=== PATIENT | female | born 1975 | race Caucasian/White ===

== ENCOUNTER 2019-01-26 09:15 | Emergency (ER) | payer OTHER, SELFPAY ==
[2019-01-26 09:18] VITALS: BP 129/83; PULSE 84; RESP 20; TEMP 36.8; O2SAT 100
[2019-01-26] MEDS: Ondansetron O.D.T. 4 MG TABEF PO (10:00)
--- NOTE | 2019-01-26 10:14 | W.ED.GENAD ---
Discharge Plan Disposition Patient Disposition: HOME Condition: Good Discharge Details Chief Complaint: ETOHWithdr Clinical Impression: Drug abuse Primary Care Provider: Abbey Lam ED Provider: Ira Borjas Home Meds and New Rx's Prescriptions: New ondansetron HCl [Zofran] 4 mg tablet 4 mg PO Q8H PRN (Reason: nausea) Qty: 7 RF: 0 No Action ibuprofen 400 MG tablet 400 mg PO DAILY RF: 0 Discharge Instructions Instructions: Abuse of Alcohol (ED), Opioid Dependence (ED) Additional Instructions: Push fluids by mouth. Eat a well-balanced diet. Avoid alcohol or opiates. Use nausea medication as prescribed if needed. Use Benadryl if needed [id number] as directed. Follow-up with Jose Carlos tomorrow morning at 6:30 AM. Follow-up with PCP on the at 1245 in [place]. Return for any worsening or concerns sooner if needed. Please consider attending AA and/or NA meetings Stand Alone Forms: Work Release Medical Decision Making rhythmic gymnastics coach in the ER to evaluate and help assist patient in arranging appropriate detox/specialist follow-up Spoke with skin care therapist who arranged for patient to see May tomorrow at 6:30 AM as well as a PCP appointment on the at 1245 in [place]. Discussed use of benzos versus conservative treatments. She would prefer to avoid benzos at this time. Prescribed nausea medication. Patient has Benadryl at home for withdrawal symptoms if needed. Patient agrees with plan of care. Contracts to avoid drugs and alcohol. Patient encouraged to go to AA or NA meetings locally. HPI General Date/Time Provider Initiated Documentation: 01/26/19 09:32. HPI Narrative: Patient presents for complaints and concern of needing help with both alcohol and opiate dependence. Patient reports she had been clean and sober for approximately 3 years. Patient reports in the last 2 weeks after her boyfriend was detained in correction she has had increase in stress therefore began drinking approximately 1 pint of vodka daily and begin using fentanyl, snorting. Patient reports she has not used fentanyl in the last 5 days but has continued to drink. Patient reports she is very concerned as she is hoping she can get some assistance with detox and would prefer to begin Suboxone treatment. Patient denies any medical concerns or complaints at this time. Denies chest pain, difficulty no shortness of breathing. Denies headaches or dizziness. Denies any recent falls. No associated trauma recently. Patient denies abdominal pain. Mild nausea present. No associated bowel changes. Urinating without guilty. No other concerns or complaints at this time. Related Data Home Medications Medication Instructions Recorded Confirmed ibuprofen 400 mg PO DAILY 09/20/17 01/26/19 ondansetron HCl [Zofran] 4 mg PO Q8H PRN #7 tab 01/26/19 Previous Rx's Medication Instructions Recorded ondansetron HCl [Zofran] 4 mg PO Q8H PRN #7 tab 01/26/19 Allergies Allergy/AdvReac Type Severity Reaction Status Date / Time shellfish derived Allergy Mild Itching Unverified 01/26/19 09:21 tramadol AdvReac Mild Agitation Unverified 01/26/19 09:21 General Stated Complaint: ETOHWithdr STEVE: 3 Review of Systems Review of Systems Narrative: CONSTITUTIONAL: The patient denies fevers, chills. EYES: Denies vision changes, blurry vision, or eye pain. ENT: Denies hearing changes, tinnitus, vertigo, sore throat. CARDIAC: Denies chest pain, SOB. RESPIRATORY: Denies cough, sputum. Denies difficulty breathing. GASTROINTESTINAL: Denies abdominal pain, changes in bowel, vomiting or nausea. GENITOURINARY: Denies dysuria, or frequency of urination. MUSCULOSKELETAL: Denies Joint pain, gait changes. NEUROLOGIC: Denies headaches, Denies focal weakness. Denies numbness. INTEGUMENT: Denies rashes. PSYCHIATRIC: Denies behavior changes. Denies anxiety or depression. ENDOCRINOLOGY: Denies fatigue. PSYCHIATRY: Denies depression, agitation or anxiety. Drug abuse. Alcohol abuse [facility] Surgical History back surgery lumbar disk shaving. bunionectomy L foot. Family History Grandmother No problems noted. Social History Smoking/Tobacco Use Status: Current every day Alcohol Intake: current Alcohol Intake frequency: 3 or more drinks per day Alcohol type: hard liquor Drug use: Daily Substance use type: opiates Details: Fentanyl use daily by pill not prescribed 20mg Do you feel safe at home: Yes Do you feel safe in your relationship?: Yes Exam Narrative Exam Narrative: CONST: Healthy appearing patient, in no acute distress. Well hydrated. Alert and alert. HENMT: Head nomocephalic, normal to inspection. Atraumatic. Hearing grossly normal. EYES: General normal appearance. Alignment normal. Eyelids normal. Conjunctiva normal. NECK: Normal visual inspection. FROM. Trachea midline. No Midline tenderness. CHEST: Normal insepection of the chest. RESP: Normal respiratory effort. Speaking full sentences. No cough. No audible wheezing. No retractions. CARDIO: No JVD. MUSCULOSKELETAL: Normal Gait. FROM of all extremities. SKIN: Normal. Dry. No rashes. NEURO: Alert and awake. Speech clear. PSYCH: Normal affect. Cooperative. Course Vital Signs Vital signs: Vital Signs Temperature 36.8 C 01/26/19 09:18 Pulse 84 01/26/19 09:18 Respiratory Rate 20 01/26/19 09:18 Blood Pressure 129/83 01/26/19 09:18 Pulse Oximetry 100 01/26/19 09:18 Temperature 36.8 C 01/26/19 09:18 Temperature Source Temporal Artery Scan 01/26/19 09:18 Pulse 84 01/26/19 09:18 Respiratory Rate 20 01/26/19 09:18 Respiratory Effort Non-Labored 01/26/19 09:21 Respiratory Pattern Normal 01/26/19 09:21 Blood Pressure 129/83 01/26/19 09:18 Blood Pressure Position Sitting 01/26/19 09:18 Pulse Oximetry 100 01/26/19 09:18 Oxygen Delivery Method Room Air 01/26/19 09:18 Oxygen Flow Rate 0 01/26/19 09:18 Pain Level 0 01/26/19 09:18
[2019-01-26 10:23] LABS: Abs Immature Grans 0.02 k/cumm (0.0-0.09); Absolute Basophil Count 0.05 k/cumm (0.0-0.2); Absolute Eosinophil Count 0.04 k/cumm (0.0-0.7); Absolute Monocyte Count 0.43 k/cumm (0.11-0.7); Absolute Neutrophil Count 2.59 k/cumm (1.2-6.7); Basophils % 1.2; Eosinophils % 0.9; HCT 46.8 % (36.0-46.0); HGB 15.7 g/dL (12.0-15.5); Immature Grans % 0.5; Mean Corp. HGB Concentration 33.5 g/dL (32.0-36.0); Mean Corpuscular Volume 98.3 fL (80-95); Mean Platelet Volume 10.2 fL (8.0-11.0); Monocytes % 10.2; Neutrophils % 61.2; Platelet Count 288 x1000/uL (130-400); RBC 4.76 m/cumm (4.00-5.20); RBC Distribution Width 13.6 % (11.7-14.6); White Blood Cell Count 4.23 k/cumm (4.4-10.8)
[2019-01-26 10:55] LABS: *AMPHETAMINES SCREEN URINE Negative (Negative); *BARBITURATES SCREEN URINE Negative (Negative); *BENZODIAZEPINES SCREEN URINE Negative (Negative); Cannabinoids THC Negative (Negative); Cocaine Screen,Urine Negative (Negative); METHADONE URINE SCREEN Negative (Negative); OPIATES URINE SCREEN Negative (Negative)
[2019-01-26 10:56] LABS: Tricyclic Antidepressants Negative (Negative)
[2019-01-26 10:59] LABS: ALT 242 U/L (14-59); AST 200 U/L (15-37); Albumin 3.9 g/dL (3.4-5.0); Alkaline Phosphatase 105 U/L (46-116); Anion Gap 14.2 mmol/L (3-11); BUN 6 mg/dL (7-18); Bilirubin, Total 0.5 mg/dL (0.2-1.0); CO2 24.8 mmol/L (21.0-32.0); CREATININE 0.57 mg/dL (0.55-1.02); Calcium 8.9 mg/dL (8.5-10.1); Chloride 107 mmol/L (98-107); Glucose 86 mg/dL (70-100); Potassium 3.7 mmol/L (3.5-5.1); Sodium 146 mmol/L (136-145); Total Protein 7.9 g/dL (6.4-8.2)
[2019-01-26 11:03] LABS: HCG Qual (Serum) Negative
[2019-01-26 11:09] LABS: TSH 0.35 uIU/mL (0.36-3.74)
[2019-01-26 13:50] VITALS: BP 118/69; PULSE 81; RESP 16; TEMP 36.6; O2SAT 97
== END 2019-01-26 13:53 | disposition home or self-care (01) ==
PROVIDERS: Emergency Provider Physician Assistant; PCP Nurse Practitioner Family
DX: F10.20 Alcohol dependence, uncomplicated (principal); R11.0 Nausea; F11.20 Opioid dependence, uncomplicated; Z63.0 Problems in relationship with spouse or partner
CPT/HCPCS: 80053; 80307; 99283; 83735; 84443; 84703; 85025

== ENCOUNTER 2019-02-05 14:38 | Outpatient (REF) | payer OTHER, SELFPAY ==
[2019-02-05 21:56] LABS: ALT 123 U/L (14-59); AST 64 U/L (15-37); Albumin 3.4 g/dL (3.4-5.0); Alkaline Phosphatase 97 U/L (46-116); Anion Gap 8.1 mmol/L (3-11); BUN 9 mg/dL (7-18); Bilirubin, Total 0.2 mg/dL (0.2-1.0); CO2 24.9 mmol/L (21.0-32.0); CREATININE 0.67 mg/dL (0.55-1.02); Calcium 8.3 mg/dL (8.5-10.1); Chloride 105 mmol/L (98-107); FREE T4 0.87 ng/dL (0.76-1.46); Glucose 94 mg/dL (70-100); Potassium 4.1 mmol/L (3.5-5.1); Sodium 138 mmol/L (136-145); Total Protein 6.5 g/dL (6.4-8.2)
[2019-02-07 16:47] LABS: T3,Free 4.3 pg/ml (2.8-5.3)
[2019-02-08 11:42] LABS: Hepatitis A Antibody IgM Negative (NEGAT); Hepatitis B Core Antibody Negative (NEGAT); Hepatitis B surface Ag Negative (NEGAT); Hepatitis C Ab w Rflx HCV PCR Negative (NEGAT)
== END 2019-02-05 14:58 ==
LOC: NCHCN 14:38
PROVIDERS: PCP Nurse Practitioner Family; Visit Provider Nurse Practitioner Family
DX: E05.90 Thyrotoxicosis, unspecified without thyrotoxic crisis or storm (principal); R74.8 Abnormal levels of other serum enzymes; K30 Functional dyspepsia; F32.9 Major depressive disorder, single episode, unspecified; F10.21 Alcohol dependence, in remission; E66.9 Obesity, unspecified; D75.89 Other specified diseases of blood and blood-forming organs; F19.21 Other psychoactive substance dependence, in remission
CPT/HCPCS: 80053; 86704; 86709; 86803; 87340; 84439; 84481

== ENCOUNTER 2019-02-16 01:34 | Outpatient (CLI) | payer OTHER, SELFPAY ==
--- NOTE | 2019-02-16 14:58 | DI.US_ITS ---
EXAM: US THYROID CLINICAL HISTORY: HYPERTHYROIDISM, E05.90. TECHNIQUE: Ultrasound performed using standard protocol. COMPARISON: None FINDINGS: The right lobe measures 5.0 x 1.6 x 1.6 cm. The left lobe measures 5.2 x 1.3 x 1.2 cm. Thyroid ech o texture is homogeneous. No cysts or masses are seen. Bilateral anterior cervical lymph are noted which have normal morphology. IMPRESSION: Thyroid ultrasound is within normal limits.
== END 2019-02-16 01:54 ==
PROVIDERS: PCP Nurse Practitioner Family; Visit Provider Nurse Practitioner Family
DX: E05.90 Thyrotoxicosis, unspecified without thyrotoxic crisis or storm (principal); R59.0 Localized enlarged lymph nodes
CPT/HCPCS: 76536

== ENCOUNTER 2019-03-13 10:11 | Emergency (ER) | payer OTHER, SELFPAY ==
[2019-03-13 10:14] VITALS: BP 163/84; PULSE 71; RESP 16; TEMP 36.7; O2SAT 98
--- NOTE | 2019-03-13 10:42 | ED.GENADUL_ITS ---
Discharge Plan Disposition Patient Disposition: HOME Condition: Good Discharge Details Chief Complaint: DentalOral Clinical Impression: Dental infection, Edema Primary Care Provider: Ira Thao ED Provider: Shana Shultz Home Meds and New Rx's Prescriptions: New penicillin V potassium 500 mg tablet 500 mg PO QID 7 Days Qty: 28 RF: 0 Continued ibuprofen 400 MG tablet 400 mg PO DAILY RF: 0 buprenorphine-naloxone [Suboxone] 8-2 mg Film 8 film BUCCAL DAILY RF: 0 Discharge Instructions Instructions: Dental Abscess (ED) Additional Instructions: Encourage hydration. May use Tylenol and/or ibuprofen as needed for discomfort. If you develop increased swelling, discharge, fever/chills or other new/worsening symptoms please seek care urgently once again. Regard to your lower extremity edema, your labs are reassuring today. However, develop chest pain, shortness of breath, difficulty breathing, leg pain, skin changes or other new/worsening symptoms please seek care urgently once again. This may be linked to your recent increase in Suboxone dosing. Please discuss endorsing further with [facility] and your primary care provider. Please keep your upcoming appointment with your primary care physician. Referrals: Ira Thao [Primary Care Provider] - Medical Decision Making Patient is a 44-year-old female presenting today with chief complaint of dental pain and also endorsing bilateral lower extremity edema. On exam, she does have mild area of swelling near the #19 tooth which is also fractured. No area of fluctuance to suggest abscess. Palpated best externally. It seems to be too anterior to the parotid gland. Is tender to palpation. She appears nontoxic. Afebrile. Patient reports she has had infections like this historically but typically not to this area. No exam, patient has an area of swelling correlating with a fractured 19 tooth. Plan to treat the patient with penicillin. Discussed plan with the patient is in agreement. No evidence to suggest an abscess at this time. She is endorsing bilateral lower extremity edema that began after her increase in Suboxone. States that the lower extremity edema has waxed and waned since the increase of Suboxone depending on activity level. I did review up-to-date and found that less than 1% of people can have peripheral edema as a side effect of Suboxone. Unclear if this is dose related. She feels that these things are directly related. However, as her blood pressure is slightly higher than typical, feel that labs are appropriate to evaluate for kidney dysfunction, CHF. I find DVT very unlikely given history and physical exam findings. Patient reports that her sister does have a history of factor V Leiden and she has had testing historically and is been negative for any coagulopathies. No history of DVT. No estrogen or hormone replacement, no recent travel. Again, with the symmetric bilateral lower extremity painless edema, do not feel DVT is likely. I did consider doing a screening d-dimer but I am concerned that this may be falsely elevated with her acute infection. Labs reviewed with no significant abnormality. Liver and kidney function normal. No leukocytosis. No electrolyte abnormality. TSH is normal. Normal albumin. Urine is significant for proteinuria which I discussed with the patient advise she have follow-up with her primary care. Urinalysis is heavily contaminated. Discussed these findings with the patient. Patient will be treated as above with the penicillin for her dental infection. I encouraged elevation and use of CHAN hose for her lower extremity edema that may be linked to her increase in Suboxone dosing. She does have follow-up with the Suboxone clinic on Friday and will discuss the side effects and potentially discussed dosage change. She has an appointment next week with her primary care as well at which time she will discuss these symptoms further. She was given strict return precautions when to seek care urgently once again. All of her questions and concerns were addressed and she is in agreement with this plan. HPI General Mode of arrival: ambulatory . Date/Time Provider Initiated Documentation: 03/13/19 10:42 . Limitations to Documentation: no limitations . Information obtained by: patient and RN notes reviewed . HPI Narrative: Patient is a 44-year-old female history of alcoholism, elevated transaminase levels, hypokalemia presents today with chief complaint of left lower dental infection and lower extremity edema. In regard to the dental infection, she reports that this began yesterday. States that she noted some swelling. Has pain particularly with pressure palpation over this area. Denies any fevers or ch ills. No previous infections to this area. States that she has been able to eat and drink despite this area of swelling and discomfort. Patient does receive regular dental care. In regard to the lower extremity edema, patient reports this began around 02/26/2019 just days after increasing her Suboxone dosing. She feels this likely linked to the Suboxone increasing. States that she increased from 4 to 8. She denies any chest pain, difficulty breathing, shortness of breath. Has not noted any pain in the legs. Reports she has not typically had lower extremity edema historically. No change in urination, denies any flank pain. No other recent change in medications. Patient does report that she has a history of alcoholism and relapsed a few months ago causing a spike in her LFTs. States that she was seen by her primary care approximately 1 month ago and if this was downtrending. Is not had any alcohol since. Denies any illicit drug use. No recent travel. No recent antibiotic use. Related Data Home Medications Medication Instructions Recorded Confirmed ibuprofen 400 mg PO DAILY 09/20/17 01/26/19 buprenorphine-naloxone [Suboxone] 8 film BUCCAL DAILY 03/13/19 03/13/19 penicillin V potassium 500 mg PO QID 7 Days #28 tab 03/13/19 Previous Rx's Medication Instructions Recorded penicillin V potassium 500 mg PO QID 7 Days #28 tab 03/13/19 Allergies Allergy/AdvReac Type Severity Reaction Status Date / Time shellfish derived Allergy Mild Itching Unverified 03/13/19 10:17 tramadol AdvReac Mild Agitation Unverified 03/13/19 10:17 General Stated Complaint: DentalOral STEVE: 4 Review of Systems Constitutional Constitutional: Reports as per HPI, Denies chills, Denies fever(s), Denies headache(s), Denies lethargy and Denies poor appetite Eyes Eyes: Denies change in vision ENT Ears, Nose, Mouth, and Throat: Reports as per HPI, Denies dysphagia, Denies dizziness, Denies headache(s), Denies hoarseness, Denies lip swelling, Denies mouth lesions, Reports mouth pain, Denies nasal congestion, Denies nasal discharge, Denies sore throat, Denies throat swelling and Denies tongue swelling Cardiovascular Cardiovascular: Reports as per HPI, Denies chest pain, Denies chest pain at rest, Denies chest pain with activity, Denies diaphoresis, Denies syncope, Reports pedal edema, Denies irregular heart rhythm, Denies claudication, Denies leg ulcers, Reports leg edema, Denies lightheadedness, Denies radiating jaw, neck or arm pain, Denies palpitations, Denies dyspnea and Denies dyspnea on exertion Respiratory Respiratory: Reports as per HPI, Denies chest congestion, Denies cough, Denies pain on inspiration, Denies pain with cough, Denies dyspnea, Denies dyspnea on exertion and Denies wheezing Gastrointestinal Gastrointestinal: Reports as per HPI, Denies abdominal pain, Denies dysphagia, Denies diarrhea, Denies nausea and Denies vomiting Genitourinary Genitourinary: Reports as per HPI Musculoskeletal Musculoskeletal: Reports as per HPI and Denies back pain Integumentary/Breasts Skin/Breast: Reports as per HPI and Denies rash Neurologic Neurologic: Reports as per HPI, Denies dizziness, Denies syncope and Denies headache(s) Endocrine Endocrine: Denies palpitations Allergic/Immunologic Allergic/Immunologic: Denies lip swelling, Denies throat swelling, Denies tongue swelling and Denies wheezing [facility] Medical History BMI 36.0-36.9,adult Chronic alcoholism since 35yo. Completed [facility] inpatient, relapsed and developed pacreatitis 03/2016. Sober since then. Mental health problem Mood improved with Gabapentin. May change to SSRI. Dr Connors monitors. Tobacco use Surgical History back surgery lumbar disk shaving. bunionectomy L foot. Social History Smoking/Tobacco Use Status: Current every day Alcohol Intake: current Alcohol Intake frequency: 3 or more drinks per day Alcohol type: hard liquor Drug use: Daily Substance use type: opiates Details: Fentanyl use daily by pill not prescribed 20mg Do you feel safe at home: Yes Do you feel safe in your relationship?: Yes Exam Const General: cooperative, healthy appearing, comfortable, no acute distress and well developed Nutritional Appearance: average body habitus and well nourished Orientation: alert, awake and oriented x3 HENMT Head: normal to inspection Ears: hearing grossly normal bilaterally General nose exam: external nose normal Face and sinus: abnormal facial exam (see below) Face images: 1. area of swelling. Consistent with infected tooth. Too anterior for parotid gland involvement. No fluctuance to suggest abscess, feeling is more consistent with soft tissue swelling Mouth: moist mucous membranes Teeth and gingiva: abnormal dentition (broke #19 tooth consistent with area of swelling) Throat: posterior oropharynx normal, tonsils normal and uvula midline Neck Neck: normal visual inspection, full ROM, no lymphadenopathy, no meningeal signs and trachea midline Chest Chest: normal inspection of the chest, normal palpation of entire chest wall and no crepitus Resp Effort & Inspection: normal respiratory effort, able to speak in complete sentences and no respiratory distress Auscultation: clear to auscultation bilaterally, no rales, no rhonchi and no wheezes Cardio Rate: regular rate Rhythm: regular rhythm Heart Sounds: S1 normal and S2 normal GI Inspection: normal to inspection, no edema and non-distended Palpation: soft, no hepatosplenomegaly, not firm, no guarding, not rigid and nontender Auscultation: normal bowel sounds Back/Spine/Pelvis Back: no CVA tenderness Thoracic/Lumbar Spine: thoracic and lumbar spine normal to inspection Skin General skin exam: no rashes or lesions noted Trauma: no lacerations or abrasions Neuro General: alert, awake and oriented x3 Cognition: normal cognition Speech: speech normal Gait: normal gait Extrem General: normal to inspection, normal capillary refill, no calf tenderness, normal gait and edema Laterality: bilateral (equal bilateral 1+ nonpitting edema) Psych Appearance: grossly normal and well kempt Mental Status: mental status grossly normal Speech and Movement: speech and movement normal Course Vital Signs Vital signs: Vital Signs Temperature 36.7 C 03/13/19 10:14 Pulse 71 03/13/19 10:14 Respiratory Rate 16 03/13/19 10:14 Blood Pressure 163/84 H 03/13/19 10:14 Pulse Oximetry 98 03/13/19 10:14 Temperature 36.7 C 03/13/19 10:14 Temperature Source Skin 03/13/19 10:14 Pulse 71 03/13/19 10:14 Respiratory Rate 16 03/13/19 10:14 Respiratory Effort Non-Labored 03/13/19 10:18 Blood Pressure 163/84 H 03/13/19 10:14 Pulse Oximetry 98 03/13/19 10:14 Oxygen Delivery Method Room Air 03/13/19 10:14 Oxygen Flow Rate 0 03/13/19 10:14 Pain Level 2 03/13/19 10:18
[2019-03-13 11:21] LABS: Abs Immature Grans 0.01 k/cumm (0.0-0.09); Absolute Basophil Count 0.03 k/cumm (0.0-0.2); Absolute Lymphocyte Count 2.13 k/cumm (1.2-3.4); Absolute Monocyte Count 0.59 k/cumm (0.11-0.7); Absolute Neutrophil Count 3.17 k/cumm (1.2-6.7); Basophils % 0.5; Eosinophils % 4.8; HGB 13.4 g/dL (12.0-15.5); Immature Grans % 0.2; Lymphocytes % 34.2; Mean Corp. HGB Concentration 33.5 g/dL (32.0-36.0); Mean Corpuscular Hemoglobin 32.8 pg (27.0-33.0); Mean Corpuscular Volume 97.8 fL (80-95); Mean Platelet Volume 9.7 fL (8.0-11.0); Monocytes % 9.5; Neutrophils % 50.8; Platelet Count 311 x1000/uL (130-400); RBC 4.09 m/cumm (4.00-5.20); White Blood Cell Count 6.23 k/cumm (4.4-10.8)
[2019-03-13 11:32] LABS: Bilirubin Negative (Negative); Blood Negative (Negative); Clarity Clear (Clear); Glucose Negative (Negative); Ketones Negative (Negative); Leukocyte Esterase Negative (Negative); Nitrite Negative (Negative); Specific Gravity 1.015 (1.005-1.025); Urobilinogen 0.2 EU/dL (Up TO 0.2); pH 8.5 (5-8)
[2019-03-13 11:41] LABS: ALT 21 U/L (14-59); AST 20 U/L (15-37); Albumin 3.7 g/dL (3.4-5.0); Alkaline Phosphatase 94 U/L (46-116); Anion Gap 4.9 mmol/L (3-11); BUN 7 mg/dL (7-18); Bilirubin, Total 0.4 mg/dL (0.2-1.0); CO2 29.1 mmol/L (21.0-32.0); Chloride 102 mmol/L (98-107); Glucose 87 mg/dL (70-100); NT-proBNP 84 pg/mL; Potassium 3.9 mmol/L (3.5-5.1); Sodium 136 mmol/L (136-145); TSH (W/Ref FT4) 1.45 uIU/mL (0.36-3.74)
[2019-03-13 11:45] LABS: Bacteria Few HPF (Negative); Casts Negative LPF (Negative); Crystals Negative HPF (Negative); Epithelial Cells Many HPF (Negative); Mucus Negative (Negative); Other Cells Moderate Renal (Negative); WBC 0-2 HPF (0-5)
[2019-03-13 11:46] LABS: C & S Indicated? No/Sq. Contamination
[2019-03-13 12:34] VITALS: BP 148/86; PULSE 78; RESP 16; O2SAT 98
[2019-03-13] MEDS: Penicillin V POTASSIUM 500 MG TAB PO (12:43)
== END 2019-03-13 11:50 | disposition home or self-care (01) ==
PROVIDERS: Emergency Provider Physician Assistant; PCP Nurse Practitioner Family
DX: K04.7 Periapical abscess without sinus (principal); R60.0 Localized edema
CPT/HCPCS: 36415; 80053; 99283; 81003; 81015; 83880; 84443; 85025

== ENCOUNTER 2019-06-07 15:18 | Outpatient (REF) | payer OTHER, SELFPAY ==
--- NOTE | 2019-06-07 14:45 | PAPFT_PTH ---
PATIENT: Virginia Pisano LOC: [facility] U#:[id number] AGE/SX: 44/F ROOM: RE06/07/[address]: Ira Thao : 1975 BED: DIS: 06/07/2019 SPEC #: [id number] RECD: 06/08/19 12:48 STATUS: RUKHSANA REUnique #: [id number] STAN: 06/07/19 14:[address]: Ira Thao DEPT: [facility] Cytology RECD BY: Ellen Wilson Tissues: 1 - CX/ENDOCX FOR PAP SMEARS Procedures: PAP THIN PREP/UVM Screening HPV DNA PROBE Comments: [id number]
[2019-06-07 21:56] LABS: Abs Immature Grans 0.01 k/cumm (0.0-0.09); Absolute Basophil Count 0.03 k/cumm (0.0-0.2); Absolute Eosinophil Count 0.22 k/cumm (0.0-0.7); Absolute Lymphocyte Count 1.92 k/cumm (1.2-3.4); Absolute Monocyte Count 0.63 k/cumm (0.11-0.7); Absolute Neutrophil Count 4.37 k/cumm (1.2-6.7); Basophils % 0.4; Eosinophils % 3.1; HCT 38.9 % (36.0-46.0); HGB 13.1 g/dL (12.0-15.5); Immature Grans % 0.1 %; Lymphocytes % 26.7; Mean Corp. HGB Concentration 33.7 g/dL (32.0-36.0); Mean Corpuscular Hemoglobin 32.3 pg (27.0-33.0); Mean Platelet Volume 9.6 fL (8.0-11.0); Monocytes % 8.8; Neutrophils % 60.9; Platelet Count 409 x1000/uL (130-400); RBC 4.05 m/cumm (4.00-5.20); RBC Distribution Width 13.6 % (11.7-14.6); White Blood Cell Count 7.18 k/cumm (4.4-10.8)
[2019-06-07 22:37] LABS: Vitamin D 25 Total 5.5 ng/ml (30-100)
[2019-06-07 22:41] LABS: ALT 20 U/L (14-59); AST 28 U/L (15-37); Albumin 3.7 g/dL (3.4-5.0); Alkaline Phosphatase 126 U/L (46-116); BUN 10 mg/dL (7-18); Bilirubin, Total 0.3 mg/dL (0.2-1.0); CREATININE 0.75 mg/dL (0.55-1.02); Calcium 9.1 mg/dL (8.5-10.1); Calculated LDL 101 mg/dL (<100); Chloride 99 mmol/L (98-107); Cholesterol 205 mg/dL (<200); Glucose 93 mg/dL (74-106); HDL Cholesterol 79 mg/dL (40-60); Magnesium 1.9 mg/dL (1.8-2.4); Potassium 4.1 mmol/L (3.5-5.1); Sodium 138 mmol/L (136-145); Total Protein 7.3 g/dL (6.4-8.2); Triglyceride 125 mg/dL (<150); Vitamin B12 89 pg/mL (193-986)
== END 2019-06-07 15:38 ==
LOC: NCHCN 15:18
PROVIDERS: PCP Nurse Practitioner Family; Visit Provider Nurse Practitioner Family
DX: Z00.00 Encounter for general adult medical examination without abnormal findings (principal); L30.4 Erythema intertrigo; R20.2 Paresthesia of skin; R06.83 Snoring; N39.3 Stress incontinence (female) (male); K59.00 Constipation, unspecified; R60.0 Localized edema; Z12.4 Encounter for screening for malignant neoplasm of cervix; Z11.51 Encounter for screening for human papillomavirus (HPV); Z01.419 Encounter for gynecological examination (general) (routine) without abnormal findings; Z80.3 Family history of malignant neoplasm of breast
CPT/HCPCS: 80053; 80061; 82306; 88142; 82607; 83735; 84443; 85025; 87624

== ENCOUNTER 2019-08-24 17:20 | Outpatient (REF) | payer OTHER, SELFPAY ==
[2019-08-24 20:11] LABS: ALT 34 U/L (14-59); AST 35 U/L (15-37); Albumin 3.8 g/dL (3.4-5.0); Alkaline Phosphatase 126 U/L (46-116); Bilirubin, Total 0.3 mg/dL (0.2-1.0); GGT 92 U/L (5-55); Total Protein 7.7 g/dL (6.4-8.2); Vitamin B12 173 pg/mL (193-986)
[2019-08-24 20:27] LABS: Bilirubin, Direct 0.09 mg/dL (0.00-0.20)
[2019-08-26 04:42] LABS: Vitamin D 25 Total 28.5 ng/ml (30-100)
== END 2019-08-24 17:40 ==
LOC: NCHCN 17:20
PROVIDERS: PCP Nurse Practitioner Family; Visit Provider Nurse Practitioner Family
DX: E55.9 Vitamin D deficiency, unspecified (principal); R53.83 Other fatigue; E53.8 Deficiency of other specified B group vitamins; R20.2 Paresthesia of skin; R60.0 Localized edema; N39.3 Stress incontinence (female) (male); F19.21 Other psychoactive substance dependence, in remission; K30 Functional dyspepsia
CPT/HCPCS: 80076; 82306; 82607; 82977

== ENCOUNTER 2020-05-03 03:02 | Outpatient (CLI) | payer OTHER, SELFPAY ==
[2020-05-04 18:47] LABS: COVID-19 RT-PCR UVMMC Result Negative (Negative)
== END 2020-05-03 03:22 ==
PROVIDERS: PCP Nurse Practitioner Family; Visit Provider Nurse Practitioner
DX: Z11.59 Encounter for screening for other viral diseases (principal); Z01.818 Encounter for other preprocedural examination
CPT/HCPCS: U0003

== ENCOUNTER 2020-05-27 07:39 | Emergency (ER) | payer OTHER, SELFPAY ==
[2020-05-27 07:43] VITALS: BP 136/73; PULSE 95; RESP 18; TEMP 36.4; O2SAT 98
--- NOTE | 2020-05-27 08:12 | W.ED.GENAD ---
Discharge Plan Disposition Patient Disposition: HOME Condition: Stable Discharge Details Clinical Impression: Laceration of finger of right hand with damage to nail Primary Care Provider: Ira Thao ED Provider: Virgil Quiles Home Meds and New Rx's Prescriptions: Continued ibuprofen 400 MG tablet 400 mg PO DAILY RF: 0 buprenorphine-naloxone [Suboxone] 8-2 mg Film 8 film BUCCAL DAILY RF: 0 cyanocobalamin (vitamin B-12) 1,000 mcg/mL solution 1,000 mcg Q1-2M RF: 0 omeprazole 20 mg capsule,delayed release(DR/EC) 20 mg PO DAILY RF: 0 cholecalciferol (vitamin D3) 25 mcg (1,000 unit) tablet 1,000 mcg PO DAILY RF: 0 hydrochlorothiazide 12.5 mg tablet 12.5 mg PO DAILY RF: 0 Discharge Instructions Instructions: Finger Laceration (ED), Skin Adhesive Care (ED) Additional Instructions: Please keep wound dressing clean, dry and intact over the next 2 days. You may change sterile dressing daily thereafter. Monitor for signs of infection including increased warmth, swelling, discharge, redness or pain. Referrals: Ira Thao [Primary Care Provider] - Medical Decision Making 45-year-old female here with laceration to right first digit distal nail bed. Wound extends through the nail and into superficial nailbed. Wound was cleansed with copious sterile saline. Wound closed with skin adhesive. Hemostasis was achieved. Distal nail fragment was left intact to allow for splinting and healing. Sterile dressing applied. Usual customary discharge instructions were reviewed with patient. Reviewed medical records from [facility] and tetanus is up-to-date as of 2019. HPI General Mode of arrival: ambulatory. Date/Time Provider Initiated Documentation: 05/27/20 08:12. Limitations to Documentation: no limitations. Information obtained by: patient. HPI Narrative: 45-year-old female presents with chief complaint of finger laceration. Patient sustained laceration to her right distal thumb just prior to arrival while cutting vegetables with a sharp knife. Wound was initially bleeding. Bleeding is stopped. Wound extends through the distal nail. Wound is moderate with no modifiers. No associated numbness or weakness. Tetanus is up-to-date. Related Data Home Medications Medication Instructions Recorded Confirmed ibuprofen 400 mg PO DAILY 09/20/17 05/27/20 buprenorphine-naloxone [Suboxone] 8 film BUCCAL DAILY 03/13/19 05/27/20 cholecalciferol (vitamin D3) 1,000 mcg PO DAILY 05/27/20 05/27/20 cyanocobalamin (vitamin B-12) 1,000 mcg Q1-2M 05/27/20 05/27/20 hydrochlorothiazide 12.5 mg PO DAILY 05/27/20 05/27/20 omeprazole 20 mg PO DAILY 05/27/20 05/27/20 Allergies Allergy/AdvReac Type Severity Reaction Status Date / Time shellfish derived Allergy Mild Itching Unverified 05/27/20 07:46 tramadol AdvReac Mild Agitation Unverified 05/27/20 07:46 General Stated Complaint: Laceration STEVE: 4 Review of Systems Integumentary/Breasts Skin/Breast: Reports as per HPI Neurologic Neurologic: Reports as per HPI [facility] Medical History BMI 36.0-36.9,adult Chronic alcoholism since 35yo. Completed [facility] inpatient, relapsed and developed pacreatitis 03/2016. Sober since then. Mental health problem Mood improved with Gabapentin. May change to SSRI. Dr Connors monitors. Tobacco use Surgical History back surgery lumbar disk shaving. bunionectomy L foot. Family History Grandmother No problems noted. Social History Smoking/Tobacco Use Status: Current every day Smoking risk assessment performed?: Yes Alcohol Intake: current Alcohol Intake frequency: 3 or more drinks per day Alcohol type: hard liquor Drug use: Daily Substance use type: opiates Details: Fentanyl use daily by pill not prescribed 20mg Do you feel safe at home: Yes Do you feel safe in your relationship?: Yes Exam Const General: cooperative and no acute distress Neuro General: patient alert and patient awake Extrem Right upper extremity: hand Details: normal capillary refill, neuromotor exam normal, neurosensory exam normal, tendon exam normal, normal ROM of fingers, no swelling and laceration (thumb, 1cm distal nail into nail bed, oozing) Course Vital Signs Vital signs: Vital Signs Temperature 36.4 C L 05/27/20 07:43 Pulse 95 H 05/27/20 07:43 Respiratory Rate 18 05/27/20 07:43 Blood Pressure 136/73 05/27/20 07:43 Pulse Oximetry 98 05/27/20 07:43 Temperature 36.4 C L 05/27/20 07:43 Temperature Source Temporal Artery Scan 05/27/20 07:43 Pulse 95 H 05/27/20 07:43 Respiratory Rate 18 05/27/20 07:43 Respiratory Effort Non-Labored 05/27/20 07:51 Blood Pressure 136/73 05/27/20 07:43 Blood Pressure Position Sitting 05/27/20 07:43 Pulse Oximetry 98 05/27/20 07:43 Oxygen Delivery Method Room Air 05/27/20 07:43 Oxygen Flow Rate 0 05/27/20 07:43 Pain Level 3 05/27/20 08:04 Procedures Laceration Laceration 1: Site: hand Size (cm): 1 Description: linear Depth: simple, single layer Pre-repair: irrigated extensively Skin layer closed with: other (skin adhesive)
== END 2020-05-27 08:34 | disposition home or self-care (01) ==
PROVIDERS: Emergency Provider Student in an Organized Health Care Education/Training Program; PCP Nurse Practitioner Family
DX: S61.111A Laceration without foreign body of right thumb with damage to nail, initial encounter (principal); W26.0XXA Contact with knife, initial encounter; Y93.G1 Activity, food preparation and clean up; Y99.0 Civilian activity done for income or pay
CPT/HCPCS: 12001

== ENCOUNTER 2020-06-13 22:44 | Outpatient (REF) | payer OTHER, SELFPAY ==
[2020-06-13 22:21] LABS: Abs Immature Grans 0.01 10^3/uL (0.0-0.06); Absolute Basophil Count 0.05 10^3/uL (0.0-0.2); Absolute Eosinophil Count 0.14 10^3/uL (0.0-0.7); Absolute Monocyte Count 0.42 10^3/uL (0.1-0.8); Absolute Neutrophil Count 3.75 10^3/uL (1.2-6.7); Basophils % 0.9; Eosinophils % 2.5; HCT 40.1 % (36.0-46.0); HGB 13.9 g/dL (11.2-15.7); Immature Grans % 0.2; Lymphocytes % 22.9; MCH 38.7 pg (27.0-33.0); MCHC 34.7 % (32.0-36.0); MPV 10.7 fL (8.0-11.0); Monocytes % 7.4; Neutrophils % 66.1; Nucleated RBC 0 %; Platelet Count 256 10^3/uL (130-400); RBC 3.59 10^6/uL (3.93-5.22); RDW 11.9 % (11.7-14.6); WBC 5.67 10^3/uL (4.4-10.8)
[2020-06-13 22:24] LABS: MCV 111.7 fL (80-95)
[2020-06-13 22:31] LABS: Macrocytosis 2+
[2020-06-14 01:00] LABS: ALT 68 U/L (14-59); AST 97 U/L (15-37); Albumin 3.6 g/dL (3.4-5.0); Alkaline Phosphatase 171 U/L (46-116); Anion Gap 11.8 mmol/L (3-11); BUN 10 mg/dL (7-18); Bilirubin, Total 0.8 mg/dL (0.2-1.0); CO2 25.2 mmol/L (21.0-32.0); CREATININE 0.8 mg/dL (0.55-1.02); Calcium 9.5 mg/dL (8.5-10.1); Chloride 97 mmol/L (98-107); Glucose 95 mg/dL (74-106); Magnesium 1.8 mg/dL (1.8-2.4); Potassium 3.7 mmol/L (3.5-5.1); Sodium 134 mmol/L (136-145); TSH (W/Ref FT4) 0.68 uIU/mL (0.36-3.74); Total Protein 7.6 g/dL (6.4-8.2); Vitamin B12 385 pg/mL (193-986)
[2020-06-15 04:36] LABS: Vitamin D 25 Total 34.5 ng/ml (30-100)
== END 2020-06-13 22:45 | disposition home or self-care (01) ==
LOC: NCHCN 22:44
PROVIDERS: PCP Nurse Practitioner Family; Visit Provider Nurse Practitioner Family
DX: E05.90 Thyrotoxicosis, unspecified without thyrotoxic crisis or storm (principal); E55.9 Vitamin D deficiency, unspecified; E53.8 Deficiency of other specified B group vitamins; F11.20 Opioid dependence, uncomplicated; M25.561 Pain in right knee; R60.0 Localized edema; N39.3 Stress incontinence (female) (male); G47.33 Obstructive sleep apnea (adult) (pediatric)
CPT/HCPCS: 80053; 82306; 82607; 83735; 84443; 85025

== ENCOUNTER 2020-10-31 16:56 | Outpatient (REF) | payer OTHER, SELFPAY ==
[2020-10-31 21:44] LABS: Abs Immature Grans 0.02 10^3/uL (0.0-0.06); Absolute Basophil Count 0.04 10^3/uL (0.0-0.2); Absolute Eosinophil Count 0.02 10^3/uL (0.0-0.7); Absolute Lymphocyte Count 0.81 10^3/uL (1.2-3.4); Absolute Monocyte Count 0.48 10^3/uL (0.1-0.8); Absolute Neutrophil Count 7.04 10^3/uL (1.2-6.7); Basophils % 0.5; Eosinophils % 0.2; HCT 41.7 % (36.0-46.0); HGB 13.9 g/dL (11.2-15.7); Immature Grans % 0.2; Lymphocytes % 9.6; MCH 34.2 pg (27.0-33.0); MCHC 33.3 % (32.0-36.0); MCV 102.5 fL (80-95); MPV 11.4 fL (8.0-11.0); Monocytes % 5.7; Neutrophils % 83.8; Nucleated RBC 0 %; Platelet Count 260 10^3/uL (130-400); RBC 4.07 10^6/uL (3.93-5.22); RDW 13.3 % (11.7-14.6); RDW-SD 50.7 fL; WBC 8.41 10^3/uL (4.4-10.8)
[2020-10-31 23:02] LABS: ALT 122 U/L (14-59); AST 266 U/L (15-37); Albumin 3.6 g/dL (3.4-5.0); Alkaline Phosphatase 227 U/L (46-116); Anion Gap 9.7 mmol/L (3-11); BUN 4 mg/dL (7-18); Bilirubin, Total 0.6 mg/dL (0.2-1.0); CO2 31.3 mmol/L (21.0-32.0); CREATININE 0.8 mg/dL (0.55-1.02); Calcium 9.5 mg/dL (8.5-10.1); Chloride 97 mmol/L (98-107); Folate 3.5 ng/mL (8.6-20.0); GGT 647 U/L (5-55); Glucose 97 mg/dL (74-106); Potassium 3.6 mmol/L (3.5-5.1); Sodium 138 mmol/L (136-145); TSH 0.46 uIU/mL (0.36-3.74); Total Protein 7.9 g/dL (6.4-8.2); Vitamin B12 547 pg/mL (193-986)
== END 2020-10-31 16:57 | disposition home or self-care (01) ==
LOC: NCHCN 16:56
PROVIDERS: PCP Nurse Practitioner Family; Visit Provider Nurse Practitioner Family
DX: F32.9 Major depressive disorder, single episode, unspecified (principal); F19.21 Other psychoactive substance dependence, in remission; E53.8 Deficiency of other specified B group vitamins; E66.9 Obesity, unspecified; M25.561 Pain in right knee; F11.20 Opioid dependence, uncomplicated
CPT/HCPCS: 80053; 82607; 82746; 82977; 84443; 85025

== ENCOUNTER 2021-07-02 02:25 | Outpatient (CLI) | payer OTHER, SELFPAY ==
[2021-07-02 11:34] LABS: Source Nasal/Nares
[2021-07-02 17:58] LABS: COVID-19 PCR Negative (Negative)
== END 2021-07-02 02:26 | disposition home or self-care (01) ==
LOC: LBO 02:25
PROVIDERS: PCP Nurse Practitioner Family; Visit Provider Surgery
DX: Z20.822 Contact with and (suspected) exposure to COVID-19 (principal); Z01.818 Encounter for other preprocedural examination
CPT/HCPCS: 87635

== ENCOUNTER 2021-07-03 07:15 | Day surgery (SDC) | payer OTHER, SELFPAY ==
[2021-07-03 07:20] VITALS: BP 141/69; PULSE 89; RESP 18; TEMP 37; O2SAT 94
[2021-07-03] MEDS: Lactated Ringers 1,000 ML 80 ML IV (07:47)
--- NOTE | 2021-07-03 07:56 | ANES.PREOP_ITS ---
General Info Date of Service Date Performed: 07/03/21 Height: 5 ft 4 in Weight: 122 kg Body Mass Index (BMI): 46.1 Surgical Procedure: Operation Date: 07/03/21 08:20 Proposed Procedure Side Surgeon ruben Bell, Meds Allergies and Home Medications Allergies Allergy/AdvReac Type Severity Reaction Status Date / Time shellfish derived Allergy Mild Itching Verified 07/03/21 07:29 tramadol AdvReac Mild Agitation Verified 07/03/21 07:29 Home Medication Medication Instructions Recorded ibuprofen 400 mg tablet 400 mg PO DAILY 09/20/17 buprenorphine 8 mg-naloxone 2 mg 8 film BUCCAL DAILY 03/13/19 sublingual film (Suboxone) cholecalciferol (vitamin D3) 25 1,000 mcg PO DAILY 05/27/20 mcg (1,000 unit) tablet cyanocobalamin (vitamin B-12) 1,000 mcg Q1-2M 05/27/20 1,000 mcg/mL injection solution hydrochlorothiazide 12.5 mg tablet 12.5 mg PO DAILY 05/27/20 omeprazole 20 mg capsule,delayed 20 mg PO DAILY 05/27/20 release acetaminophen 500 mg tablet 1,000 mg PO Q6H PRN tab 12/21/20 (Tylenol Extra Strength) folic acid 1 mg tablet 1 mg PO DAILY 12/21/20 multivitamin 1 tab PO DAILY 12/21/20 Current Visit Medications: Current Medications Generic Name Dose Route Start Last Admin Trade Name Freq PRN Reason Stop Dose Admin Ringer's Solution 1,000 mls @ 80 mls/hr 07/03/21 06:00 07/03/21 07:47 IV 08/01/21 23:59 80 mls/hr INFUSION GHADA Administration IV Miscellaneous Supplies 1 each 07/03/21 06:00 Iv Access IV 08/01/21 23:59 DIRECTED GHADA Sodium Chloride 0 ml 07/03/21 06:00 Normal Saline Flush 10 Ml Syr IV 08/01/21 23:59 PRN PRN Sodium Chloride 0 ml 07/03/21 06:00 Normal Saline 10 Ml Vial IJ 08/01/21 23:59 DIRECTED PRN Sterile Water 0 ml 07/03/21 06:00 Water,Injection,Sterile 10 Ml Vial IJ 08/01/21 23:59 DIRECTED PRN PFSH Active Problems Active Problems: Problem Status Onset Code Smoker F17.200 Alcoholism F10.20 Medical History Medical History Anxiety Asthma BMI 36.0-36.9,adult Chronic alcoholism since 35yo. Completed [facility] inpatient, relapsed and developed pacreatitis 03/2016. Sober since then. Constipation Depression Dyspepsia Dysphonia Elevated liver enzymes Elevated transaminase level History of substance abuse Hyperthyroidism Hypokalemia Macrocytosis Mental health problem Mood improved with Gabapentin. May change to SSRI. Dr Connors monitors. Obesity CALEB (obstructive sleep apnea) Pancreatitis Pedal edema Post-nasal drip Stress incontinence Tobacco use Vitamin D deficiency Surgical History Surgical History back surgery lumbar disk shaving. bunionectomy L foot. Tobacco Smoking/Tobacco Use Status: Current every day Tobacco Type: cigarettes Alcohol Alcohol Intake: former Substance Use Substance use: Current Sobriety Substance use type: opiates Details: 2 years since use Vital Signs and Lab Results Vital Signs Most Recent Vital Signs in EMR: Most Recent Vital Signs Temp Pulse Resp BP Pulse Ox 37 C 89 18 141/69 H 94 07/03/21 07:20 07/03/21 07:20 07/03/21 07:20 07/03/21 07:20 07/03/21 07:20 Lab Results Blood Type / Crossmatch: No Data to Display Complete Blood Count: 2 No Data to Display Complete Metabolic Panel: No Data to Display Liver Function Panel: No Data to Display Coagulation Panel: No Data to Display Cardiac Panel: No Data to Display Arterial Blood Gas: No Data to Display Venous Blood Gas: No Data to Display Pancreas Panel: No Data to Display Thyroid Panel: No Data to Display Infectious Disease: Coronavirus (COVID-19)(PCR) Negative (Negative) 07/02/21 10:31 07/02/21 Coronavirus 2019 Source Nasal/Nares 07/02/21 10:31 07/02/21 Blood Cultures: No Data to Display Toxicology Panel: No Data to Display Panel: No Data to Display Anesthesia Assessment and Plan Anesthesia History Personal History: No History of Anesthesia Complications Family History: No Family History of Anesthesia Complications Exercise Tolerance Exercise Tolerance: Metabolic Equivalents>4 Pertinent Negatives Pertinent Negatives: No Symptoms of GERD, No Major Cardiovascular Symptoms or Complaints, No Major Pulmonary Symptoms or Complaints, No History of CVA/TIA and Other (Smoker, chronic cough) Cardiac & Pulmonary Exam Cardiac Exam: Normal S1/S2 Heart Sounds Pulmonary Exam: Clear Bilateral Breath Sounds Implantable Cardiac Device Does patient have a Pacemaker or an ICD?: No Airway Exam Known Difficult Airway: No Mallampati Class: 2 Mouth Opening: Normal (> 3cm) Thyromental Distance: Greater than 3 cm Neck Range of Motion: Full ROM Neck Circumference: Normal Teeth Condition: Normal Dentition ASA Classification ASA Score: ASA 3 Emergency Case?: No NPO Status NPO Status: NPO Clears >2 hours, Solids >8 hours Status Status: Not Relevant due to Medical History Anesthesia Plan Resuscitation Status: Full Code Anesthesia Technique: General Anesthesia Airway Planned: Natural Airway Monitors Used: Standard Monitors
[2021-07-03 08:01] VITALS: BMI 46.1
[2021-07-03 08:42] VITALS: BP 111/68; PULSE 97; RESP 18; TEMP 36.8; O2SAT 99
--- NOTE | 2021-07-03 08:45 | COLE_ITS ---
Colonoscopy Report Date of procedure: 07/03/21 Pre-op diagnosis general: CRC screening Post-op diagnosis procedure note: other (diverticula ) Surgeon: Connie Bell Anesthesia Type: General:No Airway Estimated blood loss (mL): 0 Pathology: none sent Complications: None Disposition: same day Prep: Miralax/Dulcolax Retraction Time: 7mins Procedure Description: After informed consent was obtained the patient was taken to the procedure room and placed in a left decubitous position. Monitors were applied and a time out was done. The patients name, date of , procedure, allergies to medications and metal in their body was reviewed. The patient was then sedated. Once sedated and comfortable a rectal exam was done. External exam was normal. Internal exam revealed a normal sphincter tone and no palpable masses. The scope was then introduced and retrofelexed. No internal hemorrhoids were identified. The scope was then advanced to the cecum w/out difficulty. The TI and appendiceal orifice were identified. The prep was BBPS-3 all segments for a total of 9. The scope was then slowly retracted over 7 minutes back into the rectum. Patient did have a significant airway reaction during withdrawal. This may compromised the exam. She does have minor diverticular disease confined to the sigmoid colon. There is no signs of active bleeding or infection. The mucosa is pink and healthy throughout the entirety of the colon.. There are no polyps or AVMs visualized today. Scope was removed and the patient was woken up and taken back to Same day surgery in stable condition. Patient has significant reactive airway disease, and coupled with her history of smoking and obesity, is not a good candidate for colonoscopy. Consider cologuard for her next screening procedure. The patient tolerated the procedure well and there were no immediate complica tions. Follow up: The patient should follow up in 10 years unless they develop changes in bowel habits or other new gastrointestinal complaints.
--- NOTE | 2021-07-03 08:50 | W.ANESPOSTOP ---
Postoperative Evaluation Date, Time and Location Date Performed: 07/03/21 Time Performed: 08:50 Patient Location: Day Surgery Unit Vital Signs Most Recent Imported Vital Signs: Most Recent Vital Signs Temp Pulse Resp BP Pulse Ox 36.8 C 97 H 18 111/68 99 07/03/21 08:42 07/03/21 08:42 07/03/21 08:42 07/03/21 08:42 07/03/21 08:42 Pain Score Most Recent Pain Score: Most Recent Pain Score Pain Level 0 07/03/21 08:42 Assessment Mental Status: Awake (Alert & Oriented to Patient Baseline) Airway and Respiratory Function: Patent airway with normal (patient baseline) respiratory exam Cardiovascular Function: Hemodynamically Stable Hydration Status: Adequately Hydrated Nausea & Vomiting: No Nausea or Vomiting Pain: Pt. Denies Any Pain Peripheral Nerve Block: Patient did not receive a nerve block Postoperative Comments:: Cough still present but lessening, O2 sats 98%
--- NOTE | 2021-07-03 08:52 | PDOC.DSDIS_ITS ---
Discharge Plan Disposition Patient Disposition: HOME Condition: Good Discharge Details Reason For Visit: colon scope Attending Provider: Connie Bell Primary Care Provider: Ira Thao Home Meds and New Rx's Prescriptions: No Action multivitamin Tablet 1 tab PO DAILY 0RF folic acid 1 mg tablet 1 mg PO DAILY 0RF acetaminophen [Tylenol Extra Strength] 500 mg tablet 1,000 mg PO Q6H PRN0RF ibuprofen 400 MG tablet 400 mg PO DAILY 0RF buprenorphine-naloxone [Suboxone] 8-2 mg Film 8 film BUCCAL DAILY 0RF cyanocobalamin (vitamin B-12) 1,000 mcg/mL solution 1,000 mcg Q1-2M 0RF omeprazole 20 mg capsule,delayed release(DR/EC) 20 mg PO DAILY 0RF cholecalciferol (vitamin D3) 25 mcg (1,000 unit) tablet 1,000 mcg PO DAILY 0RF Label Comments: TAKE ONE TABLET BY MOUTH TWICE A DAY hydrochlorothiazide 12.5 mg tablet 12.5 mg PO DAILY 0RF Discharge Instructions Additional Instructions: DSU Colonoscopy Post- Op Instructions Instructions for Everyone who is given Anesthesia: For your safety, please do the following for the next twenty-four (24) hours: *Do Not operate a motor vehicle (car, truck, motorcycle, etc.) *Do Not drink alcoholic beverages or use any recreational drugs for the first 24 hours or while taking pain medications. The medications in your body may have a reaction that can be dangerous. *Do Not make any important decisions or sign any important papers. Findings:Normal Follow up:repeat in 10 yrs time 1. No lifting over 20 pounds or strenuous activity for the first 24 hours after your procedure. After 24 hours there are no restrictions on your activity but you may feel fatigued for a few days. 2. After you arrive home you may have a light meal and return to your normal diet as you can tolerate it without feeling sick to your stomach. 3. You may have a bloated, gaseous feeling in your belly (abdomen) after a colonoscopy. Passing gas and belching will help. Walking or lying down on your left side with your knees flexed may relieve the discomfort. Call the office at [phone] (Office) or [phone] (Hospital) right away if you notice any of the following: a.Vomiting of blood or ?coffee ground stools?. b.Rectal bleeding 1Tbsp, blood clots or continuous bleeding. c.Severe belly (abdominal) pain. d.A hard distended belly (abdomen) and an inability to pass gas. 4. Please don?t expect to have a normal BM (bowel movement) for 2-3 days after your procedure. 5. If there are questions regarding the findings of your procedure, please contact your doctor 6. If you are unable to contact your doctor with a problem, contact the hospital at [phone]. 7. Continue all your regular medications unless directed otherwise. I understand the above instructions and have no questions. Signature of Patient or Adult Escort Name of Responsible Adult Escort Signature of Nurse Date/Time Activity:: see above Diet:: see above
[2021-07-03 09:15] VITALS: BP 109/58; PULSE 83; RESP 18; TEMP 37; O2SAT 97
== END 2021-07-03 09:30 | disposition home or self-care (01) ==
PROVIDERS: PCP Nurse Practitioner Family; Visit Provider Surgery
PROC: 0DJD8ZZ Inspection of Lower Intestinal Tract, Via Natural or Artificial Opening Endoscopic (ICD-10-PCS; CPT 45378; principal; 2021-07-03 08:15)
DX: Z12.11 Encounter for screening for malignant neoplasm of colon (principal); K57.30 Diverticulosis of large intestine without perforation or abscess without bleeding; J45.909 Unspecified asthma, uncomplicated; F17.210 Nicotine dependence, cigarettes, uncomplicated; E66.9 Obesity, unspecified; Z68.42 Body mass index [BMI] 45.0-49.9, adult
CPT/HCPCS: 45378; J2001; J2405

== ENCOUNTER 2021-07-25 01:32 | Outpatient (CLI) | payer OTHER, SELFPAY ==
--- NOTE | 2021-07-25 | DI.MAMMO_ITS ---
Exam(s) MAMMO SCREENING EXAM: MAMMO SCREENING CLINICAL HISTORY: SCREENING MAMMO FOR BREAST CANCER Z12.31, FAM HX BREAST CANCER Z80.3. TECHNIQUE: Bilateral full field digital CC and MLO mammographic images were obtained with 3D tomosyn thesis and utilizing computer aided detection (CAD). COMPARISON: Prior mammograms were reviewed, the most recent being April 2016. FINDINGS: There are no CAD designations. There are no new spiculated masses nor malignant appearing microcalcification groups. There is no significant architectural distortion nor skin thickening-retraction. IMPRESSION: No radiographic evidence of malignancy. BI-RADS Category 1 - Negative Breast Density - Category A - Almost entirely fatty Breast density Category C or D implies that the patient has dense breast tissue. Dense breast tissue can make it harder to find cancer on a mammogram. Dense breast tissue is also associated with an incr eased risk of breast cancer. This information about the result of the mammogram report was provided to the patient to raise their awareness. Use this report when you speak with the patient about their risks for breast cancer, which includes their family history. At that time, you may recommend additional screening tests (Ultrasoun d or MRI) as these tests may add significant information. A negative radiographic report should not delay biopsy if a dominant or clinically suspicious mass is present. Up to ten percent of cancers are not identified on mammography. A negative report may reinforce clinical impression. Adenosis and dense breasts may obscure an underlying neoplasm. False positive reports average 6 to 10%. Patient will receive a letter notifying them of these results.
== END 2021-07-25 01:52 ==
PROVIDERS: PCP Nurse Practitioner Family; Visit Provider Nurse Practitioner Family
DX: Z12.31 Encounter for screening mammogram for malignant neoplasm of breast (principal)
CPT/HCPCS: 77063; 77067

== ENCOUNTER 2021-10-16 19:58 | Inpatient (IN) | payer MEDICAID, SELFPAY ==
[2021-10-16] VITALS (34 sets, daily range): BP systolic 85–108; BP diastolic 42–66; PULSE 72–81; RESP 10–20; TEMP 36.4; O2SAT 90–99
--- NOTE | 2021-10-16 20:34 | W.ED.GENAD ---
Discharge Plan Disposition Patient Disposition: HOME Condition: Stable Discharge Details Clinical Impression: Acute hypokalemia, Alcoholism, Acute hyponatremia, Hemoglobin low, Oral thrush Primary Care Provider: Ira Thao ED Provider: Ricardo Zhu Home Meds and New Rx's Prescriptions: No Action buprenorphine-naloxone [Suboxone] 8-2 mg film See Rx Instructions .ROUTE .COMPLEX Label Comments: PLACE ONE FILM UNDER THE TONGUE EVERY DAY Rx Instructions: 8-2mg Medical Decision Making This is a 46-year-old female with a past medical history of chronic alcohol use, obstructive sleep apnea, asthma, anxiety, who presents today for evaluation of thrush in the mouth and feeling like she is dehydrated. Patient states that about a week and a half ago she had multiple episodes of vomiting which is subsequently resolved. Since then she began taking a fair amount of Mylanta, which she states is caused her to have some occasional loose bowels. She has also developed thrush on her mouth, and this is made swallowing painful so she has not been taking an many oral fluids. She denies any abdominal pain or epigastric pain. She admits to mild nausea but no vomiting anymore. She denies any melena, acholic stool, hematochezia. She denies any recent weight loss or abdominal bloating or distention. She denies any personal or family history of abdominal cancer. No other complaints at this time. Physical exam demonstrates well-appearing but slightly dehydrated female. She has notable thrush in her mouth. She denies IV illicit drug use. She does not use a steroid inhaler. She does not use any oral steroids. No evidence of thrush in the posterior oropharynx. No tonsillar enlargement. Concern for mild dehydration secondary to diminished p.o. intake secondary to thrush. We will rehydrate, prescribe Magic mouthwash, monitor closely and reassess. We will perform send out HIV testing though, because it is slightly atypical to see thrush in this scenario otherwise. 10:09 PM Patient's laboratory work-up has returned, he does have a mild white count of 13, hemoglobin is lower at 8.7 compared to previous values. Electrolytes demonstrate hyponatremia, hypokalemia. We are pending magnesium level. Bilirubin is elevated at 3, transaminases are actually lower than her normal levels. Bilirubin is certainly high though. I did recommend CT scan for further assessment, but the patient has notably refused. I did discuss imaging options for the patient and at this time through notable discussion, weighing the risks and benefits, and a shared decision making process the patient has refused imaging at this time. Patient is of an appropriate age to make decisions. The patient is of sound mind, appears clinically sober, and has capacity to make decisions by my clinical exam. Respecting the patient's wishes we will hold off on imaging. Additionally with the patient's hyponatremia and hypokalemia I did recommend admission, however patient has also refused this and states that she has a close follow-up appointment with her PCP and she would like to follow-up with her rather than stay overnight. I did discuss with the patient admission/observation to the hospital , and at this time through notable discussion, weighing the risks and benefits, utilizing a shared decision making process, and with a very clear discussion on the benefit of admission and the risks associated with discharge including the unlikely but potential worst case scenario of or lifelong disability the patient has refused admission and would like to go home. Patient is of a appropriate age to make decisions. The patient is of sound mind, appears clinically sober, and has capacity to make decisions by my clinical exam. Respecting the patient's wishes, they will be discharged home. The patient seems to state that her desire to go home is a combination of simply wanting to go home, wanting to maintain control of this component of her life, and also concern for potential cost implications. I did reassure the patient that we can look for additional help or support if needed for the concern for future cost but she made it unequivocally clear that her decision will remain and she does not want the imaging or CAT scan. We will continue IV fluids that she has been rehydrated with. We will get a repeat labs, continue to give potassium, and monitor closely. Repeat exam continues to demonstrate no signs of an acute surgical abdomen. No pain McBurney's point, negative Lopez sign. 11:56 PM Patient was given 20 mEq of IV potassium and a liter of normal saline and her electrolytes have transitioned only to 119 for sodium, and 2.3 for potassium. Bedside limited ultrasound demonstrates no gallbladder with sludge, gallbladder wall thickness is 2 mm. Gallbladder short axis which is less than 3 cm. Patient is still refusing CT images. With the lack of improvement of her sodium and potassium I did discuss with the patient her critically low levels, as well as the need to have these appropriately managed. After a very long discussion around 30 minutes, through shared decision-making process the patient has agreed to stay overnight for continued infusion of potassium and saline. The patient continues to state that she has not had any dark or tarry stools. She has had no bowel movements here for further testing. No gross blood rectally. I discussed the case with the hospitalist, he agrees with the assessment and plan. Patient will be admitted overnight for continued infusion. I have extensively reviewed the treatment plan with the patient. I have addressed all patient concerns at this time. I have also discussed the plan with the admitting physician and they agree with the current assessment and plan and have agreed to assume responsibility for the patient. All parties demonstrate verbal understanding and agreement with our assessment and plan at this time. The documentation in this chart was dictated using [employer] dictation software. Please excuse any dictation errors. HPI General Date/Time Provider Initiated Documentation: 10/16/21 19:59. HPI Narrative: This is a 46-year-old female with a past medical history of chronic alcohol use, obstructive sleep apnea, asthma, anxiety, who presents today for evaluation of thrush in the mouth and feeling like she is dehydrated. Patient states that about a week and a half ago she had multiple episodes of vomiting which is subsequently resolved. Since then she began taking a fair amount of Mylanta, which she states is caused her to have some occasional loose bowels. She has also developed thrush on her mouth, and this is made swallowing painful so she has not been taking an many oral fluids. She denies any abdominal pain or epigastric pain. She admits to mild nausea but no vomiting anymore. She denies any melena, acholic stool, hematochezia. She denies any recent weight loss or abdominal bloating or distention. She denies any personal or family history of abdominal cancer. No other complaints at this time. Related Data Home Medications Medication Instructions Recorded Confirmed buprenorphine 8 mg-naloxone 2 mg See Rx Instructions .Route .COMPLEX 10/16/21 10/16/21 sublingual film (Suboxone) Allergies Allergy/AdvReac Type Severity Reaction Status Date / Time shellfish derived Allergy Mild Itching Verified 10/16/21 20:13 tramadol AdvReac Mild Agitation Verified 10/16/21 20:13 General Stated Complaint: GenMedical STEVE: 3 Review of Systems All systems reviewed & are unremarkable except as noted in HPI and below PFSH All Active Problems (Updated 10/17/21 @ 00:18 by Ajith Heredia) Anemia (Chronic) Acute hypokalemia (Acute) Alcoholism (Acute) Acute hyponatremia (Acute) Hemoglobin low (Acute) Oral thrush (Acute) Normal colonoscopy (Acute) Smoker (Acute) Alcoholism (Acute) Medical History Anxiety Asthma BMI 36.0-36.9,adult Chronic alcoholism since 35yo. Completed [facility] inpatient, relapsed and developed pacreatitis 03/2016. Sober since then. Constipation Depression Dyspepsia Dysphonia Elevated liver enzymes Elevated transaminase level History of substance abuse Hyperthyroidism Hypokalemia Macrocytosis Mental health problem Mood improved with Gabapentin. May change to SSRI. Dr Connors monitors. Obesity CALEB (obstructive sleep apnea) Pancreatitis Pedal edema Post-nasal drip Stress incontinence Tobacco use Vitamin D deficiency Surgical History back surgery lumbar disk shaving. bunionectomy L foot. History of colonoscopy (~07/03/21) Stoiber, airway concerns during procedure refer to procedure note. Family History Grandmother No problems noted. Social History Smoking/Tobacco Use Status: Current every day Tobacco Type: cigarettes Smoking risk assessment performed?: Yes Alcohol Intake: former Drug use: Current Sobriety Substance use type: opiates Details: 2 years since use Do you feel safe at home: Yes Do you feel safe in your relationship?: Yes Exam Narrative Exam Narrative: 1.Const: Well-nourished, Well-developed, appearing stated age 2.Eyes: PERRL, no conjunctival injection, and symmetrical lids. 3.ENT: Atraumatic external nose and ears. Moist MM. Neck: Symmetric, trachea midline, No thyromegaly. Notable thrush in the mouth on the tongue and cheeks. No significant thrush in the posterior oropharynx. 4.CVS: +S1/S2, No murmurs or gallops. Peripheral pulses 2+ and equal in all extremities. Brisk capillary refill in all extremities. 5.RESP: Unlabored respiratory effort. Clear to auscultation bilaterally. No wheezes rales or rhonchi 6.GI: Soft, Nontender/Nondistended, No hepatosplenomegaly. Liver appears slightly enlarged and is palpable on the right. No guarding or rebound. 7.MSK: Normocephalic/Atraumatic, Extremities w/o deformity or ttp No cyanosis or clubbing, Normal movement of all extremities 8.Skin: Warm, Dry. No rashes or lesions. 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 Sensation grossly intact, no focal neurologic deficits. 10.Psych: (AAO) x3. Appropriate mood and affect Course Vital Signs Vital signs: Vital Signs Temperature 36.4 C L 10/16/21 20:04 Pulse 81 10/16/21 20:04 Respiratory Rate 20 10/16/21 20:04 Blood Pressure 105/42 L 10/16/21 20:04 Pulse Oximetry 98 10/16/21 20:04 Temperature 36.4 C L 10/16/21 20:04 Temperature Source Skin 10/16/21 20:04 Pulse 81 10/16/21 20:04 Respiratory Rate 20 10/16/21 20:04 Respiratory Effort 10/16/21 20:17 Respiratory Depth Normal 10/16/21 20:17 Respiratory Pattern Normal 10/16/21 20:17 Blood Pressure 105/42 L 10/16/21 20:04 Blood Pressure Position Supine 10/16/21 20:04 Pulse Oximetry 98 10/16/21 20:04 Oxygen Delivery Method Room Air 10/16/21 20:04 Oxygen Flow Rate 0 10/16/21 20:04 Pain Level 0 10/16/21 20:04 PAWSS Have you Been Recently Intoxicated or Drunk Within the Last 30 days?: Yes Have you Ever Experienced Previous Episodes of Alcohol Withdrawal?: Yes Have you ever Experienced Withdrawal Seizures?: No Have you ever Experienced Delirium Tremens(DT)s?: No Have you ever undergone Alcohol Rehabilitation Treatment (i.e, inpt ot outpatient treatment programs)?: Yes Have you ever Experienced Blackouts?: Yes Have you ever Combined Alcohol with other Downers within the last 90 days?: No Have you ever Combined Alcohol with any other Substance of Abuse during the last 90 days?: No Positive Blood Alcohol level on Presentation? [PCS.BAL]: No Evidence of Increased Autonomic Activity (i.e. HR>120, tremor, sweating, agitation, nausea)?: No Result: 4
[2021-10-16 20:57] LABS: Abs Immature Grans 0.08 10^3/uL (0.0-0.06); Absolute Basophil Count 0.06 10^3/uL (0.0-0.2); Absolute Eosinophil Count 0.07 10^3/uL (0.0-0.7); Absolute Lymphocyte Count 2.11 10^3/uL (1.2-3.4); Basophils % 0.4; Eosinophils % 0.5; HCT 24.7 % (36.0-46.0); HGB 8.7 g/dL (11.2-15.7); Immature Grans % 0.6; Lymphocytes % 15.2; MCH 33.6 pg (27.0-33.0); MCHC 35.2 % (32.0-36.0); MCV 95 fL (80-95); MPV 11.6 fL (8.0-11.0); Monocytes % 5.3; Platelet Count 174 10^3/uL (130-400); RBC 2.59 10^6/uL (3.93-5.22); RDW 14.3 % (11.7-14.6); RDW-SD 49.3 fL; WBC 13.85 10^3/uL (4.4-10.8)
[2021-10-16 20:58] LABS: Absolute Monocyte Count 0.73 10^3/uL (0.1-0.8)
[2021-10-16 21:12] LABS: ALT 12 U/L (14-59); AST 176 U/L (15-37); Albumin 1.7 g/dL (3.4-5.0); Alkaline Phosphatase 290 U/L (46-116); BUN 14 mg/dL (7-18); CREATININE 0.9 mg/dL (0.55-1.02); Calcium 8.2 mg/dL (8.5-10.1); Chloride 71 mmol/L (98-107); Glucose 88 mg/dL (74-106); Lipase 22 U/L (73-393); Total Protein 6.8 g/dL (6.4-8.2)
[2021-10-16] MEDS: Normal Saline 1,000 ML 1000 ML IV (21:15)
[2021-10-16 21:18] LABS: Potassium 2.4 mmol/L (3.5-5.1); Sodium 116 mmol/L (136-145)
[2021-10-16] MEDS: POTASSIUM CHLORIDE 20 MEQ/100 ML BAG 50 MEQ IVPB (21:56)
[2021-10-16 22:50] LABS: Anion Gap 5.8 mmol/L (3-11); BUN 16 mg/dL (7-18); CO2 39.2 mmol/L (21.0-32.0); CREATININE 0.8 mg/dL (0.55-1.02); Calcium 7.5 mg/dL (8.5-10.1); Chloride 74 mmol/L (98-107); Glucose 86 mg/dL (74-106); Magnesium 2.2 mg/dL (1.8-2.4)
[2021-10-16 22:51] LABS: Sodium 119 mmol/L (136-145)
[2021-10-16 22:52] LABS: Potassium 2.3 mmol/L (3.5-5.1)
[2021-10-17] VITALS (82 sets, daily range): BP systolic 59–107; BP diastolic 35–70; PULSE 68–120; RESP 11–29; TEMP 35.7–37.1; O2SAT 84–98
--- NOTE | 2021-10-17 | DI.US_ITS ---
Exam(s) US ABDOMEN LIMITED EXAM: US ABDOMEN LIMITED CLINICAL HISTORY: transaminitis TECHNIQUE: Ultrasound abdomen performed using standard protocol. COMPARISON: None FINDINGS: There is no ascites evident. LIVER: Liver is hyperechoic indicating steatosis. Liver also appears slightly prominent. No discret e focal hepatic lesions identified. GALLBLADDER/BILIARY: There is sludge in the gallbladder lumen. No shadowing calculi. However, there is a small amount of pericholecystic fluid. The common hepatic duct isnot dilated, measuring 6mm at the level of winnie hepatis. This is upper no rmal. PANCREAS: There is no evidence of pancreatic mass nor dilatation of the pancreatic duct. RIGHT KIDNEY:Less than optimally visualized due to body habitus. IMPRESSION: 1. Sludge noted in the gallbladder as well as mild gallbladder wall edema and pericholecystic fluid. May be consistent with element of acute cholecystitis despite absence of shadowing gallstones. Rec ommend follow-up nuclear hepatobiliary imaging/HIDA scan 2. Hepatic steatosis. Correlation appropriate hepatic blood work recommended. 3. There is no ascites. DATA REPOSITORY:
[2021-10-17 00:08] LABS: Source Nasal/Nares
--- NOTE | 2021-10-17 00:16 | HPE_ITS ---
Date of service: 10/17/21 Time of Service: 00:17 Assessment and Plan Assessment and plan (1) Acute hyponatremia: Status: Acute Assessment and plan: will give NS + KCl 40 meq/L @ 250 mL/hr which should bring her sodium above 125 meq over the next 24hr. She will need additional potassium supplementation intravenously given she has thrush and will not tolerate oral replacement. (2) Acute hypokalemia: Status: Acute Assessment and plan: will give parenteral potassium replacement given that she has thrush. Once her potassium is over 3.2 she can discharge to home for further oral replacment. (3) Oral thrush: Status: Acute Assessment and plan: will treat w/ diflucan and nystatin swish and swallow and give magic mouth wash to treat the discomfort; HIV was ordred by ER out of concern that she may be immunocompromised. Patient is refusing any further workup such as diagnostic jesse ging of her abdomen/pelvis. (4) Alcoholism: Status: Acute Assessment and plan: monitor for withdrawal; however, I do not believe she will remain hospitalized long enough to go into withdrawal and she has been weaning herself down over past week (5) Anemia: Status: Chronic Assessment and plan: she denies any bloody bowel movements. she has no hx of anemia but given her thrush I am concerned she may have occult malignancy or other immunocompromised state. She may just have an alcoholic gastritis or PUD. History of Present Illness History of Present Illness Chief Complaint: thrush, dehydrated Narrative: 46 yr old female w/ hx of alcohol abuse who has been trying to cut down and quit. For the past week she has had thrush causing her nausea and odynophagia and she has been having diarrhea from taking antacids to try to calm the thrush. She denies any melena nor any hematochezia. She has had poor oral intake d/t the thrush. She is not on any prednisone nor has she had any immunocompromise history. She presented to the ER to get iv fluids and something for the thrush and wanted to leave. However workup revealed her to have severe hyponatremia (116) and hypokalemia (2.4) and anemia (). She was given a liter of saline and KCl 20 meq iv bolus. However her repeat BMP showed her sodium to only come up to 119 and her potassium to drop to 2.3. Her magnesium was surprisingly normal at 2.2. Dr. Zhu was concerned about her abdomen given her alcohol use and her anemia and thrush. The patient would not allow a CT scan however she did allow him to perform bedside POCUS which he says showed some biliary sludge but no acute cholecystitis and her liver looked enlarged. Her CMP demonstrated elevated LFT w/ AST 176, ALT 12, ALK phos 290 and total bilirubin 3.0. CBC demonstrated anemia Hb 8.7 gm w/ normal RDW and normal indices, platelets are normal at 174,000 but WBC are incr. at 13,800. Patient is admitted for treatment of her thrush, correction of her hyponatremia and hypokalemia and her dehydration. She has no insurance and is concerned about running up a large medical bill. Review of Systems All systems reviewed & are unremarkable except as noted in HPI and below Gastrointestinal Gastrointestinal: Reports as per HPI [facility] All Active Problems (Updated 10/17/21 @ 00:18 by Ajith Heredia) Anemia (Chronic) Acute hypokalemia (Acute) Alcoholism (Acute) Acute hyponatremia (Acute) Hemoglobin low (Acute) Oral thrush (Acute) Normal colonoscopy (Acute) Smoker (Acute) Alcoholism (Acute) Medical History Anxiety Asthma BMI 36.0-36.9,adult Chronic alcoholism since 35yo. Completed [facility] inpatient, relapsed and developed pacreatitis 03/2016. Sober since then. Constipation Depression Dyspepsia Dysphonia Elevated liver enzymes Elevated transaminase level History of substance abuse Hyperthyroidism Hypokalemia Macrocytosis Mental health problem Mood improved with Gabapentin. May change to SSRI. Dr Connors monitors. Obesity CALEB (obstructive sleep apnea) Pancreatitis Pedal edema Post-nasal drip Stress incontinence Tobacco use Vitamin D deficiency Surgical History back surgery lumbar disk shaving. bunionectomy L foot. History of colonoscopy (~07/03/21) Stoiber, airway concerns during procedure refer to procedure note. Family History Grandmother No problems noted. Social History Smoking/Tobacco Use Status: Current every day Tobacco Type: cigarettes Smoking risk assessment performed?: Yes Alcohol Intake: former Drug use: Current Sobriety Substance use type: opiates Details: 2 years since use Do you feel safe at home: Yes Do you feel safe in your relationship?: Yes Meds Allergies and Home Medications Allergies Allergy/AdvReac Type Severity Reaction Status Date / Time shellfish derived Allergy Mild Itching Verified 10/16/21 20:13 tramadol AdvReac Mild Agitation Verified 10/16/21 20:13 Home Medications Medication Instructions Recorded Confirmed Type buprenorphine 8 mg-naloxone 2 mg See Rx Instructions .Route .COMPLEX 10/16/21 10/16/21 History sublingual film (Suboxone) Exam Narrative Exam Narrative: [place] alert and oriented x 3 HEENT: remarkable for thrush of her palate and tongue Neck: supple, nontender, no JVD, full carotid pulses Lungs: clear Heart: regular but slightly tachycardia Abdomen: obese, firm but not hard, difficult to palapte for organomegaly, no rebound tenderness and no guarding; bowel sounds are present Extremities: no cyanosis or edema; normal ROM Results Labs Result diagrams: 10/16/21 20:30 10/16/21 22:24 Labs: Laboratory Results - last 24 hr 10/16/21 10/16/21 10/16/21 20:30 20:30 22:24 WBC 13.85 H RBC 2.59 L Hgb 8.7 L Hct 24.7 L MCV 95 MCH 33.6 H MCHC 35.2 RDW 14.3 Plt Count 174 MPV 11.6 H Immature Gran % 0.6 Neutrophils % 78.0 Lymphocytes % 15.2 Monocytes % 5.3 Eosinophils % 0.5 Basophils % 0.4 Nucleated RBC % 0.0 Absolute Neutrophils 10.80 H Absolute Lymphocytes 2.11 Absolute Monocytes 0.73 Absolute Eosinophils 0.07 Absolute Basophils 0.06 Sodium 116 L* 119 L* Potassium 2.4 L* 2.3 L* Chloride 71 L 74 L Carbon Dioxide 40.0 H 39.2 H Anion Gap 5.0 5.8 BUN 14 16 Creatinine 0.9 0.8 Estimated GFR/1.73 m2 >= 60.00 >= 60.00 Glucose 88 86 Calcium 8.2 L 7.5 L Magnesium 2.2 Total Bilirubin 3.0 H AST 176 H ALT 12 L Alkaline Phosphatase 290 H Total Protein 6.8 Albumin 1.7 L Lipase 22 COVID-19 Source 10/17/21 00:02 WBC RBC Hgb Hct MCV MCH MCHC RDW Plt Count MPV Immature Gran % Neutrophils % Lymphocytes % Monocytes % Eosinophils % Basophils % Nucleated RBC % Absolute Neutrophils Absolute Lymphocytes Absolute Monocytes Absolute Eosinophils Absolute Basophils Sodium Potassium Chloride Carbon Dioxide Anion Gap BUN Creatinine Estimated GFR/1.73 m2 Glucose Calcium Magnesium Total Bilirubin AST ALT Alkaline Phosphatase Total Protein Albumin Lipase COVID-19 Source Nasal/Nares Last Vital Signs Temp 36.4 C L 10/16/21 20:04 Pulse 75 10/16/21 22:16 Resp 10 L 10/16/21 23:20 BP 108/55 L 10/16/21 22:16 Pulse Ox 93 10/16/21 23:20 PAWSS Have you Been Recently Intoxicated or Drunk Within the Last 30 days?: Yes Have you Ever Experienced Previous Episodes of Alcohol Withdrawal?: Yes Have you ever Experienced Withdrawal Seizures?: No Have you ever Experienced Delirium Tremens(DT)s?: No Have you ever undergone Alcohol Rehabilitation Treatment (i.e, inpt ot outpatient treatment programs)?: Yes Have you ever Experienced Blackouts?: Yes Have you ever Combined Alcohol with other Downers within the last 90 days?: No Have you ever Combined Alcohol with any other Substance of Abuse during the last 90 days?: No Positive Blood Alcohol level on Presentation? [PCS.BAL]: No Evidence of Increased Autonomic Activity (i.e. HR>120, tremor, sweating, agitation, nausea)?: No Result: 4
[2021-10-17] MEDS: Magic Mouthwash 119 ML BTL 10 ML PO (00:23)
[2021-10-17 00:28] LABS: Bilirubin, Direct 1.7 mg/dL (0.0-0.2)
[2021-10-17 01:00] LABS: COVID-19 PCR Negative (Negative)
[2021-10-17] MEDS: POTASSIUM CHLORIDE/D5-0.9%NACL 1,000 ML 250 MEQ IV ×4 (01:56→14:34)
[2021-10-17] MEDS: Thiamine 100 MG TAB PO ×2 (01:59→07:43)
[2021-10-17] MEDS: Fluconazole 100 MG TAB 400 MG PO ×2 (01:59→08:56)
[2021-10-17] MEDS: POTASSIUM CHLORIDE 10 MEQ/100 ML BAG 100 MEQ IVPB ×4 (02:45→05:35)
[2021-10-17] MEDS: Nystatin 500000 UNITS/5 ML SUSP 5ML CUP PO ×5 (05:31→22:07)
[2021-10-17 05:50] LABS: Abs Immature Grans 0.07 10^3/uL (0.0-0.06); Absolute Basophil Count 0.05 10^3/uL (0.0-0.2); Absolute Lymphocyte Count 1.91 10^3/uL (1.2-3.4); Absolute Monocyte Count 0.83 10^3/uL (0.1-0.8); Absolute Neutrophil Count 9.76 10^3/uL (1.2-6.7); Basophils % 0.4; Eosinophils % 0.8; HCT 21.4 % (36.0-46.0); HGB 7.4 g/dL (11.2-15.7); Immature Grans % 0.6; MCH 33.2 pg (27.0-33.0); MCHC 34.6 % (32.0-36.0); MCV 96 fL (80-95); MPV 11.9 fL (8.0-11.0); Monocytes % 6.5; Neutrophils % 76.7; RBC 2.23 10^6/uL (3.93-5.22); RDW 14.5 % (11.7-14.6); WBC 12.72 10^3/uL (4.4-10.8)
[2021-10-17 06:01] LABS: Prothrombin Time 28.2 sec (9.3-11.0)
[2021-10-17 06:14] LABS: Anion Gap 5.7 mmol/L (3-11); BUN 14 mg/dL (7-18); CO2 36.3 mmol/L (21.0-32.0); CREATININE 0.8 mg/dL (0.55-1.02); Calcium 7.8 mg/dL (8.5-10.1); Chloride 79 mmol/L (98-107); Glucose 109 mg/dL (74-106)
[2021-10-17 06:21] LABS: ALT 14 U/L (14-59); AST 183 U/L (15-37); Albumin 1.5 g/dL (3.4-5.0); Alkaline Phosphatase 260 U/L (46-116); Bilirubin, Direct 1.6 mg/dL (0.0-0.2); Bilirubin, Total 2.5 mg/dL (0.2-1.0); Total Protein 6.2 g/dL (6.4-8.2)
[2021-10-17 06:28] LABS: Iron 118 ug/dL (50-170); Total Iron Binding Capacity 116 ug/dL (250-450); Transferrin Sat 102 % (15-50)
[2021-10-17 06:43] LABS: Diff Comment Diff Reviewed; Hypochromasia 3+; Platelet Count 151 10^3/uL (130-400); Potassium 2.8 mmol/L (3.5-5.1); Sodium 121 mmol/L (136-145)
[2021-10-17] MEDS: POTASSIUM CHLORIDE 20 MEQ/100 ML BAG 50 MEQ IVPB (07:42)
[2021-10-17] MEDS: Normal Saline Flush 10 ML SYR IVP ×2 (07:43→11:06)
[2021-10-17] MEDS: Multivitamin TAB 1 TAB PO (07:43)
[2021-10-17] MEDS: Famotidine 20 MG TAB PO (07:43)
[2021-10-17] MEDS: Folic Acid 1 MG TAB PO (07:43)
[2021-10-17 07:59] LABS: Lab Add On Test DONE
[2021-10-17 08:39] LABS: Acetaminophen < 2 ug/mL (10-30); Ferritin 709 ng/mL (8-252); Folate 0.9 ng/mL (8.6-20.0); Vitamin B12 882 pg/mL (193-986)
[2021-10-17] MEDS: Phytonadione 5 MG TABLET PO (08:55)
[2021-10-17] MEDS: Normal Saline 1,000 ML 1000 ML IV (10:12)
[2021-10-17] MEDS: POTASSIUM CHLORIDE 20 MEQ/100 ML BAG 30 MEQ IVPB (10:13)
--- NOTE | 2021-10-17 10:50 | PDOC.CMIN ---
- If Service Date Differs Date of service: 10/17/21 Time of Service: 10:50 Care Management Initial Assess REASON FOR HOSPITALIZATION:: Acute hyponatremia, Acute hypokalemia PAST MEDICAL HISTORY/PAST SURGICAL HISTORY:: All Active Problems (Updated 10/17/21 @ 00:18 by Ajith Heredia). Anemia (Chronic). Acute hypokalemia (Acute). Alcoholism (Acute). Acute hyponatremia (Acute). Hemoglobin low (Acute). Oral thrush (Acute). Normal colonoscopy (Acute). Smoker (Acute). Alcoholism (Acute). Medical History . Anxiety. Asthma. BMI 36.0-36.9,adult. Chronic alcoholism. since 35yo. Completed [facility] inpatient, relapsed and developed pacreatitis 03/2016. Sober since then. Constipation. Depression. Dyspepsia. Dysphonia. Elevated liver enzymes. Elevated transaminase level. History of substance abuse. Hyperthyroidism. Hypokalemia. Macrocytosis. Mental health problem. Mood improved with Gabapentin. May change to SSRI. Dr Connors monitors. Obesity. CALEB (obstructive sleep apnea). Pancreatitis. Pedal edema. Post-nasal drip. Stress incontinence. Tobacco use. Vitamin D deficiency. Surgical History . back surgery. lumbar disk shaving. bunionectomy. L foot. History of colonoscopy (~07/03/21). Stoiber, airway concerns during procedure refer to procedure note. PREVIOUS FUNCTIONAL STATUS/SOCIAL/FAMILY SUPPORTS:: Virginia lives in [place] with her partner Prabhu. She has 2 adult children. She is currently unemployed. She drives and is independent at baseline. CURRENT FUNCTIONAL STATUS:: Virginia was sitting up in bed when FLORES met with her. She is alert, oriented and easy to engage in conversation. She is recently unemployed and does not have insurance. FLORES placed a [facility] referral for assistance with Medicaid and other community resources. In addition, FLORES provided Virginia with a patient assistance application. ADVANCE DIRECTIVES:: None on file, CM will offer forms. Has patient been provided with info about the portal/API?: Yes Did the patient sign up for the portal?: Yes (Prior to admission) CODE STATUS:: Full Code INSURANCE COVERAGE / FINANCIAL ISSUES:: No insurance or medical coverage. Recently unemployed. CM placed referral to [facility] and provided patient with a financial assistance application. CURRENT HOME/COMMUNITY SERVICES/EQUIPMENT:: None PRIMARY CARE PHYSICIAN:: Ira Thao, [facility]. POTENTIAL DISCHARGE NEEDS:: Follow up appointments. Referral to [facility] (Pt declines at this time). [facility]'s assistance applying for Medicaid and/or other [place] resources. PATIENT/FAMILY EDUCATION NEEDS:: Review discharge instructions, limitations, medications and plan to follow up with community providers. ask me three. TRANSPORTATION:: Via private vehicle with family. PLAN:: Virginia is admitted for IV correction of her hyponatremia, hypokalemia and dehydration. Virginia also requires additional medical workup, and is agreeable. Anticipate, Virginia will discharge home with no new [facility] services when medically cleared by . She will follow up with her community provider's and discharge plan of care as prescribed.
[2021-10-17] MEDS: Pantoprazole 40 MG VIAL IVP (11:06)
[2021-10-17] MEDS: ALBUMIN HUMAN 25 GM/100 ML BTL IV ×2 (13:42→15:10)
--- NOTE | 2021-10-17 14:03 | W.PM.PROGNOT ---
Date of Service Date of service: 10/17/21 Time of Service: 14:04 Assessment and Plan Assessment and plan (1) Hypotension: Status: Acute Assessment and plan: BP 76/42 despite fluid resuscitation at 250 cc/hr. Albumin just arrived. Will transfer to ICU for monitoring and prep for pressors if needed. (2) Anemia: Status: Chronic Assessment and plan: Hg 7.4, some due to hemodilution. No transfusion required as of yet (3) Acute hypokalemia: Status: Acute Assessment and plan: K = 2.8, continue replacement (4) Alcoholism: Status: Acute Assessment and plan: No S/S w/D yet. (5) Acute hyponatremia: Status: Acute Assessment and plan: Na = 121, cont NS Subjective Subjective Patient reports: no new complaints Exam Const General: cooperative and no acute distress Nutritional Appearance: obese Orientation: alert, awake and oriented x3 HENMT Head: normal to inspection Ears: hearing grossly normal bilaterally General nose exam: external nose normal Face and sinus: normal facial exam Eyes General: appearance normal, both eyes and all related structures Sclera: scleral abnormality (sl bloodshot) Chest Chest: normal inspection of the chest Resp Effort & Inspection: normal respiratory effort, no stridor and not tachypneic Auscultation: clear to auscultation bilaterally Cardio Rate: regular rate Rhythm: regular rhythm Heart Sounds: no murmurs GI Inspection: large pannus Palpation: hepatomegaly (firm liver, 5 cm below CM, NT) Extrem General: no pedal edema Objective Last Vital Signs Temp 36.0 C L 10/17/21 11:06 Pulse 76 10/17/21 13:23 Resp 16 10/17/21 11:06 BP 76/42 L 10/17/21 13:23 Pulse Ox 98 10/17/21 11:06 Laboratory Results - last 24 hr 10/16/21 10/16/21 10/16/21 20:30 20:30 22:24 WBC 13.85 H RBC 2.59 L Hgb 8.7 L Hct 24.7 L MCV 95 MCH 33.6 H MCHC 35.2 RDW 14.3 Plt Count 174 MPV 11.6 H Immature Gran % 0.6 Neutrophils % 78.0 Lymphocytes % 15.2 Monocytes % 5.3 Eosinophils % 0.5 Basophils % 0.4 Nucleated RBC % 0.0 Absolute Neutrophils 10.80 H Absolute Lymphocytes 2.11 Absolute Monocytes 0.73 Absolute Eosinophils 0.07 Absolute Basophils 0.06 RBC Morphology Hypochromasia PT INR Sodium 116 L* 119 L* Potassium 2.4 L* 2.3 L* Chloride 71 L 74 L Carbon Dioxide 40.0 H 39.2 H Anion Gap 5.0 5.8 BUN 14 16 Creatinine 0.9 0.8 Estimated GFR/1.73 m2 >= 60.00 >= 60.00 Glucose 88 86 Calcium 8.2 L 7.5 L Magnesium 2.2 Iron TIBC Transferrin % Sat Ferritin Total Bilirubin 3.0 H Conjugated Bilirubin AST 176 H ALT 12 L Alkaline Phosphatase 290 H Total Protein 6.8 Albumin 1.7 L Lipase 22 Vitamin B12 Folate Stl [facility] Acetaminophen COVID-19 Source SARS-CoV-2 (PCR) Add-On Test Request 10/16/21 10/17/21 10/17/21 22:24 00:02 04:00 WBC RBC Hgb Hct MCV MCH MCHC RDW Plt Count MPV Immature Gran % Neutrophils % Lymphocytes % Monocytes % Eosinophils % Basophils % Nucleated RBC % Absolute Neutrophils Absolute Lymphocytes Absolute Monocytes Absolute Eosinophils Absolute Basophils RBC Morphology Hypochromasia PT INR Sodium Potassium Chloride Carbon Dioxide Anion Gap BUN Creatinine Estimated GFR/1.73 m2 Glucose Calcium Magnesium Iron TIBC Transferrin % Sat Ferritin Total Bilirubin Conjugated Bilirubin 1.7 H AST ALT Alkaline Phosphatase Total Protein Albumin Lipase Vitamin B12 Folate [facility] Cancelled Acetaminophen COVID-19 Source Nasal/Nares SARS-CoV-2 (PCR) Negative Add-On Test Request 10/17/21 10/17/21 10/17/21 05:30 05:31 05:31 WBC 12.72 H RBC 2.23 L Hgb 7.4 L Hct 21.4 L MCV 96 H MCH 33.2 H MCHC 34.6 RDW 14.5 Plt Count 151 MPV 11.9 H Immature Gran % 0.6 Neutrophils % 76.7 Lymphocytes % 15.0 Monocytes % 6.5 Eosinophils % 0.8 Basophils % 0.4 Nucleated RBC % 0.0 Absolute Neutrophils 9.76 H Absolute Lymphocytes 1.91 Absolute Monocytes 0.83 H Absolute Eosinophils 0.10 Absolute Basophils 0.05 RBC Morphology See Below Hypochromasia 3+ PT INR Sodium 121 L* Potassium 2.8 L* Chloride 79 L Carbon Dioxide 36.3 H Anion Gap 5.7 BUN 14 Creatinine 0.8 Estimated GFR/1.73 m2 >= 60.00 Glucose 109 H Calcium 7.8 L Magnesium Iron TIBC Transferrin % Sat Ferritin Total Bilirubin Conjugated Bilirubin AST ALT Alkaline Phosphatase Total Protein Albumin Lipase Vitamin B12 Folate Stl [facility] Acetaminophen Cancelled COVID-19 Source SARS-CoV-2 (PCR) Add-On Test Request 10/17/21 10/17/21 10/17/21 05:31 05:31 05:31 WBC RBC Hgb Hct MCV MCH MCHC RDW Plt Count MPV Immature Gran % Neutrophils % Lymphocytes % Monocytes % Eosinophils % Basophils % Nucleated RBC % Absolute Neutrophils Absolute Lymphocytes Absolute Monocytes Absolute Eosinophils Absolute Basophils RBC Morphology Hypochromasia PT 28.2 H INR 3.0 H Sodium Potassium Chloride Carbon Dioxide Anion Gap BUN Creatinine Estimated GFR/1.73 m2 Glucose Calcium Magnesium Iron 118 TIBC 116 L Transferrin % Sat 102 H Ferritin Total Bilirubin 2.5 H Conjugated Bilirubin 1.6 H AST 183 H ALT 14 Alkaline Phosphatase 260 H Total Protein 6.2 L Albumin 1.5 L Lipase Vitamin B12 Folate Stl [facility] Acetaminophen COVID-19 Source SARS-CoV-2 (PCR) Add-On Test Request 10/17/21 10/17/21 05:31 05:31 WBC RBC Hgb Hct MCV MCH MCHC RDW Plt Count MPV Immature Gran % Neutrophils % Lymphocytes % Monocytes % Eosinophils % Basophils % Nucleated RBC % Absolute Neutrophils Absolute Lymphocytes Absolute Monocytes Absolute Eosinophils Absolute Basophils RBC Morphology Hypochromasia PT INR Sodium Potassium Chloride Carbon Dioxide Anion Gap BUN Creatinine Estimated GFR/1.73 m2 Glucose Calcium Magnesium Iron TIBC Transferrin % Sat Ferritin 709 H Total Bilirubin Conjugated Bilirubin AST ALT Alkaline Phosphatase Total Protein Albumin Lipase Vitamin B12 882 Folate 0.9 L Stl Occult [facility]ld [facility] Acetaminophen < 2 COVID-19 Source SARS-CoV-2 (PCR) Add-On Test Request DONE PAWSS Have you Been Recently Intoxicated or Drunk Within the Last 30 days?: Yes Have you Ever Experienced Previous Episodes of Alcohol Withdrawal?: Yes Have you ever Experienced Withdrawal Seizures?: No Have you ever Experienced Delirium Tremens(DT)s?: No Have you ever undergone Alcohol Rehabilitation Treatment (i.e, inpt ot outpatient treatment programs)?: Yes Have you ever Experienced Blackouts?: No Have you ever Combined Alcohol with other Downers within the last 90 days?: No Have you ever Combined Alcohol with any other Substance of Abuse during the last 90 days?: No Positive Blood Alcohol level on Presentation? [PCS.BAL]: No Evidence of Increased Autonomic Activity (i.e. HR>120, tremor, sweating, agitation, nausea)?: No Result: 3
--- NOTE | 2021-10-17 14:33 | NUR.NOTE ---
At 1346 patient was transferred into ICU at the order of Dr. Hawkins. Report given to Lacey in ICU. Nursing Note:
[2021-10-17] MEDS: Buprenorphine/Naloxone 8 mg/2 mg FILM 1 EACH SL (15:05)
[2021-10-17 15:28] LABS: Anion Gap 4.4 mmol/L (3-11); BUN 11 mg/dL (7-18); C-Reactive Protein 13.75 mg/dL (0.0-0.3); CO2 35.6 mmol/L (21.0-32.0); CREATININE 0.8 mg/dL (0.55-1.02); Chloride 87 mmol/L (98-107); Glucose 100 mg/dL (74-106); Potassium 3.7 mmol/L (3.5-5.1); Sodium 127 mmol/L (136-145)
[2021-10-17 15:32] LABS: Lactate 3.2 mmol/L (0.6-1.4)
[2021-10-17] MEDS: Midodrine 2.5 MG TAB PO ×2 (16:09→19:51)
[2021-10-17 16:20] LABS: Bilirubin Negative (Negative); Blood Negative (Negative); Clarity Clear (Clear); Glucose Negative (Negative); Ketones Negative (Negative); Leukocyte Esterase Negative (Negative); Nitrite Negative (Negative); Urobilinogen 0.2 EU/dL (Up TO 0.2)
[2021-10-17] MEDS: Lactated Ringers 1,000 ML 200 ML IV ×2 (16:54→22:04)
[2021-10-17 17:50] LABS: Lab Add On Test DONE
[2021-10-17 18:47] LABS: Procalcitonin 1.3 ng/mL
[2021-10-17] MEDS: PIPERACILLIN/TAZO 3.375 GM in Normal Saline 50 ML IVPB (19:46)
[2021-10-17 20:34] LABS: Lactate 1.7 mmol/L (0.6-1.4)
[2021-10-17 20:55] LABS: Anion Gap 3.6 mmol/L (3-11); BUN 10 mg/dL (7-18); CO2 34.4 mmol/L (21.0-32.0); CREATININE 0.7 mg/dL (0.55-1.02); Calcium 8.2 mg/dL (8.5-10.1); Chloride 91 mmol/L (98-107); Glucose 132 mg/dL (74-106); Magnesium 2.4 mg/dL (1.8-2.4); Potassium 4.4 mmol/L (3.5-5.1); Sodium 129 mmol/L (136-145)
--- NOTE | 2021-10-17 21:20 | W.SURGCON ---
Date of service: 10/17/21 Time of Service: 21:20 Assessment and Plan Assessment and plan (1) Abdominal fluid collection: Status: Acute Assessment and plan: Ms Pisano is a 46 year old female with a PMHX significant for alcohol abuse who was admitted for hyponatremia, hypokalemia, and anemia. US of the abdomen showed pericholecystic fluid and galbladder wall edema. She has had no RUQ pain, no postprandial pain. Differential includes liver cirrhosis, hepatitis and congestive right heart failure. With the patients alcohol abuse history cirrhosis or hepatitis are the most likely issues. I do not believe that she has cholecystitis at this time. I agree with HIDA scan, which has been ordered for tomorrow. Recommend a low Heart healthy diet after the HIDA scan (2) Oral thrush: Status: Acute Assessment and plan: Patient states that her throat feels raw but she has no pain with swallowing. Agree with Swish and swallow Nystatin for 14 days (3) Anemia: Status: Chronic Assessment and plan: Most likely multifactorial (4) Acute hypokalemia: Status: Acute (5) Acute hyponatremia: Status: Acute (6) Alcoholism: Status: Acute History of Present Illness Narrative: Ms Pisano is a 46 yr old female w/ hx of alcohol abuse who has been trying to cut down and quit. She has been drinking 48 Oz of Beer daily. She was drinking double that at least before. She also used to drink a lot of tequila. For the past week she has had thrush causing her nausea and odynophagia and she has been having diarrhea from taking antacids to try to calm the thrush. She denies any melena nor any hematochezia. She has had poor oral intake d/t the thrush. She is not on any prednisone nor has she had any immunocompromise history. She presented to the ER to get iv fluids and something for the thrush and wanted to leave. However workup revealed her to have severe hyponatremia (116) and hypokalemia (2.4) and anemia (8.7). She was given a liter of saline and KCl 20 meq iv bolus. However her repeat BMP showed her sodium to only come up to 119 and her potassium to drop to 2.3. Her magnesium was surprisingly normal at 2.2. Dr. Zhu was concerned about her abdomen given her alcohol use and her anemia and thrush. The patient would not allow a CT scan however she did allow him to perform bedside POCUS which he says showed some biliary sludge but no acute cholecystitis and her liver looked enlarged. Her CMP demonstrated elevated LFT w/ AST 176, ALT 12, ALK phos 290 and total bilirubin 3.0. CBC demonstrated anemia Hb 8.7 gm w/ normal RDW and normal indices, platelets are normal at 174,000 but WBC are incr. at 13,800. INR is elevated at 3. She is not on anticoagulants She was admitted to the ICU for treatment of her hyponatremia, hypokalemia and thrush. An US was done today which showed Gallbladder wall edema and pericholecystic fluid. There were no stones. There is mention of sludge. No ascitis noted. I reviewed the US myself today. Patient doesnt complain of abdominal pain. She has had no postprandial pain. She has had no fevers. I was consulted because of the gallbadder wall edema and pericholecystic fluid. EXAM:? US ABDOMEN LIMITED CLINICAL HISTORY:? transaminitis TECHNIQUE:? Ultrasound abdomen performed using standard protocol. COMPARISON:? None FINDINGS: There is no ascites evident. LIVER: Liver is hyperechoic indicating steatosis.? Liver also appears slightly prominent.? No discrete focal hepatic lesions identified. GALLBLADDER/BILIARY: There is sludge in the gallbladder lumen.? No shadowing calculi.? However, there is a small amount of pericholecystic fluid. The common hepatic duct isnot dilated, measuring 6mm at the level of winnie hepatis.? This is upper normal. PANCREAS: There is no evidence of pancreatic mass nor dilatation of the pancreatic duct. RIGHT KIDNEY:Less than optimally visualized due to body habitus. IMPRESSION: 1.? Sludge noted in the gallbladder as well as mild gallbladder wall edema and pericholecystic fluid.? May be consistent with element of acute cholecystitis despite absence of shadowing gallstones.? Recommend follow-up nuclear hepatobiliary imaging/HIDA scan 2.? Hepatic steatosis.? Correlation appropriate hepatic blood work recommended. 3.? There is no ascites. Consults Consult date: 10/17/21 Requesting physician: Brianna Wheatley Review of Systems Constitutional Constitutional: Denies anorexia, Denies fever(s), Denies headache(s) and Denies weight loss Eyes Eyes: Denies change in vision ENT Ears, Nose, Mouth, and Throat: Reports system reviewed and no additional complaints, except as documented, Denies headache(s) and Reports odynophagia Cardiovascular Cardiovascular: Denies chest pain, Denies chest pain at rest, Denies irregular heart rhythm, Denies palpitations, Denies dyspnea and Denies dyspnea on exertion Respiratory Respiratory: Denies cough, Denies dyspnea and Denies dyspnea on exertion Gastrointestinal Gastrointestinal: Denies abdominal pain, Denies bloating, Denies hematochezia, Denies change in bowel habits, Denies constipation, Denies dyspepsia, Denies heartburn, Denies diarrhea and Reports odynophagia Genitourinary Genitourinary: Denies dysuria, Denies urinary incontinence and Denies urinary urgency Musculoskeletal Musculoskeletal: Reports system reviewed and no additional complaints, except as documented Integumentary/Breasts Skin/Breast: Reports system reviewed and no additional complaints, except as documented Neurologic Neurologic: Reports system reviewed and no additional complaints, except as documented and Denies headache(s) Psychiatric Psychiatric: Reports system reviewed and no additional complaints, except as documented Endocrine Endocrine: Reports system reviewed and no additional complaints, except as documented and Denies palpitations Hematologic/Lymphatic Hematologic/Lymphatic: Reports system reviewed and no additional complaints, except as documented PFSH All Active Problems (Updated 10/17/21 @ 21:34 by Radha Evans MD) Abdominal fluid collection (Acute) Hypotension (Acute) Anemia (Chronic) Acute hypokalemia (Acute) Alcoholism (Acute) Acute hyponatremia (Acute) Hemoglobin low (Acute) Oral thrush (Acute) Normal colonoscopy (Acute) Smoker (Acute) Alcoholism (Acute) Medical History Anxiety Asthma BMI 36.0-36.9,adult Chronic alcoholism since 35yo. Completed [facility] inpatient, relapsed and developed pacreatitis 03/2016. Sober since then. Constipation Depression Dyspepsia Dysphonia Elevated liver enzymes Elevated transaminase level History of substance abuse Hyperthyroidism Hypokalemia Macrocytosis Mental health problem Mood improved with Gabapentin. May change to SSRI. Dr Connors monitors. Obesity CALEB (obstructive sleep apnea) Pancreatitis Pedal edema Post-nasal drip Stress incontinence Tobacco use Vitamin D deficiency Surgical History back surgery lumbar disk shaving. bunionectomy L foot. History of colonoscopy (~07/03/21) Stoiber, airway concerns during procedure refer to procedure note. Family History Grandmother No problems noted. Social History Smoking/Tobacco Use Status: Current every day Tobacco Type: cigarettes Smoking risk assessment performed?: Yes Alcohol Intake: former Drug use: Current Sobriety Substance use type: opiates Details: 2 years since use Do you feel safe at home: Yes Do you feel safe in your relationship?: Yes Exam Const General: cooperative, healthy appearing, comfortable and no acute distress Orientation: alert and oriented x3 HENMT Head: normocephalic and atraumatic Eyes Pupils: PERRL Resp Effort & Inspection: normal respiratory effort Auscultation: clear to auscultation bilaterally Cardio Rate: regular rate Rhythm: regular rhythm Heart Sounds: no gallops, no murmurs and no rubs GI Inspection: normal to inspection and obesity Palpation: soft, no hernias and nontender Auscultation: normal bowel sounds General: deferred Results Last Vital Signs Temp 98.4 F 10/17/21 20:01 Pulse 120 H 10/17/21 20:01 Resp 14 10/17/21 20:01 BP 107/68 10/17/21 20:01 Pulse Ox 94 10/17/21 20:01 Labs Result diagrams: 10/17/21 05:31 10/17/21 20:10 Labs: Laboratory Results - last 24 hr 10/16/21 10/16/21 10/17/21 22:24 22:24 00:02 WBC RBC Hgb Hct MCV MCH MCHC RDW Plt Count MPV Immature Gran % Neutrophils % Lymphocytes % Monocytes % Eosinophils % Basophils % Nucleated RBC % Absolute Neutrophils Absolute Lymphocytes Absolute Monocytes Absolute Eosinophils Absolute Basophils RBC Morphology Hypochromasia PT INR VBG Lactate Sodium 119 L* Potassium 2.3 L* Chloride 74 L Carbon Dioxide 39.2 H Anion Gap 5.8 BUN 16 Creatinine 0.8 Estimated GFR/1.73 m2 >= 60.00 Glucose 86 Calcium 7.5 L Magnesium 2.2 Iron TIBC Transferrin % Sat Ferritin Total Bilirubin Conjugated Bilirubin 1.7 H AST ALT Alkaline Phosphatase C-Reactive Protein Total Protein Albumin Vitamin B12 Folate Procalcitonin Urine Color Urine Clarity Urine pH Ur Specific [place] Urine Protein Urine Ketones Urine Blood Urine Nitrite Urine Bilirubin Urine Urobilinogen Ur Leukocyte Esterase Urine Glucose Stl [facility] Acetaminophen COVID-19 Source Nasal/Nares SARS-CoV-2 (PCR) Negative Add-On Test Request 10/17/21 10/17/21 10/17/21 04:00 05:30 05:31 WBC RBC Hgb Hct MCV MCH MCHC RDW Plt Count MPV Immature Gran % Neutrophils % Lymphocytes % Monocytes % Eosinophils % Basophils % Nucleated RBC % Absolute Neutrophils Absolute Lymphocytes Absolute Monocytes Absolute Eosinophils Absolute Basophils RBC Morphology Hypochromasia PT INR VBG Lactate Sodium 121 L* Potassium 2.8 L* Chloride 79 L Carbon Dioxide 36.3 H Anion Gap 5.7 BUN 14 Creatinine 0.8 Estimated GFR/1.73 m2 >= 60.00 Glucose 109 H Calcium 7.8 L Magnesium Iron TIBC Transferrin % Sat Ferritin Total Bilirubin Conjugated Bilirubin AST ALT Alkaline Phosphatase C-Reactive Protein Total Protein Albumin Vitamin B12 Folate Procalcitonin Urine Color Urine Clarity Urine pH Ur Specific [place] Urine Protein Urine Ketones Urine Blood Urine Nitrite Urine Bilirubin Urine Urobilinogen Ur Leukocyte Esterase Urine Glucose Stl [facility] Cancelled Acetaminophen Cancelled COVID-19 Source SARS-CoV-2 (PCR) Add-On Test Request 10/17/21 10/17/21 10/17/21 05:31 05:31 05:31 WBC 12.72 H RBC 2.23 L Hgb 7.4 L Hct 21.4 L MCV 96 H MCH 33.2 H MCHC 34.6 RDW 14.5 Plt Count 151 MPV 11.9 H Immature Gran % 0.6 Neutrophils % 76.7 Lymphocytes % 15.0 Monocytes % 6.5 Eosinophils % 0.8 Basophils % 0.4 Nucleated RBC % 0.0 Absolute Neutrophils 9.76 H Absolute Lymphocytes 1.91 Absolute Monocytes 0.83 H Absolute Eosinophils 0.10 Absolute Basophils 0.05 RBC Morphology See Below Hypochromasia 3+ PT INR VBG Lactate Sodium Potassium Chloride Carbon Dioxide Anion Gap BUN Creatinine Estimated GFR/1.73 m2 Glucose Calcium Magnesium Iron 118 TIBC 116 L Transferrin % Sat 102 H Ferritin Total Bilirubin 2.5 H Conjugated Bilirubin 1.6 H AST 183 H ALT 14 Alkaline Phosphatase 260 H C-Reactive Protein Total Protein 6.2 L Albumin 1.5 L Vitamin B12 Folate Procalcitonin Urine Color Urine Clarity Urine pH Ur Specific [place] Urine Protein Urine Ketones Urine Blood Urine Nitrite Urine Bilirubin Urine Urobilinogen Ur Leukocyte Esterase Urine Glucose Stl [facility] Acetaminophen COVID-19 Source SARS-CoV-2 (PCR) Add-On Test Request 10/17/21 10/17/21 10/17/21 05:31 05:31 05:31 WBC RBC Hgb Hct MCV MCH MCHC RDW Plt Count MPV Immature Gran % Neutrophils % Lymphocytes % Monocytes % Eosinophils % Basophils % Nucleated RBC % Absolute Neutrophils Absolute Lymphocytes Absolute Monocytes Absolute Eosinophils Absolute Basophils RBC Morphology Hypochromasia PT 28.2 H INR 3.0 H VBG Lactate Sodium Potassium Chloride Carbon Dioxide Anion Gap BUN Creatinine Estimated GFR/1.73 m2 Glucose Calcium Magnesium Iron TIBC Transferrin % Sat Ferritin 709 H Total Bilirubin Conjugated Bilirubin AST ALT Alkaline Phosphatase C-Reactive Protein Total Protein Albumin Vitamin B12 882 Folate 0.9 L Procalcitonin Urine Color Urine Clarity Urine pH Ur Specific [place] Urine Protein Urine Ketones Urine Blood Urine Nitrite Urine Bilirubin Urine Urobilinogen Ur Leukocyte Esterase Urine Glucose Stl [facility] Acetaminophen < 2 COVID-19 Source SARS-CoV-2 (PCR) Add-On Test Request DONE 10/17/21 10/17/21 10/17/21 14:55 14:55 14:55 WBC RBC Hgb Hct MCV MCH MCHC RDW Plt Count MPV Immature Gran % Neutrophils % Lymphocytes % Monocytes % Eosinophils % Basophils % Nucleated RBC % Absolute Neutrophils Absolute Lymphocytes Absolute Monocytes Absolute Eosinophils Absolute Basophils RBC Morphology Hypochromasia PT INR VBG Lactate 3.2 H* Sodium 127 L Potassium 3.7 Chloride 87 L Carbon Dioxide 35.6 H Anion Gap 4.4 BUN 11 Creatinine 0.8 Estimated GFR/1.73 m2 >= 60.00 Glucose 100 Calcium 8.0 L Magnesium Iron TIBC Transferrin % Sat Ferritin Total Bilirubin Conjugated Bilirubin AST ALT Alkaline Phosphatase C-Reactive Protein 13.75 H Total Protein Albumin Vitamin B12 Folate Procalcitonin Urine Color Urine Clarity Urine pH Ur Specific [place] Urine Protein Urine Ketones Urine Blood Urine Nitrite Urine Bilirubin Urine Urobilinogen Ur Leukocyte Esterase Urine Glucose Stl Occult [facility]ld Clinic Acetaminophen COVID-19 Source SARS-CoV-2 (PCR) Add-On Test Request 10/17/21 10/17/21 10/17/21 14:55 15:00 20:10 WBC RBC Hgb Hct MCV MCH MCHC RDW Plt Count MPV Immature Gran % Neutrophils % Lymphocytes % Monocytes % Eosinophils % Basophils % Nucleated RBC % Absolute Neutrophils Absolute Lymphocytes Absolute Monocytes Absolute Eosinophils Absolute Basophils RBC Morphology Hypochromasia PT INR VBG Lactate Sodium 129 L Potassium 4.4 Chloride 91 L Carbon Dioxide 34.4 H Anion Gap 3.6 BUN 10 Creatinine 0.7 Estimated GFR/1.73 m2 >= 60.00 Glucose 132 H Calcium 8.2 L Magnesium 2.4 Iron TIBC Transferrin % Sat Ferritin Total Bilirubin Conjugated Bilirubin AST ALT Alkaline Phosphatase C-Reactive Protein Total Protein Albumin Vitamin B12 Folate Procalcitonin 1.3 Urine Color Yellow Urine Clarity Clear Urine pH 7.0 Ur Specific [place] 1.010 Urine Protein Negative Urine Ketones Negative Urine Blood Negative Urine Nitrite Negative Urine Bilirubin Negative Urine Urobilinogen 0.2 Ur Leukocyte Esterase Negative Urine Glucose Negative Stl Occult Bld Clinic Acetaminophen COVID-19 Source SARS-CoV-2 (PCR) Add-On Test Request 10/17/21 10/17/21 20:10 Unknown WBC RBC Hgb Hct MCV MCH MCHC RDW Plt Count MPV Immature Gran % Neutrophils % Lymphocytes % Monocytes % Eosinophils % Basophils % Nucleated RBC % Absolute Neutrophils Absolute Lymphocytes Absolute Monocytes Absolute Eosinophils Absolute Basophils RBC Morphology Hypochromasia PT INR VBG Lactate 1.7 H Sodium Potassium Chloride Carbon Dioxide Anion Gap BUN Creatinine Estimated GFR/1.73 m2 Glucose Calcium Magnesium Iron TIBC Transferrin % Sat Ferritin Total Bilirubin Conjugated Bilirubin AST ALT Alkaline Phosphatase C-Reactive Protein Total Protein Albumin Vitamin B12 Folate Procalcitonin Urine Color Urine Clarity Urine pH Ur Specific [place] Urine Protein Urine Ketones Urine Blood Urine Nitrite Urine Bilirubin Urine Urobilinogen Ur Leukocyte Esterase Urine Glucose Stl Occ[facility] Acetaminophen COVID-19 Source SARS-CoV-2 (PCR) Add-On Test Request DONE
[2021-10-18] VITALS (56 sets, daily range): BP systolic 80–118; BP diastolic 50–81; PULSE 60–90; RESP 10–25; TEMP 36.2–37.1; O2SAT 95–98
--- NOTE | 2021-10-18 | DI.US_ITS ---
APPROVED REPORT EXAM: Comprehensive 2D, Doppler, and color-flow Echocardiogram Patient Location: In-Patient Room/Bed: [id number] Indications: CALEB, Suspected pulmonary HTN, ETOH Other Information Study Quality: Fair. Technically limited study due to body habitus, inability to position patient exa m done supine. Conclusion Normal left ventricular wall thickness and chamber size. Estimated ejection fraction is 65%. Wall m otion is normal Normal right ventricular size and systolic function Both atria are normal in size Triileaflet aortic valve without stenosis or regurgitation Mildly thickened mitral leaflets with trace to mild regurgitation Normal tricuspid valve with trace to mild regurgitation. Estimated right ventricular systolic pressu re is 29 mmHg Trivial pericardial effusion Wall motion Left Ventricle The left ventricle is normal size. The left ventricular systolic function is normal. The left ventric ular ejection fraction is within the normal range. There is normal left ventricular wall thickness. T here is normal LV segmental wall motion. There is no ventricular septal defect visualized. LVEF is 65 %. Right Ventricle Right ventricle is grossly normal in size. Right ventricular systolic function is grossly normal. Atria The left atrium size is normal. The right atrium size is normal. The interatrial septum is intact wit h no evidence for an atrial septal defect. Aortic Valve The aortic valve is normal in structure. Aortic valve is trileaflet. There is no aortic valvular lynn nosis. No aortic regurgitation is present. Mitral Valve Mitral valve leaflets are mildly thickened. No evidence of mitral valve stenosis. Trace to mild jordi l regurgitation. Tricuspid Valve The tricuspid valve is normal in structure. There is no tricuspid valve stenosis. Trace to mild tricu spid regurgitation. Pulmonic Valve The pulmonary valve is normal in structure. There is no pulmonic valvular stenosis. Trace pulmonic re gurgitation. Great Vessels The aortic root is normal in size. The ascending aorta is normal in size. Aortic arch is normal in ca liber. Due to poor image quality, the IVC could not be assessed. Pericardium Trivial circumferential pericardial effusion. 2D Dimensions IVSD d PLAX 0.83 cm F: 0.6-1.0 LV Vol A2C d MOD 101.7 mL LVPW d PLAX 0.82 cm F: 0.6 - 1.0 LV Vol A4C d MOD 115.0 mL LVID d PLAX 4.76 cm F: 3.8 - 5.2 LA Area A4C s MOD 23.18 cm2 LVDs 3.30 cm F: 2.2 - 3.5 LA Area A2C s MOD 21.37 cm2 Ao Root d 3.20 cm F: 2.7 - 3.3 LV EF A4C MOD 64.4 % Ao Asc Diam d 3.01 cm F: 2.3 - 3.1 LV EF A2C MOD 65.8 % LV EF Teichholz 57.7 % LV EF Biplane MOD 64.5 % LVEF (Black's) 64.51 % F: 54 - 74 SV 69.72 mL LV Volume 108.08 mL F: 46 - 106 LV Volume Index 48.03 mL/m2 F: 29 - 61 LV Vol Biplane MOD 108.1 mL FS 30.35 % M-Mode TAPSE 2.27 cm (M/F) >1.7 LV Diastology MV E' medial 0.174 (>0.07 m/s) E/A Ratio 1.4 LV E/e MED 7.65 (<14) MV E Vmax 1.33 (0.4-1.3 m/s) MV E' lateral 0.137 (>0.1 m/s) MV A Vmax 0.95 (0.4-1.3 m/s) LV E/e LAT 9.75 (<14) MV E/A Ratio 1.37 MV E/E' medial 7.65 MV E/E' lateral 9.75 Aortic Valve LVOT Area 3.30 cm2 AoV Area Vmax 3.23 cm2 LVOT Vmax 1.28 m/s LIANET Mean Shashank. 3.03 cm2 LVOT Mean Shashank. 0.86 m/s LVOT Peak Grad 6.6 mmHg LVOT Mean Grad 3.4 mmHg LVOT VTI 0.291 m LVOT Diam s 2.00 cm AoV Vmax 1.31 m/s Velocity Ratio 0.97 AoV Mean Shashank. 0.93 m/s AoV Peak Grad 6.9 mmHg LVOT SV 96.11 mL AoV Mean Grad 3.9 mmHg AoV VTI 0.294 m AoV Area VTI 3.27 cm2 Mitral Valve MV DT 195 (160-240 msec) MV PHT 56 msec MV Area PHT 3.90 cm2 MV VTI 0.297 m MV Area VTI 3.23 (4.0-6.0 cm2) Pulmonary Valve PV Vmax 1.04 (0.5-1.5 m/s) RVOT Peak Gr. 2.67 mmHg PV Peak Grad 4.3 mmHg RVOT Mean Gr. 1.55 mmHg PV Mean Grad 2.9 mmHg RVOT VTI 0.174 m PV VTI 0.231 m RVOT Vmax 0.82 m/s Tricuspid Valve TR Peak Grad 25.8 mmHg TR Vmax 2.54 m/s
[2021-10-18] MEDS: Lactated Ringers 1,000 ML 200 ML IV (03:03)
[2021-10-18] MEDS: PIPERACILLIN/TAZO 3.375 GM in Normal Saline 50 ML IVPB ×3 (06:22→19:56)
[2021-10-18] MEDS: Nystatin 500000 UNITS/5 ML SUSP 5ML CUP PO ×3 (06:22→19:56)
[2021-10-18 07:21] LABS: Lactate 1.5 mmol/L (0.6-1.4)
[2021-10-18 07:28] LABS: HCT 22.6 % (36.0-46.0); HGB 7.4 g/dL (11.2-15.7); MCH 33.3 pg (27.0-33.0); MCHC 32.7 % (32.0-36.0); MCV 102 fL (80-95); MPV 11.6 fL (8.0-11.0); Platelet Count 182 10^3/uL (130-400); RBC 2.22 10^6/uL (3.93-5.22); RDW 15.4 % (11.7-14.6); RDW-SD 55.9 fL; WBC 14.09 10^3/uL (4.4-10.8)
[2021-10-18 07:34] LABS: INR 1.5 (0.9-1.1); Prothrombin Time 14.6 sec (9.3-11.0)
[2021-10-18 07:36] LABS: Ammonia < 10 umol/L (11-32)
[2021-10-18 07:39] LABS: ALT 13 U/L (14-59); AST 158 U/L (15-37); Albumin 2.2 g/dL (3.4-5.0); Alkaline Phosphatase 253 U/L (46-116); Anion Gap 6.1 mmol/L (3-11); BUN 8 mg/dL (7-18); Bilirubin, Direct 1.9 mg/dL (0.0-0.2); Bilirubin, Total 2.9 mg/dL (0.2-1.0); CO2 33.9 mmol/L (21.0-32.0); CREATININE 0.8 mg/dL (0.55-1.02); Calcium 8.8 mg/dL (8.5-10.1); Chloride 93 mmol/L (98-107); Glucose 111 mg/dL (74-106); Magnesium 2.4 mg/dL (1.8-2.4); Potassium 4.1 mmol/L (3.5-5.1); Sodium 133 mmol/L (136-145); Total Protein 6.9 g/dL (6.4-8.2)
[2021-10-18 07:45] LABS: Absolute Lymphocyte Count 1.55 10^3/uL (1.2-3.4); Absolute Monocyte Count 0.28 10^3/uL (0.1-0.8); Absolute Neutrophil Count 12.26 10^3/uL (1.2-6.7); Diff Comment Manual Differential; RBC Morphology Normal
--- NOTE | 2021-10-18 08:30 | DI.NM_ITS ---
Exam(s) NM HEPATOBILIARY SCAN GRP EXAM: NM HEPATOBILIARY SCAN GRP CLINICAL HISTORY: question of acute cholecystitis. TECHNIQUE: Injected dose: 4.8 mCi Tc-99 mebrofenin COMPARISON: US US ABDOMEN LIMITED from 10/17/2021 FINDINGS: There is normal uptake and excretion of radiopharmaceutical by the liver. Excretion into the CBD is noted and radiopharmaceutical thereafter enters the distal duodenum and left upper quadrant small bow el loops. However, there is nonvisualization of the gallbladder, even after 2 hours. CCK was not administered. IMPRESSION: 1. Findings are consistent with obstruction of the cystic duct, implying acute cholecystitis.
[2021-10-18 08:35] LABS: Lab Add On Test COMPLETED
[2021-10-18 08:42] LABS: C-Reactive Protein 11.22 mg/dL (0.0-0.3)
--- NOTE | 2021-10-18 08:47 | CMPROGNOTE_ITS ---
- If Service Date Differs Date of service: 10/18/21 Time of Service: 08:47 Care Management Progress Note S/O: Virginia was transferred to the ICU yesterday for close monitoring and treatment of hypotension and further medical work up. Potential for ETOH withdrawal sx and is on CIWA protocol. She is being managed medically by Hospitalist services, and surgical services is consulted. Virginia is on IV ABX. HIDA scan pending. CM called Virginia's PCP ([facility]) yesterday for most recent progress notes, and forwarded them to hospitalist. Virginia is recently unemployed and does not have healthcare coverage. CM provided patient with a patient assistance packet and sent a referral to [email or web address], for assistance with healthcare coverage and other community resources. Given the severity of Virginia's illness, Latosha from [email or web address] is planning to meet with Virginia on Friday, if patient is able. A: 46 year female admitted to [facility] on 10/16/21 for Acute hyponatremia, Acute hypokalemia. P: Anticipate, Virginia will discharge home with new [facility] services (if indicated) when medically cleared ready. Virginia may benefit from a referral to the [facility] following discharge, but defers at this time. Virginia will follow up with her community provider's and discharge plan of care as prescribed.
--- NOTE | 2021-10-18 10:03 | PGE_ITS ---
Date of Service Date of service: 10/18/21 Time of Service: 08:30 Assessment and Plan Assessment and plan (1) Acute alcoholic hepatitis: Status: Acute Assessment and plan: Discriminant function score 81 on admission ->19 today. Was initiated on prednisolone yesterday. Continue prednisolone. Monitor LFTs including INR. MOnitor for bleeding. Component of transaminitis could be due to gallbladder issues, which we have not proven yet - await HIDA scan. (2) Hypotension: Status: Acute Assessment and plan: The patient is not acting as if she is in septic shock. Elevation of procalcitonin suggests an underlying bacterial process, but could also be related to adrenal insufficiency which I suspect the patient might have. Treat with empiric zosyn. Await blood cultures. Trend procalcitonin/CRP. Await HIDA scan - cholecystitis is a possibility. General surgery consulted. Not fluid responsive - but does respond to albumin. Getting 2 more bottles of albumin today. Blood transfusion could also be considered. (3) Anemia: Status: Chronic Assessment and plan: Folate deficiency.Dilutional component definite. Heme negative. Not actively bleeding. H/H stable. No iron or B12 deficiency. Continue folate repletion and monitor H/H. (4) Acute hyponatremia: Status: Acute Assessment and plan: Improved. No longer requiring correction. (5) Oral thrush: Status: Acute Assessment and plan: Continue nystatin swish and swallow. Await HIV and hepatitis panels. Not tolerating fluconazole due to QT prolongation, which remains - QTc was 522 this am. (6) QT prolongation: Status: Acute Assessment and plan: As above Monitor lytes. Ensure K/Mag remain wnl. (7) Acute hypokalemia: Status: Resolved Assessment and plan: Recheck in am (8) Alcoholism: Status: Chronic Assessment and plan: As above Suspect cirrhosis. Monitor for EtOH w/d. Not currently withdrawing. Continue thiamine/MVI. Will need a referral to a sobriety women's swim coach. (9) Coagulopathy: Status: Acute Assessment and plan: In setting of alcoholic hepatitis and likely cirrhosis - as above. S/p Vitamin K. better today. Continue monitoring H/H, INR. Not actively bleeding. (10) Gallbladder sludge: Status: Acute Assessment and plan: Await HIDA scan. Continue empiric zosyn (11) Transaminitis: Status: Acute Assessment and plan: As above (12) CALEB on CPAP: Status: Chronic Assessment and plan: Provide CPAP. Check Echo - high suspicion for R-heart issues, possibly resulting in a component of liver injury as well. (13) Hyperbilirubinemia: Status: Acute Assessment and plan: As above (14) DVT prophylaxis: Status: Acute Assessment and plan: SCDs. Holding off on chemical DVT ppx in setting of coagulopathy/anemia. (15) Discharge planning issues: Status: Acute Assessment and plan: Full code Keep in ICU. Total Critical Care Time 60 minutes. Subjective Subjective Interval history since last seen: Ms Pisano states she has not had any nausea or abdominal pain. She did have a liquid green/brown stool yesterday, but none so far today. Denies dizziness, chest pain, shortness of breath. She denies IVD use in the past. She is in a relationship with someone who did have past high risk behaviors, but had tested negative for HIV/hepatitis in the past. We had a discussion about why HIV and hepatitis studies were ordered and pending. [place] is supposed to be using a CPAP for her CALEB, but hers has gotten recalled. Here she has required 2 L of O2 by NC while asleep. Her MAPs did come up to 55-60 overnight. No bleeding. Agrees to HIDA scan and echo. Up to date on colonoscopy. Due for a mammogram. Exam Narrative Exam Narrative: General: Very pleasant obese female, A&Ox3, jaundiced, initially asleep and snoring while on O2 (2L by NC), wakes up easily HEENT: EOMI, MMM Heart: RRR, no m/r/g Lungs: faint rales at B bases Abdomen: soft, nontender, nondistended, obese - no obvious ascites Extremities: 2+ BLE edema, new Objective Last Vital Signs Temp 36.3 C L 10/18/21 04:40 Pulse 61 10/18/21 05:00 Resp 12 10/18/21 05:01 BP 84/51 L 10/18/21 05:00 Pulse Ox 95 10/18/21 04:40 Laboratory Results - last 24 hr 10/17/21 10/17/21 10/17/21 14:55 14:55 14:55 WBC RBC Hgb Hct MCV MCH MCHC RDW Plt Count MPV Immature Gran % Neutrophils % Lymphocytes % Monocytes % Eosinophils % Basophils % Nucleated RBC % Absolute Neutrophils Absolute Lymphocytes Absolute Monocytes Absolute Eosinophils Absolute Basophils RBC Morphology PT INR VBG Lactate 3.2 H* Sodium 127 L Potassium 3.7 Chloride 87 L Carbon Dioxide 35.6 H Anion Gap 4.4 BUN 11 Creatinine 0.8 Estimated GFR/1.73 m2 >= 60.00 Glucose 100 Calcium 8.0 L Magnesium Total Bilirubin Conjugated Bilirubin AST ALT Alkaline Phosphatase Ammonia C-Reactive Protein 13.75 H Total Protein Albumin Procalcitonin Urine Color Urine Clarity Urine pH Ur Specific [place] Urine Protein Urine Ketones Urine Blood Urine Nitrite Urine Bilirubin Urine Urobilinogen Ur Leukocyte Esterase Urine Glucose Add-On Test Request 10/17/21 10/17/21 10/17/21 14:55 15:00 20:10 WBC RBC Hgb Hct MCV MCH MCHC RDW Plt Count MPV Immature Gran % Neutrophils % Lymphocytes % Monocytes % Eosinophils % Basophils % Nucleated RBC % Absolute Neutrophils Absolute Lymphocytes Absolute Monocytes Absolute Eosinophils Absolute Basophils RBC Morphology PT INR VBG Lactate Sodium 129 L Potassium 4.4 Chloride 91 L Carbon Dioxide 34.4 H Anion Gap 3.6 BUN 10 Creatinine 0.7 Estimated GFR/1.73 m2 >= 60.00 Glucose 132 H Calcium 8.2 L Magnesium 2.4 Total Bilirubin Conjugated Bilirubin AST ALT Alkaline Phosphatase Ammonia C-Reactive Protein Total Protein Albumin Procalcitonin 1.3 Urine Color Yellow Urine Clarity Clear Urine pH 7.0 Ur Specific [place] 1.010 Urine Protein Negative Urine Ketones Negative Urine Blood Negative Urine Nitrite Negative Urine Bilirubin Negative Urine Urobilinogen 0.2 Ur Leukocyte Esterase Negative Urine Glucose Negative Add-On Test Request 10/17/21 10/17/21 10/18/21 20:10 Unknown 07:14 WBC RBC Hgb Hct MCV MCH MCHC RDW Plt Count MPV Immature Gran % Neutrophils % Lymphocytes % Monocytes % Eosinophils % Basophils % Nucleated RBC % Absolute Neutrophils Absolute Lymphocytes Absolute Monocytes Absolute Eosinophils Absolute Basophils RBC Morphology PT INR VBG Lactate 1.7 H 1.5 H Sodium Potassium Chloride Carbon Dioxide Anion Gap BUN Creatinine Estimated GFR/1.73 m2 Glucose Calcium Magnesium Total Bilirubin Conjugated Bilirubin AST ALT Alkaline Phosphatase Ammonia C-Reactive Protein Total Protein Albumin Procalcitonin Urine Color Urine Clarity Urine pH Ur Specific [place] Urine Protein Urine Ketones Urine Blood Urine Nitrite Urine Bilirubin Urine Urobilinogen Ur Leukocyte Esterase Urine Glucose Add-On Test Request DONE 10/18/21 10/18/21 10/18/21 07:14 07:14 07:14 WBC 14.09 H RBC 2.22 L Hgb 7.4 L Hct 22.6 L MCV 102 H D MCH 33.3 H MCHC 32.7 D RDW 15.4 H Plt Count 182 MPV 11.6 H Immature Gran % 0.0 Neutrophils % 87.0 Lymphocytes % 11.0 Monocytes % 2.0 Eosinophils % 0.0 Basophils % 0.0 Nucleated RBC % 0.0 Absolute Neutrophils 12.26 H Absolute Lymphocytes 1.55 Absolute Monocytes 0.28 Absolute Eosinophils 0.00 Absolute Basophils 0.00 RBC Morphology Normal PT INR VBG Lactate Sodium 133 L Potassium 4.1 Chloride 93 L Carbon Dioxide 33.9 H Anion Gap 6.1 BUN 8 Creatinine 0.8 Estimated GFR/1.73 m2 >= 60.00 Glucose 111 H Calcium 8.8 Magnesium 2.4 Total Bilirubin 2.9 H Conjugated Bilirubin 1.9 H AST 158 H ALT 13 L Alkaline Phosphatase 253 H Ammonia < 10 L C-Reactive Protein 11.22 H Total Protein 6.9 Albumin 2.2 L Procalcitonin Urine Color Urine Clarity Urine pH Ur Specific [place] Urine Protein Urine Ketones Urine Blood Urine Nitrite Urine Bilirubin Urine Urobilinogen Ur Leukocyte Esterase Urine Glucose Add-On Test Request 10/18/21 10/18/21 07:14 08:35 WBC RBC Hgb Hct MCV MCH MCHC RDW Plt Count MPV Immature Gran % Neutrophils % Lymphocytes % Monocytes % Eosinophils % Basophils % Nucleated RBC % Absolute Neutrophils Absolute Lymphocytes Absolute Monocytes Absolute Eosinophils Absolute Basophils RBC Morphology PT 14.6 H INR 1.5 H VBG Lactate Sodium Potassium Chloride Carbon Dioxide Anion Gap BUN Creatinine Estimated GFR/1.73 m2 Glucose Calcium Magnesium Total Bilirubin Conjugated Bilirubin AST ALT Alkaline Phosphatase Ammonia C-Reactive Protein Total Protein Albumin Procalcitonin Urine Color Urine Clarity Urine pH Ur Specific [place] Urine Protein Urine Ketones Urine Blood Urine Nitrite Urine Bilirubin Urine Urobilinogen Ur Leukocyte Esterase Urine Glucose Add-On Test Request COMPLETED Objective Narrative Objective Narrative: US abdomen; 1.? Sludge noted in the gallbladder as well as mild gallbladder wall edema and pericholecystic fluid.? May be consistent with element of acute cholecystitis despite absence of shadowing gallstones.? Recommend follow-up nuclear hepatobiliary imaging/HIDA scan 2.? Hepatic steatosis.? Correlation appropriate hepatic blood work recommended. 3.? There is no ascites. PAWSS Have you Been Recently Intoxicated or Drunk Within the Last 30 days?: Yes Have you Ever Experienced Previous Episodes of Alcohol Withdrawal?: Yes Have you ever Experienced Withdrawal Seizures?: No Have you ever Experienced Delirium Tremens(DT)s?: No Have you ever undergone Alcohol Rehabilitation Treatment (i.e, inpt ot outpatient treatment programs)?: Yes Have you ever Experienced Blackouts?: No Have you ever Combined Alcohol with other Downers within the last 90 days?: No Have you ever Combined Alcohol with any other Substance of Abuse during the last 90 days?: No Positive Blood Alcohol level on Presentation? [PCS.BAL]: No Evidence of Increased Autonomic Activity (i.e. HR>120, tremor, sweating, agitation, nausea)?: No Result: 3 Multi-Disciplinary Checklist Lines/Tubes CENTRAL LINE: no ARTERIAL LINE: no RODRIGUEZ: yes, Rodriguez Day#: 1 Note: Inserted on 10/17/21 ENDOTRACHEAL TUBE: no ICU Maintenance GLUCOSE 140-180mg/dL: no, Reason/Intervention: NPO - D5 fluids added NUTRITION AT GOAL: no, Reason/Intervention: NPO for HIDA scan PRESSURE ULCER: no RESTRAINTS: no ANTIBIOTICS(if yes, consider Stewardship): Yes Social Issues FAMILY UPDATED: no, Reason/Intervention: Patient is A&Ox3 PT/OT: no, Reason/Intervention: not requiring GOALS/DISPOSITION/COMMUNITY HEALTH DIRECTOR: yes CODE STATUS: Full Prophylaxis DVT PROPHYLAXIS: yes GI PROPHYLAXIS: yes, Indication: NPO, question of GI bleeding prior to presentation and possible varices
[2021-10-18 10:18] LABS: HIV-1/2 Ag & Ab Screen Negative (Negative)
[2021-10-18 10:30] LABS: Hepatitis A Antibody IgM Negative (Negative); Hepatitis B Core Antibody Negative (Negative); Hepatitis B surface Ag Negative (Negative); Hepatitis C Ab w Rflx HCV PCR Negative (Negative)
--- NOTE | 2021-10-18 10:41 | W.PM.PROGNOT ---
Date of Service Date of service: 10/18/21 Time of Service: 13:37 Assessment and Plan Assessment and plan (1) Abdominal fluid collection: Status: Acute Assessment and plan: Ms Pisano is a 46 year old female with a PMHX significant for longstanding alcohol abuse who was admitted for hyponatremia, hypokalemia, and anemia. US of the abdomen showed pericholecystic fluid and gallbladder wall edema which can be a benign result of cirrhotic changes. Differential includes alcohol induced cirrhosis, hepatitis and congestive right heart failure vs alcohol induced cardiomyopathy. With the patients alcohol abuse history, alcoholic cirrhosis or steatohepatitis are the most likely issues. Due to the persistent increase in total and conjugated bilirubin, biliary obstruction needs to be ruled out. HIDA scan pending; would recommend MRCP if HIDA shows lack of or minimal bile excretion given elevated/increasing conjugated bilirubin to rule out overt biliary obstruction and developing ascending cholangitis. Has hx of gallbladder hydrops and mild CBD dilation to 0.9cm in 2016. Continue IV antibiotics, currently on Zosyn. OK with switch to Rocephin/Flagyl while inpatient. CIWA protocol; monitor for signs/symptoms of active alcohol withdrawal. Defer medical management to Hospitalist. (2) Oral thrush: Status: Acute Assessment and plan: Agree with swish and swallow Nystatin for 14 days PRN cepacol for symptom relief (3) Anemia: Status: Chronic Assessment and plan: Most likely multifactorial/of chronic disease (4) Acute hypokalemia: Status: Resolved (5) Acute hyponatremia: Status: Acute (6) Alcoholism: Status: Chronic Subjective Subjective Patient reports: no new complaints, feels better and tolerating liquids well Exam Const General: cooperative, healthy appearing, comfortable, no acute distress and other (reports anxiety & tremor) [facility] Head: normocephalic and atraumatic Eyes Sclera: scleral abnormality bilaterally (icterus) Resp Effort & Inspection: normal respiratory effort and able to speak in complete sentences Cardio Rate: regular rate Rhythm: regular rhythm GI Inspection: normal to inspection and obesity Palpation: soft, no hernias and nontender Percussion: normal to percussion Skin General skin exam: no rashes or lesions noted Neuro General: patient alert, patient awake and patient oriented x3 Objective Last Vital Signs Temp 97.3 F L 10/18/21 04:40 Pulse 61 10/18/21 05:00 Resp 12 10/18/21 05:01 BP 84/51 L 10/18/21 05:00 Pulse Ox 95 10/18/21 04:40 Laboratory Results - last 24 hr 10/17/21 10/17/21 10/17/21 14:55 14:55 14:55 WBC RBC Hgb Hct MCV MCH MCHC RDW Plt Count MPV Immature Gran % Neutrophils % Lymphocytes % Monocytes % Eosinophils % Basophils % Nucleated RBC % Absolute Neutrophils Absolute Lymphocytes Absolute Monocytes Absolute Eosinophils Absolute Basophils RBC Morphology PT INR VBG Lactate 3.2 H* Sodium 127 L Potassium 3.7 Chloride 87 L Carbon Dioxide 35.6 H Anion Gap 4.4 BUN 11 Creatinine 0.8 Estimated GFR/1.73 m2 >= 60.00 Glucose 100 Calcium 8.0 L Magnesium Total Bilirubin Conjugated Bilirubin AST ALT Alkaline Phosphatase Ammonia C-Reactive Protein 13.75 H Total Protein Albumin Procalcitonin Urine Color Urine Clarity Urine pH Ur Specific [place] Urine Protein Urine Ketones Urine Blood Urine Nitrite Urine Bilirubin Urine Urobilinogen Ur Leukocyte Esterase Urine Glucose Add-On Test Request 10/17/21 10/17/21 10/17/21 14:55 15:00 20:10 WBC RBC Hgb Hct MCV MCH MCHC RDW Plt Count MPV Immature Gran % Neutrophils % Lymphocytes % Monocytes % Eosinophils % Basophils % Nucleated RBC % Absolute Neutrophils Absolute Lymphocytes Absolute Monocytes Absolute Eosinophils Absolute Basophils RBC Morphology PT INR VBG Lactate Sodium 129 L Potassium 4.4 Chloride 91 L Carbon Dioxide 34.4 H Anion Gap 3.6 BUN 10 Creatinine 0.7 Estimated GFR/1.73 m2 >= 60.00 Glucose 132 H Calcium 8.2 L Magnesium 2.4 Total Bilirubin Conjugated Bilirubin AST ALT Alkaline Phosphatase Ammonia C-Reactive Protein Total Protein Albumin Procalcitonin 1.3 Urine Color Yellow Urine Clarity Clear Urine pH 7.0 Ur Specific [place] 1.010 Urine Protein Negative Urine Ketones Negative Urine Blood Negative Urine Nitrite Negative Urine Bilirubin Negative Urine Urobilinogen 0.2 Ur Leukocyte Esterase Negative Urine Glucose Negative Add-On Test Request 10/17/21 10/17/21 10/18/21 20:10 Unknown 07:14 WBC RBC Hgb Hct MCV MCH MCHC RDW Plt Count MPV Immature Gran % Neutrophils % Lymphocytes % Monocytes % Eosinophils % Basophils % Nucleated RBC % Absolute Neutrophils Absolute Lymphocytes Absolute Monocytes Absolute Eosinophils Absolute Basophils RBC Morphology PT INR VBG Lactate 1.7 H 1.5 H Sodium Potassium Chloride Carbon Dioxide Anion Gap BUN Creatinine Estimated GFR/1.73 m2 Glucose Calcium Magnesium Total Bilirubin Conjugated Bilirubin AST ALT Alkaline Phosphatase Ammonia C-Reactive Protein Total Protein Albumin Procalcitonin Urine Color Urine Clarity Urine pH Ur Specific [place] Urine Protein Urine Ketones Urine Blood Urine Nitrite Urine Bilirubin Urine Urobilinogen Ur Leukocyte Esterase Urine Glucose Add-On Test Request DONE 10/18/21 10/18/21 10/18/21 07:14 07:14 07:14 WBC 14.09 H RBC 2.22 L Hgb 7.4 L Hct 22.6 L MCV 102 H D MCH 33.3 H MCHC 32.7 D RDW 15.4 H Plt Count 182 MPV 11.6 H Immature Gran % 0.0 Neutrophils % 87.0 Lymphocytes % 11.0 Monocytes % 2.0 Eosinophils % 0.0 Basophils % 0.0 Nucleated RBC % 0.0 Absolute Neutrophils 12.26 H Absolute Lymphocytes 1.55 Absolute Monocytes 0.28 Absolute Eosinophils 0.00 Absolute Basophils 0.00 RBC Morphology Normal PT INR VBG Lactate Sodium 133 L Potassium 4.1 Chloride 93 L Carbon Dioxide 33.9 H Anion Gap 6.1 BUN 8 Creatinine 0.8 Estimated GFR/1.73 m2 >= 60.00 Glucose 111 H Calcium 8.8 Magnesium 2.4 Total Bilirubin 2.9 H Conjugated Bilirubin 1.9 H AST 158 H ALT 13 L Alkaline Phosphatase 253 H Ammonia < 10 L C-Reactive Protein 11.22 H Total Protein 6.9 Albumin 2.2 L Procalcitonin Urine Color Urine Clarity Urine pH Ur Specific [place] Urine Protein Urine Ketones Urine Blood Urine Nitrite Urine Bilirubin Urine Urobilinogen Ur Leukocyte Esterase Urine Glucose Add-On Test Request 10/18/21 10/18/21 07:14 08:35 WBC RBC Hgb Hct MCV MCH MCHC RDW Plt Count MPV Immature Gran % Neutrophils % Lymphocytes % Monocytes % Eosinophils % Basophils % Nucleated RBC % Absolute Neutrophils Absolute Lymphocytes Absolute Monocytes Absolute Eosinophils Absolute Basophils RBC Morphology PT 14.6 H INR 1.5 H VBG Lactate Sodium Potassium Chloride Carbon Dioxide Anion Gap BUN Creatinine Estimated GFR/1.73 m2 Glucose Calcium Magnesium Total Bilirubin Conjugated Bilirubin AST ALT Alkaline Phosphatase Ammonia C-Reactive Protein Total Protein Albumin Procalcitonin Urine Color Urine Clarity Urine pH Ur Specific [place] Urine Protein Urine Ketones Urine Blood Urine Nitrite Urine Bilirubin Urine Urobilinogen Ur Leukocyte Esterase Urine Glucose Add-On Test Request COMPLETED PAWSS Have you Been Recently Intoxicated or Drunk Within the Last 30 days?: Yes Have you Ever Experienced Previous Episodes of Alcohol Withdrawal?: Yes Have you ever Experienced Withdrawal Seizures?: No Have you ever Experienced Delirium Tremens(DT)s?: No Have you ever undergone Alcohol Rehabilitation Treatment (i.e, inpt ot outpatient treatment programs)?: Yes Have you ever Experienced Blackouts?: No Have you ever Combined Alcohol with other Downers within the last 90 days?: No Have you ever Combined Alcohol with any other Substance of Abuse during the last 90 days?: No Positive Blood Alcohol level on Presentation? [PCS.BAL]: No Evidence of Increased Autonomic Activity (i.e. HR>120, tremor, sweating, agitation, nausea)?: No Result: 3
[2021-10-18] MEDS: ALBUMIN HUMAN 25 GM/100 ML BTL IV ×2 (11:29→12:11)
[2021-10-18] MEDS: Normal Saline Flush 10 ML SYR IVP (11:32)
[2021-10-18] MEDS: DEXTROSE 5%-LACTATED RINGERS 1,000 ML 50 ML IV (11:35)
[2021-10-18] MEDS: Pantoprazole 40 MG VIAL IVP (11:35)
[2021-10-18] MEDS: Thiamine 100 MG TAB PO (11:38)
[2021-10-18] MEDS: Multivitamin TAB 1 TAB PO (11:38)
[2021-10-18] MEDS: Midodrine 2.5 MG TAB PO ×2 (11:38→19:56)
[2021-10-18] MEDS: Folic Acid 1 MG TAB PO (11:38)
--- NOTE | 2021-10-18 11:42 | CHAPLAIN ---
Virginia was resting in bed when I visited. She was pleasant and easily engaged in a conversation. 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 We talked about some of the people she will work with there. She's looking forward to the new job. Because of testing and scans that are scheduled, she hasn't been able to eat or drink and she said she's very hungry. She's been in touch with family. We didn't talk about her health concerns and prognosis.
--- NOTE | 2021-10-18 14:42 | PHA.REVIEW ---
Pharmacy Admission Review - Admission Clinical Review (Last Reviewed 10/17/21 @ 21:30 by Radha Evans MD) QT prolongation (Acute) Discharge planning issues (Acute) DVT prophylaxis (Acute) Hyperbilirubinemia (Acute) Transaminitis (Acute) Gallbladder sludge (Acute) Coagulopathy (Acute) Acute alcoholic hepatitis (Acute) Abdominal fluid collection (Acute) Hypotension (Acute) Acute hyponatremia (Acute) Hemoglobin low (Acute) Oral thrush (Acute) shellfish derived Allergy (Mild, Verified 10/16/21 20:13) Itching tramadol Adverse Reaction (Mild, Verified 10/16/21 20:13) Agitation Resuscitation Status Full Code Height 5 ft 4 in Weight 127 kg - Renal Dosing Renal Dosing: BUN 8 mg/dL (7-18) 10/18/21 07:14 Creatinine 0.8 mg/dL (0.55-1.02) 10/18/21 07:14 Medications needing adjustments: Reviewed (Crcl ~116 mL/min using adjusted body weight, current meds okay) - Anticoagulation Anticoagulation: Hgb 7.4 g/dL (11.2-15.7) L 10/18/21 07:14 Hct 22.6 % (36.0-46.0) L 10/18/21 07:14 Plt Count 182 10^3/uL (130-400) 10/18/21 07:14 INR 1.5 (0.9-1.1) H 10/18/21 07:14 Creatinine 0.8 mg/dL (0.55-1.02) 10/18/21 07:14 DVT Prophylaxis: Reviewed (SCDs ordered, holding off on chemical prophylaxis in setting of coagulopathy/anemia per progress note) Therapeutic Anticoagulation: N/A - Opiate Usage Evaluate Pain Scale/Pains Meds: N/A - Relevant Labs Sodium 133 mmol/L (136-145) L 10/18/21 07:14 Potassium 4.1 mmol/L (3.5-5.1) 10/18/21 07:14 Chloride 93 mmol/L (98-107) L 10/18/21 07:14 Magnesium 2.4 mg/dL (1.8-2.4) 10/18/21 07:14 C-Reactive Protein 11.22 mg/dL (0.0-0.3) H 10/18/21 07:14 Electrolytes, C-Reactive P, ESR: Reviewed - DM Control DM Control: Glucose 111 mg/dL (74-106) H 10/18/21 07:14 Insulin Dosing: N/A - Heart Failure/MT EF%, PARAG's, B-Blockers, Diuretics: N/A - BP Control BP Control: Blood Pressure [Right Arm] 86/50 Blood Pressure [Right Arm] 81/50 Blood Pressure 84/51 Blood Pressure 81/50 Blood Pressure 82/52 If elevated: Reviewed (BP has been low almost all of admission so far, pt has miododrine ordered) - Qtc Review If Elevated: Intervened (QTc prolonged yesterday, fluconazole discontinued. QTc still prolonged today per provider so suboxone was discontinued.) - IV to PO Switch IV Medications: Intervened (Will ask provider about changing pantoprazole from IV to PO.) - Home Meds Home Med List reviewed: Reviewed Relevent Home Meds Not ordered & why?: suboxone (was discontinued today due to QT prolongation and hepatic dysfunction) - Current meds Current Medication Order Review: Reviewed - Comments Comments/Follow Ups: Watch BP, labs and for med changes (avoid QT prolonging meds, watch for hepatic dose adjustments). Antibiotic Activity - Pharmacy Antibiotic Review Pharmacy Antibiotic Activity: C/S review (BC pending, UC growing gram negative guille and gram positive florinda. Zosyn ordered empirically.)
--- NOTE | 2021-10-18 16:26 | NUR.NOTE ---
I went to give the 0830 suboxone and patient reported she can only take it in the afternoon or it makes it nauseous. The patient also states that the generic brand makes her legs swell and she needs the name brand Suboxone. Pharmacy was contacted and they only have the generic. The patient was notified and updated that she will need to have someone bring in her suboxone from home if she wants to take the name brand. Nursing Note:
[2021-10-19] VITALS (80 sets, daily range): BP systolic 90–118; BP diastolic 48–88; PULSE 57–86; RESP 9–74; TEMP 36–36.8; O2SAT 93–97
--- NOTE | 2021-10-19 | DI.US_ITS ---
Exam(s) US EXTREMITY VENOUS BI EXAM: US EXTREMITY VENOUS BI CLINICAL HISTORY: BLE edema, concern for DVT. TECHNIQUE: Bilateral lower extremity venous ultrasound performed using grayscale, color-flow, and sp ectral Doppler analysis. COMPARISON: No exams were available for comparison FINDINGS: The bilateral common femoral, femoral and popliteal veins demonstrate normal compressibility, augment ation, and color Doppler. The posterior tibial veins are patent. The saphenofemoral junctions are unr emarkable. There is no evidence of a Silva's cyst. The soft tissues are unremarkable. IMPRESSION: Right: Negative for DVT Left: Negative for DVT DATA REPOSITORY:
[2021-10-19] MEDS: Nystatin 500000 UNITS/5 ML SUSP 5ML CUP PO ×5 (00:04→21:12)
[2021-10-19] MEDS: PIPERACILLIN/TAZO 3.375 GM in Normal Saline 50 ML IVPB ×3 (00:04→14:26)
[2021-10-19] MEDS: Acetaminophen 325 MG TAB PO ×2 (00:51→06:34)
[2021-10-19 06:34] LABS: INR 1.3 (0.9-1.1); Prothrombin Time 12.7 sec (9.3-11.0)
[2021-10-19 06:42] LABS: Abs Immature Grans 0.17 10^3/uL (0.0-0.06); Absolute Basophil Count 0.03 10^3/uL (0.0-0.2); Absolute Lymphocyte Count 2.88 10^3/uL (1.2-3.4); Absolute Monocyte Count 1.14 10^3/uL (0.1-0.8); Basophils % 0.2; Immature Grans % 1.1; Lymphocytes % 18.2; MCH 33.8 pg (27.0-33.0); MCHC 33.3 % (32.0-36.0); MCV 102 fL (80-95); MPV 11.4 fL (8.0-11.0); Monocytes % 7.2; Neutrophils % 73.3; Nucleated RBC 0.1 % (0.0-0.3); Platelet Count 228 10^3/uL (130-400); RBC 2.04 10^6/uL (3.93-5.22); RDW 15.8 % (11.7-14.6); RDW-SD 58.3 fL; WBC 15.82 10^3/uL (4.4-10.8)
[2021-10-19 06:43] LABS: ALT 17 U/L (14-59); AST 198 U/L (15-37); Albumin 2.6 g/dL (3.4-5.0); Alkaline Phosphatase 253 U/L (46-116); Anion Gap 7.1 mmol/L (3-11); BUN 9 mg/dL (7-18); Bilirubin, Direct 1.5 mg/dL (0.0-0.2); Bilirubin, Total 2.3 mg/dL (0.2-1.0); C-Reactive Protein 6.72 mg/dL (0.0-0.3); CO2 31.9 mmol/L (21.0-32.0); CREATININE 0.9 mg/dL (0.55-1.02); Calcium 9.2 mg/dL (8.5-10.1); Chloride 95 mmol/L (98-107); Glucose 99 mg/dL (74-106); Lipase 20 U/L (73-393); Magnesium 2.2 mg/dL (1.8-2.4); Potassium 4.3 mmol/L (3.5-5.1); Sodium 134 mmol/L (136-145); Total Protein 6.9 g/dL (6.4-8.2)
[2021-10-19 06:45] LABS: HCT 20.7 % (36.0-46.0); HGB 6.9 g/dL (11.2-15.7)
--- NOTE | 2021-10-19 08:00 | DI.MRI_ITS ---
Exam(s) MR ABDOMEN WO EXAM: MR ABDOMEN WO CLINICAL HISTORY: cholecystitis, ?choledocholithiasis TECHNIQUE: Multiplanar multisequence MRA of the Abdomen was performed. COMPARISON: MR MRI ABDOMEN WO CONTRAST from 03/20/2016 FINDINGS: The examination is limited due to patient motion artifact. Liver: Unremarkable. Pancreas: Unremarkable. Gallbladder and Bile Ducts: There is layering debris seen within the gallbladder likely sludge. No s tones are seen. The common duct measures 6 mm. No choledocholithiasis is seen. Adrenals: Unremarkable. Kidneys: Unremarkable. Spleen: Unremarkable. Bowel: Unremarkable. Aorta: Unremarkable. Soft Tissues: Unremarkable. Bone: Unremarkable. Lymph Nodes: Unremarkable. Ascites: Small amount of perihepatic ascites is present. IMPRESSION: 1. Gallbladder sludge. No cholelithiasis or choledocholithiasis. The common duct is within normal l imits at 6 mm. 2. Small amount of perihepatic ascites. 3. Results of this exam have been verbally communicated with provider. DATA REPOSITORY:
[2021-10-19] MEDS: Thiamine 100 MG TAB PO (08:31)
[2021-10-19] MEDS: Folic Acid 1 MG TAB PO (08:31)
[2021-10-19] MEDS: Midodrine 2.5 MG TAB PO ×3 (08:31→21:12)
[2021-10-19] MEDS: Multivitamin TAB 1 TAB PO (08:31)
--- NOTE | 2021-10-19 09:01 | W.PM.PROGNOT ---
Date of Service Date of service: 10/19/21 Time of Service: 09:01 Assessment and Plan Assessment and plan (1) Acute cholecystitis: Status: Acute Assessment and plan: On zosyn. I am asking pharmacy to see if it could be contributing to QT prolongation - persistent. Consider changing abx to ceftriaxone + flagyl. MRCP this morning. NPO. Possible cholecystectomy this afternoon, depending on whether MRCP indicates that she needs an ERCP. (2) Acute alcoholic hepatitis: Status: Acute Assessment and plan: Discriminant function score 81 on admission ->19 yesterday ->10.1 today. Improving. Was initiated on prednisolone yesterday. Unclear how much of the LFT abnormalities are related to cholecystitis and how much to alcoholic hepatitis - she likely has both. We will have a better idea after the cholecystectomy. Continue prednisolone. Monitor LFTs including INR. INR is 1.3 today. MOnitor for bleeding. Not bleeding currently. (3) Hypotension: Status: Acute Assessment and plan: The patient is not in septic shock, but does have acute cholecystitis. Likely has more to do with intravascular depletion in setting of hypoalbuminemia. Will be getting a unit of blood this am. Symptomatic anemia likely contributing. S/p 4 bottles of albumin in the last 48 hrs. On midodrine. Asymptomatic. (4) Anemia: Status: Chronic Assessment and plan: Folate deficiency.Dilutional component definite. Getting a blood transfusion this am as Hgb is down to 6.9. Heme negative. Not actively bleeding. H/H stable. No iron or B12 deficiency. Continue folate repletion. Continue to monitor H/H. (5) Acute hyponatremia: Status: Acute Assessment and plan: Improved. No longer requiring correction. (6) Oral thrush: Status: Acute Assessment and plan: Continue nystatin swish and swallow. hepatitis and HIV studies are negative. Not tolerating fluconazole due to QT prolongation, which remains - QTc was 500 this am. (7) QT prolongation: Status: Acute Assessment and plan: As above Monitor lytes. Ensure K/Mag remain wnl. (8) Acute hypokalemia: Status: Resolved Assessment and plan: Recheck in am (9) Alcoholism: Status: Chronic Assessment and plan: As above Suspect cirrhosis. Monitor for EtOH w/d. Not currently withdrawing. Continue thiamine/MVI. Will need a referral to a sobriety head tennis coach. (10) Coagulopathy: Status: Acute Assessment and plan: In setting of alcoholic hepatitis and likely cirrhosis - as above. S/p Vitamin K. Improving. Continue monitoring H/H, INR. Not actively bleeding. (11) Transaminitis: Status: Acute Assessment and plan: As above (12) CALEB on CPAP: Status: Chronic Assessment and plan: Provide CPAP. RVSP 29 mmHg. (13) Hyperbilirubinemia: Status: Acute Assessment and plan: As above improving (14) DVT prophylaxis: Status: Acute Assessment and plan: SCDs. Holding off on chemical DVT ppx in setting of coagulopathy/anemia. (15) Discharge planning issues: Status: Acute Assessment and plan: Full code Keep in ICU. Total Critical Care Time 60 minutes. Subjective Subjective Interval history since last seen: Feels better today. No dizziness, chest pain, shortness of breath, nausea. No abdominal pain, but does feel bloated. Notes B feet hurt, R>L, pain is burning, started at the hospital. Notes BLE swelling since coming to the hospital. Spent 1 hour on CPAP last night. No bleeding overnight. Getting 1 unit of pRBCs this am; then MRCP. NPO. Exam Narrative Exam Narrative: General: Very pleasant obese female, A&Ox3, looks less jaundiced and better overall HEENT: EOMI, MMM Heart: RRR, no m/r/g Lungs: faint rales at B bases, slight expiratory wheeze Abdomen: soft, nontender, more distended today Extremities: 2+ BLE edema, new Objective Last Vital Signs Temp 36.6 C 10/19/21 06:11 Pulse 78 10/19/21 06:04 Resp 21 10/19/21 06:05 BP 104/58 L 10/19/21 06:04 Pulse Ox 96 10/18/21 23:00 Laboratory Results - last 24 hr 10/16/21 10/17/21 10/19/21 20:30 05:31 05:50 WBC RBC Hgb Hct MCV MCH MCHC RDW Plt Count MPV Immature Gran % Neutrophils % Lymphocytes % Monocytes % Eosinophils % Basophils % Nucleated RBC % Absolute Neutrophils Absolute Lymphocytes Absolute Monocytes Absolute Eosinophils Absolute Basophils PT INR Sodium 134 L Potassium 4.3 Chloride 95 L Carbon Dioxide 31.9 Anion Gap 7.1 BUN 9 Creatinine 0.9 Estimated GFR/1.73 m2 >= 60.00 Glucose 99 Calcium 9.2 Magnesium 2.2 Total Bilirubin 2.3 H Conjugated Bilirubin 1.5 H AST 198 H ALT 17 Alkaline Phosphatase 253 H C-Reactive Protein 6.72 H Total Protein 6.9 Albumin 2.6 L Lipase 20 Hepatitis A IgM Ab Negative Hep Bs Antigen Negative Hep B Core Total Ab Negative Hepatitis C Antibody Negative HIV 1&2 Ag/Ab, 4th Gen Negative Patient ABO/Rh Crossmatch 10/19/21 10/19/21 10/19/21 05:50 05:50 08:03 WBC 15.82 H RBC 2.04 L Hgb 6.9 L* Hct 20.7 L* MCV 102 H MCH 33.8 H MCHC 33.3 RDW 15.8 H Plt Count 228 MPV 11.4 H Immature Gran % 1.1 Neutrophils % 73.3 Lymphocytes % 18.2 Monocytes % 7.2 Eosinophils % 0.0 Basophils % 0.2 Nucleated RBC % 0.1 Absolute Neutrophils 11.60 H Absolute Lymphocytes 2.88 Absolute Monocytes 1.14 H Absolute Eosinophils 0.00 Absolute Basophils 0.03 PT 12.7 H INR 1.3 H Sodium Potassium Chloride Carbon Dioxide Anion Gap BUN Creatinine Estimated GFR/1.73 m2 Glucose Calcium Magnesium Total Bilirubin Conjugated Bilirubin AST ALT Alkaline Phosphatase C-Reactive Protein Total Protein Albumin Lipase Hepatitis A IgM Ab Hep Bs Antigen Hep B Core Total Ab Hepatitis C Antibody HIV 1&2 Ag/Ab, 4th Gen Patient ABO/Rh B Positive Crossmatch See Detail PAWSS Have you Been Recently Intoxicated or Drunk Within the Last 30 days?: Yes Have you Ever Experienced Previous Episodes of Alcohol Withdrawal?: Yes Have you ever Experienced Withdrawal Seizures?: No Have you ever Experienced Delirium Tremens(DT)s?: No Have you ever undergone Alcohol Rehabilitation Treatment (i.e, inpt ot outpatient treatment programs)?: Yes Have you ever Experienced Blackouts?: No Have you ever Combined Alcohol with other Downers within the last 90 days?: No Have you ever Combined Alcohol with any other Substance of Abuse during the last 90 days?: No Positive Blood Alcohol level on Presentation? [PCS.BAL]: No Evidence of Increased Autonomic Activity (i.e. HR>120, tremor, sweating, agitation, nausea)?: No Result: 3 Multi-Disciplinary Checklist Lines/Tubes CENTRAL LINE: no ARTERIAL LINE: no RODRIGUEZ: no ENDOTRACHEAL TUBE: no ICU Maintenance GLUCOSE 140-180mg/dL: no, Reason/Intervention: NPO, not diabetic, on D5 containing fluids NUTRITION AT GOAL: no, Reason/Intervention: NPo in anticipation of surgery PRESSURE ULCER: no RESTRAINTS: no ANTIBIOTICS(if yes, consider Stewardship): Yes Social Issues FAMILY UPDATED: yes PT/OT: no, Reason/Intervention: able to ambulate GOALS/DISPOSITION/COMMUNICATIONS PROFESSIONAL: yes CODE STATUS: Full Prophylaxis DVT PROPHYLAXIS: yes GI PROPHYLAXIS: yes, Indication: NPO
[2021-10-19 09:09] LABS: Lab Add On Test DONE
[2021-10-19] MEDS: Normal Saline Flush 10 ML SYR IVP ×2 (09:57→14:39)
[2021-10-19] MEDS: Pantoprazole 40 MG VIAL IVP (09:58)
--- NOTE | 2021-10-19 10:01 | W.PM.PROGNOT ---
Date of Service Date of service: 10/19/21 Time of Service: 12:38 Assessment and Plan Assessment and plan (1) Abdominal fluid collection: Status: Acute Assessment and plan: HIDA shows cystic duct obstruction; MRCP negative for choledocolithiasis MELD 30 on admission; 16 today after maximal medical therapy Patient remains completely asymptomatic and is eager to eat. Consensus between providers that this may be a chronic and incidentally found problem in conjunction with her ongoing alcohol-induced liver disease. She remains a high risk surgical candidate given a MELD of 30 which carries a 50% 3-month mortality risk. Her case was discussed with [facility] surgery by the hospitalist as well as with our anesthesia department here which is [employer]-led. Ultimately, it is safest for the patient to be treated at a tertiary care facility with readily available resources that are not available to us here. [facility] recommended stopping abx, as long as no clinical decline she may see them outpatient for elective cholecystectomy should symptoms arise. Monitor for increasing signs of active alcohol withdrawal. Defer medical management to Hospitalist. (2) Oral thrush: Status: Acute Assessment and plan: Agree with swish and swallow Nystatin for 14 days PRN cepacol for symptom relief (3) Anemia: Status: Chronic Assessment and plan: Most likely multifactorial/of chronic disease Hb 6.9 today received 1 unit PRBC (4) Acute hypokalemia: Status: Resolved (5) Acute hyponatremia: Status: Acute (6) Alcoholism: Status: Chronic Subjective Subjective Patient reports: no new complaints Exam Const General: cooperative, healthy appearing, comfortable, no acute distress and other (reports anxiety & tremor) HENME Head: normocephalic and atraumatic Resp Effort & Inspection: normal respiratory effort Cardio Rate: regular rate Rhythm: regular rhythm Skin General skin exam: no rashes or lesions noted Neuro General: other (sleeping comfortably) Objective Last Vital Signs Temp 96.8 F L 10/19/21 09:55 Pulse 72 10/19/21 09:55 Resp 15 10/19/21 09:55 BP 117/52 L 10/19/21 09:55 Pulse Ox 93 10/19/21 09:54 Laboratory Results - last 24 hr 10/16/21 10/17/21 10/19/21 20:30 05:31 05:50 WBC RBC Hgb Hct MCV MCH MCHC RDW Plt Count MPV Immature Gran % Neutrophils % Lymphocytes % Monocytes % Eosinophils % Basophils % Nucleated RBC % Absolute Neutrophils Absolute Lymphocytes Absolute Monocytes Absolute Eosinophils Absolute Basophils PT INR Sodium 134 L Potassium 4.3 Chloride 95 L Carbon Dioxide 31.9 Anion Gap 7.1 BUN 9 Creatinine 0.9 Estimated GFR/1.73 m2 >= 60.00 Glucose 99 Uric Acid Calcium 9.2 Magnesium 2.2 Total Bilirubin 2.3 H Conjugated Bilirubin 1.5 H AST 198 H ALT 17 Alkaline Phosphatase 253 H C-Reactive Protein 6.72 H Total Protein 6.9 Albumin 2.6 L Lipase 20 Hepatitis A IgM Ab Negative Hep Bs Antigen Negative Hep B Core Total Ab Negative Hepatitis C Antibody Negative HIV 1&2 Ag/Ab, 4th Gen Negative Add-On Test Request Patient ABO/Rh Antibody Screen Crossmatch 10/19/21 10/19/21 10/19/21 05:50 05:50 05:50 WBC 15.82 H RBC 2.04 L Hgb 6.9 L* Hct 20.7 L* MCV 102 H MCH 33.8 H MCHC 33.3 RDW 15.8 H Plt Count 228 MPV 11.4 H Immature Gran % 1.1 Neutrophils % 73.3 Lymphocytes % 18.2 Monocytes % 7.2 Eosinophils % 0.0 Basophils % 0.2 Nucleated RBC % 0.1 Absolute Neutrophils 11.60 H Absolute Lymphocytes 2.88 Absolute Monocytes 1.14 H Absolute Eosinophils 0.00 Absolute Basophils 0.03 PT 12.7 H INR 1.3 H Sodium Potassium Chloride Carbon Dioxide Anion Gap BUN Creatinine Estimated GFR/1.73 m2 Glucose Uric Acid Calcium Magnesium Total Bilirubin Conjugated Bilirubin AST ALT Alkaline Phosphatase C-Reactive Protein Total Protein Albumin Lipase Hepatitis A IgM Ab Hep Bs Antigen Hep B Core Total Ab Hepatitis C Antibody HIV 1&2 Ag/Ab, 4th Gen Add-On Test Request DONE Patient ABO/Rh Antibody Screen Crossmatch 10/19/21 10/19/21 05:50 08:03 WBC RBC Hgb Hct MCV MCH MCHC RDW Plt Count MPV Immature Gran % Neutrophils % Lymphocytes % Monocytes % Eosinophils % Basophils % Nucleated RBC % Absolute Neutrophils Absolute Lymphocytes Absolute Monocytes Absolute Eosinophils Absolute Basophils PT INR Sodium Potassium Chloride Carbon Dioxide Anion Gap BUN Creatinine Estimated GFR/1.73 m2 Glucose Uric Acid 5.0 Calcium Magnesium Total Bilirubin Conjugated Bilirubin AST ALT Alkaline Phosphatase C-Reactive Protein Total Protein Albumin Lipase Hepatitis A IgM Ab Hep Bs Antigen Hep B Core Total Ab Hepatitis C Antibody HIV 1&2 Ag/Ab, 4th Gen Add-On Test Request Patient ABO/Rh B Positive Antibody Screen NEGATIVE Crossmatch See Detail PAWSS Have you Been Recently Intoxicated or Drunk Within the Last 30 days?: Yes Have you Ever Experienced Previous Episodes of Alcohol Withdrawal?: Yes Have you ever Experienced Withdrawal Seizures?: No Have you ever Experienced Delirium Tremens(DT)s?: No Have you ever undergone Alcohol Rehabilitation Treatment (i.e, inpt ot outpatient treatment programs)?: Yes Have you ever Experienced Blackouts?: No Have you ever Combined Alcohol with other Downers within the last 90 days?: No Have you ever Combined Alcohol with any other Substance of Abuse during the last 90 days?: No Positive Blood Alcohol level on Presentation? [PCS.BAL]: No Evidence of Increased Autonomic Activity (i.e. HR>120, tremor, sweating, agitation, nausea)?: No Result: 3
[2021-10-19] MEDS: LORazepam 2 MG/ML VIAL IVP ×2 (11:52→12:10)
[2021-10-19] MEDS: LORazepam 2 MG/ML VIAL 1 MG IVP (12:44)
--- NOTE | 2021-10-19 15:14 | PDOC.CMPRO ---
- If Service Date Differs Date of service: 10/19/21 Time of Service: 15:14 Care Management Progress Note S/O: Virginia was lying in bed in the ICU when CM met with her. She was sleeping, but per RN, she had been sedated prior to an MRI, and that it was ok to wake her. [place] didn't engage in conversation, due to her sedation, but she did state that her mouth was very dry and asked for something to drink. CM informed her RN of this request. Per report, awaiting results from her MRCP, which will direct her care. She will be transferred for an ERCP vs remain at [facility] for a cholecystectomy. CM will continue to follow. A: 46 year female admitted to [facility] on 10/16/21 for Acute hyponatremia, Acute hypokalemia. P: Anticipate, Virginia will discharge home with new [facility] services (if indicated) when medically cleared ready. Virginia may benefit from a referral to the [facility] following discharge, but defers at this time. Virginia will follow up with her community provider's and discharge plan of care as prescribed.
[2021-10-19 16:48] LABS: HCT 23.8 % (36.0-46.0); HGB 7.7 g/dL (11.2-15.7)
[2021-10-19] MEDS: DEXTROSE 5%-LACTATED RINGERS 1,000 ML 50 ML IV (17:02)
[2021-10-19] MEDS: Gabapentin 100 MG CAP PO (21:11)
[2021-10-20] VITALS (39 sets, daily range): BP systolic 100–121; BP diastolic 63–80; PULSE 62–94; RESP 10–30; TEMP 36.6–37; O2SAT 92–96
[2021-10-20] MEDS: Nystatin 500000 UNITS/5 ML SUSP 5ML CUP PO ×5 (06:05→20:50)
[2021-10-20 07:16] LABS: Abs Immature Grans 0.36 10^3/uL (0.0-0.06); Absolute Basophil Count 0.03 10^3/uL (0.0-0.2); Absolute Lymphocyte Count 3.55 10^3/uL (1.2-3.4); Absolute Monocyte Count 1.26 10^3/uL (0.1-0.8); Basophils % 0.2; Eosinophils % 0.1; HCT 24.2 % (36.0-46.0); HGB 7.7 g/dL (11.2-15.7); Immature Grans % 2.3; Lymphocytes % 22.3; MCH 32.2 pg (27.0-33.0); MCHC 31.8 % (32.0-36.0); MCV 101 fL (80-95); MPV 10.9 fL (8.0-11.0); Monocytes % 7.9; Neutrophils % 67.2; Nucleated RBC 0.1 % (0.0-0.3); RBC 2.39 10^6/uL (3.93-5.22); RDW 17.2 % (11.7-14.6); RDW-SD 64.3 fL; WBC 15.91 10^3/uL (4.4-10.8)
[2021-10-20 07:30] LABS: Absolute Eosinophil Count 0.02 10^3/uL (0.0-0.7); Absolute Neutrophil Count 10.69 10^3/uL (1.2-6.7)
[2021-10-20 07:34] LABS: ALT 27 U/L (14-59); AST 300 U/L (15-37); Albumin 2.6 g/dL (3.4-5.0); Alkaline Phosphatase 270 U/L (46-116); Anion Gap 7.9 mmol/L (3-11); BUN 11 mg/dL (7-18); Bilirubin, Direct 1.4 mg/dL (0.0-0.2); Bilirubin, Total 2.1 mg/dL (0.2-1.0); CO2 32.1 mmol/L (21.0-32.0); CREATININE 0.9 mg/dL (0.55-1.02); Calcium 9.3 mg/dL (8.5-10.1); Chloride 97 mmol/L (98-107); Glucose 88 mg/dL (74-106); Potassium 4.2 mmol/L (3.5-5.1); Sodium 137 mmol/L (136-145); Total Protein 6.8 g/dL (6.4-8.2)
[2021-10-20 07:56] LABS: Lab Add On Test DONE
[2021-10-20 08:20] LABS: C-Reactive Protein 4.35 mg/dL (0.0-0.3)
[2021-10-20 08:25] LABS: Diff Comment Agrees w/ Instrument; Platelet Count 216 10^3/uL (130-400)
[2021-10-20 08:26] LABS: Hypochromasia 3+; Polychromasia Present
--- NOTE | 2021-10-20 09:05 | PGE_ITS ---
Date of Service Date of service: 10/20/21 Time of Service: 09:05 Assessment and Plan Assessment and plan (1) Acute alcoholic hepatitis: Status: Acute Assessment and plan: Discriminant function score 81 on admission ->19 yesterday ->10.1 yesterday. Improving. Continue prednisolone. Trend INR, LFTs now that the antibiotics were decreased. With a negative MRCP and a high rate of false positive HIDA scans in patients with cirrhosis, it is not clear that the patient ever had acute cholecystitis, per surgery both here and at [facility]. She will need to follow up with [facility] general surgery as outpatient. Trialing off of abx to see if LFTs worsen. AST is a little worse, but probably too soon to be due to stopping abx. All the other LFTs seem better. MOnitor for bleeding. Not bleeding currently. Ok to transfer out of ICU. (2) Acute cholecystitis: Status: Ruled-out Assessment and plan: Never had pain. US not strongly suggestive of cholecystitis. HIDA positive, but is frequently positive in patients with cirrhosis, per surgery. MRCP negative for acute cholecystitis, choledocholithiasis, cholelithiasis. There is sludge. Not clearly in acute cholecystitis. Discussed with surgery here and at [facility]. Trialing off of abx. If does ok, would pursue outpatient follow up with [facility] surgery for a possible elective cholecystectomy. Monitor LFTs off of abx. (3) Hypotension: Status: Resolved Assessment and plan: The patient was not in septic shock. Likely has more to do with intravascular depletion in setting of hypoalbuminemia and anemia. S/p 1 unit pRBCs yesterday. S/p 4 bottles of albumin since admission. On midodrine. Ok to transfer out of ICU. (4) Anemia: Status: Chronic Assessment and plan: Folate deficiency. Dilutional component definite. Heme negative. Not actively bleeding. S/p 1 unit pRBCS on 10/19/21. H/H stable. No iron or B12 deficiency. Continue folate repletion. Continue to monitor H/H. (5) Acute hyponatremia: Status: Acute Assessment and plan: Improved. No longer requiring correction. (6) Oral thrush: Status: Acute Assessment and plan: Continue nystatin swish and swallow. hepatitis and HIV studies are negative. Not tolerating fluconazole due to QT prolongation. (7) QT prolongation: Status: Resolved Assessment and plan: As above Monitor lytes. Ensure K/Mag remain wnl. Avoid fluconazole. Ok to resume suboxone. (8) Acute hypokalemia: Status: Resolved Assessment and plan: Recheck in am (9) Alcoholism: Status: Chronic Assessment and plan: As above Suspect cirrhosis. Monitor for EtOH w/d. Not currently withdrawing. Continue thiamine/MVI. Will need a referral to a sobriety elementary instructional coach. (10) Coagulopathy: Status: Acute Assessment and plan: In setting of alcoholic hepatitis and likely cirrhosis - as above. S/p Vitamin K. Improving. Continue monitoring H/H, INR. Not actively bleeding. (11) Transaminitis: Status: Acute Assessment and plan: As above (12) CALEB on CPAP: Status: Chronic Assessment and plan: Provide CPAP. RVSP 29 mmHg. (13) Hyperbilirubinemia: Status: Acute Assessment and plan: As above improving (14) DVT prophylaxis: Status: Acute Assessment and plan: SCDs + TEDs. We ruled out DVTs yesterday with a negative doppler. Holding off on chemical DVT ppx in setting of coagulopathy/anemia. (15) Discharge planning issues: Status: Acute Assessment and plan: Full code Transfer out of ICU to [facility]. Subjective Subjective Interval history since last seen: Feels better. Slept Well. BPs better - last one is 121/64. No dizziness, chest pain, shortness of breath, nausea, abdominal pain. Feels less distended. Legs still swollen but better. Normally uses TEDs. We discussed the results of her studies yesterday and the plan to follow up with the surgeons at [facility] as outpatient. Getting tranferred to [facility]. Exam Narrative Exam Narrative: General: Very pleasant obese female, A&Ox3, looks better, very mild scleral icterus that I can only see in R eye, otherwise, no obvious jaundice HEENT: EOMI, MMM Heart: RRR, no m/r/g Lungs: CTAB Abdomen: soft, nontender, less distended today Extremities: 2+ BLE edema, better Objective Last Vital Signs Temp 37.0 C 10/20/21 04:00 Pulse 68 10/20/21 05:01 Resp 18 10/20/21 06:30 BP 121/64 10/20/21 05:01 Pulse Ox 97 10/19/21 14:55 Laboratory Results - last 24 hr 10/19/21 10/19/21 10/19/21 05:50 05:50 08:03 WBC RBC Hgb Hct MCV MCH MCHC RDW Plt Count MPV Immature Gran % Neutrophils % Lymphocytes % Monocytes % Eosinophils % Basophils % Nucleated RBC % Absolute Neutrophils Absolute Lymphocytes Absolute Monocytes Absolute Eosinophils Absolute Basophils RBC Morphology Polychromasia Hypochromasia Sodium Potassium Chloride Carbon Dioxide Anion Gap BUN Creatinine Estimated GFR/1.73 m2 Glucose Uric Acid 5.0 Calcium Magnesium Total Bilirubin Conjugated Bilirubin AST ALT Alkaline Phosphatase C-Reactive Protein Total Protein Albumin Add-On Test Request DONE Patient ABO/Rh B Positive Antibody Screen NEGATIVE Crossmatch See Detail 10/19/21 10/20/21 10/20/21 16:40 07:00 07:00 WBC 15.91 H RBC 2.39 L Hgb 7.7 L 7.7 L Hct 23.8 L 24.2 L MCV 101 H MCH 32.2 MCHC 31.8 L D RDW 17.2 H Plt Count 216 MPV 10.9 Immature Gran % 2.3 Neutrophils % 67.2 Lymphocytes % 22.3 Monocytes % 7.9 Eosinophils % 0.1 Basophils % 0.2 Nucleated RBC % 0.1 Absolute Neutrophils 10.69 H Absolute Lymphocytes 3.55 H Absolute Monocytes 1.26 H Absolute Eosinophils 0.02 Absolute Basophils 0.03 RBC Morphology See Below Polychromasia Present Hypochromasia 3+ Sodium 137 Potassium 4.2 Chloride 97 L Carbon Dioxide 32.1 H Anion Gap 7.9 BUN 11 Creatinine 0.9 Estimated GFR/1.73 m2 >= 60.00 Glucose 88 Uric Acid Calcium 9.3 Magnesium 2.0 Total Bilirubin 2.1 H Conjugated Bilirubin 1.4 H AST 300 H ALT 27 Alkaline Phosphatase 270 H C-Reactive Protein Total Protein 6.8 Albumin 2.6 L Add-On Test Request Patient ABO/Rh Antibody Screen Crossmatch 10/20/21 10/20/21 07:00 07:00 WBC RBC Hgb Hct MCV MCH MCHC RDW Plt Count MPV Immature Gran % Neutrophils % Lymphocytes % Monocytes % Eosinophils % Basophils % Nucleated RBC % Absolute Neutrophils Absolute Lymphocytes Absolute Monocytes Absolute Eosinophils Absolute Basophils RBC Morphology Polychromasia Hypochromasia Sodium Potassium Chloride Carbon Dioxide Anion Gap BUN Creatinine Estimated GFR/1.73 m2 Glucose Uric Acid Calcium Magnesium Total Bilirubin Conjugated Bilirubin AST ALT Alkaline Phosphatase C-Reactive Protein 4.35 H Total Protein Albumin Add-On Test Request DONE Patient ABO/Rh Antibody Screen Crossmatch PAWSS Have you Been Recently Intoxicated or Drunk Within the Last 30 days?: Yes Have you Ever Experienced Previous Episodes of Alcohol Withdrawal?: Yes Have you ever Experienced Withdrawal Seizures?: No Have you ever Experienced Delirium Tremens(DT)s?: No Have you ever undergone Alcohol Rehabilitation Treatment (i.e, inpt ot outpatient treatment programs)?: Yes Have you ever Experienced Blackouts?: No Have you ever Combined Alcohol with other Downers within the last 90 days?: No Have you ever Combined Alcohol with any other Substance of Abuse during the last 90 days?: No Positive Blood Alcohol level on Presentation? [PCS.BAL]: No Evidence of Increased Autonomic Activity (i.e. HR>120, tremor, sweating, agitation, nausea)?: No Result: 3
[2021-10-20] MEDS: Folic Acid 1 MG TAB PO (09:16)
[2021-10-20] MEDS: Thiamine 100 MG TAB PO (09:16)
[2021-10-20] MEDS: Multivitamin TAB 1 TAB PO (09:16)
[2021-10-20] MEDS: Pantoprazole 40 MG VIAL IVP (09:16)
[2021-10-20] MEDS: Midodrine 2.5 MG TAB PO ×3 (09:16→20:51)
[2021-10-20] MEDS: Gabapentin 100 MG CAP PO ×3 (09:16→20:51)
[2021-10-20] MEDS: Normal Saline Flush 10 ML SYR IVP (09:17)
[2021-10-20] MEDS: Buprenorphine/Naloxone 8 mg/2 mg FILM 1 EACH SL (09:28)
[2021-10-20 09:59] LABS: Procalcitonin 0.3 ng/mL
--- NOTE | 2021-10-20 13:09 | PGE_ITS ---
Date of Service Date of service: 10/20/21 Time of Service: 11:09 Assessment and Plan Assessment and plan (1) Abdominal fluid collection: Status: Acute Assessment and plan: Discussed plan of care at length with patient who remains in agreement to forgo surgery at this time. Patient continues to remain asymptomatic, denies any abdominal pain, tolerating regular diet and has a great appetite. Will follow up with either [facility] vs [facility] surgery outpatient, understands signs/symptoms to watch for. Antibiotics stopped yesterday under the recommendation of [facility] surgery, AST has been slowly increasing, ALT normal and bilirubin is slowly decreasing Will sign off please call with further questions/concerns. (2) Oral thrush: Status: Acute Assessment and plan: Agree with swish and swallow Nystatin for 14 days PRN cepacol for symptom relief (3) Anemia: Status: Chronic Assessment and plan: Most likely multifactorial/of chronic disease Hb 7.7 today received 1 unit PRBC yesterday (4) Acute hypokalemia: Status: Resolved (5) Acute hyponatremia: Status: Acute (6) Alcoholism: Status: Chronic Subjective Subjective Patient reports: no new complaints, feels better and tolerating a regular diet; denies nausea or vomiting Exam Const General: cooperative, healthy appearing, comfortable and no acute distress Nutritional Appearance: average body habitus Eyes Sclera: scleral abnormality (icterus, improving) bilaterally Resp Effort & Inspection: normal respiratory effort, able to speak in complete sentences, no audible wheezes, no cough and not labored Cardio Rate: regular rate Rhythm: regular rhythm GI Inspection: normal to inspection and non-distended Palpation: soft, no guarding and nontender Percussion: normal to percussion and other (patient reports feeling slightly bloated today) Skin General skin exam: jaundice (mild, improving) Neuro General: patient alert, patient awake and patient oriented x3 Motor: tremor (bilateral hands, mild) Objective Last Vital Signs Temp 98.1 F 10/20/21 12:00 Pulse 77 10/20/21 12:00 Resp 18 10/20/21 12:00 BP 118/74 10/20/21 09:03 Pulse Ox 92 10/20/21 12:00 Laboratory Results - last 24 hr 10/19/21 10/20/21 10/20/21 16:40 07:00 07:00 WBC 15.91 H RBC 2.39 L Hgb 7.7 L 7.7 L Hct 23.8 L 24.2 L MCV 101 H MCH 32.2 MCHC 31.8 L D RDW 17.2 H Plt Count 216 MPV 10.9 Immature Gran % 2.3 Neutrophils % 67.2 Lymphocytes % 22.3 Monocytes % 7.9 Eosinophils % 0.1 Basophils % 0.2 Nucleated RBC % 0.1 Absolute Neutrophils 10.69 H Absolute Lymphocytes 3.55 H Absolute Monocytes 1.26 H Absolute Eosinophils 0.02 Absolute Basophils 0.03 RBC Morphology See Below Polychromasia Present Hypochromasia 3+ Sodium 137 Potassium 4.2 Chloride 97 L Carbon Dioxide 32.1 H Anion Gap 7.9 BUN 11 Creatinine 0.9 Estimated GFR/1.73 m2 >= 60.00 Glucose 88 Calcium 9.3 Magnesium 2.0 Total Bilirubin 2.1 H Conjugated Bilirubin 1.4 H AST 300 H ALT 27 Alkaline Phosphatase 270 H C-Reactive Protein Total Protein 6.8 Albumin 2.6 L Procalcitonin Add-On Test Request 10/20/21 10/20/21 10/20/21 07:00 07:00 09:10 WBC RBC Hgb Hct MCV MCH MCHC RDW Plt Count MPV Immature Gran % Neutrophils % Lymphocytes % Monocytes % Eosinophils % Basophils % Nucleated RBC % Absolute Neutrophils Absolute Lymphocytes Absolute Monocytes Absolute Eosinophils Absolute Basophils RBC Morphology Polychromasia Hypochromasia Sodium Potassium Chloride Carbon Dioxide Anion Gap BUN Creatinine Estimated GFR/1.73 m2 Glucose Calcium Magnesium Total Bilirubin Conjugated Bilirubin AST ALT Alkaline Phosphatase C-Reactive Protein 4.35 H Total Protein Albumin Procalcitonin 0.3 Add-On Test Request DONE PAWSS Have you Been Recently Intoxicated or Drunk Within the Last 30 days?: Yes Have you Ever Experienced Previous Episodes of Alcohol Withdrawal?: Yes Have you ever Experienced Withdrawal Seizures?: No Have you ever Experienced Delirium Tremens(DT)s?: No Have you ever undergone Alcohol Rehabilitation Treatment (i.e, inpt ot outpatient treatment programs)?: Yes Have you ever Experienced Blackouts?: No Have you ever Combined Alcohol with other Downers within the last 90 days?: No Have you ever Combined Alcohol with any other Substance of Abuse during the last 90 days?: No Positive Blood Alcohol level on Presentation? [PCS.BAL]: No Evidence of Increased Autonomic Activity (i.e. HR>120, tremor, sweating, agitation, nausea)?: No Result: 3
[2021-10-21] VITALS (8 sets, daily range): BP systolic 104–132; BP diastolic 62–84; PULSE 61–93; RESP 18; TEMP 36.5–36.8; O2SAT 98
[2021-10-21] MEDS: Normal Saline Flush 10 ML SYR IVP ×2 (02:42→15:40)
[2021-10-21] MEDS: Nystatin 500000 UNITS/5 ML SUSP 5ML CUP PO ×5 (06:25→20:23)
[2021-10-21 06:41] LABS: Abs Immature Grans 0.36 10^3/uL (0.0-0.06); Absolute Basophil Count 0.01 10^3/uL (0.0-0.2); Absolute Eosinophil Count 0.01 10^3/uL (0.0-0.7); Absolute Lymphocyte Count 2.82 10^3/uL (1.2-3.4); Basophils % 0.1; Eosinophils % 0.1; HCT 25.2 % (36.0-46.0); HGB 8.3 g/dL (11.2-15.7); Immature Grans % 2.5; Lymphocytes % 19.2; MCH 33.5 pg (27.0-33.0); MCHC 32.9 % (32.0-36.0); MCV 102 fL (80-95); MPV 10.6 fL (8.0-11.0); Monocytes % 7.6; Neutrophils % 70.5; Nucleated RBC 0.2 % (0.0-0.3); Platelet Count 240 10^3/uL (130-400); RBC 2.48 10^6/uL (3.93-5.22); RDW-SD 62.2 fL; WBC 14.69 10^3/uL (4.4-10.8)
[2021-10-21 06:44] LABS: Absolute Monocyte Count 1.12 10^3/uL (0.1-0.8); Absolute Neutrophil Count 10.36 10^3/uL (1.2-6.7)
[2021-10-21 06:54] LABS: INR 1.3 (0.9-1.1); Prothrombin Time 12.5 sec (9.3-11.0)
[2021-10-21 07:07] LABS: ALT 42 U/L (14-59); AST 404 U/L (15-37); Albumin 2.7 g/dL (3.4-5.0); Alkaline Phosphatase 310 U/L (46-116); Anion Gap 6.3 mmol/L (3-11); BUN 12 mg/dL (7-18); Bilirubin, Direct 1.3 mg/dL (0.0-0.2); C-Reactive Protein 3.35 mg/dL (0.0-0.3); CO2 30.7 mmol/L (21.0-32.0); CREATININE 0.8 mg/dL (0.55-1.02); Calcium 9.5 mg/dL (8.5-10.1); Chloride 98 mmol/L (98-107); Glucose 84 mg/dL (74-106); Potassium 4.6 mmol/L (3.5-5.1); Sodium 135 mmol/L (136-145)
[2021-10-21] MEDS: Folic Acid 1 MG TAB PO (09:10)
[2021-10-21] MEDS: Gabapentin 100 MG CAP PO ×3 (09:10→20:24)
[2021-10-21] MEDS: Pantoprazole 40 MG TABCR PO (09:11)
[2021-10-21] MEDS: Midodrine 2.5 MG TAB PO ×3 (09:11→20:24)
[2021-10-21] MEDS: Multivitamin TAB 1 TAB PO (09:11)
[2021-10-21] MEDS: Thiamine 100 MG TAB PO (09:12)
--- NOTE | 2021-10-21 09:28 | PGE_ITS ---
Date of Service Date of service: 10/21/21 Time of Service: 09:28 Assessment and Plan Assessment and plan (1) Acute alcoholic hepatitis: Status: Acute Assessment and plan: Discriminant function score 81 on admission ->8.9 today. Improving. Would calculate Lille score tomorrow. However, AST and alk phos are worse. Discussed case with general surgery at [facility] (Dr Miguel): resume abx and see if this improves the LFTs; also, recommended to touch base with [facility] [place] (Dr Anderson): agreed with these recommendations, asked to keep in touch and recommended consulting GI. Spoke with [facility] (Dr Lopez): suggested that it appears that there is more than just alcoholic hepatitis going on, recommended checking autoimmune /PBC/cerruloplasmin/iron studies/celiac studies. Agreed with the plan of resuming abx and monitoring LFTs. We also reviewed the medications on [facility] site, and neither zosyn nor prednisolone pattern of liver injury are very consistent with the pattern of LFT worsening. Continue prednisolone. Trend INR, LFTs with reinstitution of abx (zosyn). With a negative MRCP and a high rate of false positive HIDA scans in patients with cirrhosis (though the patient does not have documented cirrhosis - but imaging is hard to interpret in an acute phase of inflammation, per GI), it is not clear that the patient has acute cholecystitis. Continue to monitor on the floor. If LFTs worsen, would transfer to a tertiary care facility for an intervention. (2) Acute cholecystitis: Status: Suspected Assessment and plan: Never had pain. US not strongly suggestive of cholecystitis. HIDA positive, but is frequently positive in patients with cirrhosis, per surgery. MRCP negative for acute cholecystitis, choledocholithiasis, cholelithiasis. There is sludge. Read discussion above. ALT and alk phos are worse. Monitor with reinstitution of abx. (3) Hypotension: Status: Resolved Assessment and plan: The patient was not in septic shock. Likely has more to do with intravascular depletion in setting of hypoalbuminemia and anemia. S/p 1 unit pRBCs and S/p 4 bottles of albumin since admission. Continue midodrine. (4) Anemia: Status: Chronic Assessment and plan: Folate deficiency. Dilutional component definite. Heme negative. Not actively bleeding. S/p 1 unit pRBCS on 10/19/21. H/H stable. No iron or B12 deficiency. Continue folate repletion. Continue to monitor H/H. (5) Acute hyponatremia: Status: Acute Assessment and plan: Improved. No longer requiring correction. (6) Oral thrush: Status: Acute Assessment and plan: Continue nystatin swish and swallow. hepatitis and HIV studies are negative. Not tolerating fluconazole due to QT prolongation. (7) QT prolongation: Status: Resolved Assessment and plan: As above Monitor lytes. Ensure K/Mag remain wnl. Avoid fluconazole. Suboxone d/c'ed due to oversedation concerns rather than due to QT issues. (8) Acute hypokalemia: Status: Resolved Assessment and plan: Recheck in am (9) Alcoholism: Status: Chronic Assessment and plan: As above Suspect cirrhosis - imaging shows only steatosis, but per GI, hard to interpret in setting of acute inflammation. Monitor for EtOH w/d. Not currently withdrawing. Continue thiamine/MVI. Will need a referral to a sobriety assistant tennis coach. (10) Coagulopathy: Status: Acute Assessment and plan: In setting of alcoholic hepatitis and likely cirrhosis - as above. S/p Vitamin K. INR stable at 1.3, not bleeding. Continue monitoring H/H, INR. Not actively bleeding. (11) Transaminitis: Status: Acute Assessment and plan: As above (12) CALEB on CPAP: Status: Chronic Assessment and plan: Provide CPAP. RVSP 29 mmHg. (13) Hyperbilirubinemia: Status: Acute Assessment and plan: As above improving (14) DVT prophylaxis: Status: Acute Assessment and plan: SCDs + TEDs. Consider heparin sc. (15) Discharge planning issues: Status: Acute Assessment and plan: Full code Continue to require hospitalization. May require transfer to a tertiary care facility. Subjective Subjective Interval history since last seen: Virginia states she actually feels better today. She denies dizziness, chest pain, shortness of breath, nausea. NO abdominal pain whatsoever. Tolerating PO. Last BM 2 days ago. Stable BPs. Exam Narrative Exam Narrative: General: Very pleasant obese female, A&Ox3, no obvious jaundice, sitting up in a chair HEENT: EOMI, MMM Heart: RRR, no m/r/g Lungs: CTAB Abdomen: soft, nontender, less distended today Extremities: 2+ BLE edema, unchanged Objective Last Vital Signs Temp 36.5 C 10/21/21 09:18 Pulse 93 H 10/21/21 09:18 Resp 18 10/21/21 09:18 BP 115/62 10/21/21 09:18 Pulse Ox 98 10/21/21 09:18 Laboratory Results - last 24 hr 10/18/21 10/20/21 10/21/21 Unknown 09:10 06:32 WBC RBC Hgb Hct MCV MCH MCHC RDW Plt Count MPV Immature Gran % Neutrophils % Lymphocytes % Monocytes % Eosinophils % Basophils % Nucleated RBC % Absolute Neutrophils Absolute Lymphocytes Absolute Monocytes Absolute Eosinophils Absolute Basophils PT INR Sodium 135 L Potassium 4.6 Chloride 98 Carbon Dioxide 30.7 Anion Gap 6.3 BUN 12 Creatinine 0.8 Estimated GFR/1.73 m2 >= 60.00 Glucose 84 Calcium 9.5 Magnesium 2.0 Total Bilirubin 2.0 H Conjugated Bilirubin 1.3 H AST 404 H ALT 42 Alkaline Phosphatase 310 H C-Reactive Protein 3.35 H Total Protein 7.0 Albumin 2.7 L Procalcitonin 0.3 Cryptosporidium/Giardia Cancelled 10/21/21 10/21/21 06:32 06:32 WBC 14.69 H RBC 2.48 L Hgb 8.3 L Hct 25.2 L MCV 102 H MCH 33.5 H MCHC 32.9 D RDW 17.0 H Plt Count 240 MPV 10.6 Immature Gran % 2.5 Neutrophils % 70.5 Lymphocytes % 19.2 Monocytes % 7.6 Eosinophils % 0.1 Basophils % 0.1 Nucleated RBC % 0.2 Absolute Neutrophils 10.36 H Absolute Lymphocytes 2.82 Absolute Monocytes 1.12 H Absolute Eosinophils 0.01 Absolute Basophils 0.01 PT 12.5 H INR 1.3 H Sodium Potassium Chloride Carbon Dioxide Anion Gap BUN Creatinine Estimated GFR/1.73 m2 Glucose Calcium Magnesium Total Bilirubin Conjugated Bilirubin AST ALT Alkaline Phosphatase C-Reactive Protein Total Protein Albumin Procalcitonin Cryptosporidium/Giardia PAWSS Have you Been Recently Intoxicated or Drunk Within the Last 30 days?: Yes Have you Ever Experienced Previous Episodes of Alcohol Withdrawal?: Yes Have you ever Experienced Withdrawal Seizures?: No Have you ever Experienced Delirium Tremens(DT)s?: No Have you ever undergone Alcohol Rehabilitation Treatment (i.e, inpt ot outpatient treatment programs)?: Yes Have you ever Experienced Blackouts?: No Have you ever Combined Alcohol with other Downers within the last 90 days?: No Have you ever Combined Alcohol with any other Substance of Abuse during the last 90 days?: No Positive Blood Alcohol level on Presentation? [PCS.BAL]: No Evidence of Increased Autonomic Activity (i.e. HR>120, tremor, sweating, agitation, nausea)?: No Result: 3
--- NOTE | 2021-10-21 09:59 | NUR.NOTE ---
Physical therapyt begins working with patient.Nursing Note:
[2021-10-21] MEDS: PIPERACILLIN/TAZO 3.375 GM in Normal Saline 50 ML IVPB ×3 (10:16→20:24)
--- NOTE | 2021-10-21 10:36 | IN_ITS ---
PT Notes Visit Reasons: Hypokalemia,Hyponatremia Physical Therapy Inpatient Initial Evaluation Date: 10/21/21 Referring Doctor: Brianna Wheatley MD PT Orders: PT CONSULT: Limited Ability Precautions: Fall. Standard. Patient Profile/Admitting Diagnosis: Virginia is a 46 yo female that presented to the ER on 10/16/21 for weakness. She was found to be dehydrated and was unable to be discharged home. She was admitted and has been in the ICU. Patient reports falling prior to coming to ER. She reports feeling weak. PMHX: See EMR Social History/Home Situation: Home with significant other, has 2 steps to enter. Independent at baseline. Equipment Owned/DME: None Subjective: Cleared by nursing to see patient and patient is agreeable to PT. Patient is sitting up in chair at time of consult and connected to IV. Objective: General Observation: LE swelling Mental Status: A&O x3 Pain: None reported ROM: Right Upper Extremity: Shoulder Flexion WFL. Shoulder abduction WFL. Elbow flexion WFL. Wrist flexion WFL. Opening and closing of hand WFL. Left Upper Extremity: Shoulder Flexion WFL. Shoulder abduction WFL. Elbow flexion WFL. Wrist flexion WFL. Opening and closing of hand WFL. Right Lower Extremity: Hip flexion WFL. Hip abduction WFL. Knee flexion WFL. Ankle dorsiflexion WFL. Ankle plantarflexion WFL. Left Lower Extremity: Hip flexion WFL. Hip abduction WFL. Knee flexion WFL. Ankle dorsiflexion WFL. Ankle plantarflexion WFL. Strength: Right Upper Extremity: Shoulder flexors 5/5. Shoulder abductors 5/5. Elbow flexors 5/5. Elbow extensors 5/5. Administrative Assistant Receptionist strong. Left Upper Extremity: Shoulder flexors 5/5. Shoulder abductors 5/5. Elbow flexors 5/5. Elbow extensors 5/5. Administrative Assistant Receptionist strong. Right Lower Extremity: Hip flexors 4/5. Hip abductors 5/5. Knee flexors 5/5. Knee extensors 5/5. Ankle dorsiflexors 5/5. Ankle plantarflexors 5/5. Left Lower Extremity: Hip flexors 4/5. Hip abductors 5/5. Knee flexors 5/5. Knee extensors 5/5. Ankle dorsiflexors 5/5. Ankle plantarflexors 5/5. Sensation: Intact as to pain and pressure on bilateral lower extremities. Bed Mobility/Transfers: Supine to sit: Not assessed Sit to supine: Not assessed Sit to stand: 2 person mod A Stand to sit: Supervision Gait: Ambulated 40 ft with FWW, CGA and wheelchair follow. Forward lean with ambulation. Stairs: Not assessed Therapeutic Exercise (04023) for ROM, strength, and endurance: 10 minutes Ambulation with FWW Instructed in exercise program to do in room with handout provided: - quad sets - hamstring sets - supine SLR - supine bridge - seated knee extension - seated july Balance: Static Sitting: Normal Dynamic Sitting: Normal Static Standing: Good Dynamic Standing: Fair Special Tests: Mobility Limitations Standardized Measure [facility] AM-PAC 6 clicks Basic Mobility Inpatient Short Form: Raw Score: 10 CMS Score: 76.75% Informed Consent/Education: Patient instructed in purpose of PT consult and plan of care. Assessment: Patient presents with clinical signs and symptoms consistent with current/admitting diagnoses that have resulted to mobility limitations, gait instability, generalized weakness, and impairment of motor control as demonstrated by the following impairment level findings: 1. Decreased strength to hip major muscle groups 2. Impaired sitting/standing balance 3. Impaired activity tolerance Impairments are contributing to the following functional limitations: 1. Increased dependence with transfers 2. Inability to safely ambulate without assistive device and physical assistance 3. Increase completion time for mobility ADL performance 4. Increased fall risk 5. Inability to negotiate steps alone safely Patient is assessed as a Low complexity based on the following: History: 46 year old female with impairment level findings, functional limitations, and past medical history as indicated above Examination: Demonstrable impairment in strength, balance, and mobility level with underlying impairments and functional limitations as documented above Presentation: Evolving Decision Making: Low complexity Goals: Goals x1 week 1. Supine-Sit: independent 2. Sit-Supine: independent 3. Sit-Stand: independent 4. Stand-Sit: independent 5. Bed-Chair: independent 6. Chair-Bed: independent 7. Independent gait on level surface with use of least restrictive device for at least 300 feet without report of pain nor dyspnea 8. Independent stair negotiation while holding onto bilateral rails for at least 10 steps without report of pain nor dyspnea 9. Independent with home exercise program 10. Good static and dynamic standing balance/tolerance Plan of Care/Treatment Plan: 1-2x/day, 7 days/week x 1 week. Plan of care has been reviewed with the AREA MANAGER providing the service under Physical Therapy direction. Initiate Physical Therapy intervention for strengthening, bed mobility, transfers, gait, stairs, balance training, and use of assistive device. Discharge Plan DISCHARGE RECOMMENDATIONS: SNF for continued rehabilitation TREATMENT CODE/TIME: 9:50-10:20 (30 minutes), [id number], [id number] Thank you for the opportunity to participate in the care of this patient. Swathi Marion, PT, DPT, OCS [facility] [place], [place]
--- NOTE | 2021-10-21 11:40 | NUR.NOTE ---
Now that NPO status has been dc'd, patient is set up with her lunch tray in room. Patient continues to be up in chair and in good spirits.Nursing Note:
--- NOTE | 2021-10-21 13:07 | NUR.NOTE ---
Patient visiting with her . Patient is feeling better.Nursing Note:
--- NOTE | 2021-10-21 14:39 | NUR.NOTE ---
Patient remains up in chair and doing well.Nursing Note:
[2021-10-22] MEDS: PIPERACILLIN/TAZO 3.375 GM in Normal Saline 50 ML IVPB ×2 (03:18→10:41)
[2021-10-22 04:38] VITALS: BP 114/71; PULSE 70
[2021-10-22] MEDS: Nystatin 500000 UNITS/5 ML SUSP 5ML CUP PO ×5 (06:16→20:49)
[2021-10-22 06:59] LABS: Abs Immature Grans 0.17 10^3/uL (0.0-0.06); Absolute Basophil Count 0.01 10^3/uL (0.0-0.2); Absolute Eosinophil Count 0.02 10^3/uL (0.0-0.7); Absolute Lymphocyte Count 2.17 10^3/uL (1.2-3.4); Absolute Neutrophil Count 8.77 10^3/uL (1.2-6.7); Basophils % 0.1; Eosinophils % 0.2; HCT 24.5 % (36.0-46.0); Immature Grans % 1.4; Lymphocytes % 18.2; MCH 33.5 pg (27.0-33.0); MCHC 32.7 % (32.0-36.0); MCV 103 fL (80-95); MPV 10.8 fL (8.0-11.0); Monocytes % 6.5; Neutrophils % 73.6; Nucleated RBC 0.2 % (0.0-0.3); Platelet Count 249 10^3/uL (130-400); RBC 2.39 10^6/uL (3.93-5.22); RDW 16.8 % (11.7-14.6); RDW-SD 62.9 fL; WBC 11.92 10^3/uL (4.4-10.8)
[2021-10-22 07:10] LABS: Absolute Monocyte Count 0.77 10^3/uL (0.1-0.8)
[2021-10-22 07:12] LABS: INR 1.2 (0.9-1.1); Prothrombin Time 12.3 sec (9.3-11.0)
[2021-10-22 07:46] LABS: ALT 53 U/L (14-59); AST 380 U/L (15-37); Albumin 2.6 g/dL (3.4-5.0); Alkaline Phosphatase 302 U/L (46-116); Anion Gap 8.8 mmol/L (3-11); BUN 13 mg/dL (7-18); Bilirubin, Direct 1.1 mg/dL (0.0-0.2); Bilirubin, Total 1.8 mg/dL (0.2-1.0); CO2 26.2 mmol/L (21.0-32.0); CREATININE 0.9 mg/dL (0.55-1.02); Calcium 9.2 mg/dL (8.5-10.1); Chloride 100 mmol/L (98-107); Glucose 77 mg/dL (74-106); Potassium 4.7 mmol/L (3.5-5.1); Sodium 135 mmol/L (136-145); Total Protein 6.7 g/dL (6.4-8.2)
[2021-10-22 08:00] VITALS: BP 120/68; RESP 18; TEMP 36.6; O2SAT 98
--- NOTE | 2021-10-22 08:46 | PDOC.CMPRO ---
- If Service Date Differs Date of service: 10/22/21 Time of Service: 08:46 Care Management Progress Note S/O: Virginia is being closely monitored and treated in the ICU. Virginia is regaining her strength and shares with that she's getting back on track. She had a job interview today via cell phone and was hired. Virginia continues to decline a Piling Cutter Referral, stating that her cumulative health issues and her new job will help her maintain sobriety. A: 46 year female admitted to [facility] on 10/16/21 for Acute hyponatremia, Acute hypokalemia. P: Anticipate, Virginia will discharge home with new [facility] services (if indicated) when medically cleared ready. Virginia may benefit from a referral to the [facility] following discharge (pt declines). Virginia will follow up with her community provider's and discharge plan of care as prescribed.
[2021-10-22] MEDS: Pantoprazole 40 MG TABCR PO (09:04)
[2021-10-22] MEDS: Gabapentin 100 MG CAP PO ×3 (09:05→20:48)
[2021-10-22] MEDS: Thiamine 100 MG TAB PO (09:05)
[2021-10-22] MEDS: Multivitamin TAB 1 TAB PO (09:05)
[2021-10-22] MEDS: Midodrine 2.5 MG TAB PO ×3 (09:05→20:49)
[2021-10-22] MEDS: Folic Acid 1 MG TAB PO (09:05)
--- NOTE | 2021-10-22 15:04 | PTTR_ITS ---
Date of service: 10/22/21 Time of Service: 09:20 PT Notes Visit Reasons: Hypokalemia,Hyponatremia Inpatient Physical Therapy Treatment Note [facility] Date: 10/22/2021 PRECAUTIONS: Activity as tolerated, fall SUBJECTIVE: Virginia is pleasant and agreeable to participating in PT. She reports that she is feeling better, although continues to feel weak. In the afternoon, she reports that she walked to the shower and around the loop to return to her room with nursing. She reports that she is still having diffculty getting in and out of bed as well as occasionally getting out of her chair. OBJECTIVE: PAIN: No c/o pain BED MOBILITY/TRANSFERS Supine-sit: I with HOB at 40 degrees Sit-supine: S with HOB at 40 degrees and with use of leg funeral planning counselor Sit-stand: SBA in a.m.; Min A in p.m. Stand-sit: I GAIT Assistive Device: FWW in a.m.; No AD in p.m. Weight bearing: Full Assist: SBA Distance: 300' in both a.m. and p.m. Deviation: Slow pacing, mild path deviation without use of FWW, occasionally holding the wall/railings for support without AD. STAIRS: Up/down 3x4 and 2x6 using B rails and a step-to pattern with SBA ASSESSMENT: Patient tolerated session with complaint of increased fatigue and feelings of global weakness. She was able to tolerate a progression in gait distance with and without assitive device support. She does continues to demonstrate global weakness, although appears steady enough to transfer from be d-chair and commode-chair without assist at this time. PLAN: Continue with global strengthening and general conditioning for improved mobility and activity tolerance to return to her independent baseline level of function. TREATMENT CODE/TIME: Session 1: 25 minutes; 84232 x2 (09:20) Session 2: 23 minutes; 43260 x2 (13:53)
[2021-10-22 18:00] VITALS: BP 129/80; PULSE 85; RESP 16; TEMP 37.2; O2SAT 95
[2021-10-22 18:17] VITALS: BP 120/101; PULSE 87
[2021-10-22 18:19] VITALS: BP 129/80; PULSE 81
--- NOTE | 2021-10-22 18:28 | PGE_ITS ---
Date of Service Date of service: 10/22/21 Time of Service: 18:28 Assessment and Plan Assessment and plan (1) Acute alcoholic hepatitis: Status: Acute Assessment and plan: However, AST improved. AP mildly improved. Previous hospitalized discussed case with general surgery at [facility] (Dr Miguel): resumed abx; WBC impvoed. [facility] general surgery (Dr Anderson): agreed with these recommendations, asked to keep in touch and recommended consulting GI. Spoke with [facility] GI (Dr Lopez): suggested that it appears that there is more than just alcoholic hepatitis going on, recommended checking autoimmune /PBC/cerruloplasmin/iron studies/celiac studies; pending. Agreed with the plan of resuming abx and monitoring LFTs. We also reviewed the medications on [facility] site, and neither zosyn nor prednisolone pattern of liver injury are very consistent with the pattern of LFT worsening. Continue prednisolone. LFT's improving. Changing from Zosyn to Augmentin with first oral dose tonight. Planning possible d/c tomorrow on Augmentin and prednisone. With a negative MRCP and a high rate of false positive HIDA scans in patients with cirrhosis (though the patient does not have documented cirrhosis - but imaging is hard to interpret in an acute phase of inflammation, per GI), it is not clear that the patient has acute cholecystitis. Continue to monitor on the floor. If LFTs worsen, would need to transfer to a tertiary care facility for an intervention. (2) Acute cholecystitis: Status: Suspected Assessment and plan: Never had pain. US not strongly suggestive of cholecystitis. HIDA positive, but is frequently positive in patients with cirrhosis, per surgery. MRCP negative for acute cholecystitis, choledocholithiasis, cholelithiasis. There is sludge. Read discussion above. ALT and alk phos improving. WBC count improving. Monitor (3) Hypotension: Status: Resolved Assessment and plan: The patient was not in septic shock. Likely has more to do with intravascular depletion in setting of hypoalbuminemia and anemia. S/p 1 unit pRBCs and S/p 4 bottles of albumin since admission. Continue midodrine. BP has normalized. (4) Anemia: Status: Chronic Assessment and plan: Folate deficiency. Dilutional component definite. Heme negative. Not actively bleeding. S/p 1 unit pRBCS on 10/19/21. H/H stable. No iron or B12 deficiency. Continue folate repletion. Continue to monitor H/H. (5) Acute hyponatremia: Status: Acute Assessment and plan: Improved. No longer requiring correction. (6) Oral thrush: Status: Acute Assessment and plan: Continue nystatin swish and swallow. hepatitis and HIV studies are negative. Not tolerating fluconazole due to QT prolongation. (7) QT prolongation: Status: Resolved Assessment and plan: As above Monitor lytes. Ensure K/Mag remain wnl. Avoid fluconazole. Suboxone d/c'ed due to oversedation concerns rather than due to QT issues. (8) Acute hypokalemia: Status: Resolved Assessment and plan: Normalized. (9) Alcoholism: Status: Chronic Assessment and plan: As above Suspect cirrhosis - imaging shows only steatosis, but per GI, hard to interpret in setting of acute inflammation. Monitor for EtOH w/d. Not currently withdrawing. Continue thiamine/MVI. Will need a referral to a sobriety technology coach. (10) Coagulopathy: Status: Acute Assessment and plan: In setting of alcoholic hepatitis and likely cirrhosis - as above. S/p Vitamin K. INR stable at 1.2, not bleeding. Continue monitoring H/H. Not actively bleeding. (11) Transaminitis: Status: Acute Assessment and plan: As above (12) CALEB on CPAP: Status: Chronic Assessment and plan: Provide CPAP. RVSP 29 mmHg. (13) Hyperbilirubinemia: Status: Acute Assessment and plan: As above improving (14) DVT prophylaxis: Status: Acute Assessment and plan: SCDs + TEDs. Consider heparin sc. (15) Discharge planning issues: Status: Acute Assessment and plan: Full code Stabilized with no acute need for surgical intervention at this time. Plan to d/c tomorrow if remains stable. Subjective Subjective Patient reports: no new complaints, feels better, tolerating a regular diet and afebrile; denies nausea, vomiting or shortness of breath Exam Narrative Exam Narrative: General: Sitting up in bed. Pleasant and cooperative. NAD HEENT: EOMI, MMM Heart: RRR, no murmur Lungs: CTAB Abdomen: soft, nontender. Extremities: 2+ BLE edema, unchanged Objective Last Vital Signs Temp 36.6 C 10/22/21 08:00 Pulse 70 06/13/22 04:38 Resp 18 10/22/21 08:00 BP 120/68 10/22/21 08:00 Pulse Ox 98 10/22/21 08:00 Laboratory Results - last 24 hr 10/22/21 10/22/21 10/22/21 06:40 06:40 06:40 WBC 11.92 H RBC 2.39 L Hgb 8.0 L Hct 24.5 L MCV 103 H MCH 33.5 H MCHC 32.7 RDW 16.8 H Plt Count 249 MPV 10.8 Immature Gran % 1.4 Neutrophils % 73.6 Lymphocytes % 18.2 Monocytes % 6.5 Eosinophils % 0.2 Basophils % 0.1 Nucleated RBC % 0.2 Absolute Neutrophils 8.77 H Absolute Lymphocytes 2.17 Absolute Monocytes 0.77 Absolute Eosinophils 0.02 Absolute Basophils 0.01 PT 12.3 H INR 1.2 H Sodium 135 L Potassium 4.7 Chloride 100 Carbon Dioxide 26.2 Anion Gap 8.8 BUN 13 Creatinine 0.9 Estimated GFR/1.73 m2 >= 60.00 Glucose 77 Calcium 9.2 Magnesium 2.0 Total Bilirubin 1.8 H Conjugated Bilirubin 1.1 H AST 380 H ALT 53 Alkaline Phosphatase 302 H Total Protein 6.7 Albumin 2.6 L PAWSS Have you Been Recently Intoxicated or Drunk Within the Last 30 days?: Yes Have you Ever Experienced Previous Episodes of Alcohol Withdrawal?: Yes Have you ever Experienced Withdrawal Seizures?: No Have you ever Experienced Delirium Tremens(DT)s?: No Have you ever undergone Alcohol Rehabilitation Treatment (i.e, inpt ot outpatient treatment programs)?: Yes Have you ever Experienced Blackouts?: No Have you ever Combined Alcohol with other Downers within the last 90 days?: No Have you ever Combined Alcohol with any other Substance of Abuse during the last 90 days?: No Positive Blood Alcohol level on Presentation? [PCS.BAL]: No Evidence of Increased Autonomic Activity (i.e. HR>120, tremor, sweating, agitation, nausea)?: No Result: 3
[2021-10-22] MEDS: Amoxicillin 875/Clav. 125 TAB PO (20:49)
[2021-10-22 21:22] VITALS: BP 135/89; PULSE 86; RESP 16; TEMP 37; O2SAT 96
--- NOTE | 2021-10-22 23:17 | NUR.NOTE ---
pt transfered from ICU. A/OX3, lungs clear, HR is regular, +2 BLE pitting edema. Pt is standby assist with a walker. will ct to monitor
[2021-10-23 01:03] VITALS: BP 120/76; PULSE 75; RESP 20; TEMP 35.7; O2SAT 96
[2021-10-23 03:15] VITALS: BP 120/76; PULSE 75; RESP 20; TEMP 36.5; O2SAT 96
[2021-10-23] MEDS: Nystatin 500000 UNITS/5 ML SUSP 5ML CUP PO ×3 (05:57→14:14)
[2021-10-23 06:55] LABS: Abs Immature Grans 0.07 10^3/uL (0.0-0.06); Absolute Basophil Count 0.01 10^3/uL (0.0-0.2); Absolute Eosinophil Count 0.02 10^3/uL (0.0-0.7); Absolute Lymphocyte Count 1.75 10^3/uL (1.2-3.4); Absolute Monocyte Count 0.67 10^3/uL (0.1-0.8); Basophils % 0.1; Eosinophils % 0.2; HCT 25.8 % (36.0-46.0); Immature Grans % 0.7; Lymphocytes % 17.3; MCH 33.3 pg (27.0-33.0); MCHC 32.2 % (32.0-36.0); MCV 104 fL (80-95); MPV 10.7 fL (8.0-11.0); Monocytes % 6.6; Neutrophils % 75.1; Platelet Count 287 10^3/uL (130-400); RBC 2.49 10^6/uL (3.93-5.22); RDW 16.2 % (11.7-14.6); WBC 10.12 10^3/uL (4.4-10.8)
[2021-10-23 07:02] LABS: HGB 8.3 g/dL (11.2-15.7)
[2021-10-23 07:07] LABS: INR 1.2 (0.9-1.1); Prothrombin Time 12.2 sec (9.3-11.0)
[2021-10-23 07:15] VITALS: BP 119/80; PULSE 76; RESP 14; TEMP 36.2; O2SAT 96
[2021-10-23 07:17] LABS: ALT 61 U/L (14-59); AST 312 U/L (15-37); Albumin 2.8 g/dL (3.4-5.0); Alkaline Phosphatase 307 U/L (46-116); Anion Gap 8.8 mmol/L (3-11); BUN 11 mg/dL (7-18); Bilirubin, Total 1.8 mg/dL (0.2-1.0); CO2 24.2 mmol/L (21.0-32.0); CREATININE 0.8 mg/dL (0.55-1.02); Calcium 9.4 mg/dL (8.5-10.1); Chloride 102 mmol/L (98-107); Glucose 79 mg/dL (74-106); Potassium 4.6 mmol/L (3.5-5.1); Sodium 135 mmol/L (136-145)
[2021-10-23] MEDS: Multivitamin TAB 1 TAB PO (07:46)
[2021-10-23] MEDS: Amoxicillin 875/Clav. 125 TAB PO (07:46)
[2021-10-23] MEDS: Pantoprazole 40 MG TABCR PO (07:46)
[2021-10-23] MEDS: Midodrine 2.5 MG TAB PO ×2 (07:46→14:14)
[2021-10-23] MEDS: Folic Acid 1 MG TAB PO (07:46)
[2021-10-23] MEDS: Thiamine 100 MG TAB PO (07:47)
[2021-10-23] MEDS: Gabapentin 100 MG CAP PO ×2 (07:47→14:14)
--- NOTE | 2021-10-23 08:33 | CMPROGNOTE_ITS ---
- If Service Date Differs Date of service: 10/23/21 Time of Service: 08:33 Care Management Progress Note S/O: Virginia was transferred out of the ICU yesterday. She was sitting up in her chair when CM met with her. She is alert, oriented, pleasant and easy to engage in conversation. She is feeling much better. Virginia is working with PT and regaining her strength. PT recommends outpatient PT. Virginia is agreeable and would like the referral to go to [facility] office. KIEL helped Virginia fill out an application for Medicaid today. Virginia shares that she had a job interview yesterday over the phone and was hired. She feels her life is back on track, and she does not want to be referred to a [facility]. A: 46 year female admitted to [facility] on 10/16/21 for Acute hyponatremia, Acute hypokalemia. P: Anticipate, Virginia will discharge home and resume PT as an outpatient. She will transport via private vehicle with family when medically ready. Virginia may benefit from a referral to the [facility] following discharge (pt declines). Virginia will follow up with her community provider's and discharge plan of care as prescribed.
[2021-10-23 12:00] VITALS: BP 111/76; PULSE 76; RESP 16; TEMP 36.6; O2SAT 97
--- NOTE | 2021-10-23 12:41 | PT.INTREAT ---
Date of service: 10/23/21 Time of Service: 08:35 PT Notes Visit Reasons: Hypokalemia,Hyponatremia Inpatient Physical Therapy Treatment Note [facility] Date: 10/23/2021 PRECAUTIONS: Activity as tolerated, fall SUBJECTIVE: Virginia is pleasant and agreeable to participating in PT. She reports that she is feeling better, and stronger than yesterday. She reports that she did not sleep well last night. She is hopeful that she will be discharged to home later today. OBJECTIVE: PAIN: No c/o pain BED MOBILITY/TRANSFERS Sit-stand: I Stand-sit: I GAIT Assistive Device: No AD Weight bearing: Full Assist: Supervision Distance: 350' Deviation: Improved pacing, mild path deviation STAIRS: Up/down 3x4 and 2x6 using B rails and a step-to pattern independently ASSESSMENT: Patient tolerated session with complaint of increased fatigue. She was able to tolerate a progression in gait distance with and without assitive device support. She demonstrates improved strength and activity tolerance, although would benefit from further conditioning and strengthening. PLAN: Patient to discharge to home later today, per provider. Recommend follow up with outpatient PT for continued strengthening and conditioning. TREATMENT CODE/TIME: 25 minutes; 21568 x2 (08:35)
--- NOTE | 2021-10-23 14:57 | CHAPLAIN ---
Virginia was moved out to / since I last saw here. She thought she may be discharged today, but said she's fine with waiting to see Dr. Wheatley tomorrow since Dr. Wheatley was with her when she was first diagnosed. While she's been hospitalized, Virginia had a job interview with [employer] and accepted a job there that starts on November 13. She was even given a $1 raise since first being hired. Virginia's mom and daughter came in to visit while I was there. Virginia seems to be excited about her job, and getting home possibly tomorrow.
[2021-10-23 15:08] LABS: ANA Interpretation Positive (Negative); ANA Titer Pattern 1:80 Homogeneous
--- NOTE | 2021-10-23 15:18 | DSE_ITS ---
Date of service: 10/23/21 Time of Service: 15:19 DS: Diagnosis Discharge Diagnosis (1) Acute alcoholic hepatitis: Status: Acute (2) Acute cholecystitis: Status: Suspected (3) Hypotension: Status: Resolved (4) Anemia: Status: Chronic (5) Acute hyponatremia: Status: Acute (6) Oral thrush: Status: Acute (7) QT prolongation: Status: Resolved (8) Acute hypokalemia: Status: Resolved (9) Alcoholism: Status: Chronic (10) Coagulopathy: Status: Acute (11) Transaminitis: Status: Acute (12) CALEB on CPAP: Status: Chronic (13) Hyperbilirubinemia: Status: Acute (14) DVT prophylaxis: Status: Acute (15) Discharge planning issues: Status: Acute Discharge Plan Disposition Patient Disposition: HOME Condition: Stable Discharge Details Reason For Visit: Alcoholic hepatitis, gallbladder dysfunction Admit Date/Time: 10/17/21 15:05 Admit Provider: Ajith Heredia Attending Provider: Ajith Heredia Primary Care Provider: Ira Thao [facility] Hospital Course: PCP in 1 week Home Meds and New Rx's Prescriptions: New multivitamin [Multiple Vitamins] Tablet 1 tab PO DAILY Qty: 0 0RF midodrine 5 mg Tablet 2.5 mg PO TID Qty: 30 0RF folic acid 1 mg Tablet 1 mg PO DAILY Qty: 0 0RF gabapentin 100 mg Capsule 100 mg PO TID Qty: 90 0RF amoxicillin-pot clavulanate 875-125 mg Tablet 1 tab PO BID Qty: 10 0RF thiamine mononitrate (vit B1) [Vitamin B-1 (mononitrate)] 100 mg Tablet 100 mg PO DAILY Qty: 0 0RF prednisone 10 mg tablet See Rx Instructions .ROUTE .COMPLEX Qty: 20 0RF Rx Instructions: 3 daily for 3 days starting 10/24/21, then 2 daily for 3 days, 1 daily for 3 days, 1/2 daily for 3 days. Continued buprenorphine-naloxone [Suboxone] 8-2 mg film See Rx Instructions .ROUTE .COMPLEX Label Comments: PLACE ONE FILM UNDER THE TONGUE EVERY DAY Rx Instructions: 8-2mg Discharge Instructions Instructions: Alcoholic Hepatitis (DC) [place] [place] - (referral for an elective cholecystectomy) [facility] Edmonds,[place] [OTHER] - (PT evaluation and treat for deconditioned state and endurance training Prefers [place] location) Activity:: Activity as Tolerated Equipment/Supplies:: No Equipment Needed Diet:: Low Na diet Discharge Orders Discharge Orders: Discharge Order (Routine); Ordered 10/23/21 Ordered By: Anthony Guzman Other Ambulatory Orders: Comprehensive Metabolic Panel (Routine) Timeframe: 2 Days Location: None Selected Ordered By: Anthony Guzman DS: Summary Time Spent with Patient providing and/or coordinating discharge services: Greater than 30 minutes Status at Discharge Functional status at discharge: independent ambulation Overall status at discharge: patient is progressing back to baseline Mental Status: mental status grossly normal Speech and Movement: speech and movement normal Mood: congruent mood Affect: normal affect Exam Narrative Exam Narrative: General: Sitting up in bed. Pleasant and cooperative. NAD HEENT: EOMI, MMM Heart: RRR, no murmur Lungs: CTAB Abdomen: soft, nontender. Extremities: 1+ bilateral pedal edema. Psych: A&O x 3. Affect appropriate. Psych Mental Status: mental status grossly normal Speech and Movement: speech and movement normal Mood: congruent mood Affect: normal affect DS: Data Vitals/I&O Vitals and I&O: Vital Signs Temperature 36.2 C L 10/23/21 07:15 Temperature Source Tympanic 10/23/21 07:15 Pulse 76 10/23/21 07:15 Pulse Rhythm Regular 10/23/21 07:43 Pulse 76 10/20/21 11:30 Respiratory Rate 14 10/23/21 07:15 Respiratory Effort Non-Labored 10/23/21 07:43 Respiratory Depth Normal 10/23/21 07:43 Respiratory Pattern Normal 10/23/21 07:43 Blood Pressure 119/80 10/23/21 07:15 Blood Pressure Mean 100 10/22/21 21:22 Blood Pressure Position Supine 10/20/21 16:00 Pulse Oximetry 96 10/23/21 07:15 Oxygen Delivery Method Room Air 10/23/21 07:15 Oxygen Flow Rate 0 10/23/21 07:15 Fraction of Inspired Oxygen (FIO2) 30 10/22/21 01:00 Pain Level 0 10/23/21 11:55 Comment 10/23/21 11:55 Intake & Output 10/22/21 10/23/21 10/23/21 23:59 11:59 23:59 Intake Total 410 / 1210 1460 / 1700 240 / 1700 Output Total 850 / 850 Balance -440 / 360 1460 / 1700 240 / 1700 Intake: IV 50 / 150 Oral 360 / 1060 1460 / 1700 240 / 1700 Output: Urine 850 / 850 Other: Urine Color Yellow Urine Appearance Clear Urine Odor None Comment pt voiding independently at this time Stool Size Moderate Stool Characteristics Formed Brown Voiding Methods Bedside Commode Data Completed and Pending Labs on day of discharge: Labs from last 24 hours 10/23/21 10/23/21 10/23/21 06:18 06:18 06:18 WBC 10.12 RBC 2.49 L Hgb 8.3 L Hct 25.8 L MCV 104 H MCH 33.3 H MCHC 32.2 RDW 16.2 H Plt Count 287 MPV 10.7 Immature Gran % 0.7 Neutrophils % 75.1 Lymphocytes % 17.3 Monocytes % 6.6 Eosinophils % 0.2 Basophils % 0.1 Nucleated RBC % 0.0 Absolute Neutrophils 7.60 H Absolute Lymphocytes 1.75 Absolute Monocytes 0.67 Absolute Eosinophils 0.02 Absolute Basophils 0.01 PT 12.2 H INR 1.2 H Sodium 135 L Potassium 4.6 Chloride 102 Carbon Dioxide 24.2 Anion Gap 8.8 BUN 11 Creatinine 0.8 Estimated GFR/1.73 m2 >= 60.00 Glucose 79 Calcium 9.4 Total Bilirubin 1.8 H AST 312 H ALT 61 H Alkaline Phosphatase 307 H Total Protein 7.0 Albumin 2.8 L KASIE Titer KASIE Titer 2 KASIE Titer 3 KASIE Interpretation 10/22/21 09:50 WBC RBC Hgb Hct MCV MCH MCHC RDW Plt Count MPV Immature Gran % Neutrophils % Lymphocytes % Monocytes % Eosinophils % Basophils % Nucleated RBC % Absolute Neutrophils Absolute Lymphocytes Absolute Monocytes Absolute Eosinophils Absolute Basophils PT INR Sodium Potassium Chloride Carbon Dioxide Anion Gap BUN Creatinine Estimated GFR/1.73 m2 Glucose Calcium Total Bilirubin AST ALT Alkaline Phosphatase Total Protein Albumin KASIE Titer 1:80 Homogeneous KASIE Titer 2 Not Applicable KASIE Titer 3 Not Applicable KASIE Interpretation Positive A PFSH All Active Problems Discharge planning issues (Acute) DVT prophylaxis (Acute) Hyperbilirubinemia (Acute) CALEB on CPAP (Chronic) Transaminitis (Acute) Gallbladder sludge (Acute) Coagulopathy (Acute) Acute alcoholic hepatitis (Acute) Abdominal fluid collection (Acute) Anemia (Chronic) Alcoholism (Chronic) Acute hyponatremia (Acute) Hemoglobin low (Acute) Oral thrush (Acute) Normal colonoscopy (Acute) Smoker (Acute) Alcoholism (Acute) Medical History Anxiety Asthma BMI 36.0-36.9,adult Chronic alcoholism since 35yo. Completed [facility] inpatient, relapsed and developed pacreatitis 03/2016. Sober since then. Constipation Depression Dyspepsia Dysphonia Elevated liver enzymes Elevated transaminase level History of substance abuse Hyperthyroidism Hypokalemia Macrocytosis Mental health problem Mood improved with Gabapentin. May change to SSRI. Dr Connors monitors. Obesity CALEB (obstructive sleep apnea) Pancreatitis Pedal edema Post-nasal drip Stress incontinence Tobacco use Vitamin D deficiency Surgical History back surgery lumbar disk shaving. bunionectomy L foot. History of colonoscopy (~07/03/21) Stoiber, airway concerns during procedure refer to procedure note. Family History Grandmother No problems noted. Social History Smoking/Tobacco Use Status: Current every day Tobacco Type: cigarettes Smoking risk assessment performed?: Yes Alcohol Intake: former Drug use: Current Sobriety Substance use type: opiates Details: 2 years since use Do you feel safe at home: Yes Do you feel safe in your relationship?: Yes
[2021-10-23 20:53] LABS: Mitochondrial Ab, M2 <0.1 U
--- NOTE | 2021-10-24 11:51 | PT.INDS ---
PT Notes Visit Reasons: Alcoholic hepatitis, gallbladder dysfunction T Notes Visit Reasons:?Hypokalemia,Hyponatremia Physical Therapy Inpatient discharge note Date: 10/24/2021 Referring Doctor: Brianna Wheatley MD PT Orders: PT CONSULT: Limited Ability Precautions: Fall. Standard. Patient Profile/Admitting Diagnosis:Kenroy is a 46 yo female that presented to the ER on 10/16/21 for weakness. She was found to be dehydrated and was unable to be discharged home. She was admitted and has been in the ICU. Patient reports falling prior to coming to ER. PMHX: See EMR Social History/Home Situation: Home with significant other, has 2 steps to enter. Independent at baseline. Equipment Owned/DME: None Subjective:?No complaints of pain offered Objective:? General Observation: LE swelling Mental Status: A&O x3 Pain: None reported ROM: Right Upper Extremity: Shoulder Flexion WFL. Shoulder abduction WFL. Elbow flexion WFL. Wrist flexion WFL. Opening and closing of hand WFL. Left Upper Extremity: Shoulder Flexion WFL. Shoulder abduction WFL. Elbow flexion WFL. Wrist flexion WFL. Opening and closing of hand WFL. Right Lower Extremity: Hip flexion WFL. Hip abduction WFL. Knee flexion WFL. Ankle dorsiflexion WFL. Ankle plantarflexion WFL. Left Lower Extremity: Hip flexion WFL. Hip abduction WFL. Knee flexion WFL. Ankle dorsiflexion WFL. Ankle plantarflexion WFL. Strength: Right Upper Extremity: Shoulder flexors 5/5. Shoulder abductors 5/5. Elbow flexors 5/5. Elbow extensors 5/5. Petroleum Production Engineer strong. Left Upper Extremity: Shoulder flexors 5/5. Shoulder abductors 5/5. Elbow flexors 5/5. Elbow extensors 5/5. Petroleum Production Engineer strong. Right Lower Extremity: Hip flexors 4/5. Hip abductors 5/5. Knee flexors 5/5. Knee extensors 5/5. Ankle dorsiflexors 5/5. Ankle plantarflexors 5/5. Left Lower Extremity: Hip flexors 4/5. Hip abductors 5/5. Knee flexors 5/5. Knee extensors 5/5. Ankle dorsiflexors 5/5. Ankle plantarflexors 5/5. Sensation:?Intact as to pain and pressure on bilateral lower extremities. Bed Mobility/Transfers: Independent with all bed mobility activities Gait:?Ambulating independently with standby supervision for 350 feet is able ascension descend stairs (3 steps) safely Balance:? Static Sitting: Normal Dynamic Sitting: Normal Static Standing: Good Dynamic Standing: Fair Informed Consent/Education:?Patient instructed in purpose of PT consult and plan of care. Assessment: Patient's progress functionally throughout her stay. She is now ambulating greater than 350 feet and is independent with all ADLs. All goals attained Plan: Discharged to home with outpatient physical therapy Physical therapy treatments were from 10 21-2021 Discharge Plan DISCHARGE RECOMMENDATIONS: Discharge to home with outpatient physical therapy This document serves as a summary care statement. No PT services were provided on this day.
[2021-10-24 12:09] LABS: Ceruloplasmin 27.3 mg/dL
[2021-10-24 12:28] LABS: Smooth Muscle Ab Screen Negative (Negative)
[2021-10-24 12:55] LABS: Tissue Transglutaminase Ab IgA 1.3 U/mL; Tissue Transglutaminase Ab IgG <1.2 U/mL
== END 2021-10-23 16:25 | disposition home or self-care (01) | DRG 433 ==
LOC: ER 10-17 01:19 → MS 10-17 01:21 → ICU 10-17 14:10 → MS 10-22 22:54
PROVIDERS: Family Medicine; Internal Medicine; Admitting Provider Internal Medicine; Emergency Provider Student in an Organized Health Care Education/Training Program; PCP Nurse Practitioner Family; Visit Provider Internal Medicine
DX: K70.10 Alcoholic hepatitis without ascites (principal); E87.1 Hypo-osmolality and hyponatremia; B37.0 Candidal stomatitis; Z68.42 Body mass index [BMI] 45.0-49.9, adult; D68.4 Acquired coagulation factor deficiency; K81.0 Acute cholecystitis; E87.6 Hypokalemia; K70.30 Alcoholic cirrhosis of liver without ascites; F19.11 Other psychoactive substance abuse, in remission; F10.20 Alcohol dependence, uncomplicated; I95.9 Hypotension, unspecified; D64.9 Anemia, unspecified; F17.210 Nicotine dependence, cigarettes, uncomplicated; F41.9 Anxiety disorder, unspecified; J45.909 Unspecified asthma, uncomplicated; K59.00 Constipation, unspecified; F32.A Depression, unspecified; R74.01 Elevation of levels of liver transaminase levels; E05.90 Thyrotoxicosis, unspecified without thyrotoxic crisis or storm; D75.89 Other specified diseases of blood and blood-forming organs; G47.33 Obstructive sleep apnea (adult) (pediatric); E55.9 Vitamin D deficiency, unspecified; N39.3 Stress incontinence (female) (male); R60.0 Localized edema; I45.81 Long QT syndrome; E66.9 Obesity, unspecified; D52.9 Folate deficiency anemia, unspecified; E88.09 Other disorders of plasma-protein metabolism, not elsewhere classified; E80.6 Other disorders of bilirubin metabolism
CPT/HCPCS: 36410; 36415; 36430; 78227; 80048; 80053; 80076; 82390; 83516; 83690; 84145; 86704; 86709; 86803; 86850; 86900; 86901; 86920; 87040; 87340; 87389; 87635; 96361; 96365; 96366; 97110; 97161; 97530; 99285; 74181; 76705; 80329; 81003; 82140; 82248; 82272; 82607; 82728; 82746; 83540; 83550; 83605; 83735; 84550; 85014; 85018; 85025; 85610; 86038; 86140; 86255; 87086; 93306; 93970; 94660; 99221; 99233; 99239; 99284; 99291; G0378; J2060; J2543; J3480; P9016

== ENCOUNTER 2021-10-28 11:19 | Inpatient (IN) | payer MEDICAID, SELFPAY ==
[2021-10-28] VITALS (23 sets, daily range): BP systolic 98–136; BP diastolic 59–98; PULSE 77–95; RESP 13–29; TEMP 36.6–36.7; O2SAT 92–98
--- NOTE | 2021-10-28 11:30 | DI.CT_ITS ---
Exam(s) CT ABDOMEN PELVIS W EXAM: CT ABDOMEN PELVIS W CLINICAL HISTORY: pain ruq, fell from standing to floor yesterday. TECHNIQUE: Imaging Protocol: Axial computed tomography images with coronal and sagittal reformatted images were created and reviewed CONTRAST MATERIAL: Intravenous: Omnipaque 350 Contrast volume:100 ml Oral: no COMPARISON: CT ABD PELVIS WITH CONTRAST from 03/19/2016 FINDINGS: ABDOMEN: Lung Bases: Normal where visualized. Liver: No evidence of laceration.. Enlarged. Fatty infiltration. No measurable mass. Gallbladder and biliary tract: Motion no radiodense calculus or dilation. Pancreas: fatty replacement in the head. There is stranding around the head of the pancreas. The t here is motion artifact at this level., no abnormal calcifications Spleen: Normal. Kidneys: Normal size, contour and axis. No radiodense stones or obstructive uropathy. No masses seen. Adrenal glands: No masses seen. Abdominal Aorta: Abdominal portion non-dilated. Soft tissues: Some diffuse edema in the subcutaneous fat. PELVIS: Bladder: No gross wall thickening. No calculi.No focal mass. Bowel: Increased stool right colon. No obstruction or bowel wall thickening. Appendix normal. Peritoneal cavity: Small amount fluid around the liver and spleen. Small amount of fluid in the pelv is. No focal collection. Bones: Within normal limits for age. Reproductive organs: Within normal limits. Lymph nodes: Unremarkable. Impression: No evidence of liver laceration or other acute posttraumatic abnormality. There is stranding around the head of the pancreas which could indicate pancreatitis. The trace amount of fluid is seen around the liver and spleen. Small amount of pelvic fluid is present. RADIATION DOSE DELIVERED: 1,618.39mGy.cm Total DLP DATA REPOSITORY: All CT scans at this facility are submitted to the National Radiology Data Registry (NRDR) Dose Index Registry (DIR) with the [employer] (ACR). RADIATION OPTIMIZATION: All CT scans at this facility use at least one of these dose optimization te chniques: automated exposure control; mA and/or kV adjustment per patient size (includes targeted exa ms where dose is matched to clinical indication); or iterative reconstruction.
[2021-10-28 11:50] LABS: Absolute Lymphocyte Count 2.41 10^3/uL (1.2-3.4); Absolute Neutrophil Count 10.42 10^3/uL (1.2-6.7); Basophils % 0.1; Eosinophils % 0.7; HCT 28.6 % (36.0-46.0); Immature Grans % 0.7; Lymphocytes % 17.2; MCHC 31.5 % (32.0-36.0); MCV 105 fL (80-95); MPV 10.4 fL (8.0-11.0); Monocytes % 6.9; Neutrophils % 74.4; Platelet Count 327 10^3/uL (130-400); RBC 2.73 10^6/uL (3.93-5.22); RDW 15.3 % (11.7-14.6); RDW-SD 58.2 fL; WBC 14.01 10^3/uL (4.4-10.8)
[2021-10-28 11:54] LABS: Absolute Basophil Count 0.01 10^3/uL (0.0-0.2); Absolute Monocyte Count 0.97 10^3/uL (0.1-0.8)
--- NOTE | 2021-10-28 11:57 | W.ED.GENAD ---
Discharge Plan Disposition Patient Disposition: [facility] INPATIENT Condition: Serious Discharge Details Clinical Impression: Acute pancreatitis Admit Date/Time: 10/28/21 13:44 Admit Provider: Ajith Heredia Attending Provider: Ajith Heredia Primary Care Provider: Ira Thao ED Provider: Virgil Quiles Discharge Data Discharge Date/Time-TO BE ENTERED AT DEPARTURE: 10/28/21 15:37 Medical Decision Making 1200 --46-year-old female with history of acute alcoholic hepatitis, acute cholecystitis, recently hospitalized for the and discharged a few days ago, returns after having tripped over her dog, landing on the floor impacting her abdomen yesterday, now with abdominal pain. She has pain in her right upper abdomen and is tender in her right upper and mid abdomen. Concern for acute life-threatening intra abdominal traumatic injury. Plan to obtain CT of the abdomen pelvis. Consider other etiologies for pain including worsening cholecystitis and pancreatitis. -- Initial labs reviewed and transaminitis is improving compared to prior. Patient does now have elevated lipase. Concern for acute pancreatitis. 1330 --CT of the abdomen pelvis was interpreted by radiology: IMPRESSION: 1. Stranding in the peripancreatic fat, small amount of ascites noted. Findings suspicious for acute pancreatitis. Clinical correlation recommended. 2. Hepatosplenomegaly. Liver measures over 25 cm in superior to inferior extent. No focal intrahepatic abnormality identified. --Patient is on Suboxone. I spoke with her about pain control and she provided informed consent for opioid analgesic.Dilaudid 1 mg IV for pain. -- Plan to admit for IV fluid and pain control. Medical Records Medical records reviewed: Yes I reviewed the patient's medical records. Medical records narrative: MRI 10/19/21: IMPRESSION: 1. Gallbladder sludge.? No cholelithiasis or choledocholithiasis.? The common duct is within normal limits at 6 mm. 2. Small amount of perihepatic ascites.? 3. Results of this exam have been verbally communicated with provider. Lab Data Lab results reviewed: Yes I reviewed the patient's lab results. HPI General Mode of arrival: ambulatory. Date/Time Provider Initiated Documentation: 10/28/21 11:32. Limitations to Documentation: no limitations. Information obtained by: patient. HPI Narrative: 46-year-old female recently discharged from inpatient visit on 10/23 after inpatient treatment for acute alcoholic hepatitis and acute cholecystitis, here with abdominal pain. Patient notes that she was discharged from the hospital she did not have pain. Yesterday she tripped over her dog and fell to the floor landing on her abdomen. She has had pain in her upper right abdomen since the fall. Pain is moderate to severe. Worse on palpation. No associated chest pain or shortness of breath. No head trauma. No neck or back pain. Related Data Home Medications Medication Instructions Recorded Confirmed buprenorphine 8 mg-naloxone 2 mg See Rx Instructions .Route .COMPLEX 10/16/21 10/28/21 sublingual film (Suboxone) amoxicillin 875 mg-potassium 1 tab PO BID #10 tabs 10/23/21 10/28/21 clavulanate 125 mg tablet folic acid 1 mg tablet 1 mg PO DAILY #0 tabs 10/23/21 10/28/21 gabapentin 100 mg capsule 100 mg PO TID #90 caps 10/23/21 10/28/21 midodrine 5 mg tablet 2.5 mg PO TID #30 tabs 10/23/21 10/28/21 multivitamin (Multiple Vitamins 1 tab PO DAILY #0 tabs 10/23/21 10/28/21 tablet) prednisone 10 mg tablet See Rx Instructions .Route 10/23/21 10/28/21 .COMPLEX #20 tabs thiamine mononitrate (vit B1) 100 100 mg PO DAILY #0 tabs 10/23/21 10/28/21 mg tablet (Vitamin B-1 (mononitrate)) Previous Rx's Medication Instructions Recorded amoxicillin 875 mg-potassium 1 tab PO BID #10 tabs 10/23/21 clavulanate 125 mg tablet folic acid 1 mg tablet 1 mg PO DAILY #0 tabs 10/23/21 gabapentin 100 mg capsule 100 mg PO TID #90 caps 10/23/21 midodrine 5 mg tablet 2.5 mg PO TID #30 tabs 10/23/21 multivitamin (Multiple Vitamins 1 tab PO DAILY #0 tabs 10/23/21 tablet) prednisone 10 mg tablet See Rx Instructions .Route 10/23/21 .COMPLEX #20 tabs thiamine mononitrate (vit B1) 100 100 mg PO DAILY #0 tabs 10/23/21 mg tablet (Vitamin B-1 (mononitrate)) Allergies Allergy/AdvReac Type Severity Reaction Status Date / Time shellfish derived Allergy Mild Itching Verified 10/28/21 11:26 tramadol AdvReac Mild Agitation Verified 10/28/21 11:26 General Stated Complaint: Abd Prob STEVE: 3 Review of Systems All systems reviewed & are unremarkable except as noted in HPI and below Constitutional Constitutional: Denies fever(s) Gastrointestinal Gastrointestinal: Reports as per HPI, Reports abdominal pain and Denies vomiting PFSH All Active Problems (Updated 10/28/21 @ 19:19 by Ajith Heredia MD) Acute alcoholic hepatitis (Acute) Generalized weakness (Acute) Acute pancreatitis (Acute) CALEB on CPAP (Chronic) Transaminitis (Acute) Gallbladder sludge (Acute) Coagulopathy (Acute) Abdominal fluid collection (Acute) Anemia (Chronic) Alcoholism (Chronic) Hemoglobin low (Chronic) Normal colonoscopy (Acute) Smoker (Acute) Alcoholism (Acute) Medical History Anxiety Asthma BMI 36.0-36.9,adult Chronic alcoholism since 35yo. [address]pleted [facility] ([place], [place]) inpatient, relapsed and developed pacreatitis 03/2016. Sober since then. Constipation Depression Dyspepsia Dysphonia Elevated liver enzymes Elevated transaminase level History of substance abuse Hyperthyroidism Hypokalemia Macrocytosis Mental health problem Mood improved with Gabapentin. May change to SSRI. Dr Connors monitors. Obesity CALEB (obstructive sleep apnea) Pancreatitis Pedal edema Post-nasal drip Stress incontinence Tobacco use Vitamin D deficiency Surgical History back surgery lumbar disk shaving. bunionectomy L foot. History of colonoscopy (~07/03/21) Stoiber, airway concerns during procedure refer to procedure note. Family History Grandmother No problems noted. Social History Smoking/Tobacco Use Status: Current every day Tobacco Type: cigarettes Smoking risk assessment performed?: Yes Alcohol Intake: former Drug use: Current Sobriety Substance use type: opiates Details: 2 years since use Do you feel safe at home: Yes Do you feel safe in your relationship?: Yes Exam Const General: cooperative and no acute distress HENMT Head: normocephalic and atraumatic Mouth: moist mucous membranes Eyes Conjunctivae: normal conjunctivae Sclera: normal sclerae Neck Neck: trachea midline and supple Resp Auscultation: clear to auscultation bilaterally, no rales, no rhonchi and no wheezes Cardio Rate: regular rate and not tachycardic Rhythm: regular rhythm GI Palpation: soft, not firm, no guarding, no masses, not rigid and tender in the RUQ Auscultation: normal bowel sounds Skin General skin exam: no rashes or lesions noted Neuro General: patient alert, patient awake, patient oriented x3 and tone normal Extrem General: edema Laterality: bilateral (1+ ankles) Psych Appearance: grossly normal Mental Status: mental status grossly normal Course Vital Signs Vital signs: Vital Signs Temperature 36.6 C 10/28/21 11:21 Pulse 84 10/28/21 11:21 Respiratory Rate 22 10/28/21 11:21 Blood Pressure 126/65 10/28/21 11:21 Pulse Oximetry 98 10/28/21 11:21 Temperature 36.6 C 10/28/21 11:21 Temperature Source Temporal Artery Scan 10/28/21 11:21 Pulse 84 10/28/21 11:21 Pulse 86 10/28/21 11:35 Respiratory Rate 14 10/28/21 11:35 Blood Pressure 126/65 10/28/21 11:21 Blood Pressure Position Sitting 10/28/21 11:21 Pulse Oximetry 95 10/28/21 11:35 Oxygen Delivery Method Room Air 10/28/21 11:21 Oxygen Flow Rate 0 10/28/21 11:21 Pain Level 8 10/28/21 11:21 Lab/Test Results Lab/Test Results: Laboratory Tests Range/Units 10/28/21 11:37 WBC (4.4-10.8) 10^3/uL 14.01 H RBC (3.93-5.22) 10^6/uL 2.73 L Hgb (11.2-15.7) g/dL 9.0 L Hct (36.0-46.0) % 28.6 L MCV (80-95) fL 105 H MCH (27.0-33.0) pg 33.0 MCHC (32.0-36.0) % 31.5 L RDW (11.7-14.6) % 15.3 H Plt Count (130-400) 10^3/uL 327 MPV (8.0-11.0) fL 10.4 Immature Gran % 0.7 Neutrophils % 74.4 Lymphocytes % 17.2 Monocytes % 6.9 Eosinophils % 0.7 Basophils % 0.1 Nucleated RBC % (0.0-0.3) % 0.0 Absolute Neutrophils (1.2-6.7) 10^3/uL 10.42 H Absolute Lymphocytes (1.2-3.4) 10^3/uL 2.41 Absolute Monocytes (0.1-0.8) 10^3/uL 0.97 H Absolute Eosinophils (0.0-0.7) 10^3/uL 0.10 Absolute Basophils (0.0-0.2) 10^3/uL 0.01
[2021-10-28 12:09] LABS: ALT 67 U/L (14-59); AST 96 U/L (15-37); Albumin 2.9 g/dL (3.4-5.0); Alkaline Phosphatase 243 U/L (46-116); Anion Gap 8.1 mmol/L (3-11); BUN 7 mg/dL (7-18); CO2 28.9 mmol/L (21.0-32.0); CREATININE 0.6 mg/dL (0.55-1.02); Chloride 104 mmol/L (98-107); Glucose 94 mg/dL (74-106); Lipase 1312 U/L (73-393); Potassium 3.8 mmol/L (3.5-5.1); Sodium 141 mmol/L (136-145); Total Protein 6.8 g/dL (6.4-8.2)
[2021-10-28 12:11] LABS: Prothrombin Time 11.5 sec (9.3-11.0)
[2021-10-28 12:12] LABS: INR 1.1 (0.9-1.1)
[2021-10-28] MEDS: Omnipaque 350 MG/ML 100 ML BTL IJ (12:50)
--- NOTE | 2021-10-28 13:14 | DI.VRAD_ITS ---
PROCEDURE INFORMATION: Exam: CT Abdomen And Pelvis With Contrast Exam date and time: 10/28/2021 12:45 PM Age: 46 years old Clinical indication: Other: Pain ruq, fell from standing to floor yesterday TECHNIQUE: Imaging protocol: Computed tomography of the abdomen and pelvis with contrast. Radiation optimization: All CT scans at this facility use at least one of these dose optimization techniques: automated exposure control; mA and/or kV adjustment per patient size (includes targeted exams where dose is matched to clinical indication); or iterative reconstruction. Contrast material: OMNIPAQUE 350; Contrast volume: 100 ml; Contrast route: INTRAVENOUS (IV); COMPARISON: MR ABDOMEN WO 10/19/2021 12:21 PM FINDINGS: Lungs: Lung bases are clear. Pleural effusion is not seen. Liver: The liver is enlarged. Superior to inferior extent of the right lobe of the liver is over 25 cm. No focal intrahepatic abnormality is identified. Gallbladder and bile ducts: No calcified gallstones are identified. There is probable gallbladder sludge. There is mild prominence of the extrahepatic common bile duct, no definite choledocholithiasis is identified. Pancreas: There is mild edema, stranding noted in the peripancreatic fat. No discrete pancreatic mass is identified. Spleen: No intra splenic abnormality is identified. The spleen is mildly enlarged measuring approximately 13 cm in maximum diameter as measured on series 4, image 23. Adrenal glands: Adrenal glands are unremarkable Kidneys and ureters: No radiopaque urinary tract calculi. No hydronephrosis. Stomach and bowel: Evaluation of the bowel is limited without oral contrast. There is no evidence of bowel obstruction. There is no discrete mass or pneumatosis. Appendix: No findings to suggest appendicitis. Intraperitoneal space: Small amount of ascites is noted in the abdomen, pelvis. There is no evidence of a discrete or drainable collection or abscess. There is no evidence of free intraperitoneal air. Vasculature: Unremarkable. No abdominal aortic aneurysm. Lymph nodes: No significant adenopathy is identified. There are small inguinal nodes noted. There are small retroperitoneal, pelvic nodes which are also not enlarged by size criteria. Urinary bladder: Bladder is unremarkable Reproductive: No significant uterine or adnexal abnormality Bones/joints: There is no acute bony abnormality identified. Soft tissues: There is some nonspecific edema noted within the subcutaneous fat. There is no large subcutaneous hematoma identified. Other findings: Exam mildly degraded by patient respiratory motion IMPRESSION: 1. Stranding in the peripancreatic fat, small amount of ascites noted. Findings suspicious for acute pancreatitis. Clinical correlation recommended. 2. Hepatosplenomegaly. Liver measures over 25 cm in superior to inferior extent. No focal intrahepatic abnormality identified. Dictated and Authenticated by: April Dalton MD. Ordering:CORIN Herman MD
[2021-10-28] MEDS: Lactated Ringers 1,000 ML 150 ML IV ×2 (13:37→21:00)
[2021-10-28] MEDS: HYDROmorphone 2 MG/ML VIAL 1 MG IVP (13:51)
[2021-10-28 13:54] LABS: Source Nasal/Nares
[2021-10-28 14:01] LABS: HCG Qual (Urine) Negative
--- NOTE | 2021-10-28 15:28 | HPE_ITS ---
Date of service: 10/28/21 Time of Service: 15:28 Assessment and Plan Assessment and plan (1) Acute pancreatitis: Status: Acute Assessment and plan: ddx alcoholic pancreatitis, gallstone pancreatitis (although her CT of her abdomen did not suggest any cholecystitis); CT c/w pancreatitis. will check li pid profile to r/o hypertriglyceridemia but given her cont. use of alcohol this is likely alcohol induced pancreatitis. Will give her clear liquids, iv fluids, narcotic analgesics and antiemetics. (2) Gallbladder sludge: Status: Acute Assessment and plan: repeat CT scan this admission again shows some biliary sludge but no gallstones and no evidence for acute cholecystitis. Prior admission there was questionable acute cholecystitis w/ abnormal HIDA but MRCP and US not showing cholecystitis however she had elevated WBC and procalcitonin and fever during her last admission and for this reason both GI and surgery had recommended empiric antibiotics. I will continue her Augmentin through her projected end date which would be tomorrow. She was discharged on 5 days of Augmentin. (3) Acute alcoholic hepatitis: Status: Acute Assessment and plan: her transaminases continue to improve over her last admission. She was treated w/ prednisolone during her last hospitalization and dc home on taper of prednisone. I have put her on stress dose corticosteroids for now but when she is taking po well will change back from hydrocortisone to a slow taper of prednisone over the next few weeks. I will consult w/ GI as to the duration of her corticosteroids (4) Alcoholism: Status: Chronic Assessment and plan: patient alleges her last drink of alcohol was 12 ounce of beer on Fri. 10/24. Will monitor w/ CIWA scoring but not put her on empiric benzodiazepines and given severity of her liver disease I would not put her on phenobarbital. (5) Anemia: Status: Chronic Assessment and plan: stable. This has not been worked up but last admission she was given transfusion of PRBC. Will monitor and keep her on a PPI (6) CALEB on CPAP: Status: Chronic Assessment and plan: will ask her to bring in her CPAP (7) Generalized weakness: Status: Acute Assessment and plan: patient reports trouble walking up and down stairs, trouble walking on her own. She has been fatigued since she was dc from [facility] on 10/23. This is probably multifactorial in process including steroid induced myopathy or may be due to rapid taper since discharge. will cover w/ stress dose iv hydrocortisone for now then a slow taper over a few weeks. She was put on steroid for her hepatitis. It is felt that she has an alcoholic hepatitis but was also being worked up for possible autoimmune hepatitis which has since come back negative. (8) Smoker: Status: Acute Assessment and plan: use nicoderm patch History of Present Illness History of Present Illness Chief Complaint: Abdominal pain Narrative: 46 yr old female w/ alcoholism, alcoholic hepatitis, narcotic addiction recently hospitalized @ [facility] 10/17-10/23/21 hospitalized for dehydration, anemia, acute alcoholic hepatitis complicated by hypotension d/t dehydration and anemia, work ed up for suspected acute cholecystitis w/ +HIDA but - US and MRCP for acute cholecystitis but found to have biliary sludge. She was presumptively treated for cholecystitis w/ iv Zosyn at recommendations of surgery and [facility] and dc home on Augmentin. Her hepatits was worked up to r/o autoimmune hepatitis (neg. workup) and hepatitis was treated w/ steroids (prednisolone while hospitalized and transitioned to prednisone taper at discharge). Since her discharge on 10/23 she has been weak, trouble ambulating, difficulty getting out of bed or out of a chair. She has been having abdominal pain, nausea and vomiting since yesterday. She associated her abdominal pain w/ a fall when she tripped over her dog yesterday. Workup in the ED for traumatic injury was negative but abdominal CT did demonstrate evidence for acute pancreatitis (peripancreatic fat stranding w/ flid around the liver and spleen but no injury to liver or spleen or kidneys). Labs demonstrated elevated lipase of 1312. Transaminases are elevated but lower than when she left the hospital on 10/23 (currently ALT 67, AST 96, ALK PHOS 243 w/ normal bilirubin 1.0). Patient endorses that her last drink of alcohol was 12 ounce beer on Fri. 10/24. she is being admitted to treat her acute pancreatitis. [facility] All Active Problems (Updated 10/28/21 @ 19:19 by Ajith Heredia MD) Acute alcoholic hepatitis (Acute) Generalized weakness (Acute) Acute pancreatitis (Acute) CALEB on CPAP (Chronic) Transaminitis (Acute) Gallbladder sludge (Acute) Coagulopathy (Acute) Abdominal fluid collection (Acute) Anemia (Chronic) Alcoholism (Chronic) Hemoglobin low (Chronic) Normal colonoscopy (Acute) Smoker (Acute) Alcoholism (Acute) Medical History Anxiety Asthma BMI 36.0-36.9,adult Chronic alcoholism since 35yo. Completed [facility] [place] inpatient, relapsed and developed pacre atitis 03/2016. Sober since then. Constipation Depression Dyspepsia Dysphonia Elevated liver enzymes Elevated transaminase level History of substance abuse Hyperthyroidism Hypokalemia Macrocytosis Mental health problem Mood improved with Gabapentin. May change to SSRI. Dr Connors monitors. Obesity CALEB (obstructive sleep apnea) Pancreatitis Pedal edema Post-nasal drip Stress incontinence Tobacco use Vitamin D deficiency Surgical History back surgery lumbar disk shaving. bunionectomy L foot. History of colonoscopy (~07/03/21) Stoiber, airway concerns during procedure refer to procedure note. Family History Grandmother No problems noted. Social History Smoking/Tobacco Use Status: Current every day Tobacco Type: cigarettes Smoking risk assessment performed?: Yes Alcohol Intake: former Drug use: Current Sobriety Substance use type: opiates Details: 2 years since use Do you feel safe at home: Yes Do you feel safe in your relationship?: Yes Meds Allergies and Home Medications Allergies Allergy/AdvReac Type Severity Reaction Status Date / Time shellfish derived Allergy Mild Itching Verified 10/28/21 11:26 tramadol AdvReac Mild Agitation Verified 10/28/21 11:26 Home Medications Medication Instructions Recorded Confirmed Type buprenorphine 8 mg-naloxone 2 mg See Rx Instructions .Route .COMPLEX 10/16/21 10/28/21 History sublingual film (Suboxone) amoxicillin 875 mg-potassium 1 tab PO BID #10 tabs 10/23/21 10/28/21 Rx clavulanate 125 mg tablet folic acid 1 mg tablet 1 mg PO DAILY #0 tabs 10/23/21 10/28/21 Rx gabapentin 100 mg capsule 100 mg PO TID #90 caps 10/23/21 10/28/21 Rx midodrine 5 mg tablet 2.5 mg PO TID #30 tabs 10/23/21 10/28/21 Rx multivitamin (Multiple Vitamins 1 tab PO DAILY #0 tabs 10/23/21 10/28/21 Rx tablet) prednisone 10 mg tablet See Rx Instructions .Route 10/23/21 10/28/21 Rx .COMPLEX #20 tabs thiamine mononitrate (vit B1) 100 100 mg PO DAILY #0 tabs 10/23/21 10/28/21 Rx mg tablet (Vitamin B-1 (mononitrate)) Exam Narrative Exam Narrative: Obese white female lying in bed complaining of abdominal pain. She is alert and oriented person place time circumstance. HEENT is remarkable for raza facies full extraocular motion intact no scleral icterus conjunctiva noninjected oropharynx without exudate no thrush Neck is supple with a very full appearance to her anterior neck but no palpable goiter normal carotid pulses Neck with buffalo hump Lungs are clear to auscultation Heart is regular rate and rhythm without murmur rub or gallop Abdomen obese with normal bowel sounds with diffuse tenderness with more focalized tenderness in the epigastrium and left upper quadrant. Extremities with 1+ pitting edema of her feet and ankles and pretibial surfaces. No peripheral cyanosis normal pedal pulses. Neuro exam grossly intact no focal cranial nerve deficits no focal motor deficits although she has generalized weakness. Results Labs Result diagrams: 10/29/21 06:59 10/28/21 11:37 Labs: Laboratory Results - last 24 hr 10/28/21 10/28/21 10/28/21 11:37 11:37 11:50 WBC 14.01 H RBC 2.73 L Hgb 9.0 L Hct 28.6 L MCV 105 H MCH 33.0 MCHC 31.5 L RDW 15.3 H Plt Count 327 MPV 10.4 Immature Gran % 0.7 Neutrophils % 74.4 Lymphocytes % 17.2 Monocytes % 6.9 Eosinophils % 0.7 Basophils % 0.1 Nucleated RBC % 0.0 Absolute Neutrophils 10.42 H Absolute Lymphocytes 2.41 Absolute Monocytes 0.97 H Absolute Eosinophils 0.10 Absolute Basophils 0.01 PT 11.5 H INR 1.1 Sodium 141 Potassium 3.8 Chloride 104 Carbon Dioxide 28.9 Anion Gap 8.1 BUN 7 Creatinine 0.6 Estimated GFR/1.73 m2 >= 60.00 Glucose 94 Calcium 9.0 Total Bilirubin 1.0 AST 96 H ALT 67 H Alkaline Phosphatase 243 H Total Protein 6.8 Albumin 2.9 L Lipase 1312 H Urine HCG, Qual COVID-19 Source Patient ABO/Rh Antibody Screen 10/28/21 10/28/21 10/28/21 11:50 13:40 13:50 WBC RBC Hgb Hct MCV MCH MCHC RDW Plt Count MPV Immature Gran % Neutrophils % Lymphocytes % Monocytes % Eosinophils % Basophils % Nucleated RBC % Absolute Neutrophils Absolute Lymphocytes Absolute Monocytes Absolute Eosinophils Absolute Basophils PT INR Sodium Potassium Chloride Carbon Dioxide Anion Gap BUN Creatinine Estimated GFR/1.73 m2 Glucose Calcium Total Bilirubin AST ALT Alkaline Phosphatase Total Protein Albumin Lipase Urine HCG, Qual Negative COVID-19 Source Nasal/Nares Patient ABO/Rh B Positive Antibody Screen NEGATIVE Last Vital Signs Temp 36.6 C 10/28/21 14:49 Pulse 83 10/28/21 14:49 Resp 18 10/28/21 14:49 BP 135/86 10/28/21 14:49 Pulse Ox 96 10/28/21 14:49 PAWSS Have you Been Recently Intoxicated or Drunk Within the Last 30 days?: No Have you Ever Experienced Previous Episodes of Alcohol Withdrawal?: No Have you ever Experienced Withdrawal Seizures?: No Have you ever Experienced Delirium Tremens(DT)s?: No Have you ever undergone Alcohol Rehabilitation Treatment (i.e, inpt ot outpatient treatment programs)?: No Have you ever Experienced Blackouts?: No Have you ever Combined Alcohol with other Downers within the last 90 days?: No Have you ever Combined Alcohol with any other Substance of Abuse during the last 90 days?: No Result: 0
[2021-10-28] MEDS: HYDROmorphone 2 MG/ML SYR IVP ×5 (15:51→23:37)
[2021-10-28] MEDS: Mylanta Suspension 30 ML CUP PO ×2 (15:53→23:36)
[2021-10-28] MEDS: Enoxaparin 40 MG/0.4 ML SYR SC (15:53)
[2021-10-28 16:04] LABS: COVID-19 PCR Negative (Negative)
[2021-10-28] MEDS: Ondansetron 4 MG/2 ML VIAL IVP ×2 (16:24→21:01)
[2021-10-28] MEDS: Normal Saline Flush 10 ML SYR IVP ×4 (16:25→23:38)
[2021-10-28] MEDS: Hydrocortisone SOD SUC. 100 MG VIAL IVP (18:23)
[2021-10-28] MEDS: Pantoprazole 40 MG VIAL IVP (18:23)
[2021-10-28] MEDS: Gabapentin 100 MG CAP PO (19:56)
[2021-10-28] MEDS: Midodrine 2.5 MG TAB PO (19:57)
[2021-10-28 20:01] LABS: Lab Add On Test DONE
[2021-10-28] MEDS: Docusate Sodium 100 MG CAP PO (20:04)
[2021-10-28 20:16] LABS: Calculated LDL 61 mg/dL (<100); Cholesterol 138 mg/dL (<200); HDL Cholesterol 60 mg/dL (40-60); Triglyceride 88 mg/dL (<150)
[2021-10-28] MEDS: Milk of Magnesia 30 ML CUP PO (20:19)
[2021-10-28] MEDS: Amoxicillin 400 MG/Clav. 57 MG 100 ML BTL 10 ML PO (21:58)
[2021-10-28] MEDS: Hydrocortisone SOD SUC. 100 MG VIAL 50 MG IVP (23:38)
[2021-10-29 03:35] VITALS: BP 131/83; PULSE 84; RESP 20; TEMP 36.7; O2SAT 94
[2021-10-29] MEDS: HYDROmorphone 2 MG/ML SYR IVP ×6 (04:04→23:35)
[2021-10-29] MEDS: Ondansetron 4 MG/2 ML VIAL IVP ×3 (04:05→23:44)
[2021-10-29] MEDS: Normal Saline Flush 10 ML SYR IVP ×6 (04:06→23:44)
[2021-10-29] MEDS: Lactated Ringers 1,000 ML 150 ML IV (04:43)
[2021-10-29] MEDS: Hydrocortisone SOD SUC. 100 MG VIAL 50 MG IVP ×4 (05:42→23:34)
[2021-10-29] MEDS: Polyethylene Glycol 3350 17 GM PACKET PO (05:42)
[2021-10-29 07:19] LABS: Absolute Monocyte Count 0.65 10^3/uL (0.1-0.8); Absolute Neutrophil Count 13.61 10^3/uL (1.2-6.7); Basophils % 0.1; HCT 28.3 % (36.0-46.0); HGB 9.1 g/dL (11.2-15.7); Immature Grans % 0.7; Lymphocytes % 4.8; MCH 33.7 pg (27.0-33.0); MCHC 32.2 % (32.0-36.0); MCV 105 fL (80-95); MPV 10.6 fL (8.0-11.0); Monocytes % 4.3; Neutrophils % 90.1; Platelet Count 302 10^3/uL (130-400); RDW 15.7 % (11.7-14.6); RDW-SD 58.9 fL
[2021-10-29 07:20] LABS: Absolute Basophil Count 0.02 10^3/uL (0.0-0.2); Absolute Lymphocyte Count 0.72 10^3/uL (1.2-3.4)
[2021-10-29 07:51] LABS: ALT 55 U/L (14-59); AST 74 U/L (15-37); Alkaline Phosphatase 218 U/L (46-116); Anion Gap 9.5 mmol/L (3-11); BUN 8 mg/dL (7-18); Bilirubin, Total 1.4 mg/dL (0.2-1.0); CO2 26.5 mmol/L (21.0-32.0); CREATININE 0.7 mg/dL (0.55-1.02); Calcium 9.1 mg/dL (8.5-10.1); Chloride 98 mmol/L (98-107); Glucose 160 mg/dL (74-106); Magnesium 2.3 mg/dL (1.8-2.4); Potassium 4.2 mmol/L (3.5-5.1); Sodium 134 mmol/L (136-145); Total Protein 6.9 g/dL (6.4-8.2)
[2021-10-29 08:06] LABS: Prothrombin Time 11.5 sec (9.3-11.0)
[2021-10-29 08:23] LABS: INR 1.1 (0.9-1.1)
[2021-10-29] MEDS: Amoxicillin 400 MG/Clav. 57 MG 100 ML BTL 10 ML PO ×2 (08:39→19:59)
[2021-10-29] MEDS: Thiamine 100 MG TAB PO (08:39)
[2021-10-29] MEDS: Folic Acid 1 MG TAB PO (08:39)
[2021-10-29] MEDS: Multivitamin TAB 1 TAB PO (08:39)
[2021-10-29] MEDS: Midodrine 2.5 MG TAB PO ×3 (08:39→19:57)
[2021-10-29] MEDS: Gabapentin 100 MG CAP PO ×3 (08:39→19:57)
[2021-10-29] MEDS: Nystatin 500000 UNITS/5 ML SUSP 5ML CUP PO ×3 (08:50→19:59)
[2021-10-29 08:53] VITALS: BP 142/80; PULSE 79; RESP 18; TEMP 36.8; O2SAT 95
--- NOTE | 2021-10-29 09:28 | INITIAL_ITS ---
- If Service Date Differs Date of service: 10/29/21 Time of Service: 09:28 Care Management Initial Assess REASON FOR HOSPITALIZATION:: Acute pancreatitis. PAST MEDICAL HISTORY/PAST SURGICAL HISTORY:: All Active Problems (Updated 10/28/21 @ 19:19 by Ajith Heredia MD). Acute alcoholic hepatitis (Acute). Generalized weakness (Acute). Acute pancreatitis (Acute). CALEB on CPAP (Chronic). Transaminitis (Acute). Gallbladder sludge (Acute). Coagulopathy (Acute). Abdominal fluid collection (Acute). Anemia (Chronic). Alcoholism (Chronic). Hemoglobin low (Chronic). Normal colonoscopy (Acute). Smoker (Acute). Alcoholism (Acute). Medical History . Anxiety. Asthma. BMI 36.0-36.9,adult. Chronic alcoholism. since 35yo. Completed [facility], relapsed and developed pacreatitis 03/2016. Sober since then. Constipation. Depression. Dyspepsia. Dysphonia. Elevated liver enzymes. Elevated transaminase level. History of substance abuse. Hyperthyroidism. Hypokalemia. Macrocytosis. Mental health problem. Mood improved with Gabapentin. May change to SSRI. Dr Connors monitors. Obesity. CALEB (obstructive sleep apnea). Pancreatitis. Pedal edema. Post-nasal drip. Stress incontinence. Tobacco use. Vitamin D deficiency. Surgical History . back surgery. lumbar disk shaving. bunionectomy. L foot. History of colonoscopy (~07/03/21). Stoiber, airway concerns during procedure refer to procedure note. PREVIOUS FUNCTIONAL STATUS/SOCIAL/FAMILY SUPPORTS:: Virginia lives in [place] with her partner Prabhu. She has 2 adult children. She drives and is independent at baseline. CURRENT FUNCTIONAL STATUS:: Virginia was sitting up in her bed with the HOB elevated when CM met with her. She is alert, oriented and easy to engage in conversation. Virginia was discharged from the hospital last week following a 6 day admission for alcoholic hepatitis and acute cholecystitis. [place] shares that she became progressively weak following discharge and tripped over her dog. [place] shares that she consumed one 12 ounce beer the day after discharge, and nothing more. ADVANCE DIRECTIVES:: None on file, CM will offer forms. Has patient been provided with info about the portal/API?: Yes Did the patient sign up for the portal?: Yes (Prior to admission) CODE STATUS:: Full Code INSURANCE COVERAGE / FINANCIAL ISSUES:: Medicaid CURRENT HOME/COMMUNITY SERVICES/EQUIPMENT:: None PRIMARY CARE PHYSICIAN:: Ira Thao, [facility] POTENTIAL DISCHARGE NEEDS:: Appointment with PCP, Gen. Surg at [facility] and Outpatient PT(Oleksandr Edmonds). Last dose letter for Suboxone. Referral to [facility] (pt declines). PATIENT/FAMILY EDUCATION NEEDS:: Review discharge instructions, limitations, medications and plan to follow up with community providers. ask me three. TRANSPORTATION:: Via private vehicle with family. PLAN:: Virginia requires additional medical work up for acute pancreatitis. ETOH withdrawal being monitored per [facility] protocol. Virginia will discharge home via private vehicle with family when medically ready. Anticipate, she will need follow up appointments with [facility] Gen. Surg, PCP and Outpt PT ([facility]le[facility]andr Edmonds's). She will also need a last dose letter. will continue to support Virginia and her discharge planning needs. Readmission - Within the Past 30 Days Yes or No: Y - Date of First Admission Date of 1st Admission: 10/17/21 - Date of this Admission Date of Admission: 10/28/21 This admission was: Through ED - Office Visit Since 1st Admission Have you seen your PCP in the office since discharge?: No Had an appointment Been Scheduled?: Yes Date of Scheduled Appointment: 11/06/21 - Speicalist Appointments Have you seen any other specialist since your 1st Admission?: No - I. Interview patient and/or Family Difficulty reaching your doctor or getting an office appt?: No Have you had trouble purchasing/ or taking medication?: No Have you had trouble with getting meals at home?: No Did you feel ready for discharge when you left the last time: Yes Were services received that you thought were set up on disch: Yes If patient did not receive services, were there orders at: No Did you call your physician beore you came to the ED?: No Did your physician tell you to come in?: No How do you think you became sick enough to come back?: [place] shares that she became progressively weak following discharge and tripped over her dog. [place] shares that she consumed one 12 ounce beer the day after discharge, and nothing more. - If the patient had a VNA ordered Did the patient have a VNA order?: No - Ask the Care Team Members: What do you think caused the patient to be readmitted: Virginia was very sick and weak during her initial visit. After being medically ready for discharge she became progressively weak, to the point where she couldn't get out of her chair. - ED visits How many ED visits in the past 12 months: 2 - Assessment for Readmission Summary of readmission circumstances, based upon interviews: [place] was very sick and weak during her initial visit. After being medically ready for discharge she became progressively weak, to the point where she couldn't get out of her chair. She also reportedly tripped over her dog. And had atleast (1) 12 oz beer following discharge. Her significant other repeatedly asked her to go back to the ER and she refused for several days, until Prabhu called her father who was able to encourage her to go to the ER. [place] decline a referral to the Recovery Ctr or resources for ETOH abuse.
--- NOTE | 2021-10-29 11:33 | IN_ITS ---
PT Notes Visit Reasons: Acute Pancreatitis Inpatient Physical Therapy Evaluation Date:10/29/2021 Referring Doctor: PT Orders: PT CONSULT: Ajith Boyd MD Precautions: Fall precaution Patient Profile/Admitting Diagnosis: 46-year-old female recently admitted with acute pancreatitis and general PMHX: PFSH All Active Problems?(Updated 10/28/21 @ 19:19 by Ajith Heredia MD) Acute alcoholic hepatitis (Acute) Generalized weakness (Acute) Acute pancreatitis (Acute) CALEB on CPAP (Chronic) Transaminitis (Acute) Gallbladder sludge (Acute) Coagulopathy (Acute) Abdominal fluid collection (Acute) Anemia (Chronic) Alcoholism (Chronic) Hemoglobin low (Chronic) Normal colonoscopy (Acute) Smoker (Acute) Alcoholism (Acute) Medical History? Anxiety Asthma BMI 36.0-36.9,adult Chronic alcoholism since 35yo. Completed [facility] ([place], [place]) inpatient, relapsed and developed pacreatitis 03/2016. Sober since then.Constipation Depression Dyspepsia Dysphonia Elevated liver enzymes Elevated transaminase level History of substance abuse Hyperthyroidism Hypokalemia Macrocytosis Mental health problem Mood improved with Gabapentin. May change to SSRI. Dr Connors monitors.Obesity CALEB (obstructive sleep apnea) Pancreatitis Pedal edema Post-nasal drip Stress incontinence Tobacco use Vitamin D deficiency Surgical History? back surgery lumbar disk shaving.bunionectomy L foot.History of colonoscopy (~07/03/21) Stoiber, airway concerns during procedure refer to procedure note. Social History/Home Situation: Lives in a trailer with a few steps to enter, lives with significant other. She is independent with all ADLs, although her partner makes most meals and does grocery shopping. She has not driven recently. Her bathroom has a walk-in shower. No grab bars or flexible shower hose Current Functional Limitations: Independent with ADLs Equipment Owned/DME: None noted Subjective: Patient complains of continuous discomfort throughout the abdominal area particular right upper quadrant. This diminishes with her pain medication Objective: General Observation: Pleasant cooperative and no abnormal pain behavior noted Mental Status: Alert and oriented x3 Pain: 5/10 at its best and 10/10 at its worst Vital Signs: Her resting O2 sat is 91% / 90 bpm; and following activity O2 sat is 95% / 93 bpm ROM: Has good functional range of motion throughout articular structures of then her ankles and subtalar joints which are hypomobile but nonpainful Strength: Has full motor control throughout and strength is generally rated -5/5 Neuro: KJ's are +2 and AJ's +1 and symmetrical, sensations intact light touch and proprioception, has full motor control. Bed Mobility/Transfers: Independent with assuming the supine to sitting to standing positions and vice versa. Gait: She initially ambulated with a wheeled walker, but was able to walk without with standby assist. She had a slightly wide-based gait. Balance: Larkin balance test was performed, and her score was less than 43/56. Score 45 or less indicates fall risk Static Sitting: Good Dynamic Sitting: Good Static Standing: Good Dynamic Standing: Fair Special Tests: Mobility Limitations Standardized Measure [facility] 6 clicks Basic Mobility Inpatient Short Form: Raw Score: 16 standardized Score: 2.95 CMS Score: 54.16% Informed Consent/Education: Patient instructed in purpose of PT consult and p luis alfredo of care. Assessment: Patient is a 46year old female referred to physical therapy services with the diagnosis of acute pancreatitis. Patient presents with clinical signs and symptoms consistent with diagnosis, as demonstrated by the following impairment level findings: Generalized weakness throughout along with a mild balance deficit. She normally ambulates without any assistive device, and I am hoping that her balance will improve as her strength increases.. Patient is assessed as a Moderate 28166 complexity based on the following: History: See comorbidities and social history Examination: See above for functional imitations and impairments Presentation: Evolving Decision Making: Moderate complexity based on her clinical findings Goals: Goals X1 week 1. Increase strength throughout 09/13 2. Improve balance to minimize fall risk 3. Increase exercise tolerance Plan of Care/Treatment Plan: 1-2x/day, 7 days/week x 1 week. Plan of care has been reviewed with the [employer] providing the service under Physical Therapy direction. Initiate Physical Therapy intervention for strengthening, bed mobility, transfers, gait, stairs, balance training, use of assistive device. DISCHARGE RECOMMENDATIONS: Home with no services TREATMENT CODE/TIME: 9716 2/30 minutes
[2021-10-29] MEDS: Bisacodyl 10 MG SUPP PR (11:50)
[2021-10-29] MEDS: Methylnaltrexone 12 MG/0.6 ML VIAL SC (12:24)
[2021-10-29 13:47] VITALS: BP 137/90; PULSE 89
[2021-10-29] MEDS: Lactated Ringers 1,000 ML 100 ML IV (13:47)
--- NOTE | 2021-10-29 15:55 | PT.INTREAT ---
Date of service: 10/29/21 Time of Service: 15:26 PT Notes Visit Reasons: Acute Pancreatitis Inpatient Physical Therapy Treatment Note [facility] Date: 10/29/2021 PRECAUTIONS: Activity as tolerated SUBJECTIVE: [place] is pleasant and agreeable to participating in PT. She reports that she is still not feeling well. OBJECTIVE: PAIN: Patient c/o stomach pain BED MOBILITY/TRANSFERS: Supine-sit: I Sit-stand: I Stand-sit: I Bed-chair: I Chair-bed: I GAIT: Assistive Device: No AD Weight bearing: Full Assist: Supervision Distance: 150' x2 Deviation: None NEURO RE-ED: Patient was instructed in a dynamic balance retraining program, to include: lateral stepping, backward walking, tandem walking, walking with head turns/nods, walking with shoulder flexion, walking with shoulder abduction. Patient requires occasional railing support as well as occasional CGA for safety. ASSESSMENT: Patient tolerated session with c/o mild SOB. She demonstrates independence with transfers, bed mobility, and short-distance ambulation without AD support at this time. PLAN: Continue with balance retraining as well as general conditioning for improved mobility and activity tolerance. TREATMENT CODE/TIME: 20 minutes; 83216 (15:26)
[2021-10-29] MEDS: Acetaminophen 325 MG TAB PO ×2 (16:11→23:35)
[2021-10-29 16:16] VITALS: BP 137/87; PULSE 89; RESP 18; TEMP 35.8; O2SAT 97
--- NOTE | 2021-10-29 16:46 | W.PM.PROGNOT ---
Date of Service Date of service: 10/29/21 Time of Service: 16:46 Assessment and Plan Assessment and plan (1) Acute pancreatitis: Status: Acute Assessment and plan: Acute pancreatitis secondary to alcohol. No evidence for acute cholecystitis. No hypertriglyceridemia. Patient is tolerating her diet. We will continue to advance her diet overnight and discharge her home in the morning. Professional time spent interviewing and examining patient, discussion of goals of care with hospital team (care management, nursing and consulting professionals) was 20 minutes. (2) Gallbladder sludge: Status: Acute Assessment and plan: Patient has residual gallbladder sludge on CT scan but no evidence for acute cholecystitis. Patient had questionable cholecystitis last admission and was treated with empiric antibiotics and discharged home on a 5-day course of Augmentin. This should be completed after today. (3) Acute alcoholic hepatitis: Status: Acute Assessment and plan: her transaminases continue to improve over her last admission. She was treated w/ prednisolone during her last hospitalization and dc home on taper of prednisone. I have put her on stress dose corticosteroids for now but when she is taking po well will change back from hydrocortisone to a slow taper of prednisone over the next few weeks. I think some of her generalized weakness was secondary to adrenal insufficiency. She seemed improved remarkably after being put on stress dose steroids. I will continue to taper her prednisone gradually over the next few weeks upon discharge. (4) Alcoholism: Status: Chronic Assessment and plan: patient alleges her last drink of alcohol was 12 ounce of beer on 10/24. CIWA scores have been 0. It does not appear that she is going through any alcohol withdrawal this admission. (5) Anemia: Status: Chronic Assessment and plan: stable. This has not been worked up but last admission she was given transfusion of PRBC. Will monitor and keep her on a PPI (currently on Protonix 40 mg IV daily) can switch to oral Protonix (6) CALEB on CPAP: Status: Chronic Assessment and plan: will ask her to bring in her CPAP (7) Generalized weakness: Status: Acute Assessment and plan: Combination of her acute pancreatitis and recent prolonged hospital stay for acute alcoholic hepatitis and alcohol withdrawal. I think this is been exacerbated by her steroids and now she is on stress dose steroids she has had improvement. PT is recommending upon discharge will require no further physical therapy services (8) Smoker: Status: Acute Assessment and plan: use nicoderm patch Subjective Subjective Interval history since last seen: Patient's abdominal pain has remarkably improved overnight. I advanced her diet this morning she seems to be tolerating her diet so far. I am stopping her IV fluids this afternoon as she seems to be taking adequate oral fluids. My plan is if she tolerates her supper tonight I will discharge her home in the morning assuming that she has no flareup overnight. She will need a slow taper of her prednisone. Exam Narrative Exam Narrative: Virginia is alert and oriented person place time circumstance. 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 Lungs are clear to auscultation Heart is regular rate and rhythm Abdomen soft obese slight distention but nontender with active bowel sounds. Objective Last Vital Signs Temp 35.8 C L 10/29/21 16:16 Pulse 89 10/29/21 16:16 Resp 18 10/29/21 16:16 BP 137/87 10/29/21 16:16 Pulse Ox 97 10/29/21 16:16 Laboratory Results - last 24 hr 10/28/21 10/28/21 10/29/21 11:50 Unknown 06:59 WBC RBC Hgb Hct MCV MCH MCHC RDW Plt Count MPV Immature Gran % Neutrophils % Lymphocytes % Monocytes % Eosinophils % Basophils % Nucleated RBC % Absolute Neutrophils Absolute Lymphocytes Absolute Monocytes Absolute Eosinophils Absolute Basophils PT INR Sodium 134 L Potassium 4.2 Chloride 98 Carbon Dioxide 26.5 Anion Gap 9.5 BUN 8 Creatinine 0.7 Estimated GFR/1.73 m2 >= 60.00 Glucose 160 H Calcium 9.1 Magnesium 2.3 Total Bilirubin 1.4 H AST 74 H ALT 55 Alkaline Phosphatase 218 H Total Protein 6.9 Albumin 3.0 L Triglycerides 88 Total Cholesterol 138 LDL Cholesterol, Calc 61 HDL Cholesterol 60 Add-On Test Request DONE 10/29/21 10/29/21 06:59 06:59 WBC 15.10 H RBC 2.70 L Hgb 9.1 L Hct 28.3 L MCV 105 H MCH 33.7 H MCHC 32.2 D RDW 15.7 H Plt Count 302 MPV 10.6 Immature Gran % 0.7 Neutrophils % 90.1 Lymphocytes % 4.8 Monocytes % 4.3 Eosinophils % 0.0 Basophils % 0.1 Nucleated RBC % 0.0 Absolute Neutrophils 13.61 H Absolute Lymphocytes 0.72 L Absolute Monocytes 0.65 Absolute Eosinophils 0.00 Absolute Basophils 0.02 PT 11.5 H INR 1.1 Sodium Potassium Chloride Carbon Dioxide Anion Gap BUN Creatinine Estimated GFR/1.73 m2 Glucose Calcium Magnesium Total Bilirubin AST ALT Alkaline Phosphatase Total Protein Albumin Triglycerides Total Cholesterol LDL Cholesterol, Calc HDL Cholesterol Add-On Test Request PAWSS Have you Been Recently Intoxicated or Drunk Within the Last 30 days?: No Have you Ever Experienced Previous Episodes of Alcohol Withdrawal?: No Have you ever Experienced Withdrawal Seizures?: No Have you ever Experienced Delirium Tremens(DT)s?: No Have you ever undergone Alcohol Rehabilitation Treatment (i.e, inpt ot outpatient treatment programs)?: No Have you ever Experienced Blackouts?: No Have you ever Combined Alcohol with other Downers within the last 90 days?: No Have you ever Combined Alcohol with any other Substance of Abuse during the last 90 days?: No Result: 0
[2021-10-29] MEDS: Pantoprazole 40 MG VIAL IVP (18:00)
[2021-10-29 19:55] VITALS: BP 141/86; PULSE 82; RESP 19; TEMP 36.6; O2SAT 98
[2021-10-29] MEDS: Docusate Sodium 100 MG CAP PO (19:57)
[2021-10-29] MEDS: Mylanta Suspension 30 ML CUP PO (19:59)
[2021-10-29 23:11] VITALS: BP 136/82; PULSE 83; RESP 18; TEMP 36.5; O2SAT 96
[2021-10-30] MEDS: Normal Saline Flush 10 ML SYR IVP ×8 (01:58→23:22)
[2021-10-30] MEDS: Milk of Magnesia 30 ML CUP PO (01:58)
[2021-10-30] MEDS: HYDROmorphone 2 MG/ML SYR IVP ×6 (01:58→23:23)
[2021-10-30] MEDS: Acetaminophen 325 MG TAB PO ×2 (06:01→19:45)
[2021-10-30] MEDS: Polyethylene Glycol 3350 17 GM PACKET PO (06:01)
[2021-10-30] MEDS: Hydrocortisone SOD SUC. 100 MG VIAL 50 MG IVP ×4 (06:02→23:22)
[2021-10-30 06:16] VITALS: BP 143/89; PULSE 78; RESP 18; TEMP 36.2; O2SAT 98
[2021-10-30 07:28] VITALS: BP 145/87; PULSE 79; RESP 18; TEMP 35.5; O2SAT 98
--- NOTE | 2021-10-30 08:30 | PDOC.CMPRO ---
- If Service Date Differs Date of service: 10/30/21 Time of Service: 08:30 Care Management Progress Note S/O: Virginia was lying in bed when CM met with her. She is awake, alert and continues to feel weak. [place] reports increased abdominal pain and did not eat her lunch. Per provider increase abdominal pain may be related to constipation, bowel meds were given. CM will continue to follow. A: 46 year old female admitted to [facility] on 10/28/21 for Acute pancreatitis. P: [place] requires additional medical work up for acute pancreatitis. ETOH withdrawal being monitored per [facility] protocol. [place] will discharge home via private vehicle with family when medically ready. Anticipate, she will need follow up appointments with [facility] Gen. [place], PCP and Outpt PT (Oleksandr Laurent). She will also need a last dose letter. CM will continue to support [place] and her discharge planning needs.
[2021-10-30] MEDS: Midodrine 2.5 MG TAB PO ×2 (08:51→15:34)
[2021-10-30] MEDS: Folic Acid 1 MG TAB PO (08:51)
[2021-10-30] MEDS: Nystatin 500000 UNITS/5 ML SUSP 5ML CUP PO ×3 (08:52→19:44)
[2021-10-30] MEDS: Multivitamin TAB 1 TAB PO (08:52)
[2021-10-30] MEDS: Gabapentin 100 MG CAP PO ×3 (08:52→19:45)
[2021-10-30] MEDS: Thiamine 100 MG TAB PO (08:52)
--- NOTE | 2021-10-30 10:13 | PGE_ITS ---
Date of Service Date of service: 10/30/21 Time of Service: 10:13 Assessment and Plan Assessment and plan (1) Acute pancreatitis: Status: Acute Assessment and plan: I think that her current pains may be flare of her pancreatitis but she seems to think that this is d/t her constipation. We will try aggressive bowel regimen but if no improvment I told her that she should remain overnight. I will repeat her labs in the morning if she does not get discharged. (2) Gallbladder sludge: Status: Acute Assessment and plan: no evidence of cholecystitis (3) Acute alcoholic hepatitis: Status: Acute Assessment and plan: resolving. continue steroids. will taper her prednisone over a few weeks. currently she is on stress dose hydrocortisone. (4) Alcoholism: Status: Chronic Assessment and plan: monitoring CIWA scores but not scoring. Will dc CIWA (5) Anemia: Status: Chronic Assessment and plan: stable chronic anemia. I suspect she has PUD from her alcoholism (6) CALEB on CPAP: Status: Chronic Assessment and plan: use home CPAP unit (7) Generalized weakness: Status: Acute Assessment and plan: marked improvement in her weakness since giving her stress doses of hydrocortisone. I suspect she was a little adrenal insufficiency (8) Smoker: Status: Acute Assessment and plan: use nicoderm patch Subjective Subjective Interval history since last seen: [place] had felt so much better yesterday and was tolerating her diet well but this morning after breakfast she began w/ more abdominal pains and nausea. She has no t had a good bowel movement other than some small smears. She thinks that she is constipated. We will try mag citrate and Relistor but if her pains are not improved then she will need to remain until her pains resolve. Exam Narrative Exam Narrative: tearful middle age white female Abdomen: obese, slightly distended w/ active bowel sounds; diffusely tender w/out rebound tenderness but some voluntary guarding Objective Last Vital Signs Temp 35.5 C L 10/30/21 07:28 Pulse 79 10/30/21 07:28 Resp 18 10/30/21 07:28 BP 145/87 H 10/30/21 07:28 Pulse Ox 98 10/30/21 07:28 PAWSS Have you Been Recently Intoxicated or Drunk Within the Last 30 days?: No Have you Ever Experienced Previous Episodes of Alcohol Withdrawal?: No Have you ever Experienced Withdrawal Seizures?: No Have you ever Experienced Delirium Tremens(DT)s?: No Have you ever undergone Alcohol Rehabilitation Treatment (i.e, inpt ot outpatient treatment programs)?: No Have you ever Experienced Blackouts?: No Have you ever Combined Alcohol with other Downers within the last 90 days?: No Have you ever Combined Alcohol with any other Substance of Abuse during the last 90 days?: No Result: 0
[2021-10-30] MEDS: Magnesium Citrate 300 ML BTL PO (10:47)
[2021-10-30] MEDS: Methylnaltrexone 12 MG/0.6 ML VIAL SC (11:26)
[2021-10-30 15:01] VITALS: BP 151/84; PULSE 94; RESP 18; TEMP 36.6; O2SAT 95
--- NOTE | 2021-10-30 15:09 | PT.INNT ---
Date of service: 10/30/21 Time of Service: 15:09 PT Notes Visit Reasons: Acute Pancreatitis 10/30/2021 Patient pleasantly declines to participate in PT today, stating that she is not feeling well and is in so much pain. She reports that she has been walking and transferring within her room independently without difficulty today. Will attempt to resume PT services tomorrow morning.
[2021-10-30] MEDS: Pantoprazole 40 MG VIAL IVP (18:37)
[2021-10-30 19:45] VITALS: BP 155/94; PULSE 93; RESP 17; TEMP 36.3; O2SAT 97
[2021-10-30 23:07] VITALS: BP 125/83; PULSE 89; RESP 18; TEMP 36.5; O2SAT 95
[2021-10-31] MEDS: Acetaminophen 325 MG TAB PO (03:25)
[2021-10-31] MEDS: Hydrocortisone SOD SUC. 100 MG VIAL 50 MG IVP ×2 (05:16→12:55)
[2021-10-31] MEDS: HYDROmorphone 2 MG/ML SYR IVP ×2 (05:16→08:43)
[2021-10-31] MEDS: Normal Saline Flush 10 ML SYR IVP ×4 (05:17→12:55)
[2021-10-31 06:40] LABS: Abs Immature Grans 0.06 10^3/uL (0.0-0.06); Absolute Basophil Count 0.01 10^3/uL (0.0-0.2); Absolute Lymphocyte Count 0.81 10^3/uL (1.2-3.4); Basophils % 0.1; HCT 29.1 % (36.0-46.0); HGB 9.5 g/dL (11.2-15.7); Immature Grans % 0.5; Lymphocytes % 6.8; MCH 33.6 pg (27.0-33.0); MCHC 32.6 % (32.0-36.0); MCV 103 fL (80-95); MPV 10.8 fL (8.0-11.0); Monocytes % 4.5; Neutrophils % 88.1; Platelet Count 279 10^3/uL (130-400); RBC 2.83 10^6/uL (3.93-5.22); RDW 15.7 % (11.7-14.6); RDW-SD 58.5 fL
[2021-10-31 06:47] LABS: Absolute Monocyte Count 0.54 10^3/uL (0.1-0.8); Absolute Neutrophil Count 10.48 10^3/uL (1.2-6.7)
[2021-10-31 07:05] LABS: ALT 53 U/L (14-59); AST 68 U/L (15-37); Albumin 2.9 g/dL (3.4-5.0); Alkaline Phosphatase 206 U/L (46-116); Anion Gap 6.7 mmol/L (3-11); BUN 11 mg/dL (7-18); CO2 28.3 mmol/L (21.0-32.0); CREATININE 0.5 mg/dL (0.55-1.02); Calcium 9.2 mg/dL (8.5-10.1); Chloride 100 mmol/L (98-107); Glucose 130 mg/dL (74-106); Lipase 497 U/L (73-393); Potassium 3.7 mmol/L (3.5-5.1); Sodium 135 mmol/L (136-145); Total Protein 6.8 g/dL (6.4-8.2)
[2021-10-31] MEDS: Gabapentin 100 MG CAP PO ×2 (07:39→13:46)
[2021-10-31] MEDS: Thiamine 100 MG TAB PO (07:40)
[2021-10-31] MEDS: Nystatin 500000 UNITS/5 ML SUSP 5ML CUP PO ×2 (07:40→13:46)
[2021-10-31] MEDS: Multivitamin TAB 1 TAB PO (07:40)
[2021-10-31] MEDS: Folic Acid 1 MG TAB PO (07:40)
[2021-10-31] MEDS: Midodrine 2.5 MG TAB PO ×2 (07:46→13:46)
[2021-10-31 07:49] VITALS: BP 147/101; PULSE 84; RESP 19; TEMP 36
[2021-10-31 07:52] VITALS: BP 140/95
--- NOTE | 2021-10-31 08:44 | CMPROGNOTE_ITS ---
- If Service Date Differs Date of service: 10/31/21 Time of Service: 08:44 Care Management Progress Note S/O: A: 46 year old female admitted to [facility] on 10/28/21 for Acute pancreatitis. P: [place] requires additional medical work up for acute pancreatitis. ETOH withdrawal being monitored per [facility] protocol. [place] will discharge home via private vehicle with family when medically ready. Anticipate, she will need follow up appointments with [facility] Gen. Surg, PCP and Outpt PT (Oleksandr Laurent). She will also need a last dose letter. CM will continue to support [place] and her discharge planning needs.
--- NOTE | 2021-10-31 08:44 | PDOC.CMPRO ---
- If Service Date Differs Date of service: 10/31/21 Time of Service: 08:44 Care Management Progress Note S/O: A: 46 year old female admitted to [facility] on 10/28/21 for Acute pancreatitis. P: [place] requires additional medical work up for acute pancreatitis. ETOH withdrawal being monitored per [facility] protocol. [place] will discharge home via private vehicle with family when medically ready. Anticipate, she will need follow up appointments with [facility] [place], PCP and Outpt PT (Oleksandr Laurent). She will also need a last dose letter. CM will continue to support [place] and her discharge planning needs.
--- NOTE | 2021-10-31 09:35 | PTTR_ITS ---
Date of service: 10/31/21 Time of Service: 09:00 PT Notes Visit Reasons: Acute Pancreatitis Inpatient Physical Therapy Treatment Note [facility] Date: 10/31/2021 PRECAUTIONS: Activity as tolerated SUBJECTIVE: [place] is pleasant and agreeable to participating in PT. She reports that she is feeling better this morning. Is in hopes to go home later today. OBJECTIVE: PAIN: Patient c/o stomach pain BED MOBILITY/TRANSFERS: Supine-sit: I Sit-stand: I Stand-sit: I Bed-chair: I Chair-bed: I GAIT: Assistive Device: No AD Weight bearing: Full Assist: Supervision Distance: 150' x2 Deviation: None NEURO RE-ED: Patient was instructed in a dynamic balance retraining program, to include: lateral stepping, backward walking, tandem walking, walking with head turns/nods. Also incorporated static balance on round Airex including tandem stance 2x20 seconds, feet together stance 2x20 seconds, unilateral stance [id number] with LENS GRINDER ROUGH. Patient requires minimal LENS GRINDER ROUGH support as well as occasional CGA for safety. ASSESSMENT: Patient tolerated session well. She demonstrates independence with transfers, bed mobility, and short-distance ambulation without AD support at this time. PLAN: Continue with balance retraining as well as general conditioning for improved mobility and activity tolerance. TREATMENT CODE/TIME: 30 minutes; [id number] (9:00am)
--- NOTE | 2021-10-31 13:30 | DSE_ITS ---
Date of service: 10/31/21 Time of Service: 13:30 DS: Diagnosis Discharge Diagnosis (1) Acute pancreatitis: Status: Resolved Asessment and Plan: See hospital course under discharge plan. Patient was admitted with protracted nausea and vomiting of acute onset along with abdominal pain found to have an elevated lipase at 1312. Transaminases were mildly elevated on admission with an AST of 96, ALT 6 7 alkaline phosphatase 243 with a bilirubin of 1.0. At the time of discharge bilirubin was normal at 1.0 and AST was down to 68 ALT was down to 53 and alkaline phosphatase was down to 206. Although her lipase was still minimally elevated at discharge at 497 clinically she was markedly better with no nausea vomiting abdominal pain. CT imaging as described below showed no evidence for acute cholecystitis but showed evidence for pancreatitis with peripancreatic stranding and no biliary ductal dilatation. Patient be sent home on a low-fat diet started on Creon 32,000 units with each meal. She is advised to avoid any further alcohol intake. She has a asset recovery specialist that was set up for her during her last hospitalization. (2) Gallbladder sludge: Status: Acute (3) Acute alcoholic hepatitis: Status: Acute Asessment and Plan: Per the advice of [facility] gastro[facility]ology services patient will be kept on prednisone 40 mg daily for 4 weeks and then tapered over 2-week course. She was started on esomeprazole for GI protection while she is on steroids. (4) Alcoholism: Status: Chronic (5) Anemia: Status: Chronic Asessment and Plan: Patient came in with a hemoglobin 9.0 g hematocrit 28.6% which is improved over her last CBC at discharge on 10/23/2021 when her hemoglobin was 8.3 g hematocrit 25.8%. At the time of this discharge on 10/31/2021 hemoglobin is 9.5 g and 29%. Previous work-up showed that she did not have any iron deficiency. It is recommended she have follow-up EGD and colonoscopy. However suspected that she probably has an anemia based on her chronic liver disease and myelosuppression from alcoholism. She does have an elevated MCV of 103. She does have a folate deficiency and was prescribed folate supplements at the time of her last discharge (6) CALEB on CPAP: Status: Chronic (7) Generalized weakness: Status: Acute (8) Smoker: Status: Acute Discharge Plan Disposition Patient Disposition: HOME Condition: Improving Discharge Details Reason For Visit: Acute Pancreatitis Admit Date/Time: 10/28/21 13:44 Admit Provider: Ajith Heredia Attending Provider: Ajith Heredia Primary Care Provider: Ira Thao Hospital Course Hospital Course: 46-year-old female with history alcoholism, alcoholic hepatitis, narcotic addiction recent hospitalized at [facility] H68-10/23/2021 for dehydration, anemia, acute alcoholic hepatitis complicated by hypotension due to dehydration and anemia is worked up for suspected acute cholecystitis. She was treated with parenteral antibiotics and then discharged home on 5-day course of Augmentin. She was found to have biliary sludge but no acute biliary obstruction. Since her discharge on 10/23/2021 she has been weak and had difficulty ambulating difficulty getting out of bed. She is complaining nausea vomiting and abdominal pain since the day prior to this admission. She presented hospital on 10/28/2021 labs demonstrated elevated lipase of 1312 and transaminases were elevated but lower than when she left the hospital. Patient endorsed that she had had a drin k of alcohol 12 ounce beer on the day after her discharge on 10/24/2021. She was admitted for this admission for treatment of acute pancreatitis. Imaging included CT scan of her abdomen and pelvis. Liver is enlarged but there was no trauma. Trauma was being ruled out because the patient had had a fall coincidental to her onset of her nausea and vomiting. She has fatty liver infiltration but no liver masses. Gallbladder and biliary tract showed no radiodense calculus and no biliary ductal dilatation. Pancreas showed fatty replacement of the head with stranding around the head of the pancreas no abnormal calcification. Spleen was normal. Kidneys look normal. She had some significant motion artifact on her CT scan. Patient was initially made n.p.o. given IV fluids narcotic analgesics antiemetics. She did well her diet was advanced and she improved remarkably to the point where she was tolerating a regular low-fat diet as of the evening of 10/29/2021. Diet is just been advanced on the afternoon of 10/29/2021 therefore she was kept overnight to be sure that she was continuing to tolerate her diet. On the morning of 10/30/2021 she again had nausea and vomiting after eating chirag kfast however it was found she did not have a decent bowel movement. She was given laxatives stool softeners and Relistor and eventually she had a decent bowel movement. She tolerated her diet on the evening of 10/30/2021 and again on the morning of 10/31/2021 and is not requiring any narcotic analgesics. She would like to return home. I started her on Creon pancreatic supplementation with her meals kept on low-fat diet. On the day of discharge I discussed her case with the GI fellow on-call from [facility]. Requests advice on duration of steroid treatment. During this hospitalization I had put the patient on stress dose hydrocortisone. The GI fellow recommended a 4-week course of steroids for her hepatitis and then a 2-week taper. Patient will be discharged on 40 mg daily for the next 4 weeks followed by a 2-week taper decreasing her by 10 mg every 5 days. I requested that care management set her up with a GI consultation upon discharge. Patient will be kept on East omeprazole for GI protection while she is on the prednisone to avoid steroid- induced ulcer. She is complete her antibiotic treatment for her cholecystitis she finished out her Augmentin course while she was here in the hospital. Physical therapy was consulted regarding her generalized weakness and they recommended outpatient physical therapy. She required no assistive devices upon discharge. Home Meds and New Rx's Prescriptions: New prednisone 20 mg tablet 40 mg PO DAILY Qty: 60 0RF Creon 36,000-114,000- 180,000 unit capsule,delayed release(DR/EC) 2 cap PO TID Qty: 180 0RF Rx Instructions: administer with meals and/or snacks esomeprazole magnesium [Nexium Packet] [address] for susp in packet 40 mg PO DAILY Qty: 30 0RF Continued buprenorphine-naloxone [Suboxone] 8-2 mg film See Rx Instructions .ROUTE .COMPLEX Label Comments: PLACE ONE FILM UNDER THE TONGUE EVERY DAY Rx Instructions: 8-2mg multivitamin [Multiple Vitamins] Tablet 1 tab PO DAILY Qty: 0 0RF midodrine 5 mg Tablet 2.5 mg PO TID Qty: 30 0RF folic acid 1 mg Tablet 1 mg PO DAILY Qty: 0 0RF gabapentin 100 mg Capsule 100 mg PO TID Qty: 90 0RF thiamine mononitrate (vit B1) [Vitamin B-1 (mononitrate)] 100 mg Tablet 100 mg PO DAILY Qty: 0 0RF Discontinued amoxicillin-pot clavulanate 875-125 mg Tablet 1 tab PO BID Qty: 10 0RF prednisone 10 mg tablet See Rx Instructions .ROUTE .COMPLEX Qty: 20 0RF Rx Instructions: 3 daily for 3 days starting 10/24/21, then 2 daily for 3 days, 1 daily for 3 days, 1/2 daily for 3 days. Discharge Instructions Instructions: Pancreatitis (DC), Low Fat Diet (GEN) Stand Alone Forms: Nursing Discharge Form Referrals: Ira Thao [Primary Care Provider] - 11/06/21 10:10 am Activity:: Activity as Tolerated Equipment/Supplies:: No Equipment Needed Diet:: Low-fat diet Discharge Orders Discharge Orders: Discharge Order (Routine); Ordered 10/31/21 Ordered By: Ajith Heredia Other Ambulatory Orders: Complete Blood Count w/Diff (Routine) Timeframe: 2 Weeks Facility: [facility] - Location: Laboratory Outpatient - [facility] Ordered By: Ajith Heredia Comprehensive Metabolic Panel (Routine) Timeframe: 2 Weeks Facility: [facility] - Location: Laboratory Outpatient - [facility] Ordered By: Ajith Heredia DS: Summary Time Spent with Patient providing and/or coordinating discharge services: Less than 30 minutes Specific discharge activities: Interview/exam of patient; review of discharge instructions, completion of prescriptions/discharge instructions; discussion w/ nursing and CM; documentation of hospital visit Status at Discharge Functional status at discharge: independent ambulation Overall status at discharge: patient is progressing back to baseline Mental Status: mental status grossly normal Speech and Movement: speech and movement normal Mood: congruent mood Affect: normal affect Exam Narrative Exam Narrative: [place] was seen after breakfast sitting up in her bed she is alert and oriented person place time circumstance no acute distress. Abdomen is soft slightly distended but nontender. She has normal bowel sounds with no guarding no rebound tenderness. Per my discussion with the patient as well as nursing staff they confirmed that she had good bowel movements yesterday. I am recommending that she go on stool softeners to help w/ her BM. I also told her that going on the Creon pancreatic enzyme replacement should help as well. Psych Mental Status: mental status grossly normal Speech and Movement: speech and movement normal Mood: congruent mood Affect: normal affect DS: Data Vitals/I&O Vitals and I&O: Vital Signs Temperature 36.0 C L 10/31/21 07:49 Temperature Source Tympanic 10/31/21 07:49 Pulse 84 10/31/21 07:49 Pulse Rhythm Regular 10/31/21 07:40 Pulse 82 10/28/21 14:01 Respiratory Rate 19 10/31/21 07:49 Respiratory Effort Non-Labored 10/31/21 07:40 Respiratory Depth Normal 10/31/21 07:40 Respiratory Pattern Normal 10/31/21 07:40 Blood Pressure 140/95 H 10/31/21 07:52 Blood Pressure Mean 76 10/28/21 14:01 Blood Pressure Position Sitting 10/28/21 11:21 Pulse Oximetry 95 10/30/21 23:07 Oxygen Delivery Method Room Air 10/31/21 07:49 Oxygen Flow Rate 0 10/31/21 07:49 Pain Level 6 10/31/21 08:43 Comment 10/30/21 15:01 Intake & Output 10/30/21 10/31/21 10/31/21 23:59 11:59 23:59 Intake Total 80 / 970 240 / 240 Output Total 800 / 800 Balance 80 / -430 -560 / -560 Weight 122.6 kg Intake: IV 50 / 70 Oral 30 / 900 240 / 240 Output: Urine 800 / 800 Other: Urine Color Yellow Urine Appearance Clear Clear Urine Odor None Comment voided in toilet Stool Size Large Moderate Stool Characteristics Liquid Liquid Voiding Methods Toilet Toilet Data Completed and Pending Labs on day of discharge: Labs from last 24 hours 10/31/21 10/31/21 06:10 06:10 WBC 11.90 H RBC 2.83 L Hgb 9.5 L Hct 29.1 L MCV 103 H MCH 33.6 H MCHC 32.6 RDW 15.7 H Plt Count 279 MPV 10.8 Immature Gran % 0.5 Neutrophils % 88.1 Lymphocytes % 6.8 Monocytes % 4.5 Eosinophils % 0.0 Basophils % 0.1 Nucleated RBC % 0.0 Absolute Neutrophils 10.48 H Absolute Lymphocytes 0.81 L Absolute Monocytes 0.54 Absolute Eosinophils 0.00 Absolute Basophils 0.01 Sodium 135 L Potassium 3.7 Chloride 100 Carbon Dioxide 28.3 Anion Gap 6.7 BUN 11 Creatinine 0.5 L Estimated GFR/1.73 m2 >= 60.00 Glucose 130 H Calcium 9.2 Total Bilirubin 1.0 AST 68 H ALT 53 Alkaline Phosphatase 206 H Total Protein 6.8 Albumin 2.9 L Lipase 497 H PFSH All Active Problems (Updated 10/31/21 @ 13:30 by Ajith Heredia MD) Acute alcoholic hepatitis (Acute) Generalized weakness (Acute) CALEB on CPAP (Chronic) Transaminitis (Acute) Gallbladder sludge (Acute) Coagulopathy (Acute) Abdominal fluid collection (Acute) Anemia (Chronic) Alcoholism (Chronic) Hemoglobin low (Chronic) Normal colonoscopy (Acute) Smoker (Acute) Alcoholism (Acute) Medical History Anxiety Asthma BMI 36.0-36.9,adult Chronic alcoholism since 35yo. Completed [facility] inpatient, relapsed and developed pacreatitis 03/2016. Sober since then. Constipation Depression Dyspepsia Dysphonia Elevated liver enzymes Elevated transaminase level History of substance abuse Hyperthyroidism Hypokalemia Macrocytosis Mental health problem Mood improved with Gabapentin. May change to SSRI. Dr Connors monitors. Obesity CALEB (obstructive sleep apnea) Pancreatitis Pedal edema Post-nasal drip Stress incontinence Tobacco use Vitamin D deficiency Surgical History back surgery lumbar disk shaving. bunionectomy L foot. History of colonoscopy (~07/03/21) Stoiber, airway concerns during procedure refer to procedure note. Family History Grandmother No problems noted. Social History Smoking/Tobacco Use Status: Current every day Tobacco Type: cigarettes Smoking risk assessment performed?: Yes Alcohol Intake: former Drug use: Current Sobriety Substance use type: opiates Details: 2 years since use Do you feel safe at home: Yes Do you feel safe in your relationship?: Yes
--- NOTE | 2021-10-31 14:40 | PDOC.CMDIS ---
- If Service Date Differs Date of service: 10/31/21 Time of Service: 14:40 LACE Index Scoring Tool - Questions: Length of Stay (in days): 3 Acuity (Admit via E.D.?): Yes E.D. Visits: 2 - Answers: Total Score: 8 Risk of Readmission: Low Risk Care Management Discharge Reason for Hospitalization: Acute pancreatitis. Discharge Plan: [place] is discharged home via private vehicle with family. She will follow up with her PCP on 11/06/21 and [facility] ([facility]) on 11/09/21 as scheduled. FLORES sent a referral to [facility], Specialist will call pt directly to schedule. [place] needs repeat labs at [facility] in 2 weeks. [place] declined a referral to a [facility] throughout her admission and at the time of her discharge. Patient/Family Education Needs: Review discharge instructions, limitations, medications and plan to follow up with community providers. ask me three. Services Needed at Discharge: Physical Therapy ([facility]. CM notified Office)
--- NOTE | 2021-11-01 11:31 | PT.INDS ---
PT Notes Visit Reasons: Acute Pancreatitis Treatment Dates : 10/29/2021 - 10/31/21 Referring Doctor: PT Orders: PT CONSULT: Ajith Boyd MD Precautions: Fall precaution Patient Profile/Admitting Diagnosis: 46-year-old female recently admitted with acute pancreatitis. She participated in 2 PT sessions during her acute care stay, with improvements in functional mobility and safety sufficient to allow for return to home setting once medically stable. This document serves as a summary of care. No PT services were provided on this date. Social History/Home Situation: Lives in a trailer with a few steps to enter, lives with significant other. She is independent with all ADLs, although her partner makes most meals and does grocery shopping. She has not driven recently. Her bathroom has a walk-in shower. No grab bars or flexible shower hose Current Functional Limitations: Independent with ADLs Equipment Owned/DME: None noted Subjective: none obtained Objective: ROM: Has good functional range of motion throughout articular structures of then her ankles and subtalar joints which are hypomobile but nonpainful Strength: Has full motor control throughout and strength is generally rated -5/5 Neuro: KJ's are +2 and AJ's +1 and symmetrical, sensations intact light touch and proprioception, has full motor control. Supine-sit: I Sit-stand: I Stand-sit: I Bed-chair: I Chair-bed: I GAIT: Assistive Device: No AD Weight bearing: Full Assist: Supervision Distance: 150' x2 Deviation: None Balance: Larkin balance test was performed, and her score was less than 43/56. Score 45 or less indicates fall risk Static Sitting: Good Dynamic Sitting: Good Static Standing: Good Dynamic Standing: Fair Assessment: Patient is a 46year old female referred to physical therapy services with the diagnosis of acute pancreatitis. She participated in 2 PT sessions during her acute care stay, with improvements in functional mobility and safety sufficient to allow for return to home setting once medically stable. Patient does have baseline mobility impairments that would be best addressed in outpatient setting. Goals: Goals X1 week 1. Increase strength throughout 09/13 (not met) 2. Improve balance to minimize fall risk (met) 3. Increase exercise tolerance (met, with patient able to ambulate up to 150') Plan of Care/Treatment Plan: Discharge home with family support. DISCHARGE RECOMMENDATIONS: Home with outpatient PT TREATMENT CODE/TIME: none Yajaira Aaron, PT, DPT [facility]
== END 2021-10-31 15:21 | disposition home or self-care (01) | DRG 439 ==
LOC: ER 13:56 → MS 14:38
PROVIDERS: Admitting Provider Internal Medicine; Emergency Provider Student in an Organized Health Care Education/Training Program; PCP Nurse Practitioner Family; Visit Provider Internal Medicine
DX: K85.20 Alcohol induced acute pancreatitis without necrosis or infection (principal); F11.20 Opioid dependence, uncomplicated; Z68.42 Body mass index [BMI] 45.0-49.9, adult; D68.9 Coagulation defect, unspecified; K82.8 Other specified diseases of gallbladder; K70.10 Alcoholic hepatitis without ascites; F10.20 Alcohol dependence, uncomplicated; D64.9 Anemia, unspecified; G47.33 Obstructive sleep apnea (adult) (pediatric); R53.1 Weakness; F17.210 Nicotine dependence, cigarettes, uncomplicated; R26.2 Difficulty in walking, not elsewhere classified; R74.01 Elevation of levels of liver transaminase levels; E66.9 Obesity, unspecified; D53.8 Other specified nutritional anemias; K76.0 Fatty (change of) liver, not elsewhere classified; W01.0XXA Fall on same level from slipping, tripping and stumbling without subsequent striking against object, initial encounter; K59.00 Constipation, unspecified
CPT/HCPCS: 36415; 80053; 80061; 83690; 86850; 86900; 86901; 87635; 96361; 96375; 97112; 97162; 99285; J1650; 74177; 81025; 83735; 85025; 85610; 99223; 99231; 99232; 99238; J0131; J1170; J1720; J2405; J3490

== ENCOUNTER 2021-11-20 02:54 | Outpatient (CLI) | payer MEDICAID, SELFPAY | END 2021-11-20 02:55 | disposition home or self-care (01) | LOC: LBO 02:54 | PROVIDERS: PCP Nurse Practitioner Family; Visit Provider Internal Medicine ==

== ENCOUNTER 2021-12-06 11:30 | Emergency (ER) | payer MEDICAID, SELFPAY ==
[2021-12-06] VITALS (34 sets, daily range): BP systolic 85–150; BP diastolic 43–132; PULSE 80–113; RESP 10–25; O2SAT 84–100
--- NOTE | 2021-12-06 11:34 | ED.GENADUL_ITS ---
Discharge Plan Disposition Patient Disposition: HOME Condition: Improving Discharge Details Clinical Impression: Allergic reaction Primary Care Provider: Ira Thao ED Provider: Cameron Eason Home Meds and New Rx's Prescriptions: New epinephrine [EpiPen] 0.3 mg/0.3 mL auto-injector 0.3 mg IM ONCE PRN (Reason: anaphylaxis) Qty: 2 0RF Rx Instructions: as a single dose; may repeat once Continued buprenorphine-naloxone [Suboxone] 8-2 mg film See Rx Instructions .ROUTE .COMPLEX Label Comments: PLACE ONE FILM UNDER THE TONGUE EVERY DAY Rx Instructions: 8-2mg multivitamin [Multiple Vitamins] Tablet 1 tab PO DAILY Qty: 0 0RF midodrine 5 mg Tablet 2.5 mg PO TID Qty: 30 0RF folic acid 1 mg Tablet 1 mg PO DAILY Qty: 0 0RF gabapentin 100 mg Capsule 100 mg PO TID Qty: 90 0RF thiamine mononitrate (vit B1) [Vitamin B-1 (mononitrate)] 100 mg Tablet 100 mg PO DAILY Qty: 0 0RF prednisone 20 mg tablet 40 mg PO DAILY Qty: 60 0RF Creon 36,000-114,000- 180,000 unit capsule,delayed release(DR/EC) 2 cap PO TID Qty: 180 0RF Rx Instructions: administer with meals and/or snacks esomeprazole magnesium [Nexium Packet] [address] for susp in packet 40 mg PO DAILY Qty: 30 0RF Discharge Instructions Instructions: General Allergic Reaction (ED) Additional Instructions: Home to rest today. Continue your previously scheduled prednisone. Stop the previously prescribed antibiotic and you should consider yourself allergic to it. Follow-up with regular doctor. Return for any acute concern Medical Decision Making 46-year-old female who states she has been taking an antibiotic which she does not know the name of for a UTI. She began on Friday and again took a dose today. She said intermittent episodes of itching and swelling and this worsened today with throat swelling, tongue swelling, lower lip swelling and wheezing. EMS was called, patient was given epinephrine 0.3 subcu, Benadryl 50 mg, and inhaled albuterol with some improvement. She does not take an PARAG inhibitor and has no other new medications. She has noted some swelling of her cheeks since starting a long burst and taper of prednisone. On exam she is quite edematous with mild to moderate angioedema of the face and tongue, as well as bilateral end expiratory wheeze. IV access has been established, patient was given steroids, antihistamines and additional beta agonist. Patient observed for over 3 hours time with improvement. She is able to breathe normally, oxygenating normally, tolerate liquids and solids by mouth. She is currently on a taper of prednisone at 20 mg daily. We will continue this and not add any additional steroid. She may continue antihistamine. She is to avoid further use of previously prescribed antibiotics HPI General Mode of arrival: EMS . Date/Time Provider Initiated Documentation: 12/06/21 11:54 . Limitations to Documentation: no limitations . Information obtained by: patient and EMS . History of Present Illness 46 year old F presents to the emergency department with the chief complaint of face swelling, described as moderate, Quality is described as dull and constant, and is localized to the face. Patient reports no radiation. Patient started experiencing this day(s) and it has been constant. No relieving factors improve symptom(s), No exacerbating factors reported . Patient notes denies fever/chills, headaches, loss of appetite, rash, shortness of breath, syncope an d weakness. Patient did receive the following treatments prior to arrival, other (Benadryl 50 mg, epinephrine x1, albuterol) Related Data Home Medications Medication Instructions Recorded Confirmed buprenorphine 8 mg-naloxone 2 mg See Rx Instructions .Route .COMPLEX 10/16/21 10/28/21 sublingual film (Suboxone) folic acid 1 mg tablet 1 mg PO DAILY #0 tabs 10/23/21 10/28/21 gabapentin 100 mg capsule 100 mg PO TID #90 caps 10/23/21 10/28/21 midodrine 5 mg tablet 2.5 mg PO TID #30 tabs 10/23/21 10/28/21 multivitamin (Multiple Vitamins 1 tab PO DAILY #0 tabs 10/23/21 10/28/21 tablet) thiamine mononitrate (vit B1) 100 100 mg PO DAILY #0 tabs 10/23/21 10/28/21 mg tablet (Vitamin B-1 (mononitrate)) esomeprazole magnesium 40 mg 40 mg PO DAILY #30 ea 10/31/21 granules delayed release for susp (Nexium Packet) [id number]-[id number]-yscpbfy 2 cap PO TID #180 caps 10/31/21 36,000-114,000-180,000 unit capsule,delay rel (Creon) prednisone 20 mg tablet 40 mg PO DAILY #60 tabs 10/31/21 epinephrine 0.3 mg/0.3 mL 0.3 mg (0.3 mL) IM ONCE PRN 12/06/21 injection, auto-injector (EpiPen) anaphylaxis #2 ea Previous Rx's Medication Instructions Recorded folic acid 1 mg tablet 1 mg PO DAILY #0 tabs 10/23/21 gabapentin 100 mg capsule 100 mg PO TID #90 caps 10/23/21 midodrine 5 mg tablet 2.5 mg PO TID #30 tabs 10/23/21 multivitamin (Multiple Vitamins 1 tab PO DAILY #0 tabs 10/23/21 tablet) thiamine mononitrate (vit B1) 100 100 mg PO DAILY #0 tabs 10/23/21 mg tablet (Vitamin B-1 (mononitrate)) esomeprazole magnesium 40 mg 40 mg PO DAILY #30 ea 10/31/21 granules delayed release for susp (Nexium Packet) cadagp-[id number]-tbcznuz 2 cap PO TID #180 caps 10/31/21 36,000-114,000-180,000 unit capsule,delay rel (Creon) prednisone 20 mg tablet 40 mg PO DAILY #60 tabs 10/31/21 epinephrine 0.3 mg/0.3 mL 0.3 mg (0.3 mL) IM ONCE PRN 12/06/21 injection, auto-injector (EpiPen) anaphylaxis #2 ea Allergies Allergy/AdvReac Type Severity Reaction Status Date / Time shellfish derived Allergy Mild Itching Verified 10/28/21 11:26 tramadol AdvReac Mild Agitation Verified 10/28/21 11:26 General STEVE: 3 Review of Systems Narrative: Hives, itching, tongue swelling. Has had some swelling of her face since being on prednisone. 8 systems were reviewed and otherwise negative PFSH All Active Problems (Updated 12/06/21 @ 14:27 by Cameron Eason MD) Allergic reaction (Acute) Acute alcoholic hepatitis (Acute) Generalized weakness (Acute) CALEB on CPAP (Chronic) Transaminitis (Acute) Gallbladder sludge (Acute) Coagulopathy (Acute) Abdominal fluid collection (Acute) Anemia (Chronic) Alcoholism (Chronic) Hemoglobin low (Chronic) Normal colonoscopy (Acute) Smoker (Acute) Alcoholism (Acute) Medical History Anxiety Asthma BMI 36.0-36.9,adult Chronic alcoholism since 35yo. Completed [facility] inpatient, relapsed and developed pacreatitis 03/2016. Sober since then. Constipation Depression Dyspepsia Dysphonia Elevated liver enzymes Elevated transaminase level History of substance abuse Hyperthyroidism Hypokalemia Macrocytosis Mental health problem Mood improved with Gabapentin. May change to SSRI. Dr Connors monitors. Obesity CALEB (obstructive sleep apnea) Pancreatitis Pedal edema Post-nasal drip Stress incontinence Tobacco use Vitamin D deficiency Surgical History back surgery lumbar disk shaving. bunionectomy L foot. History of colonoscopy (~07/03/21) Stoiber, airway concerns during procedure refer to procedure note. Family History Grandmother No problems noted. Social History Smoking/Tobacco Use Status: Current every day Tobacco Type: cigarettes Smoking risk assessment performed?: Yes Alcohol Intake: former Drug use: Current Sobriety Substance use type: opiates Details: 2 years since use Do you feel safe at home: Yes Do you feel safe in your relationship?: Yes Exam Narrative Exam Narrative: GEN: awake, alert, oriented 3. Pleasant, well groomed, interactive. HEAD: Normocephalic, atraumatic ENT: Mucous membranes moist, oropharynx edematous tongue, able to visualize the posterior pharynx, slight swelling of the lower lip, External ear exam unremarkable. Agarwal Facies present EYES: PERRL, EOMI NECK: Full ROM, no CINDY, no menigismus CHEST/RESP: Nontender, clear to auscultation bilateral, few, scant end expiratory CARDIOVASCULAR: Regular and tachycardic, no murmur, rub joseph. 2+ Rad pulse bilateral ABDOMEN: Soft, nontender, no mass. +Bowel sounds EXT: Full ROM, no edema, urticarial rash on arms and legs. Neuro: Grossly normal neurologic exam, conversant, interactive. Psych: Speech fluent, thoughts congruent, affect normal
[2021-12-06] MEDS: methylPREDNISolone SUCC 125 MG VIAL IVP (11:39)
[2021-12-06] MEDS: FAMOTIDINE 20 MG in Normal Saline 100 ML 400 MG IVPB (11:44)
[2021-12-06] MEDS: Albuterol/Ipratropium 3 ML UPD VIAL (12:08)
--- NOTE | 2021-12-06 14:29 | NUR.NOTE ---
per MD: patient to try Popsicle if patient wishes. Patient state she had no trouble with it (the Popsicle) when she was finished
== END 2021-12-06 15:02 | disposition home or self-care (01) ==
PROVIDERS: Emergency Provider Emergency Medicine; PCP Nurse Practitioner Family
DX: L50.0 Allergic urticaria (principal); R00.0 Tachycardia, unspecified; J45.909 Unspecified asthma, uncomplicated; F17.210 Nicotine dependence, cigarettes, uncomplicated
CPT/HCPCS: 96361; 96365; 96375; 99284; J2930; J7620

== ENCOUNTER 2021-12-11 18:46 | Outpatient (REF) | payer MEDICAID, SELFPAY | END 2021-12-11 18:47 | disposition home or self-care (01) | LOC: NCHCN 18:46 | PROVIDERS: PCP Nurse Practitioner Family; Visit Provider Nurse Practitioner Family | DX: R30.0 Dysuria (principal) | CPT/HCPCS: 87086 ==

== ENCOUNTER 2022-01-13 07:20 | Inpatient (IN) | payer MEDICAID, SELFPAY ==
[2022-01-13] VITALS (56 sets, daily range): BP systolic 62–106; BP diastolic 31–66; PULSE 75–96; RESP 10–18; TEMP 35.9–36.7; O2SAT 84–99
--- NOTE | 2022-01-13 07:31 | DI.CT_ITS ---
Exam(s) CT ABDOMEN PELVIS W EXAM: CT ABDOMEN PELVIS W CLINICAL HISTORY: vomiting, RUQ pain, hx ETOH, and pancreatits. TECHNIQUE: Imaging Protocol: Axial computed tomography images with coronal and sagittal reformatted images were created and reviewed CONTRAST MATERIAL: Intravenous: Omnipaque 350 Contrast volume:100 ml Oral: no COMPARISON: CT CT ABDOMEN PELVIS W from 10/28/2021 FINDINGS: Exam is limited by patient body habitus. ABDOMEN: Lung Bases: Respiratory motion. Mild atelectasis versus scarring. Liver: Severely decreased attenuation consistent with severe hepatic steatosis. The liver is markedl y enlarged. There is surrounding ascites. No measurable mass. Gallbladder and biliary tract: A question of gallstones or sludge. No wall thickening. No biliary d ilation. Pancreas: Atrophic. No abnormal calcifications or inflammatory process. Spleen: Mildly enlarged. Kidneys: Normal size, contour and axis. No radiodense stones or obstructive uropathy. No masses seen. Adrenal glands: No masses seen. Abdominal Aorta: Abdominal portion non-dilated. PELVIS: Bladder: No gross wall thickening. No calculi.No focal mass. Bowel: Not well evaluated due to surrounding fluid and lack of oral contrast. No abnormal distension . Peritoneal cavity: Moderate quantity of ascites seen around the liver, spleen, paracolic gutters and pelvis. Bones: Within normal limits for age. Reproductive organs: Within normal limits. Lymph nodes: Stable mildly enlarged bilateral groin lymph nodes. Soft tissues: Diffuse body wall joe ma. Impression: Hepatomegaly with severe fatty infiltration. Mildly enlarged spleen. There is a moderate quantity o f ascites as well as body wall edema. . Atrophic pancreas without evidence acute inflammation or pseudocyst. Bowel not well evaluated due to surrounding fluid and lack of oral contrast. No evidence of obstruct ion. RADIATION DOSE DELIVERED: 1,044.58mGy.cm Total DLP DATA REPOSITORY: All CT scans at this facility are submitted to the National Radiology Data Registry (NRDR) Dose Index Registry (DIR) with the [employer] ([employer]). RADIATION OPTIMIZATION: All CT scans at this facility use at least one of these dose optimization te chniques: automated exposure control; mA and/or kV adjustment per patient size (includes targeted exa ms where dose is matched to clinical indication); or iterative reconstruction.
--- NOTE | 2022-01-13 07:32 | ED.GENADUL_ITS ---
Discharge Plan Disposition Patient Disposition: STILL A PATIENT Condition: Stable Discharge Details Chief Complaint: Abd Prob Clinical Impression: Jaundice, Nausea & vomiting Primary Care Provider: Ira Thao ED Provider: Provider,Temporary Home Meds and New Rx's Prescriptions: No Action epinephrine [EpiPen] 0.3 mg/0.3 mL auto-injector 0.3 mg IM ONCE PRN (Reason: anaphylaxis) Qty: 2 0RF Rx Instructions: as a single dose; may repeat once buprenorphine-naloxone [Suboxone] 8-2 mg film See Rx Instructions .ROUTE .COMPLEX Label Comments: PLACE ONE FILM UNDER THE TONGUE EVERY DAY Rx Instructions: 8-2mg multivitamin [Multiple Vitamins] Tablet 1 tab PO DAILY Qty: 0 0RF midodrine 5 mg Tablet 2.5 mg PO TID Qty: 30 0RF folic acid 1 mg Tablet 1 mg PO DAILY Qty: 0 0RF gabapentin 100 mg Capsule 100 mg PO TID Qty: 90 0RF thiamine mononitrate (vit B1) [Vitamin B-1 (mononitrate)] 100 mg Tablet 100 mg PO DAILY Qty: 0 0RF prednisone 20 mg tablet 40 mg PO DAILY Qty: 60 0RF Creon 36,000-114,000- 180,000 unit capsule,delayed release(DR/EC) 2 cap PO TID Qty: 180 0RF Rx Instructions: administer with meals and/or snacks esomeprazole magnesium [Nexium Packet] [address] for susp in packet 40 mg PO DAILY Qty: 30 0RF Medical Decision Making This is a 46-year-old female with past medical history of chronic alcoholism, alcoholic hepatitis in the past, recurrent pancreatitis, who presents today for evaluation of vomiting, hip and right upper quadrant pain. Patient states that she has been vomiting intermittently for the last 4 days. About a month ago she had an allergic reaction to an antibiotic, and since then she has stopped taking all of her vitamins including creon. Patient states that she has been drinking 1 beer per day. She denies any recent binges. She denies any bloody emesis, or diarrhea. She does admit to mild epigastric and right upper quadrant pain, as well as persistent nausea and abdominal bloating. Exam demonstrates jaundice, bloated abdomen, right upper quadrant and epigastric tenderness. Symptoms concerning for cholecystitis pancreatitis ascites, or hepatitis. Will evaluate for these etiologies, will get a CT scan of the abdomen, monitor closely and reassess. Patient will be signed out to my colleague Dr. Cameron Eason for follow-up on labs and imaging HPI General Date/Time Provider Initiated Documentation: 01/13/22 07:22 . HPI Narrative: This is a 46-year-old female with past medical history of chronic alcoholism, alcoholic hepatitis in the past, recurrent pancreatitis, who presents today for evaluation of vomiting, hip and right upper quadrant pain. Patient states that she has been vomiting intermittently for the last 4 days. About a month ago she had an allergic reaction to an antibiotic, and since then she has stopped taking all of her vitamins including creon. Patient states that she has been drinking 1 beer per day. She denies any recent binges. She denies any bloody emesis, or diarrhea. She does admit to mild epigastric and right upper quadrant pain, as well as persistent nausea and abdominal bloating. Related Data Home Medications Medication Instructions Recorded Confirmed buprenorphine 8 mg-naloxone 2 mg See Rx Instructions .Route .COMPLEX 10/16/21 10/28/21 sublingual film (Suboxone) folic acid 1 mg tablet 1 mg PO DAILY #0 tabs 10/23/21 10/28/21 thiamine mononitrate (vit B1) 100 100 mg PO DAILY #0 tabs 10/23/21 10/28/21 mg tablet (Vitamin B-1 (mononitrate)) esomeprazole magnesium 40 mg 40 mg PO DAILY #30 ea 10/31/21 granules delayed release for susp (Nexium Packet) rgsaod-syidqofq-ulzfmrc 2 cap PO TID #180 caps 10/31/21 36,000-114,000-180,000 unit capsule,delay rel (Creon) epinephrine 0.3 mg/0.3 mL 0.3 mg (0.3 mL) IM ONCE PRN 12/06/21 injection, auto-injector (EpiPen) anaphylaxis #2 ea Previous Rx's Medication Instructions Recorded folic acid 1 mg tablet 1 mg PO DAILY #0 tabs 10/23/21 thiamine mononitrate (vit B1) 100 100 mg PO DAILY #0 tabs 10/23/21 mg tablet (Vitamin B-1 (mononitrate)) esomeprazole magnesium 40 mg 40 mg PO DAILY #30 ea 10/31/21 granules delayed release for susp (Nexium Packet) umydkb-npwcowgk-bepmuqs 2 cap PO TID #180 caps 10/31/21 36,000-114,000-180,000 unit capsule,delay rel (Creon) epinephrine 0.3 mg/0.3 mL 0.3 mg (0.3 mL) IM ONCE PRN 12/06/21 injection, auto-injector (EpiPen) anaphylaxis #2 ea Allergies Allergy/AdvReac Type Severity Reaction Status Date / Time shellfish derived Allergy Mild Itching Verified 10/28/21 11:26 cefpodoxime Allergy Hives Unverified 01/13/22 07:30 tramadol AdvReac Mild Agitation Verified 10/28/21 11:26 General Stated Complaint: Abd Prob STEVE: 3 Review of Systems All systems reviewed & are unremarkable except as noted in HPI and below PFSH All Active Problems (Updated 01/13/22 @ 07:39 by Ricardo Zhu DO) Jaundice (Acute) Nausea & vomiting (Acute) Acute alcoholic hepatitis (Acute) Generalized weakness (Acute) CALEB on CPAP (Chronic) Transaminitis (Acute) Gallbladder sludge (Acute) Coagulopathy (Acute) Abdominal fluid collection (Acute) Anemia (Chronic) Alcoholism (Chronic) Hemoglobin low (Chronic) Normal colonoscopy (Acute) Smoker (Acute) Alcoholism (Acute) Medical History Anxiety Asthma BMI 36.0-36.9,adult Chronic alcoholism since 35yo. Completed [facility] inpatient, relapsed and developed pacreati tis 03/2016. Sober since then. Constipation Depression Dyspepsia Dysphonia Elevated liver enzymes Elevated transaminase level History of substance abuse Hyperthyroidism Hypokalemia Macrocytosis Mental health problem Mood improved with Gabapentin. May change to SSRI. Dr Connors monitors. Obesity CALEB (obstructive sleep apnea) Pancreatitis Pedal edema Post-nasal drip Stress incontinence Tobacco use Vitamin D deficiency Surgical History back surgery lumbar disk shaving. bunionectomy L foot. History of colonoscopy (~07/03/21) Stoiber, airway concerns during procedure refer to procedure note. Family History Grandmother No problems noted. Social History (Reviewed 01/13/22 @ 07:36 by DERREK Nicholas Smoking/Tobacco Use Status: Current every day Tobacco Type: cigarettes Smoking risk assessment performed?: Yes Alcohol Intake: former Drug use: Current Sobriety Substance use type: opiates Details: 2 years since use Do you feel safe at home: Yes Do you feel safe in your relationship?: Yes Exam Narrative Exam Narrative: 1.Const: Well-nourished, Well-developed, appearing stated age 2.Eyes: PERRL, no conjunctival injection, and symmetrical lids. 3.ENT: Atraumatic external nose and ears. Moist MM. Neck: Symmetric, trachea midline, No thyromegaly. 4.CVS: +S1/S2, No murmurs or gallops. Peripheral pulses 2+ and equal in all extremities. Brisk capillary refill in all extremities. 5.RESP: Unlabored respiratory effort. Clear to auscultation bilaterally. No wheezes rales or rhonchi 6.GI: Soft, mildly distended, mild right upper quadrant and epigastric tenderness. No rebound. 7.MSK: Normocephalic/Atraumatic, Extremities w/o deformity or ttp No cyanosis or clubbing, Normal movement of all extremities 8.Skin: Warm, Dry. No rashes or lesions. 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 Sensation grossly intact, no focal neurologic deficits. 10.Psych: (AAO) x3. Appropriate mood and affect Course Vital Signs Vital signs: Vital Signs Temperature 36.7 C 01/13/22 07:24 Pulse 96 H 01/13/22 07:24 Respiratory Rate 16 01/13/22 07:24 Blood Pressure 106/58 L 01/13/22 07:24 Pulse Oximetry 97 01/13/22 07:24 Temperature 36.7 C 01/13/22 07:24 Temperature Source Temporal Artery Scan 01/13/22 07:24 Pulse 96 H 01/13/22 07:24 Respiratory Rate 16 01/13/22 07:24 Blood Pressure 106/58 L 01/13/22 07:24 Blood Pressure Position Sitting 01/13/22 07:24 Pulse Oximetry 97 01/13/22 07:24 Oxygen Delivery Method Room Air 01/13/22 07:24 Oxygen Flow Rate 0 01/13/22 07:24 Pain Level 4 01/13/22 07:24
[2022-01-13] MEDS: Ondansetron 4 MG/2 ML VIAL IVP ×3 (07:43→17:54)
[2022-01-13 07:48] LABS: Abs Immature Grans 0.12 10^3/uL (0.0-0.06); Absolute Monocyte Count 1.53 10^3/uL (0.1-0.8); Absolute Neutrophil Count 10.91 10^3/uL (1.2-6.7); Basophils % 0.5; Eosinophils % 1.1; HCT 32.3 % (36.0-46.0); HGB 11.3 g/dL (11.2-15.7); Immature Grans % 0.8; Lymphocytes % 13.9; MCH 31.4 pg (27.0-33.0); MCV 90 fL (80-95); MPV 11.2 fL (8.0-11.0); Monocytes % 10.3; Neutrophils % 73.4; RDW 16.7 % (11.7-14.6); WBC 14.87 10^3/uL (4.4-10.8)
[2022-01-13 07:56] LABS: Absolute Basophil Count 0.07 10^3/uL (0.0-0.2); Absolute Eosinophil Count 0.16 10^3/uL (0.0-0.7); Absolute Lymphocyte Count 2.07 10^3/uL (1.2-3.4)
--- NOTE | 2022-01-13 08:00 | RT.EKG_ITS ---
APPROVED REPORT Exam: Resting ECG Reason for Exam: hypokalemia Patient Location: E HR:85 bpm ECG Measurements Heart Rate 85 AXIS IA 138 P 32 QRSd 106 QRS -75 QT 423 T 32 QTc 504 Conclusion Sinus rhythm...normal P axis, V-rate 60- 99 Inferior Q >35mS, II III aVF
[2022-01-13 08:02] LABS: Ammonia 89 umol/L (11-32)
[2022-01-13 08:03] LABS: INR 2.7 (0.9-1.1); PTT Activated 34.6 sec (21.0-27.5); Prothrombin Time 25.2 sec (9.3-11.0)
[2022-01-13 08:07] LABS: ALT 22 U/L (14-59); AST 150 U/L (15-37); Albumin 1.6 g/dL (3.4-5.0); Alkaline Phosphatase 322 U/L (46-116); Anion Gap 5.8 mmol/L (3-11); BUN 1 mg/dL (7-18); Bilirubin, Total 6.9 mg/dL (0.2-1.0); CO2 36.2 mmol/L (21.0-32.0); CREATININE 1.1 mg/dL (0.55-1.02); Calcium 8.1 mg/dL (8.5-10.1); Chloride 88 mmol/L (98-107); Estimated GFR 62.76 (mL/min/1.73m2); Glucose 104 mg/dL (74-106); Sodium 130 mmol/L (136-145)
[2022-01-13 08:10] LABS: ETHANOL BLOOD < 3.0 mg/dL (<10)
[2022-01-13 08:23] LABS: Diff Comment Agrees w/ Instrument; Platelet Count 165 10^3/uL (130-400)
[2022-01-13 08:24] LABS: Anisocytosis 1+; Poikilocytes 2+; Polychromasia Present
[2022-01-13 08:33] LABS: Amylase < 13 U/L (25-115); GGT 212 U/L (5-55); Lipase < 10 U/L (73-393)
[2022-01-13] MEDS: Normal Saline 1,000 ML 1000 ML IV (08:39)
[2022-01-13] MEDS: LORazepam 20 MG/10 ML VIAL IVP ×2 (08:39→20:51)
[2022-01-13] MEDS: POTASSIUM CHLORIDE 20 MEQ/100 ML BAG 50 MEQ IVPB (08:39)
[2022-01-13 08:46] LABS: Acetaminophen < 2 ug/mL (10-30)
--- NOTE | 2022-01-13 09:01 | ED.PROG_ITS ---
Date of service: 01/13/22 Time of Service: 09:01 Medical Decision Making Received signout on the patient from Dr. Zhu. Please see his note regarding her initial presentation, exam and plan of care. The patient has a history of alcohol abuse, alcoholic hepatitis, transaminitis, history of gallbladder sludge , and panic Patient states to me that she has recently significantly decreased her alcohol use, formally it has been as much as 1/5 and a half of liquor per day. Now just drinking a few beers she states. Minimal acetaminophen use. The patient has an elevated white blood cell count of 14, hematocrit 32, platelets 165; similar to previous. Chemistries note hyponatremia with sodium 130, hypokalemia with potassium of 2.5, bicarb 36, BUN 1, creatinine 1.1. Total bili is elevated at 6.9, GGT 212, AST 150, ALT 22, amylase and lipase are negative. Ammonia is elevated at 89. INR is elevated at 2.7. Acetaminophen level negative CT imaging: The gallbladder is distended and demonstrates increased intraluminal density which may reflect sludge or small stones, similar to prior. No gallbladder wall thickening. Pancreatic atrophy with mild peripancreatic fat stranding. Enlarged and diffusely hypoattenuating liver. Mild splenomegaly and moderate ascites. Abdominal and inguinal adenopathy that is unchanged. Mild circumferential wall thickening and hyperemia of the jejunum.. Patient given banana bag, 1 L normal saline, supplemental potassium, and lactulose. Images uploaded and case discussed with on-call [facility] who state they feel this is consistent with acute decompensated cirrhosis. No indication for further imaging. She is not a candidate for transplant given ongoing alcohol use. They state they recommend admission with repletion of electrolytes and conservative management. She will not require lactulose unless she demonstrates encephalopathy. Lab Data Lab results reviewed: Yes I reviewed the patient's lab results. Labs: Laboratory Results - last 24 hr 01/13/22 01/13/22 01/13/22 07:39 07:39 07:39 WBC 14.87 H RBC 3.60 L Hgb 11.3 Hct 32.3 L MCV 90 MCH 31.4 MCHC 35.0 RDW 16.7 H Plt Count 165 MPV 11.2 H Immature Gran % 0.8 Neutrophils % 73.4 Lymphocytes % 13.9 Monocytes % 10.3 Eosinophils % 1.1 Basophils % 0.5 Nucleated RBC % 0.0 Absolute Neutrophils 10.91 H Absolute Lymphocytes 2.07 Absolute Monocytes 1.53 H Absolute Eosinophils 0.16 Absolute Basophils 0.07 RBC Morphology See Below Polychromasia Present Poikilocytosis 2+ Anisocytosis 1+ PT INR APTT Sodium 130 L Potassium 2.5 L* Chloride 88 L Carbon Dioxide 36.2 H Anion Gap 5.8 BUN 1 L Creatinine 1.1 H Est GFR (CKD-EPI 2020) 62.76 Glucose 104 Calcium 8.1 L Total Bilirubin 6.9 H GGT AST 150 H ALT 22 Alkaline Phosphatase 322 H Ammonia 89 H Total Protein 7.0 Albumin 1.6 L Amylase Lipase Acetaminophen Ethyl Alcohol < 3.0 01/13/22 01/13/22 01/13/22 07:39 07:39 07:39 WBC RBC Hgb Hct MCV MCH MCHC RDW Plt Count MPV Immature Gran % Neutrophils % Lymphocytes % Monocytes % Eosinophils % Basophils % Nucleated RBC % Absolute Neutrophils Absolute Lymphocytes Absolute Monocytes Absolute Eosinophils Absolute Basophils RBC Morphology Polychromasia Poikilocytosis Anisocytosis PT 25.2 H INR 2.7 H APTT 34.6 H Sodium Potassium Chloride Carbon Dioxide Anion Gap BUN Creatinine Est GFR (CKD-EPI 2020) Glucose Calcium Total Bilirubin GGT 212 H Cancelled AST ALT Alkaline Phosphatase Ammonia Total Protein Albumin Amylase < 13 L Lipase < 10 Acetaminophen Ethyl Alcohol 01/13/22 07:39 WBC RBC Hgb Hct MCV MCH MCHC RDW Plt Count MPV Immature Gran % Neutrophils % Lymphocytes % Monocytes % Eosinophils % Basophils % Nucleated RBC % Absolute Neutrophils Absolute Lymphocytes Absolute Monocytes Absolute Eosinophils Absolute Basophils RBC Morphology Polychromasia Poikilocytosis Anisocytosis PT INR APTT Sodium Potassium Chloride Carbon Dioxide Anion Gap BUN Creatinine Est GFR (CKD-EPI 2020) Glucose Calcium Total Bilirubin GGT AST ALT Alkaline Phosphatase Ammonia Total Protein Albumin Amylase Lipase Acetaminophen < 2 Ethyl Alcohol Sign Out Sign Out Data: Sign Out Comment: Nausea, vomiting, jaundice, abdominal bloating. Suspect alcoholic hepatitis, gallbladder or pancreatic pathology. Follow-up on labs and imaging Last updated by Ricardo Zhu DO at 01/13/22 07:40 Discharge Plan Disposition Patient Disposition: STILL A PATIENT Condition: Stable Discharge Details Clinical Impression: Jaundice, Acute hyponatremia, Acute hypokalemia Primary Care Provider: Ira Thao ED Provider: Cameron Eason Home Meds and New Rx's Prescriptions: No Action epinephrine [EpiPen] 0.3 mg/0.3 mL auto-injector 0.3 mg IM ONCE PRN (Reason: anaphylaxis) Qty: 2 0RF Rx Instructions: as a single dose; may repeat once buprenorphine-naloxone [Suboxone] 8-2 mg film See Rx Instructions .ROUTE .COMPLEX Label Comments: PLACE ONE FILM UNDER THE TONGUE EVERY DAY Rx Instructions: 8-2mg folic acid 1 mg Tablet 1 mg PO DAILY Qty: 0 0RF thiamine mononitrate (vit B1) [Vitamin B-1 (mononitrate)] 100 mg Tablet 100 mg PO DAILY Qty: 0 0RF Creon 36,000-114,000- 180,000 unit capsule,delayed release(DR/EC) 2 cap PO TID Qty: 180 0RF Rx Instructions: administer with meals and/or snacks esomeprazole magnesium [Nexium Packet] [address] for susp in packet 40 mg PO DAILY Qty: 30 0RF
[2022-01-13 09:09] LABS: Source Nasal/Nares
[2022-01-13 09:48] LABS: COVID-19 PCR Negative (Negative)
[2022-01-13] MEDS: Omnipaque 350 MG/ML 100 ML BTL IV (10:11)
[2022-01-13] MEDS: Normal Saline Flush 10 ML SYR IVP ×3 (10:16→20:51)
--- NOTE | 2022-01-13 10:56 | DI.VRAD_ITS ---
PROCEDURE INFORMATION: Exam: CT Abdomen And Pelvis With Contrast Exam date and time: 01/13/2022 10:09 AM Age: 46 years old Clinical indication: Nausea and vomiting and other: Vomiting, ruq pain, HX ETOH, and pancreatits TECHNIQUE: Imaging protocol: Computed tomography of the abdomen and pelvis with contrast. Radiation optimization: All CT scans at this facility use at least one of these dose optimization techniques: automated exposure control; mA and/or kV adjustment per patient size (includes targeted exams where dose is matched to clinical indication); or iterative reconstruction. Contrast material: OMNIPAQUE 350; Contrast volume: 100 ml; Contrast route: INTRAVENOUS (IV); COMPARISON: CT ABDOMEN PELVIS W 10/28/2021 12:45 PM FINDINGS: Lungs: Atelectasis/scarring within the partially included lung bases. Liver: Normal. No mass. Gallbladder and bile ducts: The gallbladder is distended and demonstrates increased intraluminal density which may reflect sludge/small stones, similar to prior. No gallbladder wall or wall thickening. Pancreas: Severely atrophic pancreas with mild peripancreatic fat stranding. No evidence of necrosis or pseudocyst. Spleen: The spleen is mildly enlarged measuring 13 cm in length. Adrenal glands: Normal. No mass. Kidneys and ureters: Normal. No hydronephrosis. Stomach and bowel: Mild circumferential wall thickening and hyperemia of the jejunum. No obstruction. Colonic diverticulosis. Appendix: No evidence of appendicitis. Intraperitoneal space: Moderate volume intraperitoneal free fluid. Vasculature: Mild atherosclerotic calcification of the aorta. Lymph nodes: Prominent upper abdominal lymph nodes, similar to prior. Index 1 x 1 cm node noted on series 6, image 258. Partially visualized prominent inguinal lymph nodes, similar to prior with an index 2.1 x 1.6 cm inguinal node noted on series 6, image 1029. Urinary bladder: Unremarkable as visualized. Reproductive: Unremarkable as visualized. Bones/joints: Mild multilevel degenerative changes of the spine. The liver is diffusely hypoattenuating and enlarged measuring 25 cm enchondroma caudal dimension. Soft tissues: Anasarca. IMPRESSION: 1. Mild peripancreatic fat stranding which could reflect acute uncomplicated pancreatitis. 2. Enlarged and diffusely hypoattenuating liver suggestive of fatty infiltration, superimposed edema not excluded. 3. Findings of portal hypertension including mild splenomegaly and moderate ascites. 4. Distended gallbladder containing sludge and/or small stones. Consider further evaluation with right upper quadrant ultrasound as clinically warranted. 5. Mild circumferential wall thickening and hyperemia of the jejunum. Findings are nonspecific in the setting of intraperitoneal free fluid, but could represent an enteritis or be reactive in the setting of acute pancreatitis. 6. Nonspecific abdominal and inguinal adenopathy, unchanged. Dictated and Authenticated by: Jabari Rubio MD. Ordering:DEL Silva MD
[2022-01-13 11:01] LABS: Bilirubin, Direct 5.3 mg/dL (0.0-0.2)
[2022-01-13] MEDS: MAGNESIUM SULFATE 8.12 MEQ, MULTIVITAMIN 10 ML, THIAMINE 100 MG, FOLIC ACID 1 MG in Nor... 168.867 MG IV (11:20)
[2022-01-13] MEDS: Potassium Chloride 20 MEQ TABCR PO (11:21)
[2022-01-13 14:32] LABS: Potassium 2.5 mmol/L (3.5-5.1)
[2022-01-13] MEDS: Lactulose 20 GM/30 ML CUP PO ×2 (15:07→19:44)
--- NOTE | 2022-01-13 17:10 | W.PM.HP.N ---
Date of service: 01/13/22 Time of Service: 17:10 Assessment and Plan Assessment and plan (1) Acute alcoholic hepatitis: Status: Acute Assessment and plan: Maddrey Score 72.2 MELD score 26 (75% survival/3 mos) Start prednisolone 40 mg daily Trend INR, LFTs Monitor for bleeding. Not bleeding currently. Hematest pending Protonix for possible alcoholic gastritis Holding IVF 2/2 third spacing (2) Hypotension: Status: Acute Assessment and plan: Normal white count Likely has more to do with intravascular depletion in setting of hypoalbuminemia 1.6 Fliuids in ED and banana bag (3) Anemia: Status: Chronic Assessment and plan: H/H stable Continue to monitor (4) Acute hyponatremia: Status: Acute Assessment and plan: 130 Monitor (5) Acute hypokalemia: Status: Acute Assessment and plan: 2.5 - repleted in ED Monitor (6) Nausea: Status: Acute Assessment and plan: States ondsansetron is uneffective; lorazepam helps her with nausea Lorazepam prn (7) Alcoholism: Status: Chronic Assessment and plan: As above Suspect cirrhosis. Monitor for ETOH w/d. CIWA Not currently withdrawing. Continue thiamine/MVI. Will need a referral to a sobriety personal development coach. (8) Coagulopathy: Status: Acute Assessment and plan: In setting of alcoholic hepatitis and likely cirrhosis - as above. INR 2.7 PT 25.2 Continue monitoring H/H, INR. Does not appear to be actively bleeding - hematest pending (9) Transaminitis: Status: Acute Assessment and plan: AST 150 Alk Phos 322 ALT 22 (10) Hyperbilirubinemia: Status: Acute Assessment and plan: 6.9 Monitor (11) DVT prophylaxis: Status: Acute Assessment and plan: TEDs. Holding off on chemical DVT ppx in setting of coagulopathy (12) Discharge planning issues: Status: Acute Assessment and plan: Full code Home when stable History of Present Illness History of Present Illness Chief Complaint: Abdominal Pain Narrative: This is a 46-year-old female with a past medical history of chronic alcoholism, alcoholic hepatitis in the past, and recurrent pancreatitis, who presented today to the [facility] emergency department for evaluation of vomiting, hip, and right upper quadrant pain. The patient states she has been vomiting intermittently for the past four days. She reports that about a month ago, she had an allergic reaction to an (unknown) antibiotic, and since then, she has stopped taking all of her vitamins, including Creon. The patient stated she drinks one beer per day. She denied any recent binges. She denied any bloody emesis or diarrhea. She admitted to mild epigastric and right upper quadrant pain, persistent nausea, and abdominal bloating. She then reported to the on-coming ED physician that she has recently significantly decreased her alcohol use; it has been as much as 1/5 and a half of liquor per day. Now just drinking a few beers. She reported minimal acetaminophen use. The patient has an elevated white blood cell count of 14, hematocrit 32, and platelets 165, similar to previous hospitalizations. Chemistries note hyponatremia with sodium 130, hypokalemia with potassium of 2.5, bicarb 36, BUN 1, and creatinine 1.1. Total bili is elevated at 6.9, GGT 212, AST 150, ALT 22, amylase, and lipase are negative. Ammonia is elevated at 89. INR is elevated at 2.7. Acetaminophen level negative. CT imaging: The gallbladder is distended and demonstrates increased intraluminal density, which may reflect sludge or small stones, similar to prior. No gallbladder wall thickening. Pancreatic atrophy with mild peripancreatic fat stranding. Enlarged and diffusely hypoattenuating liver. Mild splenomegaly and moderate ascites. Abdominal and inguinal adenopathy that is unchanged. Mild circumferential wall thickening and hyperemia of the jejunum. The patient was given a banana bag, 1 L normal saline, supplemental potassium, and lactulose in the emergency department. Images uploaded, and the case was discussed with on-call [facility], who stated they feel this is consistent with acutely decompensated cirrhosis. No indication for further imaging. She is not a candidate for transplant, given her ongoing alcohol use. They stated they recommend admission with the repletion of electrolytes and conservative management. She is placed on the medical unit on obseration status. Discussed with Dr Wright. Review of Systems All systems reviewed & are unremarkable except as noted in HPI and below PFSH All Active Problems (Updated 01/13/22 @ 23:01 by Sussy Fisher NP) Nausea (Acute) Acute hypokalemia (Acute) Acute hyponatremia (Acute) Hypotension (Acute) Hyperbilirubinemia (Acute) DVT prophylaxis (Acute) Discharge planning issues (Acute) Jaundice (Acute) Acute hyponatremia (Acute) Acute hypokalemia (Acute) Acute alcoholic hepatitis (Acute) Generalized weakness (Acute) CALEB on CPAP (Chronic) Transaminitis (Acute) Gallbladder sludge (Acute) Coagulopathy (Acute) Abdominal fluid collection (Acute) Anemia (Chronic) Alcoholism (Chronic) Hemoglobin low (Chronic) Normal colonoscopy (Acute) Smoker (Acute) Alcoholism (Acute) Medical History Anxiety Asthma BMI 36.0-36.9,adult Chronic alcoholism since 35yo. Completed [facility] inpatient, relapsed and developed pacreatitis 03/2016. Sober since then. Constipation Depression Dyspepsia Dysphonia Elevated liver enzymes Elevated transaminase level History of substance abuse Hyperthyroidism Hypokalemia Macrocytosis Mental health problem Mood improved with Gabapentin. May change to SSRI. Dr Connors monitors. Obesity CALEB (obstructive sleep apnea) Pancreatitis Pedal edema Post-nasal drip Stress incontinence Tobacco use Vitamin D deficiency Surgical History back surgery lumbar disk shaving. bunionectomy L foot. History of colonoscopy (~07/03/21) Stoiber, airway concerns during procedure refer to procedure note. Family History Grandmother No problems noted. Social History Smoking/Tobacco Use Status: Current every day Tobacco Type: cigarettes Smoking risk assessment performed?: Yes Alcohol Intake: current Alcohol Intake frequency: 0-2 drinks per day Alcohol type: beer Drug use: Current Sobriety Substance use type: opiates Details: 2 years since use Do you feel safe at home: Yes Do you feel safe in your relationship?: Yes Meds Allergies and Home Medications Allergies Allergy/AdvReac Type Severity Reaction Status Date / Time shellfish derived Allergy Mild Itching Verified 10/28/21 11:26 cefpodoxime Allergy Hives Unverified 01/13/22 07:30 tramadol AdvReac Mild Agitation Verified 10/28/21 11:26 Home Medications Medication Instructions Recorded Confirmed Type buprenorphine 8 mg-naloxone 2 mg See Rx Instructions .Route .COMPLEX 10/16/21 01/13/22 History sublingual film (Suboxone) folic acid 1 mg tablet 1 mg PO DAILY #0 tabs 10/23/21 01/13/22 Rx thiamine mononitrate (vit B1) 100 100 mg PO DAILY #0 tabs 10/23/21 01/13/22 Rx mg tablet (Vitamin B-1 (mononitrate)) esomeprazole magnesium 40 mg 40 mg PO DAILY #30 ea 10/31/21 01/13/22 Rx granules delayed release for susp (Nexium Packet) [id number] 2 cap PO TID #180 caps 10/31/21 01/13/22 Rx 36,000-114,000-180,000 unit capsule,delay rel (Creon) epinephrine 0.3 mg/0.3 mL 0.3 mg (0.3 mL) IM ONCE PRN 12/06/21 01/13/22 Rx injection, auto-injector (EpiPen) anaphylaxis #2 ea Exam Narrative Exam Narrative: 1.Const: Well-nourished, Well-developed, obese 2.Eyes: PERRL, no conjunctival injection, and symmetrical lids. 3.ENT: Atraumatic external nose and ears. Moist MM. Neck: Symmetric, trachea midline, No thyromegaly. 4.CVS: +S1/S2, No murmurs or gallops. Peripheral pulses 2+ and equal in all extremities. Brisk capillary refill in all extremities. 5.RESP: Unlabored respiratory effort. Clear to auscultation bilaterally. No wheezes rales or rhonchi 6.GI: Soft, mildly distended, mild right upper quadrant and epigastric tenderness. No rebound. 7.MSK: Normocephalic/Atraumatic, Extremities w/o deformity, No cyanosis or clubbing, Normal movement of all extremities 8.Skin: Warm, Dry. No rashes or lesions. Notably jaundiced appearing 9.Neuro: meal packer II-XII grossly intact. Sensation grossly intact, no focal neurologic deficits. 10.Psych: (AAO) x3. Appropriate mood and affect Results Labs Result diagrams: 01/13/22 07:39 01/13/22 07:39 Labs: Laboratory Results - last 24 hr 01/13/22 01/13/22 01/13/22 07:39 07:39 07:39 WBC 14.87 H RBC 3.60 L Hgb 11.3 Hct 32.3 L MCV 90 MCH 31.4 MCHC 35.0 RDW 16.7 H Plt Count 165 MPV 11.2 H Immature Gran % 0.8 Neutrophils % 73.4 Lymphocytes % 13.9 Monocytes % 10.3 Eosinophils % 1.1 Basophils % 0.5 Nucleated RBC % 0.0 Absolute Neutrophils 10.91 H Absolute Lymphocytes 2.07 Absolute Monocytes 1.53 H Absolute Eosinophils 0.16 Absolute Basophils 0.07 RBC Morphology See Below Polychromasia Present Poikilocytosis 2+ Anisocytosis 1+ PT INR APTT Sodium 130 L Potassium 2.5 L* Chloride 88 L Carbon Dioxide 36.2 H Anion Gap 5.8 BUN 1 L Creatinine 1.1 H Est GFR (CKD-EPI 2020) 62.76 Glucose 104 Calcium 8.1 L Total Bilirubin 6.9 H Conjugated Bilirubin GGT AST 150 H ALT 22 Alkaline Phosphatase 322 H Ammonia 89 H Troponin I Total Protein 7.0 Albumin 1.6 L Amylase Lipase Acetaminophen Ethyl Alcohol < 3.0 COVID-19 Source SARS-CoV-2 (PCR) 01/13/22 01/13/22 01/13/22 07:39 07:39 07:39 WBC RBC Hgb Hct MCV MCH MCHC RDW Plt Count MPV Immature Gran % Neutrophils % Lymphocytes % Monocytes % Eosinophils % Basophils % Nucleated RBC % Absolute Neutrophils Absolute Lymphocytes Absolute Monocytes Absolute Eosinophils Absolute Basophils RBC Morphology Polychromasia Poikilocytosis Anisocytosis PT 25.2 H INR 2.7 H APTT 34.6 H Sodium Potassium Chloride Carbon Dioxide Anion Gap BUN Creatinine Est GFR (CKD-EPI 2020) Glucose Calcium Total Bilirubin Conjugated Bilirubin GGT 212 H Cancelled AST ALT Alkaline Phosphatase Ammonia Troponin I Total Protein Albumin Amylase < 13 L Lipase < 10 Acetaminophen Ethyl Alcohol COVID-19 Source SARS-CoV-2 (PCR) 01/13/22 01/13/22 01/13/22 07:39 07:39 08:55 WBC RBC Hgb Hct MCV MCH MCHC RDW Plt Count MPV Immature Gran % Neutrophils % Lymphocytes % Monocytes % Eosinophils % Basophils % Nucleated RBC % Absolute Neutrophils Absolute Lymphocytes Absolute Monocytes Absolute Eosinophils Absolute Basophils RBC Morphology Polychromasia Poikilocytosis Anisocytosis PT INR APTT Sodium Potassium Chloride Carbon Dioxide Anion Gap BUN Creatinine Est GFR (CKD-EPI 2020) Glucose Calcium Total Bilirubin Conjugated Bilirubin 5.3 H GGT AST ALT Alkaline Phosphatase Ammonia Troponin I Total Protein Albumin Amylase Lipase Acetaminophen < 2 Ethyl Alcohol COVID-19 Source Nasal/Nares SARS-CoV-2 (PCR) Negative 01/13/22 01/13/22 14:34 17:32 WBC RBC Hgb Hct MCV MCH MCHC RDW Plt Count MPV Immature Gran % Neutrophils % Lymphocytes % Monocytes % Eosinophils % Basophils % Nucleated RBC % Absolute Neutrophils Absolute Lymphocytes Absolute Monocytes Absolute Eosinophils Absolute Basophils RBC Morphology Polychromasia Poikilocytosis Anisocytosis PT INR APTT Sodium Cancelled Potassium Cancelled Chloride Cancelled Carbon Dioxide Cancelled Anion Gap Cancelled BUN Cancelled Creatinine Cancelled Est GFR (CKD-EPI 2020) Cancelled Glucose Cancelled Calcium Cancelled Total Bilirubin Conjugated Bilirubin GGT AST ALT Alkaline Phosphatase Ammonia Troponin I Cancelled Total Protein Albumin Amylase Lipase Acetaminophen Ethyl Alcohol COVID-19 Source SARS-CoV-2 (PCR) Last Vital Signs Temp 35.9 C L 01/13/22 16:00 Pulse 85 01/13/22 16:00 Resp 18 01/13/22 16:00 BP 96/66 L 01/13/22 16:00 Pulse Ox 95 01/13/22 16:00 PAWSS Have you Been Recently Intoxicated or Drunk Within the Last 30 days?: No Have you Ever Experienced Previous Episodes of Alcohol Withdrawal?: Yes Have you ever Experienced Withdrawal Seizures?: No Have you ever Experienced Delirium Tremens(DT)s?: No Have you ever undergone Alcohol Rehabilitation Treatment (i.e, inpt ot outpatient treatment programs)?: Yes Have you ever Experienced Blackouts?: No Have you ever Combined Alcohol with other Downers within the last 90 days?: No Have you ever Combined Alcohol with any other Substance of Abuse during the last 90 days?: No Positive Blood Alcohol level on Presentation? [PCS.BAL]: No Evidence of Increased Autonomic Activity (i.e. HR>120, tremor, sweating, agitation, nausea)?: No Result: 2
[2022-01-13] MEDS: prednisoLONE SOD PHOS. Soln. 3 MG/ML 40 MG PO (19:14)
[2022-01-13 19:15] LABS: Bilirubin Large (Negative); Blood Small (Negative); Clarity Sl Cloudy (Clear); Glucose 100 mg/dL (Negative); Ketones Negative (Negative); Leukocyte Esterase Negative (Negative); Nitrite Negative (Negative)
[2022-01-13 19:19] LABS: Bacteria Few HPF (Negative); C & S Indicated? No; Casts Negative LPF (Negative); Crystals Negative HPF (Negative); Epithelial Cells Moderate HPF (Negative); Mucus Negative (Negative); RBC 0-2 HPF (0-2); WBC 0-2 HPF (0-5)
[2022-01-13] MEDS: Pantoprazole 40 MG VIAL IVP (20:50)
[2022-01-14 03:42] VITALS: BP 89/60; PULSE 74; RESP 18; TEMP 36.2; O2SAT 95
[2022-01-14 06:11] LABS: Abs Immature Grans 0.11 10^3/uL (0.0-0.06); Absolute Basophil Count 0.03 10^3/uL (0.0-0.2); Absolute Eosinophil Count 0.01 10^3/uL (0.0-0.7); Absolute Lymphocyte Count 1.85 10^3/uL (1.2-3.4); Absolute Monocyte Count 0.48 10^3/uL (0.1-0.8); Absolute Neutrophil Count 10.12 10^3/uL (1.2-6.7); Basophils % 0.2; Eosinophils % 0.1; HCT 31.3 % (36.0-46.0); HGB 10.9 g/dL (11.2-15.7); Immature Grans % 0.9; Lymphocytes % 14.7; MCH 31.7 pg (27.0-33.0); MCHC 34.8 % (32.0-36.0); MCV 91 fL (80-95); MPV 11.1 fL (8.0-11.0); Monocytes % 3.8; Neutrophils % 80.3; Platelet Count 163 10^3/uL (130-400); RBC 3.44 10^6/uL (3.93-5.22); RDW 17.2 % (11.7-14.6)
[2022-01-14 06:24] LABS: INR 1.9 (0.9-1.1); Prothrombin Time 18.1 sec (9.3-11.0)
[2022-01-14 06:36] LABS: ALT 21 U/L (14-59); AST 148 U/L (15-37); Albumin 1.7 g/dL (3.4-5.0); Alkaline Phosphatase 329 U/L (46-116); Anion Gap 6.9 mmol/L (3-11); BUN 1 mg/dL (7-18); Bilirubin, Total 7.2 mg/dL (0.2-1.0); CO2 33.1 mmol/L (21.0-32.0); CREATININE 1.3 mg/dL (0.55-1.02); Calcium 8.4 mg/dL (8.5-10.1); Chloride 89 mmol/L (98-107); Estimated GFR 51.36 (mL/min/1.73m2); Glucose 133 mg/dL (74-106); Potassium 3.2 mmol/L (3.5-5.1); Sodium 129 mmol/L (136-145); Total Protein 7.2 g/dL (6.4-8.2)
[2022-01-14 08:12] VITALS: PULSE 74
[2022-01-14] MEDS: Lactulose 20 GM/30 ML CUP PO ×3 (08:12→20:35)
[2022-01-14] MEDS: Thiamine 100 MG TAB PO (08:12)
[2022-01-14] MEDS: Folic Acid 1 MG TAB PO (08:12)
[2022-01-14] MEDS: prednisoLONE SOD PHOS. Soln. 3 MG/ML 40 MG PO (08:12)
[2022-01-14 08:41] VITALS: BP 101/68; PULSE 74; RESP 18; TEMP 35.9; O2SAT 92
[2022-01-14] MEDS: Esomeprazole 40 MG CAPCR PO (09:47)
[2022-01-14] MEDS: Potassium Chloride 20 MEQ TABCR PO (09:47)
[2022-01-14] MEDS: POTASSIUM CHLORIDE 20 MEQ/100 ML BAG 50 MEQ IVPB (09:49)
[2022-01-14 10:15] LABS: Magnesium 2.2 mg/dL (1.8-2.4)
[2022-01-14 10:35] LABS: Hepatitis A Antibody IgM Negative (Negative); Hepatitis B Core Antibody Negative (Negative); Hepatitis B surface Ag Negative (Negative); Hepatitis C Ab w Rflx HCV PCR Negative (Negative)
[2022-01-14 10:40] VITALS: PULSE 76
[2022-01-14 11:01] VITALS: BP 100/67; PULSE 74; RESP 18; TEMP 36.3; O2SAT 91
[2022-01-14] MEDS: POTASSIUM CHLORIDE 20 MEQ/100 ML BAG 30 MEQ IVPB (12:46)
[2022-01-14 15:37] VITALS: BP 102/66; PULSE 77; RESP 18; TEMP 36.6; O2SAT 96
--- NOTE | 2022-01-14 17:13 | PGE_ITS ---
Date of Service Date of service: 01/14/22 Time of Service: 17:13 Assessment and Plan Assessment and plan (1) Acute alcoholic hepatitis: Status: Acute Assessment and plan: Maddrey Score down from 72.2 to 39.9. Continue prednisolone 40 mg daily Trend INR, LFTs Await hematest. Continue PPI. Suspect alcoholic gastritis. Low sodium diet. (2) Hypotension: Status: Resolved Assessment and plan: Agree that this is due to hypoalbuminemia. BP is better today. Asymptomatic. Would not work this up any further. No indication for IVF at this time. (3) Anemia: Status: Chronic Assessment and plan: Await hematest. H/H stable. Previously folate-deficient. Continue repletion. (4) Acute hyponatremia: Status: Acute Assessment and plan: Dilutional in setting of cirrhosis. Diet changed to low sodium. (5) Acute hypokalemia: Status: Acute Assessment and plan: IMproved. replete. Also replete magnesium. (6) Nausea: Status: Resolved Assessment and plan: Suspect alcoholic gastritis. Continue PPI. Lorazepam for nausea prn. (7) Alcoholism: Status: Chronic Assessment and plan: As above Suspect underlying cirrhosis. This is not the first bout of alcoholic hepatitis. No evidence of EToH w/d at this time. C/s palliative care. Continue thiamine, MVI, folate. Sobriety gymnastics coach or instructor on discharge. (8) Coagulopathy: Status: Acute Assessment and plan: Without acute bleeding. Due to alcoholic hepatitis and likely cirrhosis. INR is actually better. Will give vitamin K. (9) Transaminitis: Status: Acute Assessment and plan: In setting of acute alcoholic hepatitis. Not significantly better. Will continue to trend. Patient advised to remain abstinent form EtOH. (10) Hyperbilirubinemia: Status: Acute Assessment and plan: Worse today. In setting of EtOH hepatitis. Continue prednisolone. As above. (11) DVT prophylaxis: Status: Acute Assessment and plan: TEDs. Holding off on chemical DVT ppx in setting of coagulopathy (in fact, giving vitamin K). (12) Discharge planning issues: Status: Acute Assessment and plan: Full code C/s palliative care. Anticipate discharge home in the next 24-48 hrs. Will need a college football coach on discharge. Subjective Subjective Interval history since last seen: Virginia feels better. She is no longer nauseated and is actually hungry. No confusion, CP, SOB, nausea. Has had diarrhea here in the hospital. Reports feeling really weak. Would like to go home tomorrow. Reports having chronic leg edema and abdominal distention, not better since her last discharge from the hospital. Still drinking alcohol, but states she knows she needs to stop. Exam Narrative Exam Narrative: General: Pleasant jaundiced middle-aged female, A&Ox3, NAD HEENT: EOMI, MMM Heart: RRR, no m/r/g Lungs: CTAB Abdomen: soft, nontender, + ascites Extremities: +2 BLE edema, symmetric Objective Last Vital Signs Temp 36.6 C 01/14/22 15:37 Pulse 77 01/14/22 15:37 Resp 18 01/14/22 15:37 BP 102/66 01/14/22 15:37 Pulse Ox 96 01/14/22 15:37 Laboratory Results - last 24 hr 01/13/22 01/13/22 01/14/22 07:39 19:04 05:52 WBC RBC Hgb Hct MCV MCH MCHC RDW Plt Count MPV Immature Gran % Neutrophils % Lymphocytes % Monocytes % Eosinophils % Basophils % Nucleated RBC % Absolute Neutrophils Absolute Lymphocytes Absolute Monocytes Absolute Eosinophils Absolute Basophils PT INR Sodium 129 L Potassium 3.2 L Chloride 89 L Carbon Dioxide 33.1 H Anion Gap 6.9 BUN 1 L Creatinine 1.3 H Est GFR (CKD-EPI 2020) 51.36 Glucose 133 H Calcium 8.4 L Magnesium Total Bilirubin 7.2 H AST 148 H ALT 21 Alkaline Phosphatase 329 H Total Protein 7.2 Albumin 1.7 L Urine Color [place] Urine Clarity Sl Cloudy Urine pH 6.0 Ur Specific [place] 1.010 Urine Protein 30 H Urine Ketones Negative Urine Blood Small H Urine Nitrite Negative Urine Bilirubin Large H Urine Urobilinogen 2.0 H Ur Leukocyte Esterase Negative Urine RBC 0-2 Urine WBC 0-2 Ur Epithelial Cells Moderate Urine Crystals Negative Urine Bacteria Few Urine Casts Negative Urine Mucus Negative Ur Culture Indicated? No Urine Glucose 100 Hepatitis A IgM Ab Negative Hep Bs Antigen Negative Hep B Core Total Ab Negative Hepatitis C Antibody Negative 01/14/22 01/14/22 01/14/22 05:52 05:52 05:52 WBC 12.60 H RBC 3.44 L Hgb 10.9 L Hct 31.3 L MCV 91 MCH 31.7 MCHC 34.8 RDW 17.2 H Plt Count 163 MPV 11.1 H Immature Gran % 0.9 Neutrophils % 80.3 Lymphocytes % 14.7 Monocytes % 3.8 Eosinophils % 0.1 Basophils % 0.2 Nucleated RBC % 0.0 Absolute Neutrophils 10.12 H Absolute Lymphocytes 1.85 Absolute Monocytes 0.48 Absolute Eosinophils 0.01 Absolute Basophils 0.03 PT 18.1 H INR 1.9 H Sodium Potassium Chloride Carbon Dioxide Anion Gap BUN Creatinine Est GFR (CKD-EPI 2020) Glucose Calcium Magnesium 2.2 Total Bilirubin AST ALT Alkaline Phosphatase Total Protein Albumin Urine Color Urine Clarity Urine pH Ur Specific [place] Urine Protein Urine Ketones Urine Blood Urine Nitrite Urine Bilirubin Urine Urobilinogen Ur Leukocyte Esterase Urine RBC Urine WBC Ur Epithelial Cells Urine Crystals Urine Bacteria Urine Casts Urine Mucus Ur Culture Indicated? Urine Glucose Hepatitis A IgM Ab Hep Bs Antigen Hep B Core Total Ab Hepatitis C Antibody PAWSS Have you Been Recently Intoxicated or Drunk Within the Last 30 days?: No Have you Ever Experienced Previous Episodes of Alcohol Withdrawal?: Yes Have you ever Experienced Withdrawal Seizures?: No Have you ever Experienced Delirium Tremens(DT)s?: No Have you ever undergone Alcohol Rehabilitation Treatment (i.e, inpt ot outpatient treatment programs)?: Yes Have you ever Experienced Blackouts?: No Have you ever Combined Alcohol with other Downers within the last 90 days?: No Have you ever Combined Alcohol with any other Substance of Abuse during the last 90 days?: No Positive Blood Alcohol level on Presentation? [PCS.BAL]: No Evidence of Increased Autonomic Activity (i.e. HR>120, tremor, sweating, agitation, nausea)?: No Result: 2
[2022-01-14] MEDS: Phytonadione 5 MG TABLET 2.5 MG PO (17:44)
[2022-01-14 18:29] LABS: Lab Add On Test DONE
--- NOTE | 2022-01-14 20:13 | NS.NUTBLAN_ITS ---
Date of service: 01/14/22 Time of Service: 20:13 Nutritional Consult ASSESSMENT: Nutritional consult noted nutrition therapy for alcoholism. Ms. Pisano is receiving thiamin PO. She is 64 and 127.6 kg. BMI is 48.3 kg/m2 c/w severe obesity. Blood sugars have been over 200. Based on serial weights, she has gained a significant amount of weight in the past 5 weeks. Weight gain may be related to fluid gain with ascites however. She is ordered for a low sodium diet secondary to hepatitis. Her PO intake has been fair. NUTRITIONAL DIAGNOSIS: Physiologic effects of alcoholism on nutritional status. Severe obesity as evidenced by BMI of 48.3 kg/m2. Unintentional significant weight gain. INTERVENTION: Will visit with Ms. Pisano and assess her readiness and motivation to work on we ight management as well as nutrition therapy for alcoholism. Would recommend checking an a1C given her hyperglycemia and risk factors for DM. Would recommend adding an MVI with minerals PO to her daily regimen. MONITORING AND EVALUATION: 1. Will monitor weight, PO, labs. 2. Will assess readiness to change regarding nutritional issues. 3. Will evaluate nutrition care plan ongoing and adjust as needed. Time Spent in Nutritional Counseling and Treatment: 0
[2022-01-14] MEDS: LORazepam 20 MG/10 ML VIAL IVP (22:49)
[2022-01-14] MEDS: Normal Saline Flush 10 ML SYR IVP (22:50)
[2022-01-15] MEDS: LORazepam 20 MG/10 ML VIAL IVP (02:59)
[2022-01-15 03:31] VITALS: BP 114/77; PULSE 80; RESP 18; TEMP 36.8; O2SAT 96
[2022-01-15 06:30] LABS: Abs Immature Grans 0.21 10^3/uL (0.0-0.06); Absolute Basophil Count 0.02 10^3/uL (0.0-0.2); Absolute Neutrophil Count 13.18 10^3/uL (1.2-6.7); Basophils % 0.1; Eosinophils % 0.2; HCT 28.1 % (36.0-46.0); HGB 9.5 g/dL (11.2-15.7); Immature Grans % 1.1; Lymphocytes % 15.5; MCH 30.6 pg (27.0-33.0); MCHC 33.8 % (32.0-36.0); MCV 91 fL (80-95); MPV 11.4 fL (8.0-11.0); Monocytes % 11.5; Neutrophils % 71.6; Platelet Count 191 10^3/uL (130-400); RDW 17.5 % (11.7-14.6); RDW-SD 57.3 fL; WBC 18.41 10^3/uL (4.4-10.8)
[2022-01-15 06:41] LABS: ALT 20 U/L (14-59); AST 131 U/L (15-37); Albumin 1.5 g/dL (3.4-5.0); Alkaline Phosphatase 279 U/L (46-116); Anion Gap 4.3 mmol/L (3-11); BUN 3 mg/dL (7-18); Bilirubin, Direct 4.1 mg/dL (0.0-0.2); Bilirubin, Total 5.3 mg/dL (0.2-1.0); C-Reactive Protein 4.46 mg/dL (0.0-0.3); CO2 31.7 mmol/L (21.0-32.0); CREATININE 1.1 mg/dL (0.55-1.02); Calcium 8.4 mg/dL (8.5-10.1); Chloride 92 mmol/L (98-107); Estimated GFR 62.76 (mL/min/1.73m2); Glucose 118 mg/dL (74-106); INR 1.6 (0.9-1.1); Magnesium 2.2 mg/dL (1.8-2.4); Potassium 3.5 mmol/L (3.5-5.1); Prothrombin Time 16.1 sec (9.3-11.0); Sodium 128 mmol/L (136-145); Total Protein 6.5 g/dL (6.4-8.2)
[2022-01-15 06:52] LABS: Absolute Eosinophil Count 0.04 10^3/uL (0.0-0.7); Absolute Lymphocyte Count 2.85 10^3/uL (1.2-3.4); Absolute Monocyte Count 2.12 10^3/uL (0.1-0.8)
[2022-01-15 07:20] LABS: Diff Comment Diff Reviewed; RBC Morphology Normal
[2022-01-15] MEDS: Normal Saline Flush 10 ML SYR IVP ×2 (08:43→10:00)
[2022-01-15] MEDS: Lactulose 20 GM/30 ML CUP PO ×3 (08:43→21:40)
[2022-01-15] MEDS: prednisoLONE SOD PHOS. Soln. 3 MG/ML 40 MG PO (08:43)
[2022-01-15] MEDS: Thiamine 100 MG TAB PO (08:44)
[2022-01-15] MEDS: Pantoprazole 40 MG VIAL IVP (08:44)
[2022-01-15] MEDS: Folic Acid 1 MG TAB PO (08:45)
--- NOTE | 2022-01-15 09:39 | PT.INIE ---
Date of service: 01/15/22 Time of Service: 09:39 PT Notes Visit Reasons: Decompensated Cirrhosis Physical Therapy Inpatient Initial Evaluation Date: 01/15/2022 Referring Doctor: Brianna Wheatley MD PT Orders: PT CONSULT: Limited ability Precautions: Fall. Standard. Activity as tolerated. Patient Profile/Admitting Diagnosis: [place] is a 46-year-old female who presented to the ED on 01/13/2022 due to nausea, vomiting, and abdominal bloating. Patient was diagnosed with acute alcoholic hepatitis, hypotension, anemia, acute hypokalemia, nausea, alcoholism, coagulopathy, transaminitis, and hyperbilirubinemia. PMHX: All Active Problems?(Updated 01/13/22 @ 23:01 by Sussy Fisher NP) Nausea (Acute) Acute hypokalemia (Acute) Acute hyponatremia (Acute) Hypotension (Acute) Hyperbilirubinemia (Acute) DVT prophylaxis (Acute) Discharge planning issues (Acute) Jaundice (Acute) Acute hyponatremia (Acute) Acute hypokalemia (Acute) Acute alcoholic hepatitis (Acute) Generalized weakness (Acute) CALEB on CPAP (Chronic) Transaminitis (Acute) Gallbladder sludge (Acute) Coagulopathy (Acute) Abdominal fluid collection (Acute) Anemia (Chronic) Alcoholism (Chronic) Hemoglobin low (Chronic) Normal colonoscopy (Acute) Smoker (Acute) Alcoholism (Acute) Medical History? Anxiety Asthma BMI 36.0-36.9,adult Chronic alcoholism since 35yo. Completed [facility] inpatient, relapsed and developed pacreatitis 03/2016. Sober since then. Constipation Depression Dyspepsia Dysphonia Elevated liver enzymes Elevated transaminase level History of substance abuse Hyperthyroidism Hypokalemia Macrocytosis Mental health problem Mood improved with Gabapentin. May change to SSRI. Dr Connors monitors. Obesity CALEB (obstructive sleep apnea) Pancreatitis Pedal edema Post-nasal drip Stress incontinence Tobacco use Vitamin D deficiency Surgical History? back surgery lumbar disk shaving bunionectomy L foot. History of colonoscopy (~07/03/21) Stoiber, airway concerns during procedure refer to procedure note. Social History/Home Situation: Lives with significant other in a private home with 3 steps to enter with rails on both sides. 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 Denied with all aspects of ADLs prior to admission. Equipment Owned/DME: [facility] Subjective: Pleasant and cooperative. Agreeable to PT consult. States that she still feels weak but is hoping that she can go back to work once she is able to regain her strength. Feels more stable with the use of front wheeled walker for long distance ambulation. Objective: General Observation: Lethargic. IV access through R brachium. B TEDS on B legs. B leg swelling and stiffness. Mental Status: Alert and oriented as to person, place, time, and purpose. Able to pay attention, focus, and respond appropriately. Pain: Denies Vital Signs: WNL as closely monitored by nursing staff ROM: Right Upper Extremity: Shoulder Flexion WFL. Shoulder abduction WFL. Elbow flexion WFL. Wrist flexion WFL. Functional opening and closing of hand WFL. Left Upper Extremity: Shoulder Flexion WFL. Shoulder abduction WFL. Elbow flexion WFL. Wrist flexion WFL. Functional opening and closing of hand WFL. Right Lower Extremity: Hip flexion WFL. Hip abduction WFL. Knee flexion WFL. Ankle dorsiflexion WFL. Ankle plantarflexion WFL. Left Lower Extremity: Hip flexion WFL. Hip abduction WFL. Knee flexion WFL. Ankle dorsiflexion WFL. Ankle plantarflexion WFL. Strength Right Upper Extremity: Shoulder flexors 4-/5. Shoulder abductors 4-/5. Elbow flexors 4-/5. Elbow extensors 4-/5. Straddle Bug Operator strong. Left Upper Extremity: Shoulder flexors 4-/5. Shoulder abductors 4-/5. Elbow flexors 4-/5. Elbow extensors 4-/5. Straddle Bug Operator strong. Right Lower Extremity: Hip flexors 4-/5. Hip abductors 4-/5. Knee flexors 4-/5. Knee extensors 4-/5. Ankle dorsiflexors 4-/5. Ankle plantarflexors 4-/5. Left Lower Extremity: Hip flexors 4-/5. Hip abductors 4-/5. Knee flexors 4-/5. Knee extensors 4-/5. Ankle dorsiflexors 4-/5. Ankle plantarflexors 4-/5. Bed Mobility/Transfers: Supine to sit independent Sit to supine independent Sit to stand independent with FWW Stand to sit independent Bed to reclining chair independent Reclining chair to bed independent Gait: Instructed patient with level surface ambulation of 350 feet requiring supervision assist with FWW. Poppy decreased. No shortness of breath. No path deviation. No loss of balance. Patient reports weakness but is able to complete task, needed to do 2 short standing rests to inimize fatigue. Balance: Static Sitting: Normal Dynamic Sitting: Normal Static Standing: Good Dynamic Standing: Fair Special Tests: Mobility Limitations Standardized Measure [facility] AM-PAC 6 clicks Basic Mobility Inpatient Short Form: Raw Score: 23 CMS Score: 11% deficit Informed Consent/Education: Patient was instructed in purpose of PT consult and plan of care. Agreeable to proceed with established PT POC to achieve personal goals. Assessment: Patient presents with clinical signs and symptoms consistent with current/admitting diagnoses that have resulted to mobility limitations, gait instability, generalized weakness, and overall ADL decline as demonstrated by the following impairment level findings: 1. Decreased strength to B UE/LE major muscle groups 2. Impaired standing balance due to weakness and fatigue 3. Impaired activity tolerance 4. Swelling to B legs Impairments are contributing to the following functional limitations: 1. Decline in transfer skills 2. Difficulty with ambulation without assistive device 3. Increased completion time for mobility ADL performance 4. Increased risk for falls 5. Difficulty with managing steps alone safely Patient is assessed as a 20895 moderate complexity based on the following: History: 46-year-old female with past medical history as indicated above Examination: Demonstrable impairment in strength, balance, and mobility level with underlying impairments and functional limitations as exhibited above as well as deficit score of 11% utilizing the [facility] Mobility Inpatient Short Form Presentation: Evolving Decision Makin moderate complexity Goals: Goals X1 week 1. Supine-Sit independent 2. Sit-Supine independent 3. Sit-Stand independent 4. Stand-Sit independent with no AD 5. Bed-Chair independent with no AD 6. Chair-Bed independent with no AD 7. Independent gait on level surface with use of FWW for at least 1000 feet without report of pain nor dyspnea 8. Independent stair negotiation while holding onto B rails for at least 3 steps without report of pain nor dyspnea 9. Independent with home exercise program 10. Good static and dynamic standing balance/tolerance Plan of Care/Treatment Plan: 1-2x/day, 7 days/week x 1 week. Plan of care has been reviewed with the HIGH REACH OPERATOR providing the service under Physical Therapy direction. Initiate Physical Therapy intervention for pain management as needed, strengthening, bed mobility, transfers, gait, stairs, balance training, and use of assistive device. DISCHARGE RECOMMENDATIONS: [] Home with no services [] [] Home with services [specify] [X] Home with outpatient PT. Home when medically cleared by hospitalist. Will benefit from outpatient services to regain premorbid independent level and facilitate return to full vocational activities. Will require use of FWW for long distances at this time. [] SNF for continued rehabilitation [] [] Long-Term Care [] [] SNF versus LTC based on ability to participate and progress [] TREATMENT CODE/TIME: 37677 x 26 minutes beginning at 9:39 AM. Thank you for the opportunity to participate in the care of this patient. Emmanuelle Hernandez PT, DPT, CLT [facility] [place], [place]
[2022-01-15 09:42] VITALS: BP 115/74; PULSE 82; RESP 17; TEMP 37; O2SAT 98
[2022-01-15] MEDS: Furosemide 20 MG/2 ML VIAL IVP (10:00)
--- NOTE | 2022-01-15 10:03 | PDOC.CMIN ---
- If Service Date Differs Date of service: 01/15/22 Time of Service: 10:03 Care Management Initial Assess REASON FOR HOSPITALIZATION:: acute alcoholic hepatitis PAST MEDICAL HISTORY/PAST SURGICAL HISTORY:: All Active Problems (Updated 01/13/22 @ 23:01 by Sussy Fisher NP). Nausea (Acute). Acute hypokalemia (Acute). Acute hyponatremia (Acute). Hypotension (Acute). Hyperbilirubinemia (Acute). DVT prophylaxis (Acute). Discharge planning issues (Acute). Jaundice (Acute). Acute hyponatremia (Acute). Acute hypokalemia (Acute). Acute alcoholic hepatitis (Acute). Generalized weakness (Acute). CALEB on CPAP (Chronic). Transaminitis (Acute). Gallbladder sludge (Acute). Coagulopathy (Acute). Abdominal fluid collection (Acute). Anemia (Chronic). Alcoholism (Chronic). Hemoglobin low (Chronic). Normal colonoscopy (Acute). Smoker (Acute). Alcoholism (Acute). Medical History . Anxiety. Asthma. BMI 36.0-36.9,adult. Chronic alcoholism. since 35yo. Completed [facility] inpatient, relapsed and developed pacreatitis 03/2016. Sober since then. Constipation. Depression. Dyspepsia. Dysphonia. Elevated liver enzymes. Elevated transaminase level. History of substance abuse. Hyperthyroidism. Hypokalemia. Macrocytosis. Mental health problem. Mood improved with Gabapentin. May change to SSRI. Dr Connors monitors. Obesity. CALEB (obstructive sleep apnea). Pancreatitis. Pedal edema. Post-nasal drip. Stress incontinence. Tobacco use. Vitamin D deficiency. Surgical History . back surgery. lumbar disk shaving. bunionectomy. L foot. History of colonoscopy (~07/03/21). Stoiber, airway concerns during procedure refer to procedure note. PREVIOUS FUNCTIONAL STATUS/SOCIAL/FAMILY SUPPORTS:: Virginia lives in a single family home in [place] with her partner Prabhu. She has 2 adult children. Her son is intermittently involved with the family he comes and goes and her daughter is in her second year of college and is staying with Virignia's mother. 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 She drives and is independent at baseline. CURRENT FUNCTIONAL STATUS:: Virginia was sitting up in a chair when CM met with her. She informed CM that she really wants to be able to go home today. [place] shared that she started a new job only 2 months ago and does not want to miss any more work. She has already missed time due to a previous hospitalization and needs the income. [place] stated that she is feeling better than when she arrived but still has significant issues with her ankles and lower legs swelling. She denied the need for any additrional services at home. Has patient been provided with info about the portal/API?: Yes Did the patient sign up for the portal?: Yes (previously) CODE STATUS:: Full Code INSURANCE COVERAGE / FINANCIAL ISSUES:: Medicaid CURRENT HOME/COMMUNITY SERVICES/EQUIPMENT:: none PRIMARY CARE PHYSICIAN:: Ira Thao POTENTIAL DISCHARGE NEEDS:: follow up with PCP and plan of care PATIENT/FAMILY EDUCATION NEEDS:: Review of diascharge instructions, limitations, activity, follow up plan, Ask Me Three TRANSPORTATION:: via private vehicle with a friend PLAN:: Virginia will likely be discharged home with no new services. She will follow up with her PCP and plan of care as prescribed and transport with a friend. CM will support Virginia and her discharge needs.
[2022-01-15 15:29] VITALS: BP 107/70; PULSE 82; RESP 18; TEMP 36.2; O2SAT 100
--- NOTE | 2022-01-15 15:33 | W.PM.PROGNOT ---
Date of Service Date of service: 01/15/22 Time of Service: 15:33 Assessment and Plan Assessment and plan (1) Acute alcoholic hepatitis: Status: Acute Assessment and plan: Maddrey Score down from 72.2 on admission to 28.8. Continue prednisolone 40 mg daily Trend INR, LFTs Low sodium diet. (2) Hepatic encephalopathy: Status: Acute Assessment and plan: Remains symptomatic on lactulose - add rifaxamine. (3) Hypotension: Status: Resolved Assessment and plan: Agree that this is due to hypoalbuminemia. Asymptomatic. Would not work this up any further. No indication for IVF at this time. (4) Anemia: Status: Chronic Assessment and plan: Await hematest. H/H stable. Previously folate-deficient. Continue repletion. (5) Acute hyponatremia: Status: Acute Assessment and plan: Dilutional in setting of cirrhosis. Diet changed to low sodium. S/p a dose of furosemide this morning. Recheck again in am. (6) Acute hypokalemia: Status: Resolved Assessment and plan: Recheck in am. (7) Nausea: Status: Resolved Assessment and plan: Suspect alcoholic gastritis. Continue PPI. Lorazepam for nausea prn. (8) Alcoholism: Status: Chronic Assessment and plan: As above Suspect underlying cirrhosis. This is not the first bout of alcoholic hepatitis. No evidence of EToH w/d at this time. Abstinence encouraged. Palliative care consulted. Continue thiamine, MVI, folate. Sobriety motor coach chauffeur on discharge. (9) Coagulopathy: Status: Acute Assessment and plan: Without acute bleeding. Due to alcoholic hepatitis and likely cirrhosis. INR improved. S/p Vitamin K. check hemoccult. (10) Transaminitis: Status: Acute Assessment and plan: In setting of acute alcoholic hepatitis. Not significantly better. Will continue to trend. Patient advised to remain abstinent form EtOH. (11) Hyperbilirubinemia: Status: Acute Assessment and plan: Better today. In setting of EtOH hepatitis. Continue prednisolone. As above. (12) DVT prophylaxis: Status: Acute Assessment and plan: TEDs. Holding off on chemical DVT ppx in setting of coagulopathy. (13) Discharge planning issues: Status: Acute Assessment and plan: Full code Await palliative care c/s. Anticipate discharge home tomorrow. Will need a other sports coach or instructor on discharge. Subjective Subjective Interval history since last seen: [place] states she is feeling better. She is not nauseated. She has felt herself feeling very tired, however. Denies dizziness, chest pain, shortness of breath, abdominal pain. Would like to go home today or tomorrow - because of her encephalopathy, we discussed that it would be better if it were tomorrow. Exam Narrative Exam Narrative: General: Pleasant jaundiced middle-aged female, A&Ox3, + asterexis HEENT: EOMI, MMM Heart: RRR, no m/r/g Lungs: CTAB Abdomen: soft, nontender, + ascites Extremities: +2 BLE edema, symmetric, in TEDs Objective Last Vital Signs Temp 36.2 C L 01/15/22 15:29 Pulse 82 01/15/22 15:29 Resp 18 01/15/22 15:29 BP 107/70 01/15/22 15:29 Pulse Ox 100 01/15/22 15:29 Laboratory Results - last 24 hr 01/13/22 01/14/22 01/15/22 07:39 Unknown 05:58 WBC RBC Hgb Hct MCV MCH MCHC RDW Plt Count MPV Immature Gran % Neutrophils % Lymphocytes % Monocytes % Eosinophils % Basophils % Nucleated RBC % Absolute Neutrophils Absolute Lymphocytes Absolute Monocytes Absolute Eosinophils Absolute Basophils RBC Morphology PT INR Sodium 128 L Potassium 3.5 Chloride 92 L Carbon Dioxide 31.7 Anion Gap 4.3 BUN 3 L Creatinine 1.1 H Est GFR (CKD-EPI 2020) 62.76 Glucose 118 H Calcium 8.4 L Magnesium 2.2 Total Bilirubin 5.3 H Conjugated Bilirubin 4.1 H AST 131 H ALT 20 Alkaline Phosphatase 279 H C-Reactive Protein 4.46 H Total Protein 6.5 Albumin 1.5 L Hepatitis A IgM Ab Negative Hep Bs Antigen Negative Hep B Core Total Ab Negative Hepatitis C Antibody Negative Add-On Test Request DONE 01/15/22 01/15/22 05:58 05:58 WBC 18.41 H RBC 3.10 L Hgb 9.5 L Hct 28.1 L MCV 91 MCH 30.6 MCHC 33.8 RDW 17.5 H Plt Count 191 MPV 11.4 H Immature Gran % 1.1 Neutrophils % 71.6 Lymphocytes % 15.5 Monocytes % 11.5 Eosinophils % 0.2 Basophils % 0.1 Nucleated RBC % 0.0 Absolute Neutrophils 13.18 H Absolute Lymphocytes 2.85 Absolute Monocytes 2.12 H Absolute Eosinophils 0.04 Absolute Basophils 0.02 RBC Morphology Normal PT 16.1 H INR 1.6 H Sodium Potassium Chloride Carbon Dioxide Anion Gap BUN Creatinine Est GFR (CKD-EPI 2020) Glucose Calcium Magnesium Total Bilirubin Conjugated Bilirubin AST ALT Alkaline Phosphatase C-Reactive Protein Total Protein Albumin Hepatitis A IgM Ab Hep Bs Antigen Hep B Core Total Ab Hepatitis C Antibody Add-On Test Request PAWSS Have you Been Recently Intoxicated or Drunk Within the Last 30 days?: No Have you Ever Experienced Previous Episodes of Alcohol Withdrawal?: Yes Have you ever Experienced Withdrawal Seizures?: No Have you ever Experienced Delirium Tremens(DT)s?: No Have you ever undergone Alcohol Rehabilitation Treatment (i.e, inpt ot outpatient treatment programs)?: Yes Have you ever Experienced Blackouts?: No Have you ever Combined Alcohol with other Downers within the last 90 days?: No Have you ever Combined Alcohol with any other Substance of Abuse during the last 90 days?: No Positive Blood Alcohol level on Presentation? [PCS.BAL]: No Evidence of Increased Autonomic Activity (i.e. HR>120, tremor, sweating, agitation, nausea)?: No Result: 2
[2022-01-15 19:34] VITALS: RESP 15; O2SAT 98
[2022-01-15] MEDS: Rifaximin 550 MG TAB PO (21:40)
[2022-01-15] MEDS: LORazepam 1 MG TAB PO (21:40)
[2022-01-15 23:13] VITALS: BP 101/68; PULSE 77; RESP 18; TEMP 36.8; O2SAT 95
[2022-01-16] MEDS: LORazepam 1 MG TAB PO (03:26)
[2022-01-16 07:29] VITALS: BP 106/73; PULSE 80; RESP 18; TEMP 36.2; O2SAT 97
[2022-01-16] MEDS: prednisoLONE SOD PHOS. Soln. 3 MG/ML 40 MG PO (08:21)
[2022-01-16] MEDS: Lactulose 20 GM/30 ML CUP PO ×2 (08:21→13:59)
[2022-01-16] MEDS: Normal Saline Flush 10 ML SYR IVP (08:21)
[2022-01-16] MEDS: Thiamine 100 MG TAB PO (08:22)
[2022-01-16] MEDS: Folic Acid 1 MG TAB PO (08:22)
[2022-01-16] MEDS: Pantoprazole 40 MG VIAL IVP (08:22)
[2022-01-16] MEDS: Rifaximin 550 MG TAB PO ×2 (08:22→20:34)
[2022-01-16 10:51] LABS: Abs Immature Grans 0.18 10^3/uL (0.0-0.06); HCT 30.2 % (36.0-46.0); HGB 10.2 g/dL (11.2-15.7); MCH 31.4 pg (27.0-33.0); MCHC 33.8 % (32.0-36.0); MCV 93 fL (80-95); MPV 11.5 fL (8.0-11.0); Nucleated RBC 0.2 % (0.0-0.3); Platelet Count 201 10^3/uL (130-400); RBC 3.25 10^6/uL (3.93-5.22); RDW 17.9 % (11.7-14.6); RDW-SD 59.7 fL; WBC 14.45 10^3/uL (4.4-10.8)
[2022-01-16 10:54] LABS: ALT 30 U/L (14-59); AST 192 U/L (15-37); Albumin 1.8 g/dL (3.4-5.0); Alkaline Phosphatase 315 U/L (46-116); Anion Gap 1.3 mmol/L (3-11); BUN 3 mg/dL (7-18); Bilirubin, Direct 3.8 mg/dL (0.0-0.2); Bilirubin, Total 4.7 mg/dL (0.2-1.0); C-Reactive Protein 3.12 mg/dL (0.0-0.3); CO2 36.7 mmol/L (21.0-32.0); CREATININE 1.2 mg/dL (0.55-1.02); Calcium 8.9 mg/dL (8.5-10.1); Chloride 94 mmol/L (98-107); Estimated GFR 56.54 (mL/min/1.73m2); Glucose 140 mg/dL (74-106); Magnesium 2.1 mg/dL (1.8-2.4); Potassium 3.3 mmol/L (3.5-5.1); Sodium 132 mmol/L (136-145); Total Protein 7.1 g/dL (6.4-8.2)
[2022-01-16 10:56] LABS: INR 1.5 (0.9-1.1); Prothrombin Time 14.4 sec (9.3-11.0)
[2022-01-16 11:05] LABS: Absolute Monocyte Count 1.01 10^3/uL (0.1-0.8); Absolute Neutrophil Count 10.84 10^3/uL (1.2-6.7); Atypical Lymphocytes % 0; Bands % 0; Diff Comment Manual Differential; RBC Morphology Normal
[2022-01-16] MEDS: Normal Saline 500 ML 30 ML IV (11:36)
[2022-01-16] MEDS: POTASSIUM CHLORIDE 20 MEQ/100 ML BAG 50 MEQ IVPB (11:37)
[2022-01-16] MEDS: Potassium Chloride 20 MEQ TABCR 40 MEQ PO (13:01)
--- NOTE | 2022-01-16 15:20 | PT.INTREAT ---
PT Notes Visit Reasons: Decompensated Cirrhosis Inpatient Physical Therapy Treatment Note [facility] Date: 01/16/22 SUBJECTIVE: [place] states that she is weak and needs to strengthen her legs. She has concerns about falling and being able to get up on her own. Indicated that she is hoping to go home today. OBJECTIVE: [] BED MOBILITY/TRANSFERS Supine-sit: S Sit-supine: S Sit-stand: S Stand-sit: S GAIT Assistive Device: FWW Weight bearing: full Assist: S Distance: 500' THEREX: standing LE strength and stabilization ex. 3 way hip PRE's, SSH, LAQ, HR and sit to stand. ASSESSMENT: tolerated session well. Is independent with transfers, and states she has been walking halls in evening on her own. PLAN: will continue to work on her strength and endurance to tolerance following PT POC. TREATMENT CODE/TIME: 30 min in am [id number], [id number]
[2022-01-16 16:12] VITALS: BP 114/73; PULSE 72; RESP 18; TEMP 36.5; O2SAT 94
--- NOTE | 2022-01-16 16:28 | CMPROGNOTE_ITS ---
- If Service Date Differs Date of service: 01/16/22 Time of Service: 16:28 Care Management Progress Note S/O:Virginia was sitting up in bed when CM met with her. She continues to be very sleepy and complains of fatigue. [place] was seen by Beverley in Palliative Care today. When asked how the conversation went she stated as good as that kind of a conversation can go, I guess. She did state that she liked Beverley and found her very kind. [place] also met with a recovery advocate today. She was disinclined to disc uss this with CM but did state that she has met with recovery coaches in the past. [place] also requested a letter for her employer to document her hospital stay, which CM provided. A:Virginia is a 46 year old woman admitted on 01/13/22 with decompensated cirrhosis P:Virginia will likely be discharged home with no new services. She will follow up with her PCP and plan of care as prescribed and transport with a friend. CM will support Virginia and her discharge needs. cc:
--- NOTE | 2022-01-16 16:58 | PGE_ITS ---
Date of Service Date of service: 01/16/22 Time of Service: 16:59 Assessment and Plan Assessment and plan (1) Acute alcoholic hepatitis: Status: Acute Assessment and plan: Maddrey Score down from 72.2 on admission to 20.3. Continue prednisolone 40 mg daily Trend INR, LFTs Low sodium diet. (2) Hepatic encephalopathy: Status: Acute Assessment and plan: Remains symptomatic on lactulose. Increase latculose dose. Continue rifaximine (prior auth approved). D/c lorazepam. (3) Hypotension: Status: Resolved Assessment and plan: Agree that this is due to hypoalbuminemia. Asymptomatic. Would not work this up any further. No indication for IVF at this time. (4) Anemia: Status: Chronic Assessment and plan: Await hematest. H/H stable. Previously folate-deficient. Continue repletion. (5) Acute hyponatremia: Status: Acute Assessment and plan: Dilutional in setting of cirrhosis. Diet changed to low sodium. S/p furosemide 20 mg daily. Sodium is now 132 which is close to her baseline. S/p furosemide x 1 yesterday - consider repeat. Recheck again in am. (6) Acute hypokalemia: Status: Acute Assessment and plan: Replete and Recheck in am. (7) Nausea: Status: Resolved Assessment and plan: Suspect alcoholic gastritis. Continue PPI. (8) Alcoholism: Status: Chronic Assessment and plan: As above Suspect underlying cirrhosis. This is not the first bout of alcoholic hepatitis. No evidence of EToH w/d at this time. Abstinence encouraged. Palliative care saw the patient today. Continue thiamine, MVI, folate. Sobriety head coach on discharge. (9) Coagulopathy: Status: Acute Assessment and plan: Without acute bleeding. Due to alcoholic hepatitis and likely cirrhosis. INR improved. S/p Vitamin K. Await hemoccult. (10) Transaminitis: Status: Acute Assessment and plan: In setting of acute alcoholic hepatitis. Not significantly better. Will continue to trend. Patient advised to remain abstinent form EtOH. (11) Hyperbilirubinemia: Status: Acute Assessment and plan: Better today. In setting of EtOH hepatitis. Continue prednisolone. As above. (12) DVT prophylaxis: Status: Acute Assessment and plan: TEDs. Holding off on chemical DVT ppx in setting of coagulopathy. (13) Discharge planning issues: Status: Acute Assessment and plan: Full code Seen by palliative care. Anticipate discharge home tomorrow. Will need a passenger coach driver on discharge. Subjective Subjective Interval history since last seen: Virginia feels sleepy. She endorses dizziness when she stands up which has been life- long for her. Denies chest pain, shortness of breath, nausea. She has not had any BMs today. She has been somnolent and falling asleep while talking to healthcare administrative assistant and nursing today. Her rifaxamin prior authorization was approved. Exam Narrative Exam Narrative: General: Pleasant jaundiced somnolent middle-aged female, A&Ox3, + asterexis (mild) HEENT: EOMI, MMM Heart: RRR, no m/r/g Lungs: CTAB Abdomen: soft, nontender, + ascites Extremities: +2 BLE edema, symmetric Objective Last Vital Signs Temp 36.5 C 01/16/22 16:12 Pulse 72 01/16/22 16:12 Resp 18 01/16/22 16:12 BP 114/73 01/16/22 16:12 Pulse Ox 94 01/16/22 16:12 Laboratory Results - last 24 hr 01/16/22 01/16/22 01/16/22 10:20 10:20 10:20 WBC 14.45 H RBC 3.25 L Hgb 10.2 L Hct 30.2 L MCV 93 MCH 31.4 MCHC 33.8 RDW 17.9 H Plt Count 201 MPV 11.5 H Immature Gran % 0.0 Neutrophils % 75.0 Band Neutrophils % 0 Lymphocytes % 18.0 Atypical Lymphs % 0 Monocytes % 7.0 Eosinophils % 0.0 Basophils % 0.0 Nucleated RBC % 0.2 Absolute Neutrophils 10.84 H Absolute Lymphocytes 2.60 Absolute Monocytes 1.01 H Absolute Eosinophils 0.00 Absolute Basophils 0.00 RBC Morphology Normal PT 14.4 H INR 1.5 H Sodium 132 L Potassium 3.3 L Chloride 94 L Carbon Dioxide 36.7 H Anion Gap 1.3 L BUN 3 L Creatinine 1.2 H Est GFR (CKD-EPI 2020) 56.54 Glucose 140 H Calcium 8.9 Magnesium 2.1 Total Bilirubin 4.7 H Conjugated Bilirubin 3.8 H AST 192 H ALT 30 Alkaline Phosphatase 315 H C-Reactive Protein 3.12 H Total Protein 7.1 Albumin 1.8 L PAWSS Have you Been Recently Intoxicated or Drunk Within the Last 30 days?: No Have you Ever Experienced Previous Episodes of Alcohol Withdrawal?: Yes Have you ever Experienced Withdrawal Seizures?: No Have you ever Experienced Delirium Tremens(DT)s?: No Have you ever undergone Alcohol Rehabilitation Treatment (i.e, inpt ot outpatient treatment programs)?: Yes Have you ever Experienced Blackouts?: No Have you ever Combined Alcohol with other Downers within the last 90 days?: No Have you ever Combined Alcohol with any other Substance of Abuse during the last 90 days?: No Positive Blood Alcohol level on Presentation? [PCS.BAL]: No Evidence of Increased Autonomic Activity (i.e. HR>120, tremor, sweating, agitation, nausea)?: No Result: 2
[2022-01-16] MEDS: Lactulose 20 GM/30 ML CUP 30 GM PO ×2 (17:35→20:34)
[2022-01-16 22:45] VITALS: BP 135/79; PULSE 81; RESP 20; TEMP 36.6; O2SAT 96
[2022-01-16] MEDS: Melatonin 3 MG TAB PO (23:00)
--- NOTE | 2022-01-17 | DI.US_ITS ---
Exam(s) US ABDOMEN LIMITED EXAM: US ABDOMEN LIMITED CLINICAL HISTORY: Ascites, ?cirrhosis, ?cholecystitis TECHNIQUE: Ultrasound abdomen performed using standard protocol. COMPARISON: US US ABDOMEN LIMITED from 10/17/[address] ABDOMEN PELVIS W from 01/13/2022 FINDINGS: Examination limited by the patient's body habitus. PANCREAS: Poorly visualized. LIVER: Consistent with fatty infiltration. Hepatopedal flow in the Portal Vein. The liver measures i n 23.2 cm length. GALLBLADDER:There is layering debris in the gallbladder. This may represent sludge. There does appe ar to be a few echogenic foci within the gallbladder and suggesting stones. There does appear to be a stone near the region of the neck of the gallbladder. No evidence of wall thickening. There is a s mall amount of pericholecystic fluid. BILIARY SYSTEM: Common bile duct measures < 7 mm. No intrahepatic biliary ductal dilation. LOPEZ'S SIGN: Positive RIGHT KIDNEY: Could not be visualized on this examination. ASCITES: None seen. IMPRESSION: 1. Hepatomegaly and hepatic steatosis. 2. Stones and sludge within the gallbladder. There does appear to be a gallstone in the neck of the gallbladder. The patient did exhibit a positive sonographic Lopez sign. Acute cholecystitis should be considered in this patient. DATA REPOSITORY:
[2022-01-17] MEDS: prednisoLONE SOD PHOS. Soln. 3 MG/ML 40 MG PO (07:39)
[2022-01-17] MEDS: Pantoprazole 40 MG VIAL IVP (07:39)
[2022-01-17] MEDS: Normal Saline Flush 10 ML SYR IVP ×2 (07:42→20:20)
[2022-01-17] MEDS: Folic Acid 1 MG TAB PO (07:43)
[2022-01-17] MEDS: Thiamine 100 MG TAB PO (07:43)
[2022-01-17 07:46] LABS: Abs Immature Grans 0.24 10^3/uL (0.0-0.06); Absolute Basophil Count 0.03 10^3/uL (0.0-0.2); Absolute Eosinophil Count 0.07 10^3/uL (0.0-0.7); Absolute Monocyte Count 1.92 10^3/uL (0.1-0.8); Basophils % 0.2; Eosinophils % 0.4; HCT 30.5 % (36.0-46.0); HGB 10.3 g/dL (11.2-15.7); Immature Grans % 1.4; Lymphocytes % 20.7; MCH 31.2 pg (27.0-33.0); MCHC 33.8 % (32.0-36.0); MCV 92 fL (80-95); MPV 11.6 fL (8.0-11.0); Monocytes % 11.4; Neutrophils % 65.9; Nucleated RBC 0.2 % (0.0-0.3); Platelet Count 228 10^3/uL (130-400); RDW 18.2 % (11.7-14.6); RDW-SD 60.4 fL; WBC 16.83 10^3/uL (4.4-10.8)
[2022-01-17 07:49] LABS: Absolute Lymphocyte Count 3.48 10^3/uL (1.2-3.4); Absolute Neutrophil Count 11.09 10^3/uL (1.2-6.7)
[2022-01-17 07:57] LABS: INR 1.4 (0.9-1.1); Prothrombin Time 13.9 sec (9.3-11.0)
[2022-01-17 07:59] LABS: Diff Comment Diff Reviewed; RBC Morphology Normal
[2022-01-17 08:02] VITALS: BP 105/71; PULSE 82; RESP 16; TEMP 36.5; O2SAT 95
[2022-01-17 08:04] LABS: C-Reactive Protein 2.34 mg/dL (0.0-0.3)
[2022-01-17 08:05] LABS: ALT 38 U/L (14-59); AST 218 U/L (15-37); Albumin 1.8 g/dL (3.4-5.0); Alkaline Phosphatase 324 U/L (46-116); Anion Gap 4.8 mmol/L (3-11); BUN 5 mg/dL (7-18); Bilirubin, Direct 3.3 mg/dL (0.0-0.2); Bilirubin, Total 4.3 mg/dL (0.2-1.0); CO2 34.2 mmol/L (21.0-32.0); CREATININE 1.1 mg/dL (0.55-1.02); Calcium 8.8 mg/dL (8.5-10.1); Chloride 94 mmol/L (98-107); Estimated GFR 62.76 (mL/min/1.73m2); Glucose 107 mg/dL (74-106); Potassium 3.8 mmol/L (3.5-5.1); Sodium 133 mmol/L (136-145)
--- NOTE | 2022-01-17 08:07 | W.PALLCONSUL ---
Date of service: 01/16/22 Time of Service: 15:15 History of Present Illness Narrative: Ms. Coleman is a 46 y/o F currently inpatient at [facility] 2/2 hepatic encephalopathy; PMHx sig for AUD w/h/o hepatitis, pancreatitis, CALEB; PC consult placed to review [facility] Hospital course: ?presented to [facility] ED on 01/13 w/CC RUQ pain, vomiting and hip pain; work-up reviewed /[facility], acutely decompensated cirrhosis, not candidate for transplant given ongoing alcohol use (1 beer/d), recommendation for inpatient admission for electrolyte repletion and conservative mx Patient reports continues to feel somnolent and lethargic, denies confusion; pt aware of chronic, worsening liver disease, aware of strong recommendation to completely discontinue use of alcohol; swelling is controlled today in legs unsure of current meds, has a little fluid build up in abd, denies dyspnea and pain; reports sxs struggling with prior to hospitalization: nausea, constipation, weakness, unable to walk distances and difficulty w/stairs, lethargy; used to drink up to one fifth of alcohol/day, is now down to 1 vikram/day, after period of complete cessation; pt unable to relay purpose of resumption of use, around 1 beer/day w/occasional days up to 2/day; does work w/PCP regarding continued cessation goals; has engaged w/recovery coaches in past, did have a manager of disaster recovery visit this afternoon, will consider re-engaging based on what her partner Prabhu will want to do. partner and pt have participated in recovery in tandem and parallel, she feels strongly she would need his engagement, reports he does not use alcohol at this time; feels he is her biggest supporter and helps her stay on track pt lives in [place] w/parter of 10 years Prabhu, has two children 22 and 19, one currently in college, the other couch surfing, she is very proud; started new job w/[employer] in previous 2 mos, is hoping for a quick discharge so she may return to work; prior to hospitalization was having increased symptoms which limit ability to perform work duties, including lethargy, weakness and physical capacity; previously worked in healthcare as well. pt reports [facility] as Prabhu, preference to remain FULL code at this time; goal to return to work and would like a list of medications and purpose of med at discharge Assessment and Plan Assessment and plan (1) Hepatic encephalopathy: Status: Acute Assessment and plan: Remains symptomatic on lactulose. Increase latculose dose. Continue? rifaximine (prior auth approved). D/c lorazepam. (2) Acute alcoholic hepatitis: Status: Acute Assessment and plan: Maddrey Score down from 72.2 on admission to 20.3. Continue? prednisolone 40 mg daily? Trend INR, LFTs Low sodium diet. (3) Chronic alcoholism: Assessment and plan: swim coach meeting today, reviewed w/pt, encouraged engagement reviewed importance of complete cessation of alcohol to align w/pt goals of returning to work reviewed liver disease progression (4) Nausea: Status: Resolved Assessment and plan: controlled at this time (5) Generalized weakness: Status: Acute Assessment and plan: continue to engage in PT, reviewed w/pt expectations for returning to work to include limited physical activity, concerns over returning too fast and delaying recovery reviewed liver dz role in weakness (6) CALEB on CPAP: Status: Chronic Assessment and plan: pt working w/new CPAP during visit, plan to use during nap s/p visit (7) Full code status: Status: Acute Assessment and plan: reviewed code status, statistics and outcomes pt preference to remain FULL code at this time, preference to hold [facility] paperwork to review w/partner (8) Palliative care encounter: Status: Acute Assessment and plan: to continue to follow outpatient offered home visit, pt preference to have OV d/t home conditions Review of Systems Narrative: see HPI PFSH All Active Problems (Updated 01/17/22 @ 08:49 by Camryn Randall NP) Palliative care encounter (Acute) Full code status (Acute) Hepatic encephalopathy (Acute) Acute hypokalemia (Acute) Acute hyponatremia (Acute) Hyperbilirubinemia (Acute) DVT prophylaxis (Acute) Discharge planning issues (Acute) Jaundice (Acute) Acute hyponatremia (Acute) Acute hypokalemia (Acute) Acute alcoholic hepatitis (Acute) Generalized weakness (Acute) CALEB on CPAP (Chronic) Transaminitis (Acute) Gallbladder sludge (Acute) Coagulopathy (Acute) Abdominal fluid collection (Acute) Anemia (Chronic) Alcoholism (Chronic) Hemoglobin low (Chronic) Normal colonoscopy (Acute) Smoker (Acute) Alcoholism (Acute) Medical History Anxiety Asthma BMI 36.0-36.9,adult Chronic alcoholism since 35yo. Completed [facility] inpatient, relapsed and developed pacreatitis 03/2016. Sober since then. Constipation Depression Dyspepsia Dysphonia Elevated liver enzymes Elevated transaminase level History of substance abuse Hyperthyroidism Hypokalemia Macrocytosis Mental health problem Mood improved with Gabapentin. May change to SSRI. Dr Connors monitors. Obesity CALEB (obstructive sleep apnea) Pancreatitis Pedal edema Post-nasal drip Stress incontinence Tobacco use Vitamin D deficiency Surgical History back surgery lumbar disk shaving. bunionectomy L foot. History of colonoscopy (~07/03/21) Stoiber, airway concerns during procedure refer to procedure note. Family History Grandmother No problems noted. Social History Smoking/Tobacco Use Status: Current every day Tobacco Type: cigarettes Smoking risk assessment performed?: Yes Alcohol Intake: current Alcohol Intake frequency: 0-2 drinks per day Alcohol type: beer Drug use: Current Sobriety Substance use type: opiates Details: 2 years since use Do you feel safe at home: Yes Do you feel safe in your relationship?: Yes Exam Const General: cooperative, no acute distress, ill appearing and lethargic Nutritional Appearance: overweight Orientation: alert, awake and oriented x3 HENMT Head: normal to inspection, normocephalic and atraumatic Ears: hearing grossly normal bilaterally Resp Effort & Inspection: normal respiratory effort, able to speak in complete sentences, no audible wheezes and no cough Skin General skin exam: no rashes or lesions noted Neuro Other: mild asterexis Psych Speech and Movement: speech clear Mood: congruent mood Affect: normal affect and indifferent Attitude: cooperative and guarded Thought Process: impoverished and loose association Insight: limited Judgment: limited Results Last Vital Signs Temp 97.9 F 01/16/22 22:45 Pulse 81 01/16/22 22:45 Resp 20 01/16/22 22:45 BP 135/79 01/16/22 22:45 Pulse Ox 96 01/16/22 22:45 Labs Result diagrams: 01/17/22 07:15 01/17/22 07:15 Labs: Laboratory Results - last 24 hr 01/16/22 01/16/22 01/16/22 10:20 10:20 10:20 WBC 14.45 H RBC 3.25 L Hgb 10.2 L Hct 30.2 L MCV 93 MCH 31.4 MCHC 33.8 RDW 17.9 H Plt Count 201 MPV 11.5 H Immature Gran % 0.0 Neutrophils % 75.0 Band Neutrophils % 0 Lymphocytes % 18.0 Atypical Lymphs % 0 Monocytes % 7.0 Eosinophils % 0.0 Basophils % 0.0 Nucleated RBC % 0.2 Absolute Neutrophils 10.84 H Absolute Lymphocytes 2.60 Absolute Monocytes 1.01 H Absolute Eosinophils 0.00 Absolute Basophils 0.00 RBC Morphology Normal PT 14.4 H INR 1.5 H Sodium 132 L Potassium 3.3 L Chloride 94 L Carbon Dioxide 36.7 H Anion Gap 1.3 L BUN 3 L Creatinine 1.2 H Est GFR (CKD-EPI 2020) 56.54 Glucose 140 H Calcium 8.9 Magnesium 2.1 Total Bilirubin 4.7 H Conjugated Bilirubin 3.8 H AST 192 H ALT 30 Alkaline Phosphatase 315 H C-Reactive Protein 3.12 H Total Protein 7.1 Albumin 1.8 L 01/17/22 01/17/22 01/17/22 07:15 07:15 07:15 WBC 16.83 H RBC 3.30 L Hgb 10.3 L Hct 30.5 L MCV 92 MCH 31.2 MCHC 33.8 RDW 18.2 H Plt Count 228 MPV 11.6 H Immature Gran % 1.4 Neutrophils % 65.9 Band Neutrophils % Lymphocytes % 20.7 Atypical Lymphs % Monocytes % 11.4 Eosinophils % 0.4 Basophils % 0.2 Nucleated RBC % 0.2 Absolute Neutrophils 11.09 H Absolute Lymphocytes 3.48 H Absolute Monocytes 1.92 H Absolute Eosinophils 0.07 Absolute Basophils 0.03 RBC Morphology Normal PT INR Sodium 133 L Potassium 3.8 Chloride 94 L Carbon Dioxide 34.2 H Anion Gap 4.8 BUN 5 L Creatinine 1.1 H Est GFR (CKD-EPI 2020) 62.76 Glucose 107 H Calcium 8.8 Magnesium 2.0 Total Bilirubin 4.3 H Conjugated Bilirubin 3.3 H AST 218 H ALT 38 Alkaline Phosphatase 324 H C-Reactive Protein 2.34 H Total Protein 7.0 Albumin 1.8 L 01/17/22 07:15 WBC RBC Hgb Hct MCV MCH MCHC RDW Plt Count MPV Immature Gran % Neutrophils % Band Neutrophils % Lymphocytes % Atypical Lymphs % Monocytes % Eosinophils % Basophils % Nucleated RBC % Absolute Neutrophils Absolute Lymphocytes Absolute Monocytes Absolute Eosinophils Absolute Basophils RBC Morphology PT 13.9 H INR 1.4 H Sodium Potassium Chloride Carbon Dioxide Anion Gap BUN Creatinine Est GFR (CKD-EPI 2020) Glucose Calcium Magnesium Total Bilirubin Conjugated Bilirubin AST ALT Alkaline Phosphatase C-Reactive Protein Total Protein Albumin
[2022-01-17 08:41] LABS: Procalcitonin 0.3 ng/mL
--- NOTE | 2022-01-17 09:09 | NUR.NOTE ---
Nursing Note: NUTRITIONAL SERVICES HOST went in room to ask pT if she wanted to take a shower, pT stated that she took a shower last night and will hold off for a little while. NUTRITIONAL SERVICES HOST checked documentation under hygien and pT hasn't had care done sense January 15.
--- NOTE | 2022-01-17 09:47 | PDOC.CMPRO ---
- If Service Date Differs Date of service: 01/17/22 Time of Service: 09:47
--- NOTE | 2022-01-17 09:50 | PDOC.CMPRO ---
- If Service Date Differs Date of service: 01/17/22 Time of Service: 09:50 Care Management Progress Note S/O: Virginia continues to require further medical workup and treatment. She met with Palliative Care and a Mental Retardation Nurse yesterday. CM provided pt with a letter for work, at her request. A: Virginia is a 46 year old woman admitted on 01/13/22 with decompensated cirrhosis P:Virginia will likely be discharged home with no new services. She will follow up with her PCP and plan of care as prescribed and transport with a friend. Recommend Virginia follow up with the [facility] post discharge. CM will support Virginia and her discharge needs.
[2022-01-17] MEDS: Pantoprazole 40 MG TABCR PO (10:49)
[2022-01-17] MEDS: Spironolactone 50 MG TAB PO (10:49)
[2022-01-17] MEDS: Furosemide 20 MG TAB PO (10:49)
[2022-01-17] MEDS: Lactulose 20 GM/30 ML CUP 30 GM PO ×3 (12:38→20:19)
--- NOTE | 2022-01-17 13:22 | PT.INTREAT ---
Date of service: 01/18/22 Time of Service: 08:42 PT Notes Visit Reasons: Decompensated Cirrhosis Inpatient Physical Therapy Treatment Note [facility] Date: 01/17/2022 PRECAUTIONS: Activity as tolerated SUBJECTIVE: Virginia is pleasant and agreeable to participating in PT. She reports that she is having diarrhea-related cramping today and that she has not slept well. She would like to go home. OBJECTIVE: Issued and fit FWW to patient for at home use. Completed [facility] form and submitted to Care Management. Patient deemed safe for independent transfers and ambulation in room and hallway with FWW support at this time. PAIN: Patient c/o stomach pain BED MOBILITY/TRANSFERS: Supine-sit: I Sit-stand: I Stand-sit: I Bed-chair: I Chair-bed: I GAIT: Assistive Device: FWW Weight bearing: Full Assist: I Distance: 100' x2 Deviation: None STAIRS: Up/down 3x4 and 2x6 using B rails and a step-to pattern independently. ASSESSMENT: Patient tolerated session without complaint. She demonstrates independence with transfers, ambulation with FWW and stair negotiation at this time. PLAN: Patient to discharge from PT services due to independence with all functional mobility at this time. TREATMENT CODE/TIME: 15 minutes; [id number] (08:42)
[2022-01-17 15:30] VITALS: BP 94/41; PULSE 86; RESP 16; TEMP 36.4; O2SAT 96
[2022-01-17 16:01] VITALS: BP 102/68
--- NOTE | 2022-01-17 18:00 | INDS_ITS ---
Date of service: 01/17/22 PT Notes Visit Reasons: Decompensated Cirrhosis Physical Therapy Inpatient Discharge Summary Date: 01/17/2022 Dates of service: 01/15/2022 through 01/17/2022 This is a clinical summary of care provided for the duration of dates listed above. No charge was made in the completion of this documentation. Referring Doctor: Brianna Wheatley MD PT Orders: PT CONSULT: Limited ability Precautions: Fall. Standard. Activity as tolerated. Patient Profile/Admitting Diagnosis:Faith Coleman is a 46-year-old female who presented to the ED on 01/13/2022 due to nausea, vomiting, and abdominal bloating.? Patient was diagnosed with acute alcoholic hepatitis, hypotension, anemia, acute hypokalemia, nausea, alcoholism, coagulopathy, transaminitis, and hyperbilirubinemia. PMHX: All Active Problems?(Updated 01/13/22 @ 23:01 by Sussy Fisher NP) Nausea (Acute) Acute hypokalemia (Acute) Acute hyponatremia (Acute) Hypotension (Acute) Hyperbilirubinemia (Acute) DVT prophylaxis (Acute) Discharge planning issues (Acute) Jaundice (Acute) Acute hyponatremia (Acute) Acute hypokalemia (Acute) Acute alcoholic hepatitis (Acute) Generalized weakness (Acute) CALEB on CPAP (Chronic) Transaminitis (Acute) Gallbladder sludge (Acute) Coagulopathy (Acute) Abdominal fluid collection (Acute) Anemia (Chronic) Alcoholism (Chronic) Hemoglobin low (Chronic) Normal colonoscopy (Acute) Smoker (Acute) Alcoholism (Acute) Medical History? Anxiety Asthma BMI 36.0-36.9,adult Chronic alcoholism since [address]yo. Completed [facility] inpatient, relapsed and developed pacreatitis 03/2016. Sober since then. Constipation Depression Dyspepsia Dysphonia Elevated liver enzymes Elevated transaminase level History of substance abuse Hyperthyroidism Hypokalemia Macrocytosis Mental health problem Mood improved with Gabapentin. May change to SSRI. Dr Connors monitors. Obesity CALEB (obstructive sleep apnea) Pancreatitis Pedal edema Post-nasal drip Stress incontinence Tobacco use Vitamin D deficiency Surgical History? back surgery lumbar disk shaving bunionectomy L foot. History of colonoscopy (~07/03/21) Stoiber, airway concerns during procedure refer to procedure note. Social History/Home Situation: Lives with significant other in a private home with 3 steps to enter with rails on both sides.? Works for [employer] but is hoping that she can be strong enough before she comes back there.? Denied with all aspects of ADLs prior to a dmission. Equipment Owned/DME: SPC Subjective: NT. See most recent CHECK TOTALER notes. Objective: General Observation: NT. See most recent CHECK TOTALER notes. Mental Status: NT. See most recent CHECK TOTALER notes. Pain: NT. See most recent CHECK TOTALER notes. Vital Signs: NT. See most recent CHECK TOTALER notes. ROM: Right Upper Extremity: ? Shoulder Flexion WFL. Shoulder abduction WFL. Elbow flexion WFL. Wrist flexion WFL. Functional opening and closing of hand WFL. Left Upper Extremity:? Shoulder Flexion WFL. Shoulder abduction WFL. Elbow flexion WFL. Wrist flexion WFL. Functional opening and closing of hand WFL. Right Lower Extremity: Hip flexion WFL. Hip abduction WFL. Knee flexion WFL. Ankle dorsiflexion WFL. Ankle plantarflexion WFL. Left Lower Extremity: Hip flexion WFL. Hip abduction WFL. Knee flexion WFL. Ankle dorsiflexion WFL. Ankle plantarflexion WFL. Strength Right Upper Extremity: Shoulder flexors 4-/5. Shoulder abductors 4-/5. Elbow flexors 4-/5. Elbow extensors 4-/5. Auto Air Conditioning Mechanic strong. Left Upper Extremity: Shoulder flexors 4-/5. Shoulder abductors 4-/5. Elbow flexors 4-/5. Elbow extensors 4-/5. Auto Air Conditioning Mechanic strong. Right Lower Extremity: Hip flexors 4-/5. Hip abductors 4-/5. Knee flexors 4-/5. Knee extensors 4-/5. Ankle dorsiflexors 4-/5. Ankle plantarflexors 4-/5. Left Lower Extremity: Hip flexors 4-/5. Hip abductors 4-/5. Knee flexors 4-/5. Knee extensors 4-/5. Ankle dorsiflexors 4-/5. Ankle plantarflexors 4-/5. Bed Mobility/Transfers: Supine to sit independent Sit to supine independent Sit to stand independent with FWW Stand to sit independent Bed to reclining chair independent Reclining chair to bed independent GAIT: Assistive Device: FWW Weight bearing: Full Assist: I Distance: 100' x2 Deviation: None Balance: Static Sitting: Normal Dynamic Sitting: Normal Static Standing: Good Dynamic Standing: Fair Assessment: Patient presents with clinical signs and symptoms consistent with current/admitting diagnoses that have resulted to mobility limitations, gait instability, generalized weakness, and overall ADL decline as demonstrated by the following impairment level findings: 1.? Decreased strength to? B UE/LE major muscle groups 2.? Impaired standing balance due to weakness and fatigue 3.? Impaired activity tolerance 4.? Swelling to B legs Impairments are contributing to the following functional limitations: 1.? Decline in transfer skills 2.? Difficulty with ambulation without assistive device 3.? Increased completion time for mobility ADL performance 4.? Increased risk for falls 5.? Difficulty with managing steps alone safely Goals: Goals X1 week 1. Supine-Sit independent MET 2. Sit-Supine independent MET 3. Sit-Stand independent MET 4. Stand-Sit independent with no AD MET 5. Bed-Chair independent with no AD MET 6. Chair-Bed independent with no AD MET 7. Independent gait on level surface with use of FWW for at least 1000 feet without report of pain nor dyspnea NOT MET 8. Independent stair negotiation while holding onto B rails for at least 3 steps without report of pain nor dyspnea NOT MET 9. Independent with home exercise program NOT MET 10. Good static and dynamic standing balance/tolerance MET DISCHARGE RECOMMENDATIONS: [] ? Home with no services [] [] ? Home with services [specify] [X] ? Home with outpatient PT.? Home when medically cleared by hospitalist.? Will benefit from outpatient services to regain premorbid independent level and facilitate return to full vocational activities.? Will require use of FWW for long distances at this time. [] ? SNF for continued rehabilitation [] [] ? Custodial Care [] [] ? SNF versus LTC based on ability to participate and progress [] TREATMENT CODE/TIME: PR Thank you for the opportunity to participate in the care of this patient. Emmanuelle Hernandez PT, DPT, CLT [facility] [place], [place]
--- NOTE | 2022-01-17 18:37 | W.PM.PROGNOT ---
Date of Service Date of service: 01/17/22 Time of Service: 18:37 Assessment and Plan Assessment and plan (1) Acute alcoholic hepatitis: Status: Acute Assessment and plan: Maddrey Score down from 72.2 on admission to 17.6. Continue prednisolone 40 mg daily Trend INR, LFTs Low sodium diet. Will speak with hepatology. (2) Cholecystitis: Status: Suspected Assessment and plan: Will discuss with hepatology. Considering cholecystostomy. (3) Hepatic encephalopathy: Status: Acute Assessment and plan: Better since increase in lactulose and addition of rifaximine. (prior auth approved) Continue current therapy. (4) Hypotension: Status: Resolved Assessment and plan: Agree that this is due to hypoalbuminemia. Asymptomatic. Would not work this up any further. No indication for IVF at this time. (5) Anemia: Status: Chronic Assessment and plan: Heme negative. H/H stable. Previously folate-deficient. Continue repletion. (6) Acute hyponatremia: Status: Acute Assessment and plan: Dilutional in setting of cirrhosis. Diet changed to low sodium. Sodium is now 133, near baseline. Euvolemic currently Given this, will not diurese further at this time. Recheck again in am. (7) Acute hypokalemia: Status: Resolved Assessment and plan: Recheck in am. (8) Nausea: Status: Resolved Assessment and plan: Suspect alcoholic gastritis. Continue PPI. (9) Alcoholism: Status: Chronic Assessment and plan: As above Suspect underlying cirrhosis. This is not the first bout of alcoholic hepatitis. No evidence of EToH w/d at this time. Abstinence encouraged. Palliative care saw the patient today. Continue thiamine, MVI, folate. Sobriety cricket coach has been contacted. (10) Coagulopathy: Status: Acute Assessment and plan: Without acute bleeding. Due to alcoholic hepatitis and likely cirrhosis. INR improved. S/p Vitamin K. heme negative. Continue to monitor INR. (11) Transaminitis: Status: Acute Assessment and plan: In setting of acute alcoholic hepatitis and suspected acute cholecystitis. As above. Will continue to trend. Patient advised to remain abstinent form EtOH. (12) Hyperbilirubinemia: Status: Acute Assessment and plan: Better. In setting of EtOH hepatitis and acute cholecystitis. Continue prednisolone. As above. (13) DVT prophylaxis: Status: Acute Assessment and plan: TEDs. Holding off on chemical DVT ppx in setting of coagulopathy. (14) Discharge planning issues: Status: Acute Assessment and plan: Full code Seen by palliative care. Continues to require hospitalization and may require a [id number] trip to [facility] for a cholecystostomy. Will need a organ recovery coordinator on discharge. Discussed with Dr Nesbitt. Subjective Subjective Interval history since last seen: Virginia feels better today. She is tired. She did not sleep well last night. Denies chest pain, shortness of breath, nausea, abdominal pain. She specifically denies RUQ pain (had a positive Lopez's sign recorded by the security alarm technician), stating that she was ticklish. Dr Nesbitt evaluated [place] and feels that she would be too high risk to have a surgery here (as does our anesthesia). [facility] general surgery was consulted: they feel that hepatology should be involved and, if still no solution, then cholecystostomy should be considered. Exam Narrative Exam Narrative: General: Pleasant (less) jaundiced middle-aged female, A&Ox3, no asterexis today, appears to be more engaged in our conversation HEENT: EOMI, MMM Heart: RRR, no m/r/g Lungs: CTAB Abdomen: soft, nontender, obese (?ascites) Extremities: +1 BLE edema, symmetric Objective Last Vital Signs Temp 36.4 C L 01/17/22 15:30 Pulse 86 01/17/22 15:30 Resp 16 01/17/22 15:30 BP 102/68 01/17/22 16:01 Pulse Ox 96 01/17/22 15:30 Laboratory Results - last 24 hr 01/17/22 01/17/22 01/17/22 07:15 07:15 07:15 WBC RBC Hgb Hct MCV MCH MCHC RDW Plt Count MPV Immature Gran % Neutrophils % Lymphocytes % Monocytes % Eosinophils % Basophils % Nucleated RBC % Absolute Neutrophils Absolute Lymphocytes Absolute Monocytes Absolute Eosinophils Absolute Basophils RBC Morphology PT INR Sodium 133 L Potassium 3.8 Chloride 94 L Carbon Dioxide 34.2 H Anion Gap 4.8 BUN 5 L Creatinine 1.1 H Est GFR (CKD-EPI 2020) 62.76 Glucose 107 H Calcium 8.8 Magnesium 2.0 Total Bilirubin 4.3 H Conjugated Bilirubin 3.3 H AST 218 H ALT 38 Alkaline Phosphatase 324 H C-Reactive Protein 2.34 H Total Protein 7.0 Albumin 1.8 L Procalcitonin 0.3 01/17/22 01/17/22 07:15 07:15 WBC 16.83 H RBC 3.30 L Hgb 10.3 L Hct 30.5 L MCV 92 MCH 31.2 MCHC 33.8 RDW 18.2 H Plt Count 228 MPV 11.6 H Immature Gran % 1.4 Neutrophils % 65.9 Lymphocytes % 20.7 Monocytes % 11.4 Eosinophils % 0.4 Basophils % 0.2 Nucleated RBC % 0.2 Absolute Neutrophils 11.09 H Absolute Lymphocytes 3.48 H Absolute Monocytes 1.92 H Absolute Eosinophils 0.07 Absolute Basophils 0.03 RBC Morphology Normal PT 13.9 H INR 1.4 H Sodium Potassium Chloride Carbon Dioxide Anion Gap BUN Creatinine Est GFR (CKD-EPI 2020) Glucose Calcium Magnesium Total Bilirubin Conjugated Bilirubin AST ALT Alkaline Phosphatase C-Reactive Protein Total Protein Albumin Procalcitonin Objective Narrative Objective Narrative: US abdomen: 1. Hepatomegaly and hepatic steatosis. 2. Stones and sludge within the gallbladder.? There does appear to be a gallstone in the neck of the gallbladder.? The patient did exhibit a positive sonographic Lopez sign.? Acute cholecystitis should be considered in this patient. PAWSS Have you Been Recently Intoxicated or Drunk Within the Last 30 days?: No Have you Ever Experienced Previous Episodes of Alcohol Withdrawal?: Yes Have you ever Experienced Withdrawal Seizures?: No Have you ever Experienced Delirium Tremens(DT)s?: No Have you ever undergone Alcohol Rehabilitation Treatment (i.e, inpt ot outpatient treatment programs)?: Yes Have you ever Experienced Blackouts?: No Have you ever Combined Alcohol with other Downers within the last 90 days?: No Have you ever Combined Alcohol with any other Substance of Abuse during the last 90 days?: No Positive Blood Alcohol level on Presentation? [PCS.BAL]: No Evidence of Increased Autonomic Activity (i.e. HR>120, tremor, sweating, agitation, nausea)?: No Result: 2
[2022-01-17 20:15] VITALS: BP 102/66; PULSE 70; RESP 16; TEMP 36.5; O2SAT 93
[2022-01-17] MEDS: Rifaximin 550 MG TAB PO (20:18)
[2022-01-17 20:25] VITALS: RESP 15; O2SAT 98
[2022-01-17] MEDS: Normal Saline 500 ML 30 ML IV (20:52)
[2022-01-17] MEDS: PIPERACILLIN/TAZO 3.375 GM in Normal Saline 50 ML IVPB (20:52)
--- NOTE | 2022-01-17 21:12 | W.SURGCON ---
Date of service: 01/17/22 Time of Service: 16:45 Assessment and Plan Assessment and plan (1) Cholecystitis: Status: Suspected Assessment and plan: Although some of her symptoms are a bit atypical for acute cholecystitis, I suppose it could present this way (especially in light of her hepatitis history and cirrhosis). I had a chance to review the CAT scan as well as the ultrasound images myself. Certainly, there is a little bit of pericholecystic fluid, but there is also ascites which confounds that diagnosis. I suppose the best test to rule out acute cholecystitis would be a HIDA scan. However, she had that test done back in October, and it demonstrated nonvisualization of the gallbladder at that time. There is certainly a false positive rate for patients with cirrhosis, but the quality of the study is quite good, and it seems pretty convincing to me that she had acute cholecystitis at that time. She did, however, improved without surgery which makes the diagnosis even more puzzling. In that regard, I am not sure how much HIDA scan would influence my decision making at this time. I suppose one option would be operative cholecystectomy. However, she is not a great candidate for surgery based on the extent of her liver disease. The NSQIP surgical risk calculator puts her at about twice the risk of all complicated outcomes relative to the standard population. Similarly, the [facility] cirrhosis surgical risk calculator also describes unacceptably high risk (in my opinion). I talked about her case, and reviewed imaging with Dr. Wharton from the surgical team at [facility]. He seems to share the opinion that operative risk is not really justified at this point. I do think it is reasonable to present her case to the hepatology specialists at [facility] as well. If the other medical therapies have been exhausted, and there is no other good options, then I would recommend percutaneous cholecystostomy rather than open or laparoscopic surgery and planned interval cholecystectomy if necessary once her overall physiology improves. History of Present Illness History of Present Illness Chief Complaint: Abdominal discomfort Narrative: I was asked to see me for my opinion of her abdominal pain, and the possibility of acute cholecystitis. She is 46 years old, and came to the emergency department approximately 4 days ago with a chief complaint of midepigastric discomfort, and loss of appetite. She denies pain, but she tells me that she generally does not experience pain the way that she perceives other people to. She says this discomfort felt like a fullness across the upper part of her abdomen (her mid epigastrium) and was very similar to what she experienced this past October. She was found to have a leukocytosis in the emergency department around 13,000, with an INR of 2.7. She had elevated liver enzymes, as well as hyperbilirubinemia and an elevated alkaline phosphatase. She underwent a CAT scan of the abdomen and pelvis that demonstrated some gallstones, and perhaps sludge but no gallbladder wall thickening. She also had some inflammatory changes of the biliary tree, as well as some ascites. She was admitted to the hospital with a diagnosis of acute hepatitis similar to her admission in October. Since then, she has had some mild improvement in the midepigastric discomfort. She does have a little bit of an appetite today. She continues to deny pain. Based on her CAT scan findings, she underwent an ultrasound of the right upper quadrant today. Results of that study indicate some gallstones in the gallbladder neck as well as some pericholecystic fluid. The natural resources technician also notes that the patient had a positive sonographic Lopez sign. She says she remembers a little bit of pain during the ultrasound, when the probe was pushing against her upper abdomen. I did have the opportunity to go through some of her records from her hospitalization in October. Similar to this visit, she did have some CT scan and ultrasound findings that raise the possibility of cholecystitis. Furthermore she underwent a HIDA scan that demonstrated nonvisualization of the gallbladder after 2 hours with excretion of tracer into the duodenum. At that time, she was seen by my partners, and after discussions with the medical team, anesthesia providers, as well as consultation with [facility] gastroenterology, she was treated with antibiotics and nonoperative interventions. At that time, the feeling was that if it came to cholecystectomy, that that should probably be conducted at a specialty center with advanced hepotology support. Review of Systems Constitutional Constitutional: Reports difficulty sleeping, Reports fatigue, Denies fever(s), Reports lethargy and Reports poor appetite Eyes Eyes: Reports system reviewed and no additional complaints, except as documented ENT Ears, Nose, Mouth, and Throat: Reports system reviewed and no additional complaints, except as documented Cardiovascular Cardiovascular: Denies chest pain and Reports dyspnea on exertion Respiratory Respiratory: Denies chest congestion, Reports cough and Reports dyspnea on exertion Gastrointestinal Gastrointestinal: Denies abdominal pain, Denies melena, Denies change in bowel habits, Reports constipation, Denies dyspepsia, Denies heartburn, Reports nausea and Denies vomiting Genitourinary Genitourinary: Reports system reviewed and no additional complaints, except as documented Musculoskeletal Musculoskeletal: Reports back pain and Reports myalgias Neurologic Neurologic: Reports system reviewed and no additional complaints, except as documented Psychiatric Psychiatric: Reports anhedonia Endocrine Endocrine: Reports fatigue and Reports polyuria (With diuresis) Hematologic/Lymphatic Hematologic/Lymphatic: Denies easy bleeding and Denies easy bruising PFS All Active Problems (Updated 01/17/22 @ 18:48 by Brianna Wheatley MD) Palliative care encounter (Acute) Full code status (Acute) Hepatic encephalopathy (Acute) Acute hyponatremia (Acute) Hyperbilirubinemia (Acute) DVT prophylaxis (Acute) Discharge planning issues (Acute) Jaundice (Acute) Acute hyponatremia (Acute) Acute hypokalemia (Acute) Acute alcoholic hepatitis (Acute) Generalized weakness (Acute) CALEB on CPAP (Chronic) Transaminitis (Acute) Gallbladder sludge (Acute) Coagulopathy (Acute) Abdominal fluid collection (Acute) Anemia (Chronic) Alcoholism (Chronic) Hemoglobin low (Chronic) Normal colonoscopy (Acute) Smoker (Acute) Alcoholism (Acute) Medical History Anxiety Asthma BMI 36.0-36.9,adult Chronic alcoholism since 35yo. Completed [facility] inpatient, relapsed and developed pacreatitis 03/2016. Sober since then. Constipation Depression Dyspepsia Dysphonia Elevated liver enzymes Elevated transaminase level History of substance abuse Hyperthyroidism Hypokalemia Macrocytosis Mental health problem Mood improved with Gabapentin. May change to SSRI. Dr Connors monitors. Obesity CALEB (obstructive sleep apnea) Pancreatitis Pedal edema Post-nasal drip Stress incontinence Tobacco use Vitamin D deficiency Surgical History back surgery lumbar disk shaving. bunionectomy L foot. History of colonoscopy (~07/03/21) Stoiber, airway concerns during procedure refer to procedure note. Family History Grandmother No problems noted. Social History Smoking/Tobacco Use Status: Current every day Tobacco Type: cigarettes Smoking risk assessment performed?: Yes Alcohol Intake: current Alcohol Intake frequency: 0-2 drinks per day Alcohol type: beer Drug use: Current Sobriety Substance use type: opiates Details: 2 years since use Do you feel safe at home: Yes Do you feel safe in your relationship?: Yes Exam Const General: cooperative, anxious and ill appearing Nutritional Appearance: malnourished Orientation: awake [facility] Head: normal to inspection Ears: hearing grossly normal bilaterally Mouth: moist mucous membranes Eyes Sclera: scleral abnormality bilaterally other (Mild scleral icterus) Pupils: PERRL Neck Neck: normal visual inspection and no lymphadenopathy Lymphatic: no lymphadenopathy noted Resp Effort & Inspection: decreased respiratory effort (Difficulty with deep inspiration) and not labored Auscultation: clear to auscultation bilaterally and diminished lung sounds (Diminished at the bases bilaterally) Cardio Rate: regular rate Rhythm: regular rhythm Heart Sounds: S1 normal and S2 normal GI Inspection: distended Palpation: soft, not firm, no guarding and tender (Mild midepigastric and right upper quad tenderness) Percussion: dullness to percussion Auscultation: normal bowel sounds Skin General skin exam: jaundice (Mild) Lesions: no lesions Neuro General: patient awake and patient confused Speech: other (Speech is a little slow) Extrem General: pedal edema Results Last Vital Signs Temp 97.5 F L 01/17/22 15:30 Pulse 86 01/17/22 15:30 Resp 16 01/17/22 15:30 BP 102/68 01/17/22 16:01 Pulse Ox 96 01/17/22 15:30 Labs Result diagrams: 01/17/22 07:15 01/17/22 07:15 Labs: Laboratory Results - last 24 hr 01/17/22 01/17/22 01/17/22 07:15 07:15 07:15 WBC RBC Hgb Hct MCV MCH MCHC RDW Plt Count MPV Immature Gran % Neutrophils % Lymphocytes % Monocytes % Eosinophils % Basophils % Nucleated RBC % Absolute Neutrophils Absolute Lymphocytes Absolute Monocytes Absolute Eosinophils Absolute Basophils RBC Morphology PT INR Sodium 133 L Potassium 3.8 Chloride 94 L Carbon Dioxide 34.2 H Anion Gap 4.8 BUN 5 L Creatinine 1.1 H Est GFR (CKD-EPI 2020) 62.76 Glucose 107 H Calcium 8.8 Magnesium 2.0 Total Bilirubin 4.3 H Conjugated Bilirubin 3.3 H AST 218 H ALT 38 Alkaline Phosphatase 324 H C-Reactive Protein 2.34 H Total Protein 7.0 Albumin 1.8 L Procalcitonin 0.3 01/17/22 01/17/22 07:15 07:15 WBC 16.83 H RBC 3.30 L Hgb 10.3 L Hct 30.5 L MCV 92 MCH 31.2 MCHC 33.8 RDW 18.2 H Plt Count 228 MPV 11.6 H Immature Gran % 1.4 Neutrophils % 65.9 Lymphocytes % 20.7 Monocytes % 11.4 Eosinophils % 0.4 Basophils % 0.2 Nucleated RBC % 0.2 Absolute Neutrophils 11.09 H Absolute Lymphocytes 3.48 H Absolute Monocytes 1.92 H Absolute Eosinophils 0.07 Absolute Basophils 0.03 RBC Morphology Normal PT 13.9 H INR 1.4 H Sodium Potassium Chloride Carbon Dioxide Anion Gap BUN Creatinine Est GFR (CKD-EPI 2020) Glucose Calcium Magnesium Total Bilirubin Conjugated Bilirubin AST ALT Alkaline Phosphatase C-Reactive Protein Total Protein Albumin Procalcitonin
[2022-01-17] MEDS: Melatonin 3 MG TAB 6 MG PO (21:40)
[2022-01-17 23:51] VITALS: BP 103/66; PULSE 85; RESP 16; TEMP 36.7; O2SAT 93
[2022-01-18] MEDS: PIPERACILLIN/TAZO 3.375 GM in Normal Saline 50 ML IVPB ×3 (01:28→14:30)
[2022-01-18] MEDS: Normal Saline Flush 10 ML SYR IVP (01:29)
[2022-01-18 02:34] VITALS: BP 102/66; PULSE 77; RESP 16; TEMP 36.4; O2SAT 93
[2022-01-18 07:51] VITALS: BP 100/70; PULSE 78; RESP 17; TEMP 36.1; O2SAT 95
[2022-01-18 09:09] VITALS: TEMP 36.1
[2022-01-18] MEDS: Pantoprazole 40 MG TABCR PO (09:09)
[2022-01-18] MEDS: Rifaximin 550 MG TAB PO (09:10)
[2022-01-18] MEDS: prednisoLONE SOD PHOS. Soln. 3 MG/ML 40 MG PO (09:15)
[2022-01-18] MEDS: Furosemide 20 MG TAB PO (09:19)
[2022-01-18] MEDS: Folic Acid 1 MG TAB PO (09:19)
[2022-01-18] MEDS: Thiamine 100 MG TAB PO (09:19)
--- NOTE | 2022-01-18 10:31 | PDOC.CMPRO ---
- If Service Date Differs Date of service: 01/18/22 Time of Service: 10:31 Care Management Progress Note S/O: Virginia was sitting up in bed when CM met with her. She learned that she will be discharged today and she became teary. She verbalized that she is upset because she really had hoped that something would finally be done this admission. As her labs and clinical presentation are improving surgical intervention is not recommended at this time. [place] denied the need for any services at home. A: [place] is a 46 year old woman admitted on 01/13/22 with decompensated cirrhosis P:Virginia will likely be discharged home with no new services. She will follow up with her PCP and plan of care as prescribed and transport with a friend. Recommend [place] [facility] up with the [facility] post discharge. CM will support Virginia and her discharge needs.
[2022-01-18 10:55] LABS: Abs Immature Grans 0.25 10^3/uL (0.0-0.06); Absolute Eosinophil Count 0.13 10^3/uL (0.0-0.7); Absolute Monocyte Count 1.36 10^3/uL (0.1-0.8); Basophils % 0.1; Eosinophils % 0.9; HCT 28.3 % (36.0-46.0); HGB 9.6 g/dL (11.2-15.7); Immature Grans % 1.8; Lymphocytes % 21.9; MCHC 33.9 % (32.0-36.0); MCV 94 fL (80-95); Monocytes % 9.6; Neutrophils % 65.7; Nucleated RBC 0.3 % (0.0-0.3); Platelet Count 182 10^3/uL (130-400); RDW 18.8 % (11.7-14.6); RDW-SD 63.5 fL; WBC 14.17 10^3/uL (4.4-10.8)
[2022-01-18 10:58] LABS: Absolute Basophil Count 0.01 10^3/uL (0.0-0.2); Absolute Neutrophil Count 9.31 10^3/uL (1.2-6.7)
[2022-01-18 11:09] LABS: INR 1.4 (0.9-1.1); Prothrombin Time 13.9 sec (9.3-11.0)
[2022-01-18 11:11] LABS: Anion Gap 1.6 mmol/L (3-11); BUN 6 mg/dL (7-18); C-Reactive Protein 1.58 mg/dL (0.0-0.3); CO2 35.4 mmol/L (21.0-32.0); CREATININE 1.2 mg/dL (0.55-1.02); Calcium 8.5 mg/dL (8.5-10.1); Chloride 95 mmol/L (98-107); Estimated GFR 56.54 (mL/min/1.73m2); Glucose 121 mg/dL (74-106); Magnesium 1.8 mg/dL (1.8-2.4); Potassium 3.2 mmol/L (3.5-5.1); Sodium 132 mmol/L (136-145)
[2022-01-18 11:14] LABS: ALT 36 U/L (14-59); AST 195 U/L (15-37); Albumin 1.7 g/dL (3.4-5.0); Alkaline Phosphatase 268 U/L (46-116); Bilirubin, Direct 2.8 mg/dL (0.0-0.2); Bilirubin, Total 3.7 mg/dL (0.2-1.0); Total Protein 6.3 g/dL (6.4-8.2)
[2022-01-18 11:38] VITALS: BP 102/62; PULSE 67; RESP 18; TEMP 36.4; O2SAT 97
[2022-01-18] MEDS: Potassium Chloride 20 MEQ TABCR 40 MEQ PO (13:01)
--- NOTE | 2022-01-18 14:54 | W.PM.DS.N ---
Date of service: 01/18/22 Time of Service: 14:55 DS: Diagnosis Discharge Diagnosis (1) Cholecystitis: Status: Suspected (2) Acute alcoholic hepatitis: Status: Acute (3) Hepatic encephalopathy: Status: Acute (4) Coagulopathy: Status: Acute (5) Cirrhosis of liver without ascites: Status: Acute (6) Acute hypokalemia: Status: Resolved (7) Acute hyponatremia: Status: Acute (8) Nausea: Status: Resolved (9) Hypotension: Status: Resolved (10) Hyperbilirubinemia: Status: Acute (11) Alcoholism: Status: Chronic (12) CALEB on CPAP: Status: Chronic (13) Obesity, morbid, BMI 40.0-49.9: Discharge Plan Disposition Patient Disposition: HOME Condition: Stable Discharge Details Reason For Visit: Decompensated Cirrhosis Admit Date/Time: 01/13/22 14:25 Admit Provider: Ajith Heredia Attending Provider: Ajith Heredia Primary Care Provider: Ira Thao [place] [facility] Hospital Course: Ms Pisano is a 46 year old female with PMHx of alcohol abuse, hepatic steatosis and suspected developing cirrhosis, as well as h/o prior alcoholic hepatitis and suspicion for cholecystitis, whose referral to [facility] general surgery was evidently lost after her discharge on 10/23/21, who returned to [facility] on 01/13/22 with complaints of nausea and vomiting, was found to have painless jaundice with suspicion for acute alcoholic hepatitis and evidence of hepatic encephalopathy. The patient had a discriminant function score of 72.2 on admission given her coagulopathy and hyprebilirubinemia and was initiated on prednisolone for alcoholic hepatitis to decrease mortality. With this therapy she markedly improved. She was initiated on lactulose and, when her encephalopathy improved only mildly on then, rifaximin was added. [facility] did recommend a paracenthesis. An ultrasound of the abdomen was obtained with a positive Lopez's sign, evidence of a gallstone in the neck of the bladder wall. Acute cholecystitis was suggested. There was not enough fluid for a paracenthesis. Surgical consult was pursued and the patient was felt to be too high risk to undergo her cholecystectomy here. Zosyn was initiated. [facility] general surgery was consulted and felt that the patient could be considered for a cholecystostomy, but recommended talking to hepatology. GI consult was pursued: recommendation was to stop corticosteroids and to treat the patient with antibiotics for 14 days and have the patient follow with [facility]. I was reassured that both GI and General surgery referrals were received at [facility]. The patient is stable for discharge home on augmentin. It is imperative that she follow up with [facility] as recommended. She did not have any evidence of withdrawal from alcohol on this admission. [place]'s suboxone had to be stopped due to the degree of her hepatic dysfunction. She is stable for discharge home today with above treatment plan. She is going home with a walker. Care for patient as well as completion of her discharge summary took 60 minutes on the day of discharge. Home Meds and New Rx's Prescriptions: New rifaximin 550 mg tablet 550 mg PO BID Qty: 60 0RF furosemide 20 mg Tablet 20 mg PO DAILY Qty: 10 0RF lactulose 20 gram/30 mL Solution 30 g PO QID Qty: 3000 1RF melatonin 3 mg Tablet 6 mg PO HS Qty: 60 0RF Nicotrol 10 mg Cartridge 1 inh inhalation Q2H PRN PRNQty: 168 0RF amoxicillin-pot clavulanate 875-125 mg tablet 1 tab PO BID Qty: 28 0RF Continued epinephrine [EpiPen] 0.3 mg/0.3 mL auto-injector 0.3 mg IM ONCE PRN (Reason: anaphylaxis) Qty: 2 0RF Rx Instructions: as a single dose; may repeat once folic acid 1 mg Tablet 1 mg PO DAILY Qty: 0 0RF thiamine mononitrate (vit B1) [Vitamin B-1 (mononitrate)] 100 mg Tablet 100 mg PO DAILY Qty: 0 0RF Creon 36,000-114,000- 180,000 unit capsule,delayed release(DR/EC) 2 cap PO TID Qty: 180 0RF Rx Instructions: administer with meals and/or snacks esomeprazole magnesium [Nexium Packet] [address] for susp in packet 40 mg PO DAILY Qty: 30 0RF Discontinued buprenorphine-naloxone [Suboxone] 8-2 mg film See Rx Instructions .ROUTE .COMPLEX Label Comments: PLACE ONE FILM UNDER THE TONGUE EVERY DAY Rx Instructions: 8-2mg Discharge Instructions Instructions: Amoxicillin/Clavulanate Potassium (By mouth), How to Stop Smoking (DC), Cholecystitis (DC), Cirrhosis (DC), Alcohol Use Disorder (DC), Alcoholic Hepatitis (DC) Additional Instructions: Finish your antibiotics as prescribed. Return to the hospital with any fever, bleeding, chest pain, shortness of breath, if you notice yourself getting more jaundiced, or if you develop abdominal pain. You must stop drinking! Seek to decrease your smoking. Follow up with [facility] General surgery and GI as well as with your PCP. Stand Alone Forms: Nursing Discharge Form Referrals: GASTROENTEROLOGY,[facility] [OTHER] - (The nurse will call you with an Appointment. If they do not call you in the next 48h please call [phone]) GENERAL SURG,[facility] [OTHER] - (The nurse from [facility] Surgical will call you with an Appointment. If they do not call you in the next 48h please call [phone]) Ira Thao [Primary Care Provider] - 01/29/22 10:15 am Activity:: Activity as Tolerated Equipment/Supplies:: Walker Diet:: Low Sodium Discharge Orders Discharge Orders: Discharge Order (Routine); Ordered 01/18/22 Ordered By: Brianna Wheatley DS: Summary Time Spent with Patient providing and/or coordinating discharge services: Greater than 30 minutes Status at Discharge Functional status at discharge: uses cane/walker Overall status at discharge: patient is progressing back to baseline Mental Status: mental status grossly normal Speech and Movement: speech and movement normal Mood: congruent mood Affect: sad Exam Narrative Exam Narrative: General: Pleasant (less) jaundiced middle-aged female, A&Ox3, minimal asterexis today, tearful HEENT: EOMI, MMM Heart: RRR, no m/r/g Lungs: CTAB Abdomen: soft, nontender, obese (?ascites) Extremities: +1 BLE edema, symmetric Psych Mental Status: mental status grossly normal Speech and Movement: speech and movement normal Mood: congruent mood Affect: sad DS: Data Vitals/I&O Vitals and I&O: Vital Signs Temperature 36.4 C L 01/18/22 11:38 Temperature Source Tympanic 01/18/22 11:38 Pulse 67 01/18/22 11:38 Pulse Rhythm Regular 01/18/22 10:44 Pulse 84 01/13/22 15:31 Respiratory Rate 18 01/18/22 11:38 Respiratory Effort Non-Labored 01/18/22 10:44 Respiratory Depth Normal 01/18/22 10:44 Respiratory Pattern Normal 01/18/22 10:44 Blood Pressure 102/62 01/18/22 11:38 Blood Pressure Mean 53 01/13/22 15:30 Blood Pressure Position Sitting 01/13/22 07:24 Pulse Oximetry 97 01/18/22 11:38 Oxygen Delivery Method Room Air 01/18/22 11:38 Oxygen Flow Rate 0 01/18/22 11:38 Fraction of Inspired Oxygen (FIO2) 30 01/17/22 20:25 Pain Level 0 01/18/22 11:38 Comment 01/18/22 02:34 Intake & Output 01/17/22 01/18/22 01/18/22 23:59 11:59 23:59 Intake Total 134.5 / 134.5 318 / 318 Output Total 650 / 850 Balance -515.5 / -715.5 318 / 318 Weight 127.6 kg Intake: IV 84.5 / 84.5 118 / 118 Oral 50 / 50 200 / 200 Output: Urine 650 / 850 Other: Urine Color Yellow Yellow Yellow Urine Appearance Clear Clear Urine Odor Normal Normal Comment Very small amount of urine. Stool Occult Blood Positive Negative Stool Size Moderate Moderate Stool Characteristics Liquid Liquid Brown Voiding Methods Bedside Commode Bedside Commode Bedside Commode Data Completed and Pending Completed studies during hospitalization [Text1]: CT abdomen/pelvis w/ contrast 01/13/22: Hepatomegaly with severe fatty infiltration.? Mildly enlarged spleen.? There is a moderate quantity of ascites as well as body wall edema.? . Atrophic pancreas without evidence acute inflammation or pseudocyst. Bowel not well evaluated due to surrounding fluid and lack of oral contrast.? No evidence of obstruction. US abdomen 01/17/22: 1. Hepatomegaly and hepatic steatosis. 2. Stones and sludge within the gallbladder.? There does appear to be a gallstone in the neck of the gallbladder.? The patient did exhibit a positive sonographic Lopez sign.? Acute cholecystitis should be considered in this patient. Labs on day of discharge: Labs from last 24 hours 01/18/22 01/18/22 01/18/22 10:48 10:48 10:48 WBC 14.17 H RBC 3.00 L Hgb 9.6 L Hct 28.3 L MCV 94 MCH 32.0 MCHC 33.9 RDW 18.8 H Plt Count 182 MPV 11.0 Immature Gran % 1.8 Neutrophils % 65.7 Lymphocytes % 21.9 Monocytes % 9.6 Eosinophils % 0.9 Basophils % 0.1 Nucleated RBC % 0.3 Absolute Neutrophils 9.31 H Absolute Lymphocytes 3.10 Absolute Monocytes 1.36 H Absolute Eosinophils 0.13 Absolute Basophils 0.01 PT 13.9 H INR 1.4 H Sodium Potassium Chloride Carbon Dioxide Anion Gap BUN Creatinine Est GFR (CKD-EPI 2020) Glucose Calcium Magnesium Total Bilirubin 3.7 H Conjugated Bilirubin 2.8 H AST 195 H ALT 36 Alkaline Phosphatase 268 H C-Reactive Protein Total Protein 6.3 L Albumin 1.7 L 01/18/22 10:48 WBC RBC Hgb Hct MCV MCH MCHC RDW Plt Count MPV Immature Gran % Neutrophils % Lymphocytes % Monocytes % Eosinophils % Basophils % Nucleated RBC % Absolute Neutrophils Absolute Lymphocytes Absolute Monocytes Absolute Eosinophils Absolute Basophils PT INR Sodium 132 L Potassium 3.2 L Chloride 95 L Carbon Dioxide 35.4 H Anion Gap 1.6 L BUN 6 L Creatinine 1.2 H Est GFR (CKD-EPI 2020) 56.54 Glucose 121 H Calcium 8.5 Magnesium 1.8 Total Bilirubin Conjugated Bilirubin AST ALT Alkaline Phosphatase C-Reactive Protein 1.58 H Total Protein Albumin PFSH All Active Problems (Updated 01/18/22 @ 14:58 by Brianna Wheatley MD) Cirrhosis of liver without ascites (Acute) Palliative care encounter (Acute) Full code status (Acute) Hepatic encephalopathy (Acute) Acute hyponatremia (Acute) Hyperbilirubinemia (Acute) DVT prophylaxis (Acute) Discharge planning issues (Acute) Jaundice (Acute) Acute hyponatremia (Acute) Acute hypokalemia (Acute) Acute alcoholic hepatitis (Acute) Generalized weakness (Acute) CALEB on CPAP (Chronic) Transaminitis (Acute) Gallbladder sludge (Acute) Coagulopathy (Acute) Abdominal fluid collection (Acute) Anemia (Chronic) Alcoholism (Chronic) Hemoglobin low (Chronic) Normal colonoscopy (Acute) Smoker (Acute) Alcoholism (Acute) Medical History (Updated 01/18/22 @ 14:58 by Brianna Wheatley MD) Anxiety Asthma Chronic alcoholism since 35yo. Completed [facility] inpatient, relapsed and developed pacreatitis 03/2016. Sober since then. Constipation Depression Dyspepsia Dysphonia Elevated liver enzymes Elevated transaminase level History of substance abuse Hyperthyroidism Hypokalemia Macrocytosis Mental health problem Mood improved with Gabapentin. May change to SSRI. Dr Connors monitors. Obesity Obesity, morbid, BMI 40.0-49.9 CALEB (obstructive sleep apnea) Pancreatitis Pedal edema Post-nasal drip Stress incontinence Tobacco use Vitamin D deficiency Surgical History back surgery lumbar disk shaving. bunionectomy L foot. History of colonoscopy (~07/03/21) Stoiber, airway concerns during procedure refer to procedure note. Family History Grandmother No problems noted. Social History Smoking/Tobacco Use Status: Current every day Tobacco Type: cigarettes Smoking risk assessment performed?: Yes Alcohol Intake: current Alcohol Intake frequency: 0-2 drinks per day Alcohol type: beer Drug use: Current Sobriety Substance use type: opiates Details: 2 years since use Do you feel safe at home: Yes Do you feel safe in your relationship?: Yes
[2022-01-18 15:12] VITALS: BP 99/64; PULSE 88; RESP 19; TEMP 36.6; O2SAT 95
--- NOTE | 2022-01-18 15:27 | PDOC.CMDIS ---
- If Service Date Differs Date of service: 01/18/22 Time of Service: 15:28 LACE Index Scoring Tool - Questions: Length of Stay (in days): 4 - 6 Acuity (Admit via E.D.?): Yes Comorbidities: Liver or Renal Disease E.D. Visits: 4 - Answers: Total Score: 16 Risk of Readmission: High Risk Care Management Discharge Reason for Hospitalization: acute alcoholic hepatitis Discharge Plan: [place] will be discharged home with no new services. She will follow up with her PCP and plan of care as prescribed and transport with a friend. Recommend [place] [facility]. Patient/Family Education Needs: Review of discharge instructions, limitations, activity, follow up plan, Ask Me Three
== END 2022-01-18 16:58 | disposition home or self-care (01) | DRG 432 ==
LOC: ER 14:46 → MS 15:52
PROVIDERS: Internal Medicine; Nurse Practitioner Family; Student in an Organized Health Care Education/Training Program; Admitting Provider Internal Medicine; Emergency Provider Emergency Medicine; PCP Nurse Practitioner Family; Visit Provider Internal Medicine
DX: K70.11 Alcoholic hepatitis with ascites (principal); K72.00 Acute and subacute hepatic failure without coma; E87.1 Hypo-osmolality and hyponatremia; Z68.42 Body mass index [BMI] 45.0-49.9, adult; I95.9 Hypotension, unspecified; D64.9 Anemia, unspecified; E87.6 Hypokalemia; K70.31 Alcoholic cirrhosis of liver with ascites; R79.1 Abnormal coagulation profile; F10.20 Alcohol dependence, uncomplicated; R59.0 Localized enlarged lymph nodes; R16.1 Splenomegaly, not elsewhere classified; R53.1 Weakness; G47.33 Obstructive sleep apnea (adult) (pediatric); F17.210 Nicotine dependence, cigarettes, uncomplicated; F41.9 Anxiety disorder, unspecified; J45.909 Unspecified asthma, uncomplicated; K59.00 Constipation, unspecified; F32.A Depression, unspecified; E66.9 Obesity, unspecified; E55.9 Vitamin D deficiency, unspecified; N39.3 Stress incontinence (female) (male); F11.11 Opioid abuse, in remission; K29.20 Alcoholic gastritis without bleeding; K81.9 Cholecystitis, unspecified
CPT/HCPCS: 36415; 80048; 80053; 80076; 83690; 84145; 86704; 86709; 86803; 87340; 87635; 87637; 93005; 96361; 96365; 96366; 96367; 96375; 96376; 97110; 97162; 97530; 99285; 74177; 76705; 80320; 80329; 81003; 81015; 82140; 82150; 82248; 82977; 83735; 84484; 85025; 85610; 85730; 86140; 93010; 99222; 99232; 99233; 99239; J1941; J2405; J2543; J3480; J3490

== ENCOUNTER 2022-02-02 15:40 | Emergency (ER) | payer MEDICAID, SELFPAY ==
[2022-02-02] VITALS (19 sets, daily range): BP systolic 102; BP diastolic 26; PULSE 86–98; RESP 11–24; TEMP 36.7; O2SAT 98
--- NOTE | 2022-02-02 16:00 | ED.GENADUL_ITS ---
Discharge Plan Disposition Patient Disposition: [facility] Condition: Serious Discharge Details Chief Complaint: Nausea/Vomit/Diar Clinical Impression: Cholecystitis, Hyperbilirubinemia, Jaundice Primary Care Provider: Ira Thao ED Provider: Ajith Peters Home Meds and New Rx's Prescriptions: No Action epinephrine [EpiPen] 0.3 mg/0.3 mL auto-injector 0.3 mg IM ONCE PRN (Reason: anaphylaxis) Qty: 2 0RF Rx Instructions: as a single dose; may repeat once folic acid 1 mg Tablet 1 mg PO DAILY Qty: 0 0RF thiamine mononitrate (vit B1) [Vitamin B-1 (mononitrate)] 100 mg Tablet 100 mg PO DAILY Qty: 0 0RF Creon 36,000-114,000- 180,000 unit capsule,delayed release(DR/EC) 2 cap PO TID Qty: 180 0RF Rx Instructions: administer with meals and/or snacks esomeprazole magnesium [Nexium Packet] [address] for susp in packet 40 mg PO DAILY Qty: 30 0RF rifaximin 550 mg tablet 550 mg PO BID Qty: 60 0RF furosemide 20 mg Tablet 20 mg PO DAILY Qty: 10 0RF lactulose 20 gram/30 mL Solution 30 g PO QID Qty: 3000 1RF melatonin 3 mg Tablet 6 mg PO HS Qty: 60 0RF Nicotrol 10 mg Cartridge 1 inh inhalation Q2H PRN PRNQty: 168 0RF amoxicillin-pot clavulanate 875-125 mg tablet 1 tab PO BID Qty: 28 0RF Medical Decision Making This is a 46-year-old female with a past medical history of alcohol abuse, developing cirrhosis, prior alcoholic hepatitis, who was admitted to our facility on 01-13 for suspected cholecystitis, subsequently not a candidate for surgery here at our facility. [facility] was contacted, both surgical and GI services, plan was for prolonged antibiotics and attempt to DC her steroids before surgery would be performed. Patient was subsequently discharged from our facility on 01-18 on Augmentin. She reports since that time worsening jaundice and weakness. Denies fever or abdominal pain. Reports intermittent nausea, vomiting, diarrhea. Clinically she appears chronically ill, presents with scleral icterus and moderate jaundice. Will obtain IV access, laboratory values and reassess. I do not know if repeating any imaging is indicated today given her abdomen currently nonacute but recent ultrasound revealed stone and cholecystitis with a positive Lopez sign Laboratory values reveal no evidence of leukocytosis. What appears to be stable anemia. INR is 1.6. Lactate of 1.7. Sodium 128. Patient receiving 1 L IV fluid. Other LFTs are unremarkable. Normal renal function. Glucose 89. Total bilirubin 10.5 which is significantly increased since her discharge from our facility earlier this month. AST 191 ALT 30 alk phosphatase 214 ammonia 60 albumin 1.6 lipase 17 urinalysis reveals large bilirubin, COVID-negative Given her significantly increased bilirubin and recent diagnosis via ultrasound of likely cholecystitis, I believe patient requires higher level of care. Will obtain blood cultures and give IV Zosyn as well as p.o. lactulose. I was able to discuss the case with the surgical team at [facility] at 1806, Dr. Corrigan who believes the patient did indeed require transfer to a higher level of care but recommended speaking with their hospitalist team. I then spoke with Dr. Fox, hospitalist, at 1872 who accepts transfer. All appropriate paperwork was completed. Patient comfortable with this plan. This documentation was generated using [employer] dictation system, please disregard any oddities of phrase or misspellings. Medical Records Medical records reviewed: Yes I reviewed the patient's medical records. Lab Data Lab results reviewed: Yes I reviewed the patient's lab results. Labs: 02/02/22 17:57 Blood Blood Culture - Pending 02/02/22 17:07 Blood Blood Culture - Pending Laboratory Tests Range/Units 02/02/22 02/02/22 02/02/22 16:20 16:20 16:20 WBC (4.4-10.8) 10^3/uL 8.60 RBC (3.93-5.22) 10^6/uL 3.17 L Hgb (11.2-15.7) g/dL 10.1 L Hct (36.0-46.0) % 29.9 L MCV (80-95) fL 94 MCH (27.0-33.0) pg 31.9 MCHC (32.0-36.0) % 33.8 RDW (11.7-14.6) % 16.9 H Plt Count (130-400) 10^3/uL 150 MPV (8.0-11.0) fL 11.9 H Immature Gran % 0.5 Neutrophils % 60.6 Lymphocytes % 24.0 Monocytes % 11.0 Eosinophils % 2.9 Basophils % 1.0 Nucleated RBC % (0.0-0.3) % 0.0 Absolute Neutrophils (1.2-6.7) 10^3/uL 5.21 Absolute Lymphocytes (1.2-3.4) 10^3/uL 2.06 Absolute Monocytes (0.1-0.8) 10^3/uL 0.95 H Absolute Eosinophils (0.0-0.7) 10^3/uL 0.25 Absolute Basophils (0.0-0.2) 10^3/uL 0.09 RBC Morphology See Below Hypochromasia 1+ Anisocytosis 1+ PT (9.3-11.0) sec 15.4 H INR (0.9-1.1) 1.6 H APTT (21.0-27.5) sec 29.2 H VBG Lactate (0.6-1.4) mmol/L Sodium (136-145) mmol/L 128 L Potassium (3.5-5.1) mmol/L 3.7 Chloride (98-107) mmol/L 91 L Carbon Dioxide (21.0-32.0) mmol/L 31.1 Anion Gap (3-11) mmol/L 5.9 BUN (7-18) mg/dL 11 Creatinine (0.55-1.02) mg/dL 0.7 Est GFR (CKD-EPI 2020) (mL/min/1.73m2) 107.28 Glucose (74-106) mg/dL 89 Calcium (8.5-10.1) mg/dL 9.1 Magnesium (1.8-2.4) mg/dL 1.8 Total Bilirubin (0.2-1.0) mg/dL 10.5 H AST (15-37) U/L 191 H ALT (14-59) U/L 30 Alkaline Phosphatase (46-116) U/L 214 H Ammonia (11-32) umol/L Total Protein (6.4-8.2) g/dL 7.0 Albumin (3.4-5.0) g/dL 1.6 L Lipase (73-393) U/L 17 Urine Color (Yellow) Urine Clarity (Clear) Urine pH (5-8) Ur Specific [place] (1.005-1.025) Urine Protein (Negative) mg/dL Urine Ketones (Negative) mg/dL Urine Blood (Negative) Urine Nitrite (Negative) Urine Bilirubin (Negative) Urine Urobilinogen (Up TO 0.2) EU/dL Ur Leukocyte Esterase (Negative) Urine Glucose (Negative) mg/dL Urine Opiates Screen (Negative) Urine Methadone Screen (Negative) Ur Barbiturates Screen (Negative) Ur Tricyclics Screen (Negative) Ur Amphetamines Screen (Negative) U Benzodiazepines Scrn (Negative) Urine Cocaine Screen (Negative) Ur THC Screen (Negative) Ethyl Alcohol (<10) mg/dL < 3.0 COVID-19 Source SARS-CoV-2 (PCR) (Negative) Range/Units 02/02/22 02/02/22 02/02/22 16:20 17:22 17:57 WBC (4.4-10.8) 10^3/uL RBC (3.93-5.22) 10^6/uL Hgb (11.2-15.7) g/dL Hct (36.0-46.0) % MCV (80-95) fL MCH (27.0-33.0) pg MCHC (32.0-36.0) % RDW (11.7-14.6) % Plt Count (130-400) 10^3/uL MPV (8.0-11.0) fL Immature Gran % Neutrophils % Lymphocytes % Monocytes % Eosinophils % Basophils % Nucleated RBC % (0.0-0.3) % Absolute Neutrophils (1.2-6.7) 10^3/uL Absolute Lymphocytes (1.2-3.4) 10^3/uL Absolute Monocytes (0.1-0.8) 10^3/uL Absolute Eosinophils (0.0-0.7) 10^3/uL Absolute Basophils (0.0-0.2) 10^3/uL RBC Morphology Hypochromasia Anisocytosis PT (9.3-11.0) sec INR (0.9-1.1) APTT (21.0-27.5) sec VBG Lactate (0.6-1.4) mmol/L 1.7 H Sodium (136-145) mmol/L Potassium (3.5-5.1) mmol/L Chloride (98-107) mmol/L Carbon Dioxide (21.0-32.0) mmol/L Anion Gap (3-11) mmol/L BUN (7-18) mg/dL Creatinine (0.55-1.02) mg/dL Est GFR (CKD-EPI 2020) (mL/min/1.73m2) Glucose (74-106) mg/dL Calcium (8.5-10.1) mg/dL Magnesium (1.8-2.4) mg/dL Total Bilirubin (0.2-1.0) mg/dL AST (15-37) U/L ALT (14-59) U/L Alkaline Phosphatase (46-116) U/L Ammonia (11-32) umol/L 60 H Total Protein (6.4-8.2) g/dL Albumin (3.4-5.0) g/dL Lipase (73-393) U/L Urine Color (Yellow) Urine Clarity (Clear) Urine pH (5-8) Ur Specific [place] (1.005-1.025) Urine Protein (Negative) mg/dL Urine Ketones (Negative) mg/dL Urine Blood (Negative) Urine Nitrite (Negative) Urine Bilirubin (Negative) Urine Urobilinogen (Up TO 0.2) EU/dL Ur Leukocyte Esterase (Negative) Urine Glucose (Negative) mg/dL Urine Opiates Screen (Negative) Urine Methadone Screen (Negative) Ur Barbiturates Screen (Negative) Ur Tricyclics Screen (Negative) Ur Amphetamines Screen (Negative) U Benzodiazepines Scrn (Negative) Urine Cocaine Screen (Negative) Ur THC Screen (Negative) Ethyl Alcohol (<10) mg/dL COVID-19 Source Nasal/Nares SARS-CoV-2 (PCR) (Negative) Negative Range/Units 02/02/22 02/02/22 18:32 18:32 WBC (4.4-10.8) 10^3/uL RBC (3.93-5.22) 10^6/uL Hgb (11.2-15.7) g/dL Hct (36.0-46.0) % MCV (80-95) fL MCH (27.0-33.0) pg MCHC (32.0-36.0) % RDW (11.7-14.6) % Plt Count (130-400) 10^3/uL MPV (8.0-11.0) fL Immature Gran % Neutrophils % Lymphocytes % Monocytes % Eosinophils % Basophils % Nucleated RBC % (0.0-0.3) % Absolute Neutrophils (1.2-6.7) 10^3/uL Absolute Lymphocytes (1.2-3.4) 10^3/uL Absolute Monocytes (0.1-0.8) 10^3/uL Absolute Eosinophils (0.0-0.7) 10^3/uL Absolute Basophils (0.0-0.2) 10^3/uL RBC Morphology Hypochromasia Anisocytosis PT (9.3-11.0) sec INR (0.9-1.1) APTT (21.0-27.5) sec VBG Lactate (0.6-1.4) mmol/L Sodium (136-145) mmol/L Potassium (3.5-5.1) mmol/L Chloride (98-107) mmol/L Carbon Dioxide (21.0-32.0) mmol/L Anion Gap (3-11) mmol/L BUN (7-18) mg/dL Creatinine (0.55-1.02) mg/dL Est GFR (CKD-EPI 2020) (mL/min/1.73m2) Glucose (74-106) mg/dL Calcium (8.5-10.1) mg/dL Magnesium (1.8-2.4) mg/dL Total Bilirubin (0.2-1.0) mg/dL AST (15-37) U/L ALT (14-59) U/L Alkaline Phosphatase (46-116) U/L Ammonia (11-32) umol/L Total Protein (6.4-8.2) g/dL Albumin (3.4-5.0) g/dL Lipase (73-393) U/L Urine Color (Yellow) Yellow Urine Clarity (Clear) Clear Urine pH (5-8) 6.0 Ur Specific [place] (1.005-1.025) 1.010 Urine Protein (Negative) mg/dL Negative Urine Ketones (Negative) mg/dL Negative Urine Blood (Negative) Negative Urine Nitrite (Negative) Negative Urine Bilirubin (Negative) Large H Urine Urobilinogen (Up TO 0.2) EU/dL 0.2 Ur Leukocyte Esterase (Negative) Negative Urine Glucose (Negative) mg/dL Negative Urine Opiates Screen (Negative) Negative Urine Methadone Screen (Negative) Negative Ur Barbiturates Screen (Negative) Negative Ur Tricyclics Screen (Negative) Negative Ur Amphetamines Screen (Negative) Negative U Benzodiazepines Scrn (Negative) Negative Urine Cocaine Screen (Negative) Negative Ur THC Screen (Negative) Negative Ethyl Alcohol (<10) mg/dL COVID-19 Source SARS-CoV-2 (PCR) (Negative) HPI General Mode of arrival: ambulatory . Date/Time Provider Initiated Documentation: 02/02/22 15:41 . Limitations to Documentation: no limitations . Information obtained by: patient . HPI Narrative: This is a 47-year-old female with a past medical history of alcohol abuse, sober for the past 3 weeks, hepatic steatosis and developing cirrhosis, prior alcoholic hepatitis, recent admission to our facility for concerning findings of cholecystitis, subsequent consult at [facility] with GI and surgery, plan for 14 days of antibiotics, scheduled be seen at [facility] in May for this, presents for ongoing weakness, worsening jaundice, occasional nausea and vomiting, diarrhea. Patient denies fever, chest pain, shortness of breath, current abdominal pain, back pain, dysuria, black tarry stools or bright red blood in her stools. Patient states she feels as though the symptoms since the last admission on 01-13 and subsequent discharge on 01-18 are not improving. Related Data Home Medications Medication Instructions Recorded Confirmed folic acid 1 mg tablet 1 mg PO DAILY #0 tabs 10/23/21 02/02/22 thiamine mononitrate (vit B1) 100 100 mg PO DAILY #0 tabs 10/23/21 02/02/22 mg tablet (Vitamin B-1 (mononitrate)) esomeprazole magnesium 40 mg 40 mg PO DAILY #30 ea 10/31/21 02/02/22 granules delayed release for susp (Nexium Packet) [id number] 2 cap PO TID #180 caps 10/31/21 02/02/22 36,000-114,000-180,000 unit capsule,delay rel (Creon) epinephrine 0.3 mg/0.3 mL 0.3 mg (0.3 mL) IM ONCE PRN 12/06/21 02/02/22 injection, auto-injector (EpiPen) anaphylaxis #2 ea rifaximin 550 mg tablet 550 mg PO BID #60 tabs 01/16/22 02/02/22 amoxicillin 875 mg-potassium 1 tab PO BID #28 tabs 01/18/22 02/02/22 clavulanate 125 mg tablet furosemide 20 mg tablet 20 mg PO DAILY #10 tabs 01/18/22 02/02/22 lactulose 20 gram/30 mL oral 30 g (45 mL) PO QID #3,000 mL 01/18/22 02/02/22 solution melatonin 3 mg tablet 6 mg PO HS #60 tabs 01/18/22 02/02/22 nicotine 10 mg inhalation 1 inh inhalation Q2H PRN PRN #168 01/18/22 02/02/22 cartridge (Nicotrol) ea Previous Rx's Medication Instructions Recorded folic acid 1 mg tablet 1 mg PO DAILY #0 tabs 10/23/21 thiamine mononitrate (vit B1) 100 100 mg PO DAILY #0 tabs 10/23/21 mg tablet (Vitamin B-1 (mononitrate)) esomeprazole magnesium 40 mg 40 mg PO DAILY #30 ea 10/31/21 granules delayed release for susp (Nexium Packet) qlwdti-[id number]-cqfreil 2 cap PO TID #180 caps 10/31/21 36,000-114,000-180,000 unit capsule,delay rel (Creon) epinephrine 0.3 mg/0.3 mL 0.3 mg (0.3 mL) IM ONCE PRN 12/06/21 injection, auto-injector (EpiPen) anaphylaxis #2 ea rifaximin 550 mg tablet 550 mg PO BID #60 tabs 01/16/22 amoxicillin 875 mg-potassium 1 tab PO BID #28 tabs 01/18/22 clavulanate 125 mg tablet furosemide 20 mg tablet 20 mg PO DAILY #10 tabs 01/18/22 lactulose 20 gram/30 mL oral 30 g (45 mL) PO QID #3,000 mL 01/18/22 solution melatonin 3 mg tablet 6 mg PO HS #60 tabs 01/18/22 nicotine 10 mg inhalation 1 inh inhalation Q2H PRN PRN #168 01/18/22 cartridge (Nicotrol) ea Allergies Allergy/AdvReac Type Severity Reaction Status Date / Time shellfish derived Allergy Mild Itching Verified 10/28/21 11:26 cefpodoxime Allergy Hives Unverified 01/13/22 07:30 tramadol AdvReac Mild Agitation Verified 10/28/21 11:26 General Stated Complaint: Nausea/Vomit/Diar STEVE: 2 Review of Systems Constitutional Constitutional: Reports fatigue, Denies fever(s), Denies headache(s) and Reports weakness ENT Ears, Nose, Mouth, and Throat: Denies headache(s) and Denies neck pain Cardiovascular Cardiovascular: Denies chest pain and Denies dyspnea Respiratory Respiratory: Denies cough and Denies dyspnea Gastrointestinal Gastrointestinal: Reports abdominal pain, Reports diarrhea, Reports nausea and Reports vomiting Genitourinary Genitourinary: Denies dysuria Musculoskeletal Musculoskeletal: Denies back pain and Denies neck pain Integumentary/Breasts Skin/Breast: Denies rash Neurologic Neurologic: Denies headache(s) and Reports weakness Endocrine Endocrine: Reports fatigue Hematologic/Lymphatic Hematologic/Lymphatic: Reports easy bleeding and Reports easy bruising PFSH All Active Problems (Updated 02/02/22 @ 19:59 by DANYELL De La Garza) Cholecystitis (Acute) Cirrhosis of liver without ascites (Acute) Palliative care encounter (Acute) Full code status (Acute) Hepatic encephalopathy (Acute) Acute hyponatremia (Acute) Hyperbilirubinemia (Acute) Jaundice (Acute) Acute hyponatremia (Acute) Acute hypokalemia (Acute) Acute alcoholic hepatitis (Acute) Generalized weakness (Acute) CALEB on CPAP (Chronic) Transaminitis (Acute) Gallbladder sludge (Acute) Coagulopathy (Acute) Abdominal fluid collection (Acute) Anemia (Chronic) Alcoholism (Chronic) Hemoglobin low (Chronic) Normal colonoscopy (Acute) Smoker (Acute) Alcoholism (Acute) Medical History Anxiety Asthma Chronic alcoholism since 35yo. Completed [facility] inpatient, relapsed and developed pacreatitis 03/2016. Sober since then. Constipation Depression Dyspepsia Dysphonia Elevated liver enzymes Elevated transaminase level History of substance abuse Hyperthyroidism Hypokalemia Macrocytosis Mental health problem Mood improved with Gabapentin. May change to SSRI. Dr Connors monitors. Obesity Obesity, morbid, BMI 40.0-49.9 CALEB (obstructive sleep apnea) Pancreatitis Pedal edema Post-nasal drip Stress incontinence Tobacco use Vitamin D deficiency Surgical History back surgery lumbar disk shaving. bunionectomy L foot. History of colonoscopy (~07/03/21) Stoiber, airway concerns during procedure refer to procedure note. Family History Grandmother No problems noted. Social History Smoking/Tobacco Use Status: Current every day Tobacco Type: cigarettes Smoking risk assessment performed?: Yes Alcohol Intake: former Drug use: Current Sobriety Substance use type: opiates Details: 02/02/22 etoh 3 weeks ago. Do you feel safe at home: Yes Do you feel safe in your relationship?: Yes Exam Const General: cooperative, comfortable, no acute distress and ill appearing chronically Orientation: alert, awake and oriented x3 Other: Moderate jaundiced HENMT Head: normal to inspection, normocephalic and atraumatic Face and sinus: normal facial exam Mouth: moist mucous membranes Eyes Conjunctivae: conjunctivae normal Sclera: scleral abnormality bilaterally other (Scleral icterus) Neck Neck: normal visual inspection, full ROM, no meningeal signs, trachea midline and supple Resp Effort & Inspection: normal respiratory effort and able to speak in complete sentences Auscultation: clear to auscultation bilaterally Cardio Rate: regular rate Rhythm: regular rhythm GI Inspection: obesity Palpation: soft, not firm, no guarding, no pulsatile masses and nontender Auscultation: normal bowel sounds Back/Spine/Pelvis Back: No back tenderness Skin General skin exam: no rashes or lesions noted Neuro General: patient alert, patient awake, patient oriented x3, moves all extremities and no focal motor deficits Cognition: normal cognition Speech: speech normal Gait: normal gait Motor: muscle tone normal throughout Sensory Exam: no sensory deficits noted Extrem General: normal to inspection, full ROM, capillary refill normal, no pedal edema and no calf tenderness Psych Appearance: grossly normal Mental Status: mental status grossly normal Course Vital Signs Vital signs: Vital Signs Temperature 36.7 C 02/02/22 15:53 Pulse 91 H 02/02/22 15:53 Respiratory Rate 02/02/22 15:53 Blood Pressure 102/26 L 02/02/22 15:53 Pulse Oximetry 98 02/02/22 15:53 Temperature 36.7 C 02/02/22 15:53 Temperature Source Temporal Artery Scan 02/02/22 15:53 Pulse 91 H 02/02/22 15:53 Respiratory Rate 22 02/02/22 15:53 Respiratory Effort Non-Labored 02/02/22 15:56 Blood Pressure 102/26 L 02/02/22 15:53 Blood Pressure Position Sitting 02/02/22 15:53 Pulse Oximetry 98 02/02/22 15:53 Oxygen Delivery Method Room Air 02/02/22 15:53 Oxygen Flow Rate 0 02/02/22 15:53 Pain Level 0 02/02/22 15:53 Critical Care Time Critical Care Time Critical Care Time: Yes Total Critical Care Time: 45 Attestation: Standard discharge and return precautions were provided. Patient understands, is agreeable to this plan, and has no additional questions or concerns upon discharge. This documentation was generated using [employer] system, please disregard any oddities of phrase or misspellings.
[2022-02-02 16:36] LABS: Abs Immature Grans 0.04 10^3/uL (0.0-0.06); Absolute Basophil Count 0.09 10^3/uL (0.0-0.2); Absolute Eosinophil Count 0.25 10^3/uL (0.0-0.7); Absolute Lymphocyte Count 2.06 10^3/uL (1.2-3.4); Absolute Monocyte Count 0.95 10^3/uL (0.1-0.8); Absolute Neutrophil Count 5.21 10^3/uL (1.2-6.7); Eosinophils % 2.9; HCT 29.9 % (36.0-46.0); HGB 10.1 g/dL (11.2-15.7); Immature Grans % 0.5; MCH 31.9 pg (27.0-33.0); MCHC 33.8 % (32.0-36.0); MCV 94 fL (80-95); MPV 11.9 fL (8.0-11.0); Neutrophils % 60.6; Platelet Count 150 10^3/uL (130-400); RBC 3.17 10^6/uL (3.93-5.22); RDW 16.9 % (11.7-14.6); RDW-SD 58.9 fL
[2022-02-02] MEDS: Normal Saline 1,000 ML 1000 ML IV (16:39)
[2022-02-02 16:45] LABS: Ammonia 60 umol/L (11-32)
[2022-02-02 16:51] LABS: INR 1.6 (0.9-1.1); PTT Activated 29.2 sec (21.0-27.5); Prothrombin Time 15.4 sec (9.3-11.0)
[2022-02-02 16:59] LABS: ALT 30 U/L (14-59); AST 191 U/L (15-37); Albumin 1.6 g/dL (3.4-5.0); Alkaline Phosphatase 214 U/L (46-116); Anion Gap 5.9 mmol/L (3-11); BUN 11 mg/dL (7-18); Bilirubin, Total 10.5 mg/dL (0.2-1.0); CO2 31.1 mmol/L (21.0-32.0); CREATININE 0.7 mg/dL (0.55-1.02); Calcium 9.1 mg/dL (8.5-10.1); Chloride 91 mmol/L (98-107); Estimated GFR 107.28 (mL/min/1.73m2); Glucose 89 mg/dL (74-106); Lipase 17 U/L (73-393); Magnesium 1.8 mg/dL (1.8-2.4); Potassium 3.7 mmol/L (3.5-5.1); Sodium 128 mmol/L (136-145)
[2022-02-02 17:12] LABS: ETHANOL BLOOD < 3.0 mg/dL (<10)
[2022-02-02 17:22] LABS: Anisocytosis 1+; Diff Comment Agrees w/ Instrument; Hypochromasia 1+
[2022-02-02 17:26] LABS: Source Nasal/Nares
[2022-02-02 17:59] LABS: COVID-19 PCR Negative (Negative)
[2022-02-02 18:04] LABS: Lactate 1.7 mmol/L (0.6-1.4)
[2022-02-02] MEDS: Lactulose 20 GM/30 ML CUP PO (18:30)
[2022-02-02] MEDS: PIPERACILLIN/TAZO 3.375 GM in Normal Saline 50 ML IVPB (18:30)
[2022-02-02 18:54] LABS: *AMPHETAMINES SCREEN URINE Negative (Negative); *BARBITURATES SCREEN URINE Negative (Negative); *BENZODIAZEPINES SCREEN URINE Negative (Negative); Cannabinoids THC Negative (Negative); Cocaine Screen,Urine Negative (Negative); METHADONE URINE SCREEN Negative (Negative); OPIATES URINE SCREEN Negative (Negative); Tricyclic Antidepressants Negative (Negative)
[2022-02-02 19:08] LABS: Bilirubin Large (Negative); Blood Negative (Negative); Clarity Clear (Clear); Glucose Negative (Negative); Ketones Negative (Negative); Leukocyte Esterase Negative (Negative); Nitrite Negative (Negative); Urobilinogen 0.2 EU/dL (Up TO 0.2)
== END 2022-02-02 20:10 | disposition short-term general hospital (02) ==
PROVIDERS: Emergency Provider Physician Assistant; PCP Nurse Practitioner Family
DX: K81.9 Cholecystitis, unspecified (principal); E80.6 Other disorders of bilirubin metabolism; R17 Unspecified jaundice; Z20.822 Contact with and (suspected) exposure to COVID-19; F17.210 Nicotine dependence, cigarettes, uncomplicated
CPT/HCPCS: 80053; 80307; 81025; 83690; 87040; 87635; 96361; 96365; 99285; 80320; 81003; 82140; 83605; 83735; 85025; 85610; 85730; J2543

== ENCOUNTER 2022-03-11 16:36 | Emergency (ER) | payer MEDICAID, SELFPAY ==
[2022-03-11] MEDS: Normal Saline 1,000 ML 1000 ML IV ×2 (16:30→16:35)
[2022-03-11 16:33] VITALS: O2SAT 48
[2022-03-11] MEDS: EPINEPHrine 1 MG/10 ML SYR IVP ×2 (16:35→16:43)
[2022-03-11] MEDS: Tranexamic Acid 1,000 MG/10 ML VIAL 1000 MG (16:38)
[2022-03-11] MEDS: Vasopressin 20 UNITS/ML VIAL 5 UNITS IV (16:50)
[2022-03-11 16:59] LABS: Abs Immature Grans 0.11 10^3/uL (0.0-0.06); HGB 8.4 g/dL (11.2-15.7); MCH 32.2 pg (27.0-33.0); MCHC 32.3 % (32.0-36.0); MCV 100 fL (80-95); MPV 12.5 fL (8.0-11.0); RBC 2.61 10^6/uL (3.93-5.22); RDW 15.3 % (11.7-14.6); RDW-SD 53.8 fL; WBC 6.87 10^3/uL (4.4-10.8)
[2022-03-11 17:17] LABS: ALT 21 U/L (14-59); AST 105 U/L (15-37); Albumin 1.1 g/dL (3.4-5.0); Alkaline Phosphatase 158 U/L (46-116); BUN 17 mg/dL (7-18); Bilirubin, Total 4.2 mg/dL (0.2-1.0); CREATININE 3.5 mg/dL (0.55-1.02); Calcium 7.7 mg/dL (8.5-10.1); Chloride 95 mmol/L (98-107); Estimated GFR 15.55 (mL/min/1.73m2); Glucose 108 mg/dL (74-106); Potassium 4.7 mmol/L (3.5-5.1); Sodium 140 mmol/L (136-145)
--- NOTE | 2022-03-11 17:19 | W.PM.OP ---
Date of service: 03/11/22 Time of Service: 16:30 Operative Note Operative Note DATE OF PROCEDURE: 03/11/22 PRE-OP DIAGNOSIS: Massive GI bleed, cardiac arrest due to blood loss POST-OP DIAGNOSIS: same PROCEDURE: Right femoral vein cordis placement SURGEON: Radha Evans Refer to Anesthesia Record Patient's condition: Indications: Ms Pisano is a 47 year old female who was brought to the ER via EMS. She was found by her significant other at home. She had had several bloody stools. En route to the ER she coded and CPR was started. She had an IO line placed. I was asked to place a cordis to help with resuscitation. NO consent was obtained as yoel was in cardiac arrest and her significant other had not yet arrived Procedure Description: The patient right groin and upper anterior thigh was cleaned with chlorprep. Using the guide needle in the Cordis kit the femoral vein was found. Blood was aspirated. The guide wire was placed and the needle was removed. A small incision was made at the guide wire entrance through the skin. The cordis and dilator were placed easily over the guide wire into the femoral vein. The dilator was removed and the cordis was secured with a 2-0 silk suture. The line was aspirated for blood and flushed with normal saline.
[2022-03-11 17:29] LABS: Absolute Lymphocyte Count 3.23 10^3/uL (1.2-3.4); Absolute Monocyte Count 0.21 10^3/uL (0.1-0.8); Absolute Neutrophil Count 3.37 10^3/uL (1.2-6.7); Bands % 10; Myelocytes % 1
[2022-03-11 17:31] LABS: Platelet Count 73 10^3/uL (130-400); Poikilocytes 1+
[2022-03-11 17:32] LABS: Diff Comment Manual Differential
--- NOTE | 2022-03-11 17:34 | PDOC.ANES ---
Date of service: 03/11/22 Time of Service: 16:30 Anesthesia Note Report Anesthesia Note: replied to the ED overhead code blue page. for 47 yo female with likely severe upper GI bleed currently in arrest. iGel is in place (EtCO2 noted), CPR in progress. ? for potential OR/ED EGD. 3.8 fiber scope advanced down igeel 4 with copious blood noted. unable to fully appreciate glotic opening. suctioning applied, but not enough to clear blood. scope removed, EtCO2 present still. airway supplies preped for VL. Code was called by ED .
[2022-03-11] MEDS: EPINEPHrine 1 MG/ML AMP pres-free IJ (18:36)
--- NOTE | 2022-03-11 21:48 | W.ED.GENAD ---
Discharge Plan Disposition Patient Disposition: Discharge Details Clinical Impression: Cardiac arrest, Acute GI bleeding, Respiratory arrest Primary Care Provider: Ira Thao ED Provider: Ricardo Zhu Medical Decision Making This is a 47-year-old female with past medical history of chronic alcohol abuse, cirrhosis, alcoholic hepatitis, coagulopathy, who is a full code, who presents for cardiac arrest. Per EMS and family the patient had been feeling unwell yesterday, she had noticed a small bit of blood in her stools. This morning/afternoon she was not feeling well at all, and very tired and out of it. Later this evening she was found on the ground with bloody vomit and bloody diarrhea around her. EMS was called and the patient was groggy and moaning for help, but still responding. When they loaded her onto the stretcher she went into cardiac arrest and CPR was immediately started. It took the patient and the crew about 30 minutes to make it to [facility], active CPR was going on during the entire transfer. Patient's significant other has no other new historical components that he can add to the history. Patient came in in extremis for active CPR in progress. I-gel in place, notable amount of blood around the eye gel and crusted bloody vomit noted. Bruising noted around the chest suggestive of coagulopathy in the area where CPR was being performed. CPR was performed for 4-5 complete rounds. On initial pulse check bedside ultrasound was performed and there is no cardiac movement whatsoever. Dr. Evans placed a right-sided femoral line, blood was immediately transfused through the IO, fluid bolus was initiated, 1 mg of epinephrine was given 2-3 times during the pulse checks. After 2 full rounds of CPR, 2 units of PRBCs, 1 L normal saline, and epinephrine repeat pulse check was performed and there was evidence of slight movement of the heart, but asystole on the monitor. CPR was continued for an additional 2-3 rounds, and during this time blood, epinephrine, and fluids were continued. Unfortunately in spite of all this on each subsequent pulse check no cardiac activity was noted, and no electrical activity was noted on the monitor. I had a long discussion with the , and multiple family members who are at bedside. Through shared decision-making process, family and stated that she would not want to have this worked continued on her if there is no hope for a positive outcome back to her previous baseline. At this point it is very clear that she is not having any positive cardiac response in spite of all of our notable efforts. The decision was then made to call the code at [id number]. I did contact Bea from the medical editor, and she came and evaluated the patient. She states that given the patient's history, the episode, and the scenario, this would be a medical demise and there would not be an indication for medically required autopsy at this time. Family does not have a desire for additional autopsy. Diagnosis is cardiac arrest, likely secondary to massive GI bleed, coagulopathy, and volume depletion. HPI General Date/Time Provider Initiated Documentation: 03/11/22 16:45. HPI Narrative: This is a 47-year-old female with past medical history of chronic alcohol abuse, cirrhosis, alcoholic hepatitis, coagulopathy, who is a full code, who presents for cardiac arrest. Per EMS and family the patient had been feeling unwell yesterday, she had noticed a small bit of blood in her stools. This morning/afternoon she was not feeling well at all, and very tired and out of it. Later this evening she was found on the ground with bloody vomit and bloody diarrhea around her. EMS was called and the patient was groggy and moaning for help, but still responding. When they loaded her onto the stretcher she went into cardiac arrest and CPR was immediately started. It took the patient and the crew about 30 minutes to make it to [facility], active CPR was going on during the entire transfer. Patient's significant other has no other new historical components that he can add to the history. Related Data Home Medications Medication Instructions Recorded Confirmed folic acid 1 mg tablet 1 mg PO DAILY #0 tabs 10/23/21 02/02/22 thiamine mononitrate (vit B1) 100 100 mg PO DAILY #0 tabs 10/23/21 02/02/22 mg tablet (Vitamin B-1 (mononitrate)) esomeprazole magnesium 40 mg 40 mg PO DAILY #30 ea 10/31/21 02/02/22 granules delayed release for susp (Nexium Packet) wywfsp-iqkuvuxv-lgwmire 2 cap PO TID #180 caps 10/31/21 02/02/22 36,000-114,000-180,000 unit capsule,delay rel (Creon) epinephrine 0.3 mg/0.3 mL 0.3 mg (0.3 mL) IM ONCE PRN 12/06/21 02/02/22 injection, auto-injector (EpiPen) anaphylaxis #2 ea rifaximin 550 mg tablet 550 mg PO BID #60 tabs 01/16/22 02/02/22 amoxicillin 875 mg-potassium 1 tab PO BID #28 tabs 01/18/22 02/02/22 clavulanate 125 mg tablet furosemide 20 mg tablet 20 mg PO DAILY #10 tabs 01/18/22 02/02/22 lactulose 20 gram/30 mL oral 30 g (45 mL) PO QID #3,000 mL 01/18/22 02/02/22 solution melatonin 3 mg tablet 6 mg PO HS #60 tabs 01/18/22 02/02/22 nicotine 10 mg inhalation 1 inh inhalation Q2H PRN PRN #[id number] 01/18/22 02/02/22 cartridge (Nicotrol) ea Previous Rx's Medication Instructions Recorded folic acid 1 mg tablet 1 mg PO DAILY #0 tabs 10/23/21 thiamine mononitrate (vit B1) 100 100 mg PO DAILY #0 tabs 10/23/21 mg tablet (Vitamin B-1 (mononitrate)) esomeprazole magnesium 40 mg 40 mg PO DAILY #30 ea 10/31/21 granules delayed release for susp (Nexium Packet) yyjzmo-acdgxegv-sqxfulr 2 cap PO TID #180 caps 10/31/21 36,000-114,000-180,000 unit capsule,delay rel (Creon) epinephrine 0.3 mg/0.3 mL 0.3 mg (0.3 mL) IM ONCE PRN 12/06/21 injection, auto-injector (EpiPen) anaphylaxis #2 ea rifaximin 550 mg tablet 550 mg PO BID #60 tabs 01/16/22 amoxicillin 875 mg-potassium 1 tab PO BID #28 tabs 01/18/22 clavulanate 125 mg tablet furosemide 20 mg tablet 20 mg PO DAILY #10 tabs 01/18/22 lactulose 20 gram/30 mL oral 30 g (45 mL) PO QID #3,000 mL 01/18/22 solution melatonin 3 mg tablet 6 mg PO HS #60 tabs 01/18/22 nicotine 10 mg inhalation 1 inh inhalation Q2H PRN PRN #[id number] 01/18/22 cartridge (Nicotrol) ea Allergies Allergy/AdvReac Type Severity Reaction Status Date / Time shellfish derived Allergy Mild Itching Verified 10/28/21 11:26 cefpodoxime Allergy Hives Unverified 01/13/22 07:30 tramadol AdvReac Mild Agitation Verified 10/28/21 11:26 General Stated Complaint: CodeBlue STEVE: 1 Review of Systems All systems reviewed & are unremarkable except as noted in HPI and below PFSH All Active Problems (Updated 03/11/22 @ 22:38 by Ricardo Zhu DO) Cardiac arrest (Acute) Acute GI bleeding (Acute) Respiratory arrest (Acute) Cirrhosis of liver without ascites (Acute) Palliative care encounter (Acute) Full code status (Acute) Hepatic encephalopathy (Acute) Acute hyponatremia (Acute) Hyperbilirubinemia (Acute) Jaundice (Acute) Acute hyponatremia (Acute) Acute hypokalemia (Acute) Acute alcoholic hepatitis (Acute) Generalized weakness (Acute) CALEB on CPAP (Chronic) Transaminitis (Acute) Gallbladder sludge (Acute) Coagulopathy (Acute) Abdominal fluid collection (Acute) Anemia (Chronic) Alcoholism (Chronic) Hemoglobin low (Chronic) Normal colonoscopy (Acute) Smoker (Acute) Alcoholism (Acute) Medical History Anxiety Asthma Chronic alcoholism since 35yo. Completed [facility] inpatient, relapsed and developed pacreatitis 03/2016. Sober since then. Constipation Depression Dyspepsia Dysphonia Elevated liver enzymes Elevated transaminase level History of substance abuse Hyperthyroidism Hypokalemia Macrocytosis Mental health problem Mood improved with Gabapentin. May change to SSRI. Dr Connors monitors. Obesity Obesity, morbid, BMI 40.0-49.9 CALEB (obstructive sleep apnea) Pancreatitis Pedal edema Post-nasal drip Stress incontinence Tobacco use Vitamin D deficiency Surgical History back surgery lumbar disk shaving. bunionectomy L foot. History of colonoscopy (~07/03/21) Stoiber, airway concerns during procedure refer to procedure note. Family History Grandmother No problems noted. Social History (Reviewed 03/11/22 @ 21:58 by DERREK Nicholas Smoking/Tobacco Use Status: Current every day Tobacco Type: cigarettes Smoking risk assessment performed?: Yes Alcohol Intake: former Drug use: Current Sobriety Substance use type: opiates Details: 02/02/22 etoh 3 weeks ago. Do you feel safe at home: Yes Do you feel safe in your relationship?: Yes Exam Narrative Exam Narrative: GEN: unresponsive, in extremis SKIN: pale, cool, bruising around her breast and chest where CPR was being performed NECK: no signs of trauma HENT: normocephalic atraumatic patient has i gel in the mouth, notable amount of bloody mucus/vomitus around the i gel CV: PEA, no pulses, CPR in progress RESP: no spontaneous respirations, intubated with I gel ABD: soft, notably distended MSK: no spontaneous movements, no obvious deformity BACK: no obvious trauma NEURO: unresponsive, absent pupillary reflex, corneal reflex, gag, and no spontaneous movements PSYCH: unresponsive Course Vital Signs Vital signs: Vital Signs Pulse Oximetry 48 L 03/11/22 16:33 Pulse Oximetry 48 L 03/11/22 16:33 Respiratory End-tidal CO2 39 03/11/22 16:50 Lab/Test Results Lab/Test Results: Laboratory Tests Range/Units 03/11/22 03/11/22 03/11/22 16:15 16:40 16:40 WBC (4.4-10.8) 10^3/uL 6.87 RBC (3.93-5.22) 10^6/uL 2.61 L Hgb (11.2-15.7) g/dL 8.4 L Hct (36.0-46.0) % 26.0 L MCV (80-95) fL 100 H MCH (27.0-33.0) pg 32.2 MCHC (32.0-36.0) % 32.3 RDW (11.7-14.6) % 15.3 H Plt Count (130-400) 10^3/uL 73 L MPV (8.0-11.0) fL 12.5 H Immature Gran % See Differential Neutrophils % 39.0 Band Neutrophils % 10 Lymphocytes % 47.0 Monocytes % 3.0 Eosinophils % 0.0 Basophils % 0.0 Myelocytes % 1 Nucleated RBC % (0.0-0.3) % 1.0 H Absolute Neutrophils (1.2-6.7) 10^3/uL 3.37 Absolute Lymphocytes (1.2-3.4) 10^3/uL 3.23 Absolute Monocytes (0.1-0.8) 10^3/uL 0.21 Absolute Eosinophils (0.0-0.7) 10^3/uL 0.00 Absolute Basophils (0.0-0.2) 10^3/uL 0.00 Poikilocytosis 1+ PT Cancelled INR Cancelled APTT Cancelled Sodium (136-145) mmol/L 140 Potassium (3.5-5.1) mmol/L 4.7 Chloride (98-107) mmol/L 95 L Carbon Dioxide (21.0-32.0) mmol/L 25.0 Anion Gap (3-11) mmol/L 20.0 H BUN (7-18) mg/dL 17 Creatinine (0.55-1.02) mg/dL 3.5 H Est GFR (CKD-EPI 2020) (mL/min/1.73m2) 15.55 Glucose (74-106) mg/dL 108 H Calcium (8.5-10.1) mg/dL 7.7 L Total Bilirubin (0.2-1.0) mg/dL 4.2 H AST (15-37) U/L 105 H ALT (14-59) U/L 21 Alkaline Phosphatase (46-116) U/L 158 H Total Protein (6.4-8.2) g/dL 5.0 L Albumin (3.4-5.0) g/dL 1.1 L Patient ABO/Rh Antibody Screen Range/Units 03/11/22 16:40 WBC (4.4-10.8) 10^3/uL RBC (3.93-5.22) 10^6/uL Hgb (11.2-15.7) g/dL Hct (36.0-46.0) % MCV (80-95) fL MCH (27.0-33.0) pg MCHC (32.0-36.0) % RDW (11.7-14.6) % Plt Count (130-400) 10^3/uL MPV (8.0-11.0) fL Immature Gran % Neutrophils % Band Neutrophils % Lymphocytes % Monocytes % Eosinophils % Basophils % Myelocytes % Nucleated RBC % (0.0-0.3) % Absolute Neutrophils (1.2-6.7) 10^3/uL Absolute Lymphocytes (1.2-3.4) 10^3/uL Absolute Monocytes (0.1-0.8) 10^3/uL Absolute Eosinophils (0.0-0.7) 10^3/uL Absolute Basophils (0.0-0.2) 10^3/uL Poikilocytosis PT INR APTT Sodium (136-145) mmol/L Potassium (3.5-5.1) mmol/L Chloride (98-107) mmol/L Carbon Dioxide (21.0-32.0) mmol/L Anion Gap (3-11) mmol/L BUN (7-18) mg/dL Creatinine (0.55-1.02) mg/dL Est GFR (CKD-EPI 2020) (mL/min/1.73m2) Glucose (74-106) mg/dL Calcium (8.5-10.1) mg/dL Total Bilirubin (0.2-1.0) mg/dL AST (15-37) U/L ALT (14-59) U/L Alkaline Phosphatase (46-116) U/L Total Protein (6.4-8.2) g/dL Albumin (3.4-5.0) g/dL Patient ABO/Rh B Positive Antibody Screen NEGATIVE Critical Care Time Critical Care Time Critical Care Time: Yes Total Critical Care Time: 25 Attestation: Upon my evaluation, this patient had a high probability of imminent or life-threatening deterioration, which required my direct attention, intervention, and personal management. I have personally provided 25 minutes of critical care time exclusive of time spent on separately billable procedures. Time includes review of laboratory data, radiology results, discussion with consultants, and monitoring for potential decompensation. Interventions were performed as documented.
== END 2022-03-11 19:37 | disposition expired ==
PROVIDERS: Emergency Provider Student in an Organized Health Care Education/Training Program; PCP Nurse Practitioner Family
DX: I46.9 Cardiac arrest, cause unspecified (principal); K92.2 Gastrointestinal hemorrhage, unspecified
CPT/HCPCS: 36556; 80053; 86850; 86900; 86901; 86920; 92950; 96374; 96375; 99285; 85025; 85610; 85730; J0171; P9016